=== PATIENT | female | born 1945 | race Caucasian/White ===

== ENCOUNTER → 2017-08-16 | Outpatient (CLI) | payer MEDICARE ==
--- NOTE | 2017-08-16 15:48 | Diagnostic Imaging Report ---
Parathyroid planar scan with SPECT- CT imaging. INDICATION: Hyperparathyroidism. After the intravenous administration of 20 mCi of technetium 99m sestamibi, planar imaging over the neck and the chest were performed at 20 minutes and the [address] imaging over the neck and the chest are performed at 2 hours. FINDINGS: Planar images demonstrate the normal uptake in the thyroid gland without persistent suspicious activity on the delayed phase imaging. Physiologic uptake in the salivary glands seen. SPECT/CT imaging evaluation demonstrates the no suspicious nodule with increased radiotracer uptake in the neck or chest to suggest a parathyroid adenoma. IMPRESSION: No parathyroid adenoma detected. Dictated by: Dictated on workstation # [id number]
== END ==
LOC: CARD 11:58
PROVIDERS: ATTEND Family Medicine
DX: E21.3 Hyperparathyroidism, unspecified (principal)
CPT/HCPCS: 78072

== ENCOUNTER 2019-10-03 12:58 | Outpatient (CLI) | payer MEDICARE | END 2019-10-03 13:56 | disposition home or self-care (01) | LOC: SLEEP 12:58 | PROVIDERS: ATTEND Nurse Practitioner Family | DX: G47.10 Hypersomnia, unspecified (principal) ==

== ENCOUNTER → 2022-07-14 | Outpatient (CLI) | payer MEDICARE ==
[~2022-07-14] VITALS: Ht 167.6 cm; Wt 102.5 kg
[~2022-07-14] MED LIST: ASPI-1238 PO; ATEN25TA PO; CHOL10007 PO; INSU100I29 SQ; LISI20TA26 PO; OMEP40CA6 PO; ONDA4TAB11 PO; PRAV40TA2 PO; RT-ALBUINH IH
== END ==
LOC: PREOP 05:40
PROVIDERS: ATTEND Surgery
DX: Z01.818 Encounter for other preprocedural examination (principal)

== ENCOUNTER 2022-07-20 07:47 | Day surgery (SDC) | payer MEDICARE ==
[~2022-07-20] VITALS: Ht 168 cm; Wt 102.5 kg
[2022-07-20] MEDS ORDERED: LACTATED RINGERS 1,000 ML IV STA (07:49)
[2022-07-20] MEDS ORDERED: HURRICAINE EXT TUBE (BENZOCAINE) XX PRN (08:00)
[2022-07-20 08:05] VITALS: BP 171/72
--- NOTE | 2022-07-20 08:35 | Progress Note-Pre Operative ---
Pre-Operative Progress Note Date of Available H&P: Jun 23, 2022 Date H&P Reviewed: Jul 20, 2022 Time H&P Reviewed: 08:35 History & Physical: H&P Reviewed, Patient Examed, No changes noted Pre-Operative Diagnosis: occult blood in stools, iron def anemia GINA MOTTA DO Jul 20, 2022 08:35
[2022-07-20] MEDS ORDERED: PROPOFOL INJECTION 50 ML IV ONE (09:46)
[2022-07-20 10:25] VITALS: BP 138/72
[2022-07-20 10:30] VITALS: BP 150/83
--- NOTE | 2022-07-20 10:30 | Discharge Inst-Simple/Standard ---
Discharge Inst-Standard Patient Instructions/Follow Up Plan of Care/Instructions/FU: 1 week Priscila Activity as Tolerated: Yes Discharge Diet: Regular Diet GINA MOTTA DO Jul 20, 2022 10:30
[2022-07-20 10:45] VITALS: BP 162/68
--- NOTE | 2022-07-20 11:53 | Anesthesia-General Post-Op ---
MAC Patient Condition Mental Status/LOC: Same as Preop Cardiovascular: Satisfactory Nausea/Vomiting: Absent Respiratory: Satisfactory Pain: Controlled Complications: Absent Post Op Complications Complications None Follow Up Care/Instructions Patient Instructions None needed. Anesthesiology Discharge Order Discharge Order Patient is doing well, no complaints, stable vital signs, no apparent adverse anesthesia problems. No complications reported per nursing. ENRIKE VILLAR CRNA Jul 20, 2022 11:53
--- NOTE | 2022-07-20 14:28 | OPERATIVE REPORT ---
DATE OF SERVICE: 07/20/2022 PREOPERATIVE DIAGNOSES: Occult positive stool, iron deficiency anemia. POSTOPERATIVE DIAGNOSES: Normal EGD, ascending colon mass, sigmoid polyp, diverticulosis. PROCEDURES: EGD with biopsies, colonoscopy with cold biopsy of the ascending colon mass with Justa inking x2 and hot biopsy polypectomy of sigmoid colon polyp x1. SURGEON: Gina rFancois DO ANESTHESIA: Per TELEPHONE INFORMATION CLERK. ESTIMATED BLOOD LOSS: Scant. COMPLICATIONS: None. INDICATIONS: The patient is a 77-year-old female with iron deficiency anemia and occult positive stool. She understands risks and benefits of procedure and wishes to proceed. Consent was signed in the chart. DESCRIPTION OF PROCEDURE: The patient was taken to the endoscopy suite, placed in left lateral recumbent position. Timeout was performed. Scope was inserted in mouth, down the esophagus, stomach and into the duodenum without difficulty. There were no polyps, masses or ulcerations within the duodenum. Scope was slowly retracted back into the stomach where it was further insufflated. No polyps, masses or ulcerations in the stomach. Biopsy of the antrum was obtained. Scope was retroflexed noting no other pathology. Scope was returned to its normal position, slowly withdrawn to distal esophagus. Biopsy of the GE junction was obtained. Scope was slowly retracted back until completely removed noting no other pathology. Digital rectal exam was performed. No palpable polyps, masses or ulcerations. Scope was inserted into the rectum, where it advanced all the way to cecum with minimal difficulty. Prep was adequate. Scope was slowly retracted back. No polyps, masses or ulcerations in the cecum. In the ascending colon, large mass circumferential but nonobstructing was present. Multiple cold biopsies were obtained. Just distal to this area, Justa ink tattoo was performed 1 mL each in two areas for a total of 2 mL of Justa ink was injected. Scope was then slowly continuously retracted back. No polyps, masses or ulcerations within the remainder of the ascending, transverse and descending colon. In the sigmoid colon, moderate amount of diverticulosis present. Also, small polyp was present, which hot biopsy polypectomy was performed. Scope was then continuously retracted back until in the rectum where it was also retroflexed noting no other pathology. Scope was returned to its normal position, slowly withdrawn until completely removed. The patient tolerated the procedure well without any complications, taken to recovery room in stable condition. RECOMMENDATIONS: The patient will need biopsies. Suspect this to be a colon mass. If biopsy does not demonstrate this, we would rebiopsy. Also, we will get lab work and further evaluation for metastasis. Job ID: [id number] DocumentID: [id number] Dictated Date: 07/20/2022 10:33:28 Rn Progressive Care Unit Date: 07/20/2022 14:28:11 Dictated By: GINA FRANCOIS DO
== END 2022-07-20 11:45 ==
LOC: ENDO 07:47
PROVIDERS: ATTEND Surgery
DX: D12.2 Benign neoplasm of ascending colon (principal); D12.5 Benign neoplasm of sigmoid colon; K57.30 Diverticulosis of large intestine without perforation or abscess without bleeding; D50.9 Iron deficiency anemia, unspecified; K92.1 Melena; Z28.311 Partially vaccinated for COVID-19; G47.33 Obstructive sleep apnea (adult) (pediatric); Z79.899 Other long term (current) drug therapy
CPT/HCPCS: 88305; 88341; 88342

== ENCOUNTER → 2022-08-10 | Outpatient (CLI) | payer MEDICARE ==
[~2022-08-10] MED LIST changes: +CATHETER FLUSH 10 ML SYR IV PRN; +HOLD METFORMIN - RECEIVED CONTRAST 20 ML VIAL IV SCH; +IOHEXOL 350 MG/ML 100 ML (OMNIPAQUE 350) VIAL IV ONE; +NS 100 ML (IVPB) BAG IV ONE
[2022-08-10 07:53] LABS: CREATININE SERUM 1.04 MG/DL (0.60-1.30)
--- NOTE | 2022-08-10 12:42 | Diagnostic Imaging Report ---
PROCEDURE: CT chest, abdomen, and pelvis with contrast. TECHNIQUE: Multiple contiguous axial images were obtained through the chest, abdomen, and pelvis after the administration of intravenous contrast. Auto Exposure Controls were utilized during the CT exam to meet ALARA standards for radiation dose reduction. INDICATION: Recent diagnosis of colon carcinoma. No prior studies are available for comparison. CT CHEST: No axillary lymphadenopathy is detected. No mediastinal or hilar lymphadenopathy is detected. No pericardial or pleural fluid is identified. No pulmonary nodules, masses or infiltrates are detected. CT abdomen and pelvis: No focal liver mass is detected. Gallbladder is unremarkable. No biliary ductal dilatation is seen. Pancreas and spleen are unremarkable. No adrenal mass is detected. Right kidney contains a 5.9 cm cyst. Aorta is partially calcified but nonaneurysmal. No central, retroperitoneal or mesenteric lymphadenopathy is seen. No definite iliac or inguinal lymphadenopathy is detected. The uterus and bladder are unremarkable. There is no free fluid or fluid collection. There is extensive diverticulosis of the descending and sigmoid colon but no evidence of acute diverticulitis. There are some benign calcifications in the left adnexa. IMPRESSION: 1. No evidence of thoracic lymphadenopathy or pulmonary metastatic disease. 2. No evidence of abdominal or pelvic lymphadenopathy or metastatic disease. 3. Right renal cyst. 4. Uncomplicated diverticulosis. Dictated by: Dictated on workstation # [id number]
== END ==
LOC: RAD 08:45
PROVIDERS: ATTEND Surgery
DX: N28.1 Cyst of kidney, acquired (principal); K57.30 Diverticulosis of large intestine without perforation or abscess without bleeding; C18.9 Malignant neoplasm of colon, unspecified
CPT/HCPCS: 36415; 71260; 74177; 82565; 84520

== ENCOUNTER → 2022-08-16 | Outpatient (CLI) | payer MEDICARE ==
[~2022-08-16] MED LIST changes: -CATHETER FLUSH 10 ML SYR IV PRN; -HOLD METFORMIN - RECEIVED CONTRAST 20 ML VIAL IV SCH; -IOHEXOL 350 MG/ML 100 ML (OMNIPAQUE 350) VIAL IV ONE; -NS 100 ML (IVPB) BAG IV ONE
--- NOTE | 2022-08-17 13:09 | Diagnostic Imaging Report ---
Indication: Malignant neoplasm of the colon, initial staging. Serum blood glucose level at the time of injection is 134 mg/dL. Patient was administered 13.2 mCi F-18 FDG intravenously and PET imaging was performed from the top of skull to mid thighs. Noncontrast CT was performed for attenuation correction and anatomic correlation. There is symmetric activity throughout the brain. Soft tissues of the neck are unremarkable. No mediastinal or hilar hypermetabolism is identified. No definite pulmonary parenchymal hypermetabolic focus is seen. There is physiologic activity throughout the gastrointestinal and genitourinary tracts of the abdomen and pelvis. There is hypermetabolism noted in the right colon with an SUV max of 17. Uncertain if this represents patient's known colonic malignancy versus gastrointestinal excretion. There are diverticula of the sigmoid colon. No other abnormal areas of uptake are identified. Bilateral lower extremities are unremarkable. IMPRESSION: There is right colonic activity which may represent patient's known malignancy versus gastrointestinal excretion. No hypermetabolic lymphadenopathy in the chest, abdomen or pelvis is identified. Dictated by: Dictated on workstation # [id number]
== END ==
LOC: RAD 08-09 09:45
PROVIDERS: ATTEND Surgery
DX: C18.9 Malignant neoplasm of colon, unspecified (principal)
CPT/HCPCS: 78816; A9552

== ENCOUNTER 2022-08-25 05:52 | Outpatient (CLI) | payer MEDICARE ==
[~2022-08-25] VITALS: Ht 167.6 cm; Wt 96.4 kg
[~2022-08-25 05:52] MED LIST changes: +ALBU8.5H6 IH; -RT-ALBUINH IH
[2022-08-26] MEDS ORDERED: DORZ10DR22 OP (09:54)
[2022-08-26] MEDS ORDERED: LATA5DRO OP (09:54)
== END 2022-08-26 09:59 | disposition home or self-care (01) ==
LOC: PREOP 05:52
PROVIDERS: ATTEND Surgery
DX: Z01.818 Encounter for other preprocedural examination (principal)

== ENCOUNTER 2022-09-01 06:00 | Inpatient (IN) | payer MEDICARE ==
[2022-09-01] VITALS (12 sets, daily range): BP systolic 104–152; BP diastolic 50–88
[~2022-09-01] VITALS: Ht 167.7 cm; Wt 96.4 kg
[~2022-09-01 06:00] MED LIST changes: +DORZ10DR22 OP; +LATA5DRO OU
--- OUTSIDE RECORDS SUMMARY | 2022-09-01 06:03 | XMS REPORT | CCD ---
Author Author Libia Gonzalez Organization Oumou Gonzalez MD, [facility] Address [address] [place] [address] Phone Care Team Providers Care Port Steward Name Role Phone Oumou Gonzalez PP Unavailable CCM Unavailable Summary Purpose Interface Exchange Insurance Providers Payer name Policy type / Coverage type Covered democrat ID Effective Begin Date Effective End Date WPS Medicare Part B Medicare Part B [id number] 2018 Unkno wn AARP Medicare Part B [id number] 2018 Unknown Family history Mother Diagnosis Age At Onset Heart Attack Unknown Hyperlipidemia Unknown Diabetes mellitus Type 2 Unknown Arthritis Unknown Hypertension Unknown Father Diagnosis Age At Onset Skin cancer Unknown Hyperlipidemia Unknown Arthritis Unknown Hypertension Unknown Son Diagnosis Age At Onset Cancer Unknown Hyperlipidemia Unknown Social History Social History Element Codes Description Effective Dates Marital status Unknown Beau Matiaskarishma 08/03/2017 Number of children Unknown 2 08/03/[address]: 211163453 Unknown if ever smoked 07/[address]: 839390824 Never drinks alcohol 2016 Allergies, Adverse Reactions, Alerts Substance Reaction Codes Entered Date Inactivated Date Status * NO KNOWN FOOD ALLERGIES Unknown 08/03/2017 No Inactiv e Date Active * NO KNOWN ENVIRONMENTAL ALLERGIES Unknown 08/03/2017 N o Inactive Date Active PENICILLINS nausea, diarrhea Unknown 08/03/2017 No Inactive Date A ctive Azopt hives RxNorm: 557687 11/30/2021 No Inactive Date Acti ve Problems Condition Codes Effective Dates Condition Status Vitamin B12 deficiency anemia due to intrinsic factor deficiency ICD-10: D51.0 ICD-9: 281.0 06/09/2022 Active Flu vaccine need ICD-10: Z23 ICD-9: V04.81 08/01/2017 Active Anemia ICD-10: D64.9 ICD-9: 285.9 06/03/2022 Active Other vitamin B12 deficiency anemias ICD-10: D51.8 ICD-9: 281.1 06/23/2022 Active Essential (primary) hypertension ICD-10: I10 ICD-9: 401.1 08/03/2017 Active Mixed hyperlipidemia ICD-10: E78.2 ICD-9: 272.2 02/01/2019 Active Type 2 diabetes mellitus without complications ICD-10: E11.9 ICD-9: 250.00 08/03/2017 Active Essential (primary) hypertension ICD-10: I10 ICD-9: 401.9 06/02/2021 Active Generalized anxiety disorder ICD-10: F41.1 ICD-9: 300.02 06/02/2021 Active 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 ICD-9: 388.8 12/01/2021 Active Hypertension Unknown 06/02/2021 Active Primary hyperparathyroidism ICD-10: E21.0 ICD-9: 252.01 08/03/2017 Active Other insomnia ICD-10: G47.09 ICD-9: 327.09 02/01/2019 Active Diabetes Unknown 08/03/2017 Active Encounter for immunization ICD-10: Z23 ICD-9: V03.9 08/03/2017 Active Medications Medication Codes Instructions Start Date Stop Date Status Fill Instructions cyanocobalamin (vit B-12) 1,000 mcg/mL injection solution Rx Norm: 643630 Take Milliliter(s) Injection 08/18/2022 08/18/2022 Inactive atenolol 25 mg tablet RxNorm: 052415 Take 1 Tablet(s) Oral ever y morning 08/10/2022 05/06/2023 Active This prescription wa s filled on 05/19/2022. Any refills authorized will be placed on file. cyanocobalamin (vit B-12) 1,000 mcg/mL injection solution Rx Norm: 006850 Take Milliliter(s) Injection 08/04/2022 08/04/2022 Inactive cyanocobalamin (vit B-12) 1,000 mcg/mL injection solution Rx Norm: 504943 Take Milliliter(s) Injection 07/21/2022 07/21/2022 Inactive cyanocobalamin (vit B-12) 1,000 mcg/mL injection solution Rx Norm: 576336 Take Milliliter(s) Injection 07/07/2022 07/07/2022 Inactive cyanocobalamin (vit B-12) 1,000 mcg/mL injection solution Rx Norm: 515960 Take Milliliter(s) Injection 06/23/2022 06/23/2022 Inactive cyanocobalamin (vit B-12) 1,000 mcg/mL injection solution Rx Norm: 971318 Take Milliliter(s) Injection 06/09/2022 06/09/2022 Inactive lisinopril 20 mg tablet RxNorm: 085693 Take 1 Tablet(s) Oral at bed time 05/18/2022 05/12/2023 Active This prescription wa s filled on 02/24/2022. Any refills authorized will be placed on file. pravastatin 40 mg tablet RxNorm: 237895 Take 1 Tablet(s) Oral a t bed time 04/08/2022 04/02/2023 Active This prescription wa s filled on 01/14/2022. Any refills authorized will be placed on file. omeprazole 40 mg capsule,delayed release RxNorm: 431352 Take 1 Capsule(s) Oral every morning 02/15/2022 08/13/2022 Inactive This prescriptio n was filled on 11/24/2021. Any refills authorized will be placed on file. Levemir FlexTouch U-100 Insulin 100 unit/mL (3 mL) sub cutaneous pen RxNorm: 711059 Unit(s) 15 unit(s) SubQ BID 02/11/2022 02/11/2022 Inactive Levemir FlexTouch U-100 Insulin 100 unit/mL (3 mL) sub cutaneous pen RxNorm: 226682 Unit(s) 14 unit(s) SubQ BID 12/16/2021 12/16/2021 Inactive dicyclomine 10 mg capsule RxNorm: 158152 Take 1 Capsule (s) Oral three times a day as needed 08/24/2021 09/02/2021 Inactive omeprazole 40 mg capsule,delayed release RxNorm: 281307 TAKE 1 CAPSULE IN THE MORNING 07/07/2021 07/07/2021 Inactive This prescriptio n was filled on 02/23/2021. Any refills authorized will be placed on file. Zofran 4 mg tablet RxNorm: 926022 1 Tablet(s) Oral Every 6 hrs as needed 07/07/2021 07/07/2021 Inactive Azopt 1 % eye drops,suspension RxNorm: 954618 1 Drop(s) ophthalmic (eye) two times a day 07/07/2021 11/30/2021 Inactive atenolol 25 mg tablet RxNorm: 152299 1T PO QAM 07/07/2021 07/07/2021 I nactive dicyclomine 10 mg capsule RxNorm: 177477 1 Capsule(s) O ral three times a day as needed 07/07/2021 07/16/2021 Inactive Semglee Pen U-100 Insulin 100 unit/mL (3 mL) subcutaneous Rx Norm: 8134809 25 Unit(s) Subcutaneous every night at bedtime 06/12/2021 07/11/2021 Inac tive 5 prefilled pens. start when levemir used up Semglee Pen U-100 Insulin 100 unit/mL (3 mL) subcutaneous Rx Norm: 8566543 25 Unit(s) Subcutaneous every night at bedtime 06/12/2021 06/12/2021 Inac tive 5 prefilled pens. start when levemir used up dicyclomine 10 mg capsule RxNorm: 627075 1 Capsule(s) O ral three times a day as needed 06/05/2021 06/14/2021 Inactive dicyclomine 10 mg capsule RxNorm: 338644 1 Capsule(s) O ral three times a day as needed 06/05/2021 06/05/2021 Inactive Lexapro 5 mg tablet RxNorm: 510413 Take 1 Tablet(s) Oral every evening 06/02/2021 11/28/2021 Inactive Xanax 0.25 mg tablet RxNorm: 279931 Take 1 Tablet(s) Oral BID PRN 0 06/02/2021 No Stop Date Active Vyzulta 0.024 % eye drops RxNorm: 0456697 1 Drop(s) opht halmic (eye) every night at bedtime 06/02/2021 No Stop Date Active omeprazole 40 mg capsule,delayed release RxNorm: 616594 TAKE 1 CAPSULE IN THE MORNING 05/18/2021 07/06/2021 Inactive This prescriptio n was filled on 02/23/2021. Any refills authorized will be placed on file. lisinopril 20 mg tablet RxNorm: 651897 Take 1 Tablet(s) Oral at bed time 05/06/2021 05/06/2021 Inactive pravastatin 40 mg tablet RxNorm: 180027 Take 1 Tablet(s) Oral a t bed time 04/13/2021 04/13/2021 Inactive This prescription wa s filled on 01/20/2021. Any refills authorized will be placed on file. atenolol 25 mg tablet RxNorm: 264919 1T PO QAM 02/02/2021 07/06/2021 I nactive Levemir FlexTouch U-100 Insulin 100 unit/mL (3 mL) sub cutaneous pen RxNorm: 537275 Unit(s) 14 unit(s) SubQ BID 12/12/2020 06/11/2021 Inactive Levemir FlexTouch U-100 Insulin 100 unit/mL (3 mL) sub cutaneous pen RxNorm: 389368 Unit(s) 14 unit(s) SubQ BID 11/28/2020 11/28/2020 Inactive Zofran 4 mg tablet RxNorm: 378385 1 Tablet(s) Oral Every 6 hrs as needed 11/27/2020 07/06/2021 Inactive omeprazole 40 mg capsule,delayed release RxNorm: 034823 TAKE 1 CAPSULE IN THE MORNING 10/30/2020 10/30/2020 Inactive BD Ultra-Fine Short Pen Needle 31 gauge x 5/16" RxNorm: Miscellaneous USE TWICE DAILY 09/24/2020 07/21/2021 Inactive BD Ultra-Fine Short Pen Needle 31 gauge x 5/16" RxNorm: Miscellaneous USE TWICE DAILY 09/24/2020 09/23/2020 Inactive Levemir FlexTouch U-100 Insulin 100 unit/mL (3 mL) sub cutaneous pen RxNorm: 702295 Unit(s) 12 unit(s) SubQ BID 07/18/2020 07/24/2020 Inactive atenolol 25 mg tablet RxNorm: 948130 1T PO QAM 05/07/2020 01/31/2021 I nactive pravastatin 40 mg tablet RxNorm: 356447 1T PO QHS 04/28/2020 020 Inactive lisinopril 20 mg tablet RxNorm: 378971 1T PO QHS 04/28/2020 04/28/2020 Inactive omeprazole 40 mg capsule,delayed release RxNorm: 693665 TAKE 1 CAPSULE IN THE MORNING 01/23/2020 10/18/2020 Inactive omeprazole 40 mg capsule,delayed release RxNorm: 148660 TAKE 1 CAPSULE IN THE MORNING 1 Tablet(s) Oral every day 08/06/2019 01/22/2020 Inactive Generic For:PRILOSEC 40 MG CAPSULE 12/21/2018 1:47:16 PM pravastatin 40 mg tablet RxNorm: 201343 TAKE 1 TABLET BY MOUTH DAILY AT BEDTIME 07/18/2019 04/12/2020 Inactive Generic For:*PRAVACH OL 40 MG TABLET 07/18/2019 9:41:57 AM Levemir FlexTouch U-100 Insulin 100 unit/mL (3 mL) sub cutaneous pen RxNorm: 465762 Unit(s) 12 unit(s) SubQ BID 07/10/2019 07/17/2020 Inactive lisinopril 20 mg tablet RxNorm: 668679 1 Tablet(s) PO QHS 05/10/2019 04/27/2020 Inactive atenolol 25 mg tablet RxNorm: 255486 TAKE 1 TABLET BY MOUTH YVAN RY MORNING 05/10/2019 02/03/2020 Inactive Generic For:TENORMIN 25 MG TABLET 05/10/2019 9:38:15 AM Pen Needle 31 gauge x 5/16" RxNorm: 1 DAILY 02/16/2019 05/10/2020 Inactive WE NEED NEW RX PLEASE...PT STATES SHE IS USING BID NOW THANK YOU 02/16/2019 2:41:18 PM atenolol 25 mg tablet RxNorm: 233813 1 Tablet(s) PO QAM 01/02/2019 Inactive Pen Needle 31 gauge x 5/16" RxNorm: 1 Miscellaneous daily 10/201802/15/2019 Inactive omeprazole 40 mg capsule,delayed release RxNorm: 518844 TAKE 1 CAPSULE IN THE MORNING 12/22/2018 07/19/2019 Inactive Generic For:PRIL OSEC 40 MG CAPSULE 12/21/2018 1:47:16 PM pravastatin 40 mg tablet RxNorm: 512641 1 Tablet(s) PO QHS 10/30/1907/17/2019 Inactive Levemir FlexTouch U-100 Insulin 100 unit/mL (3 mL) sub cutaneous pen RxNorm: 385226 Unit(s) 12 unit(s) SubQ BID 05/18/2018 07/09/2019 Inactive Levemir FlexTouch U-100 Insulin 100 unit/mL (3 mL) sub cutaneous pen RxNorm: 436874 10 unit(s) SubQ BID 05/17/2018 05/17/2018 Inactive omeprazole 40 mg capsule,delayed release RxNorm: 184216 1 Capsu le(s) PO QAM 04/25/2018 11/20/2018 Inactive lisinopril 20 mg tablet RxNorm: 784284 1 Tablet(s) PO QHS 04/19/2018 04/13/2019 Inactive atenolol 25 mg tablet RxNorm: 549724 1 Tablet(s) PO QAM 12/14/2017 Inactive lisinopril 10 mg tablet RxNorm: 669762 1 Tablet(s) PO QHS 12/14/2017 04/18/2018 Inactive pravastatin 40 mg tablet RxNorm: 196631 1 Tablet(s) PO QHS 12/14/19 18 09/09/2018 Inactive Levemir FlexTouch U-100 Insulin 100 unit/mL (3 mL) sub cutaneous pen RxNorm: 180302 10 Unit(s) SQ QAM & QHS 12/08/2017 05/16/2018 Inactive Pen Needle 31 gauge x 5/16" RxNorm: 1 Miscellaneous daily 10/2512/21/2018 Inactive Pen Needle 31 gauge x 5/16" RxNorm: 1 Miscellaneous daily 10/2502/12/2019 Inactive Phenergan 25 mg rectal suppository RxNorm: 314800 1 Suppository RTL TID 10/20/2017 10/26/2017 Inactive Phenergan 25 mg rectal suppository RxNorm: 341622 1 Suppository RTL TID 10/20/2017 10/19/2017 Inactive omeprazole 40 mg capsule,delayed release RxNorm: 532473 1 Capsu le(s) PO QAM 10/11/2017 04/08/2018 Inactive Vitamin D2 50,000 unit capsule RxNorm: 630611 1 Capsule(s) PO Q W x12 weeks 08/10/2017 08/09/2017 Inactive Take with daily lisha min d Vitamin D2 50,000 unit capsule RxNorm: 072281 1 Capsule(s) PO Q W x12 weeks 08/10/2017 11/07/2017 Inactive Take with daily lisha min d CoQ-10 oral RxNorm: 04484 oral 04/19/2018 Active Vitamin D3 1,000 unit tablet RxNorm: 116022 1 Tablet(s) PO QAM 2016 Active Rhopressa 0.02 % eye drops RxNorm: 2777693 1 Drop(s) eac h eye ophthalmic (eye) QAM 04/19/2018 Active ibuprofen 200 mg tablet RxNorm: 894073 1-2 Tablet(s) PO BID as needed 08/03/2017 Active multivitamin oral RxNorm: 71414 oral 08/03/2017 Active dorzolamide-timolol ophthalmic (eye) RxNorm: 750941 ophthalmic (eye ) 08/06/2019 Active aspirin 81 mg tablet RxNorm: 738942 1 Tablet(s) PO QHS 08/03/2017 Active Century Mature oral RxNorm: oral 06/01/2022 Active lisinopril 10 mg tablet RxNorm: 077540 1 Tablet(s) PO QHS 12/14/2017 12/13/2017 Inactive Levemir FlexTouch 100 unit/mL (3 mL) subcutaneous insulin pe n RxNorm: 007941 8 Unit(s) SQ QAM & QHS 12/08/2017 12/07/2017 Inactive atenolol 25 mg tablet RxNorm: 975188 1 Tablet(s) PO QAM 12/14/2017 Inactive timolol ophthalmic (eye) RxNorm: 44675 ophthalmic (eye) 04/19/2018 Inactive Lumigan 0.01 % eye drops RxNorm: 1012588 1 Drop(s) ophth almic (eye) bilat eyes QHS 06/02/2021 06/01/2021 Inactive pravastatin 40 mg tablet RxNorm: 238765 1 Tablet(s) PO QHS 12/14/19 18 12/13/2017 Inactive Istalol 0.5 % eye drops RxNorm: 446790 1 Drop(s) ophtha lmic (eye) bilat eyes QAM 12/06/2017 12/05/2017 Inactive omeprazole 40 mg capsule,delayed release RxNorm: 584771 1 Capsu le(s) PO QAM 10/11/2017 10/10/2017 Inactive Medication Administered Medication Codes Instructions Start Date Status cyanocobalamin (vit B-12) 1,000 mcg/mL injection solution Rx Norm: 235459 Milliliter 08/18/2022 Active cyanocobalamin (vit B-12) 1,000 mcg/mL injection solution Rx Norm: 795184 Milliliter 08/04/2022 No longer Active cyanocobalamin (vit B-12) 1,000 mcg/mL injection solution Rx Norm: 920305 Milliliter 07/21/2022 No longer Active cyanocobalamin (vit B-12) 1,000 mcg/mL injection solution Rx Norm: 592287 Milliliter 07/07/2022 No longer Active cyanocobalamin (vit B-12) 1,000 mcg/mL injection solution Rx Norm: 557415 Milliliter 06/23/2022 No longer Active cyanocobalamin (vit B-12) 1,000 mcg/mL injection solution Rx Norm: 154472 Milliliter 06/09/2022 No longer Active Immunizations Vaccine Codes Dose Date Status Influenza CVX: 197 0.5 08/04/2022 Complete Influenza CVX: 197 0.5 07/07/2021 Complete Influenza CVX: 197 0.5 07/10/2019 Complete Influenza CVX: 197 0.5 07/03/2018 Complete Pneumococcal (Adult) CVX: 133 0.5 08/03/2017 Complet e Influenza CVX: 197 0.5 08/01/2017 Complete Influenza CVX: 197 07/24/2016 Pneumococcal CVX: 33 07/24/2016 Results Observation Observation Code Item Item Code Result Date S ervice Location Cbc With Differential Ord2 WBC 9.98 K/ul 07/21/20 22 Unknown Cbc With Differential Ord2 RBC 3.81 M/ul 07/21/20 22 Unknown Cbc With Differential Ord2 HGB 9.2 g/dl 07/21/20 22 Unknown Cbc With Differential Ord2 HCT 31.1 % 07/21/20 22 Unknown Cbc With Differential Ord2 Neut% 55.5 % 07/21/20 22 Unknown Cbc With Differential Ord2 Lymph% 34.7 % 07/21/20 22 Unknown Cbc With Differential Ord2 MCV 81.6 fl 07/21/20 22 Unknown Cbc With Differential Ord2 MCH 24.1 pg 07/21/20 22 Unknown Cbc With Differential Ord2 Titus% 7.2 % 07/21/20 22 Unknown Cbc With Differential Ord2 Eos% 2.1 % 07/21/20 22 Unknown Cbc With Differential Ord2 MCHC 29.6 pg 07/21/20 22 Unknown Cbc With Differential Ord2 PLT 452 K/ul 07/21/20 22 Unknown Cbc With Differential Ord2 Baso% 0.5 % 07/21/20 22 Unknown Cbc With Differential Ord2 Neut ABS# 5.54 K/ul 07/21/20 22 Unknown Cbc With Differential Ord2 RDW 14.8 % 07/21/20 22 Unknown Cbc With Differential Ord2 Lymph ABS# 3.46 K/ul 022 Unknown Cbc With Differential Ord2 Titus ABS# 0.7 K/ul 07/21/20 22 Unknown Cbc With Differential Ord2 Eos ABS# 0.2 K/ul 07/21/20 22 Unknown Cbc With Differential Ord2 Baso ABS# 0.1 K/ul 07/21/20 22 Unknown B12 Qgs979 B12 163.00 pg/ml 06/04/2022 Unknow n Tibc Ord40 Iron 37 ug/dl 06/03/2022 Unknown Tibc Ord40 UIBC 420 ug/dL 06/03/2022 Unknown Tibc Ord40 TIBC 457 ug/dL 06/03/2022 Unknown Tibc Ord40 Fe-%Sat 8.1 % 06/03/2022 Unknown Ferritin Ord22 FERRITIN 11.3 ng/mL 06/03/2022 Unknown Cbc With Differential Ord2 WBC 8.69 K/ul 06/01/20 22 Unknown Cbc With Differential Ord2 RBC 3.59 M/ul 06/01/20 22 Unknown Cbc With Differential Ord2 HGB 9.1 g/dl 06/01/20 22 Unknown Cbc With Differential Ord2 Neut% 62.8 % 06/01/20 22 Unknown Cbc With Differential Ord2 HCT 29.9 % 06/01/20 22 Unknown Cbc With Differential Ord2 MCV 83.3 fl 06/01/20 22 Unknown Cbc With Differential Ord2 Lymph% 28.8 % 06/01/20 22 Unknown Cbc With Differential Ord2 Titus% 5.6 % 06/01/20 22 Unknown Cbc With Differential Ord2 MCH 25.3 pg 06/01/20 22 Unknown Cbc With Differential Ord2 Eos% 2.5 % 06/01/20 22 Unknown Cbc With Differential Ord2 MCHC 30.4 pg 06/01/20 22 Unknown Cbc With Differential Ord2 Baso% 0.3 % 06/01/20 22 Unknown Cbc With Differential Ord2 PLT 362 K/ul 06/01/20 22 Unknown Cbc With Differential Ord2 Neut ABS# 5.45 K/ul 06/01/20 22 Unknown Cbc With Differential Ord2 RDW 14.1 % 06/01/20 22 Unknown Cbc With Differential Ord2 Lymph ABS# 2.50 K/ul 022 Unknown Cbc With Differential Ord2 Titus ABS# 0.5 K/ul 06/01/20 22 Unknown Cbc With Differential Ord2 Eos ABS# 0.2 K/ul 06/01/20 22 Unknown Cbc With Differential Ord2 Baso ABS# 0.0 K/ul 06/01/20 22 Unknown %Hba1C Sfd668 % HbA1c 83322-7 7.0 % 06/01/2022 Unknown %Hba1C Qua989 Gluc Ave 154 mg/dL 06/01/2022 Unknown Tsh Ord6 TSH (3rd IS) 1.66 uIU/mL 06/01/2022 Unkn own Lipid Ord30 CHOL 118 mg/dL 06/01/2022 Unknown Lipid Ord30 HDL 40.0 mg/dl 06/01/2022 Unknown Lipid Ord30 TRIG 200 mg/dL 06/01/2022 Unknown Lipid Ord30 LDL 38 mg/dL 06/01/2022 Unknown Lipid Ord30 C/HDL 3.0 Ratio 06/01/2022 Unknown Comp Metabolic Cdi276 NA 133 mEq/L 06/01/2022 Unkn own Comp Metabolic Jdu348 K 4.6 mEq/L 06/01/2022 Unkn own Comp Metabolic Wqx654 CL 102 mEq/L 06/01/2022 Unkn own Comp Metabolic Mmb100 CO2 25.0 mEq/L 06/01/2022 Unk nown Comp Metabolic Eba192 ANION GAP 11 06/01/2022 Unkn own Comp Metabolic Lmb541 GLUCOSE 99 mg/dL 06/01/2022 Unkn own Comp Metabolic Yyj626 Creat 1.0 mg/dL 06/01/2022 Unkn own Comp Metabolic Fgt545 eGFR 60 ml/min/1.73m2 06/01/20 22 Unknown Comp Metabolic Yra546 BUN 15 mg/dL 06/01/2022 Unkn own Comp Metabolic Jxb636 B/C Ratio 15.6 Ratio 06/01/2022 Unk nown Comp Metabolic Hax539 CALCIUM 9.8 mg/dL 06/01/2022 Unkn own Comp Metabolic Cbw559 ALK PHOS 84 U/L 06/01/2022 Unkn own Comp Metabolic Afa810 AST(SGOT) 16 U/L 06/01/2022 Unkn own Comp Metabolic Suv044 ALT(SGPT) 13 U/L 06/01/2022 Unkn own Comp Metabolic Run743 BILI T 0.6 mg/dL 06/01/2022 Unkn own Comp Metabolic Fba536 ALBUMIN 4.1 g/dL 06/01/2022 Unkn own Comp Metabolic Pwo195 TPRO 6.5 g/dL 06/01/2022 Unkn own Comp Metabolic Sih616 GLOB 2.4 g/dL 06/01/2022 Unkn own Comp Metabolic Xqw178 A/G Ratio 1.7 Ratio 06/01/2022 Unkn own Comp Metabolic Uar600 Osmo 267 mOsmo 06/01/2022 Unkn own SARS-CoV-2 IgG TQS7674 SARS-CoV-2 IgG 30.74 S/CO 2 Unknown Comp Metabolic Ssy806 NA 136 mEq/L 12/01/2021 Unkn own Comp Metabolic Rjl661 K 4.8 mEq/L 12/01/2021 Unkn own Comp Metabolic Yfz033 CL 103 mEq/L 12/01/2021 Unkn own Comp Metabolic Kot004 CO2 24.0 mEq/L 12/01/2021 Unk nown Comp Metabolic Wta096 ANION GAP 14 12/01/2021 Unkn own Comp Metabolic Uxm792 GLUCOSE 95 mg/dL 12/01/2021 Unkn own Comp Metabolic Gqi455 Creat 0.9 mg/dL 12/01/2021 Unkn own Comp Metabolic Yrk015 eGFR 62 ml/min/1.73m2 12/01/19 22 Unknown Comp Metabolic Ddo803 BUN 13 mg/dL 12/01/2021 Unkn own Comp Metabolic Ksc679 B/C Ratio 13.8 Ratio 12/01/2021 Unk nown Comp Metabolic Bvn804 CALCIUM 9.7 mg/dL 12/01/2021 Unkn own Comp Metabolic Kvb832 ALK PHOS 89 U/L 12/01/2021 Unkn own Comp Metabolic Wjy653 AST(SGOT) 16 U/L 12/01/2021 Unkn own Comp Metabolic Oxx787 ALT(SGPT) 11 U/L 12/01/2021 Unkn own Comp Metabolic Gxi349 BILI T 0.7 mg/dL 12/01/2021 Unkn own Comp Metabolic Oxz086 ALBUMIN 4.2 g/dL 12/01/2021 Unkn own Comp Metabolic Gsj032 TPRO 6.7 g/dL 12/01/2021 Unkn own Comp Metabolic Fjo492 GLOB 2.5 g/dL 12/01/2021 Unkn own Comp Metabolic Zjm699 A/G Ratio 1.7 Ratio 12/01/2021 Unkn own Comp Metabolic Iyc727 Osmo 272 mOsmo 12/01/2021 Unkn own Cbc With Differential Ord2 WBC 8.38 K/ul 12/01/19 22 Unknown Cbc With Differential Ord2 RBC 4.20 M/ul 12/01/19 22 Unknown Cbc With Differential Ord2 HGB 11.6 g/dl 12/01/19 22 Unknown Cbc With Differential Ord2 Neut% 55.2 % 12/01/19 22 Unknown Cbc With Differential Ord2 HCT 36.6 % 12/01/19 22 Unknown Cbc With Differential Ord2 Lymph% 33.8 % 12/01/19 22 Unknown Cbc With Differential Ord2 MCV 87.1 fl 12/01/19 22 Unknown Cbc With Differential Ord2 Titus% 7.2 % 12/01/19 22 Unknown Cbc With Differential Ord2 MCH 27.6 pg 12/01/19 22 Unknown Cbc With Differential Ord2 MCHC 31.7 pg 12/01/19 22 Unknown Cbc With Differential Ord2 Eos% 3.6 % 12/01/19 22 Unknown Cbc With Differential Ord2 PLT 265 K/ul 12/01/19 22 Unknown Cbc With Differential Ord2 Baso% 0.2 % 12/01/19 22 Unknown Cbc With Differential Ord2 Neut ABS# 4.63 K/ul 12/01/19 22 Unknown Cbc With Differential Ord2 RDW 13.4 % 12/01/19 22 Unknown Cbc With Differential Ord2 Lymph ABS# 2.83 K/ul 022 Unknown Cbc With Differential Ord2 Titus ABS# 0.6 K/ul 12/01/19 22 Unknown Cbc With Differential Ord2 Eos ABS# 0.3 K/ul 12/01/19 22 Unknown Cbc With Differential Ord2 Baso ABS# 0.0 K/ul 12/01/19 22 Unknown %Hba1C Ppf846 % HbA1c 02119-7 6.9 % 12/01/2021 Unknown %Hba1C Kts188 Gluc Ave 151 mg/dL 12/01/2021 Unknown Lipid Ord30 CHOL 139 mg/dL 12/01/2021 Unknown Lipid Ord30 HDL 44.0 mg/dl 12/01/2021 Unknown Lipid Ord30 TRIG 176 mg/dL 12/01/2021 Unknown Lipid Ord30 LDL 60 mg/dL 12/01/2021 Unknown Lipid Ord30 C/HDL 3.2 Ratio 12/01/2021 Unknown Tsh Ord6 TSH (3rd IS) 1.59 uIU/mL 12/01/2021 Unkn own Cbc With Differential Ord2 WBC 7.17 K/ul 04/16/20 21 Unknown Cbc With Differential Ord2 RBC 4.21 M/ul 04/16/20 21 Unknown Cbc With Differential Ord2 HGB 12.3 g/dl 04/16/20 21 Unknown Cbc With Differential Ord2 Neut% 53.8 % 04/16/20 21 Unknown Cbc With Differential Ord2 HCT 37.7 % 04/16/20 21 Unknown Cbc With Differential Ord2 Lymph% 35.7 % 04/16/20 21 Unknown Cbc With Differential Ord2 MCV 89.5 fl 04/16/20 21 Unknown Cbc With Differential Ord2 MCH 29.2 pg 04/16/20 21 Unknown Cbc With Differential Ord2 Titus% 7.0 % 04/16/20 21 Unknown Cbc With Differential Ord2 Eos% 3.1 % 04/16/20 21 Unknown Cbc With Differential Ord2 MCHC 32.6 pg 04/16/20 21 Unknown Cbc With Differential Ord2 PLT 241 K/ul 04/16/20 21 Unknown Cbc With Differential Ord2 Baso% 0.4 % 04/16/20 21 Unknown Cbc With Differential Ord2 RDW 13.2 % 04/16/20 21 Unknown Cbc With Differential Ord2 Neut ABS# 3.86 K/ul 04/16/20 21 Unknown Cbc With Differential Ord2 Lymph ABS# 2.56 K/ul 021 Unknown Cbc With Differential Ord2 Titus ABS# 0.5 K/ul 04/16/20 21 Unknown Cbc With Differential Ord2 Eos ABS# 0.2 K/ul 04/16/20 21 Unknown Cbc With Differential Ord2 Baso ABS# 0.0 K/ul 04/16/20 21 Unknown Comp Metabolic Pmr579 NA 134 mEq/L 04/16/2021 Unkn own Comp Metabolic Eew644 K 4.8 mEq/L 04/16/2021 Unkn own Comp Metabolic Lcb049 CL 100 mEq/L 04/16/2021 Unkn own Comp Metabolic Mea297 CO2 26.0 mEq/L 04/16/2021 Unk nown Comp Metabolic Hvz803 ANION GAP 13 04/16/2021 Unkn own Comp Metabolic Ywo706 GLUCOSE 129 mg/dL 04/16/2021 Unkn own Comp Metabolic Ipv191 Creat 0.9 mg/dL 04/16/2021 Unkn own Comp Metabolic Xfi497 eGFR 62 ml/min/1.73m2 04/16/20 21 Unknown Comp Metabolic Kfm120 BUN 13 mg/dL 04/16/2021 Unkn own Comp Metabolic Yed386 B/C Ratio 13.8 Ratio 04/16/2021 Unk nown Comp Metabolic Vjk000 CALCIUM 10.0 mg/dL 04/16/2021 Unk nown Comp Metabolic Uok327 ALK PHOS 87 U/L 04/16/2021 Unkn own Comp Metabolic Koq031 AST(SGOT) 18 U/L 04/16/2021 Unkn own Comp Metabolic Zxh485 ALT(SGPT) 17 U/L 04/16/2021 Unkn own Comp Metabolic Uca187 BILI T 0.8 mg/dL 04/16/2021 Unkn own Comp Metabolic Gsz814 ALBUMIN 4.2 g/dL 04/16/2021 Unkn own Comp Metabolic Vcm120 TPRO 6.6 g/dL 04/16/2021 Unkn own Comp Metabolic Uyu265 GLOB 2.4 g/dL 04/16/2021 Unkn own Comp Metabolic Ryg161 A/G Ratio 1.7 Ratio 04/16/2021 Unkn own Comp Metabolic Pwk463 Osmo 270 mOsmo 04/16/2021 Unkn own Lipid Ord30 CHOL 153 mg/dL 04/16/2021 Unknown Lipid Ord30 HDL 45.0 mg/dl 04/16/2021 Unknown Lipid Ord30 TRIG 221 mg/dL 04/16/2021 Unknown Lipid Ord30 LDL 64 mg/dL 04/16/2021 Unknown Lipid Ord30 C/HDL 3.4 Ratio 04/16/2021 Unknown %Hba1C Hcp515 % HbA1c 84244-1 7.5 % 04/16/2021 Unknown %Hba1C Bfj305 Gluc Ave 169 mg/dL 04/16/2021 Unknown Comp Metabolic Xkf495 NA 133 mEq/L 11/27/2020 Unkn own Comp Metabolic Qmm318 K 4.4 mEq/L 11/27/2020 Unkn own Comp Metabolic Bzn793 CL 102 mEq/L 11/27/2020 Unkn own Comp Metabolic Zhd284 CO2 23.0 mEq/L 11/27/2020 Unk nown Comp Metabolic Ewu544 ANION GAP 12 11/27/2020 Unkn own Comp Metabolic Jph721 GLUCOSE 138 mg/dL 11/27/2020 Unkn own Comp Metabolic Rqt924 Creat 0.9 mg/dL 11/27/2020 Unkn own Comp Metabolic Ytn945 eGFR 65 ml/min/1.73m2 11/27/19 21 Unknown Comp Metabolic Wlr052 BUN 15 mg/dL 11/27/2020 Unkn own Comp Metabolic Lrd200 B/C Ratio 16.7 Ratio 11/27/2020 Unk nown Comp Metabolic Dah072 CALCIUM 9.8 mg/dL 11/27/2020 Unkn own Comp Metabolic Stn627 ALK PHOS 85 U/L 11/27/2020 Unkn own Comp Metabolic Jxi715 AST(SGOT) 17 U/L 11/27/2020 Unkn own Comp Metabolic Htx315 ALT(SGPT) 17 U/L 11/27/2020 Unkn own Comp Metabolic Pak262 BILI T 0.7 mg/dL 11/27/2020 Unkn own Comp Metabolic Lfc681 ALBUMIN 4.3 g/dL 11/27/2020 Unkn own Comp Metabolic Ero990 TPRO 6.7 g/dL 11/27/2020 Unkn own Comp Metabolic Yyc711 GLOB 2.4 g/dL 11/27/2020 Unkn own Comp Metabolic Kfj404 A/G Ratio 1.8 Ratio 11/27/2020 Unkn own Comp Metabolic Bej983 Osmo 269 mOsmo 11/27/2020 Unkn own %Hba1C Ncl918 % HbA1c 03875-6 7.6 % 11/27/2020 Unknown %Hba1C Swy328 Gluc Ave 171 mg/dL 11/27/2020 Unknown Tsh Ord6 TSH (3rd IS) 1.49 uIU/mL 11/27/2020 Unkn own Cbc With Differential Ord2 WBC 6.94 K/ul 11/27/19 21 Unknown Cbc With Differential Ord2 RBC 4.35 M/ul 11/27/19 21 Unknown Cbc With Differential Ord2 HGB 12.9 g/dl 11/27/19 21 Unknown Cbc With Differential Ord2 HCT 38.5 % 11/27/19 21 Unknown Cbc With Differential Ord2 Neut% 48.1 % 11/27/19 21 Unknown Cbc With Differential Ord2 MCV 88.5 fl 11/27/19 21 Unknown Cbc With Differential Ord2 Lymph% 39.8 % 11/27/19 21 Unknown Cbc With Differential Ord2 MCH 29.7 pg 11/27/19 21 Unknown Cbc With Differential Ord2 Titus% 7.8 % 11/27/19 21 Unknown Cbc With Differential Ord2 Eos% 3.9 % 11/27/19 21 Unknown Cbc With Differential Ord2 MCHC 33.5 pg 11/27/19 21 Unknown Cbc With Differential Ord2 Baso% 0.4 % 11/27/19 21 Unknown Cbc With Differential Ord2 PLT 264 K/ul 11/27/19 21 Unknown Cbc With Differential Ord2 Neut ABS# 3.34 K/ul 11/27/19 21 Unknown Cbc With Differential Ord2 RDW 13.0 % 11/27/19 21 Unknown Cbc With Differential Ord2 Lymph ABS# 2.76 K/ul 021 Unknown Cbc With Differential Ord2 Titus ABS# 0.5 K/ul 11/27/19 21 Unknown Cbc With Differential Ord2 Eos ABS# 0.3 K/ul 11/27/19 21 Unknown Cbc With Differential Ord2 Baso ABS# 0.0 K/ul 11/27/19 21 Unknown Lipid Ord30 CHOL 161 mg/dL 11/27/2020 Unknown Lipid Ord30 HDL 44.0 mg/dl 11/27/2020 Unknown Lipid Ord30 TRIG 225 mg/dL 11/27/2020 Unknown Lipid Ord30 LDL 72 mg/dL 11/27/2020 Unknown Lipid Ord30 C/HDL 3.7 Ratio 11/27/2020 Unknown Lipid Ord30 CHOL 170 mg/dL 05/22/2020 Unknown Lipid Ord30 HDL 47.0 mg/dl 05/22/2020 Unknown Lipid Ord30 TRIG 282 mg/dL 05/22/2020 Unknown Lipid Ord30 LDL 67 mg/dL 05/22/2020 Unknown Lipid Ord30 C/HDL 3.6 Ratio 05/22/2020 Unknown Tsh Ord6 TSH (3rd IS) 2.42 uIU/mL 05/22/2020 Unkn own Cbc With Differential Ord2 WBC 7.18 K/ul 05/22/20 20 Unknown Cbc With Differential Ord2 RBC 4.72 M/ul 05/22/20 20 Unknown Cbc With Differential Ord2 HGB 13.8 g/dl 05/22/20 Unknown Cbc With Differential Ord2 Neut% 51.8 % 05/22/20 Unknown Cbc With Differential Ord2 HCT 41.4 % 05/22/20 Unknown Cbc With Differential Ord2 MCV 87.7 fl 05/22/20 Unknown Cbc With Differential Ord2 Lymph% 37.0 % 05/22/20 Unknown Cbc With Differential Ord2 Titus% 7.1 % 05/22/20 Unknown Cbc With Differential Ord2 MCH 29.2 pg 05/22/20 Unknown Cbc With Differential Ord2 Eos% 3.5 % 05/22/20 Unknown Cbc With Differential Ord2 MCHC 33.3 pg 05/22/20 Unknown Cbc With Differential Ord2 PLT 254 K/ul 05/22/20 20 Unknown Cbc With Differential Ord2 Baso% 0.6 % 05/22/20 Unknown Cbc With Differential Ord2 Neut ABS# 3.72 K/ul 05/22/20 20 Unknown Cbc With Differential Ord2 RDW 13.3 % 05/22/20 Unknown Cbc With Differential Ord2 Lymph ABS# 2.66 K/ul 020 Unknown Cbc With Differential Ord2 Titus ABS# 0.5 K/ul 05/22/20 20 Unknown Cbc With Differential Ord2 Eos ABS# 0.3 K/ul 05/22/20 20 Unknown Cbc With Differential Ord2 Baso ABS# 0.0 K/ul 05/22/20 20 Unknown Comp Metabolic Ieq465 NA 134 mEq/L 05/22/2020 Unkn own Comp Metabolic Jsf602 K 4.6 mEq/L 05/22/2020 Unkn own Comp Metabolic Cjh030 CL 102 mEq/L 05/22/2020 Unkn own Comp Metabolic Vaz312 CO2 23.0 mEq/L 05/22/2020 Unk nown Comp Metabolic Rpc420 ANION GAP 14 05/22/2020 Unkn own Comp Metabolic Dij967 GLUCOSE 146 mg/dL 05/22/2020 Unkn own Comp Metabolic Lcb111 Creat 1.1 mg/dL 05/22/2020 Unkn own Comp Metabolic Uui402 eGFR 53 ml/min/1.73m2 05/22/20 20 Unknown Comp Metabolic Dyz013 BUN 19 mg/dL 05/22/2020 Unkn own Comp Metabolic Ikm991 B/C Ratio 17.8 Ratio 05/22/2020 Unk nown Comp Metabolic Mkt845 CALCIUM 10.1 mg/dL 05/22/2020 Unk nown Comp Metabolic Kbj399 ALK PHOS 92 U/L 05/22/2020 Unkn own Comp Metabolic Snx863 AST(SGOT) 19 U/L 05/22/2020 Unkn own Comp Metabolic Wdg637 ALT(SGPT) 18 U/L 05/22/2020 Unkn own Comp Metabolic Mka455 BILI T 0.9 mg/dL 05/22/2020 Unkn own Comp Metabolic Nyc446 ALBUMIN 4.4 g/dL 05/22/2020 Unkn own Comp Metabolic Qge964 TPRO 6.9 g/dL 05/22/2020 Unkn own Comp Metabolic Zmi970 GLOB 2.5 g/dL 05/22/2020 Unkn own Comp Metabolic Jkb552 A/G Ratio 1.7 Ratio 05/22/2020 Unkn own Comp Metabolic Luu173 Osmo 273 mOsmo 05/22/2020 Unkn own %Hba1C Rlu870 % HbA1c 56797-3 7.2 % 05/22/2020 Unknown %Hba1C Wnl401 Gluc Ave 160 mg/dL 05/22/2020 Unknown Cbc With Differential Ord2 WBC 6.65 K/ul 08/06/20 19 Unknown Cbc With Differential Ord2 RBC 4.46 M/ul 08/06/20 19 Unknown Cbc With Differential Ord2 HGB 13.1 g/dl 08/06/20 19 Unknown Cbc With Differential Ord2 HCT 39.7 % 08/06/20 19 Unknown Cbc With Differential Ord2 Neut% 44.8 % 08/06/20 19 Unknown Cbc With Differential Ord2 Lymph% 42.7 % 08/06/20 19 Unknown Cbc With Differential Ord2 MCV 89.0 fl 08/06/20 19 Unknown Cbc With Differential Ord2 Titus% 7.5 % 08/06/20 19 Unknown Cbc With Differential Ord2 MCH 29.4 pg 08/06/20 19 Unknown Cbc With Differential Ord2 MCHC 33.0 pg 08/06/20 19 Unknown Cbc With Differential Ord2 Eos% 4.4 % 08/06/20 19 Unknown Cbc With Differential Ord2 Baso% 0.6 % 08/06/20 19 Unknown Cbc With Differential Ord2 PLT 231 K/ul 08/06/20 19 Unknown Cbc With Differential Ord2 RDW 13.4 % 08/06/20 19 Unknown Cbc With Differential Ord2 Neut ABS# 2.98 K/ul 08/06/20 19 Unknown Cbc With Differential Ord2 Lymph ABS# 2.84 K/ul 019 Unknown Cbc With Differential Ord2 Titus ABS# 0.5 K/ul 08/06/20 19 Unknown Cbc With Differential Ord2 Eos ABS# 0.3 K/ul 08/06/20 19 Unknown Cbc With Differential Ord2 Baso ABS# 0.0 K/ul 08/06/20 19 Unknown Lipid Ord30 CHOL 164 mg/dL 08/06/2019 Unknown Lipid Ord30 HDL 42.0 mg/dl 08/06/2019 Unknown Lipid Ord30 TRIG 322 mg/dL 08/06/2019 Unknown Lipid Ord30 LDL 58 mg/dL 08/06/2019 Unknown Lipid Ord30 C/HDL 3.9 Ratio 08/06/2019 Unknown Comp Metabolic Ovl515 NA 138 mEq/L 08/06/2019 Unkn own Comp Metabolic Bvl464 K 4.3 mEq/L 08/06/2019 Unkn own Comp Metabolic Mgf578 CL 103 mEq/L 08/06/2019 Unkn own Comp Metabolic Utl228 CO2 25.0 mEq/L 08/06/2019 Unk nown Comp Metabolic Izg606 ANION GAP 14 08/06/2019 Unkn own Comp Metabolic Ypf250 GLUCOSE 131 mg/dL 08/06/2019 Unkn own Comp Metabolic Eeq721 Creat 0.9 mg/dL 08/06/2019 Unkn own Comp Metabolic Xmo452 eGFR 64 ml/min/1.73m2 08/06/20 19 Unknown Comp Metabolic Wvi451 BUN 15 mg/dL 08/06/2019 Unkn own Comp Metabolic Kmb459 B/C Ratio 16.5 Ratio 08/06/2019 Unk nown Comp Metabolic Dxf406 CALCIUM 9.6 mg/dL 08/06/2019 Unkn own Comp Metabolic Aoz617 ALK PHOS 96 U/L 08/06/2019 Unkn own Comp Metabolic Cmw847 AST(SGOT) 15 U/L 08/06/2019 Unkn own Comp Metabolic Oot409 ALT(SGPT) 12 U/L 08/06/2019 Unkn own Comp Metabolic Yqx539 BILI T 0.8 mg/dL 08/06/2019 Unkn own Comp Metabolic Wzq467 ALBUMIN 4.3 g/dL 08/06/2019 Unkn own Comp Metabolic Vkw537 TPRO 6.6 g/dL 08/06/2019 Unkn own Comp Metabolic Ukg530 GLOB 2.3 g/dL 08/06/2019 Unkn own Comp Metabolic Sdl063 A/G Ratio 1.9 Ratio 08/06/2019 Unkn own Comp Metabolic Jwz265 Osmo 278 mOsmo 08/06/2019 Unkn own %Hba1C Wvd595 % HbA1c 78787-2 6.9 % 08/06/2019 Unknown %Hba1C Ukm040 Gluc Ave 151 mg/dL 08/06/2019 Unknown %Hba1C Obq597 % HbA1c 71714-1 6.7 % 02/01/2019 Unknown %Hba1C Ttm178 Gluc Ave 146 mg/dL 02/01/2019 Unknown Tsh Ord6 TSH (3rd IS) 1.78 uIU/mL 02/01/2019 Unkn own Lipid Ord30 CHOL 163 mg/dL 02/01/2019 Unknown Lipid Ord30 HDL 47.0 mg/dl 02/01/2019 Unknown Lipid Ord30 TRIG 280 mg/dL 02/01/2019 Unknown Lipid Ord30 LDL 60 mg/dL 02/01/2019 Unknown Lipid Ord30 C/HDL 3.5 Ratio 02/01/2019 Unknown Microalbumin Ebr415 MicroAlb <0.7 mg/dL 02/01/2019 Unkno wn Cbc With Differential Ord2 WBC 7.48 K/ul 02/02/20 19 Unknown Cbc With Differential Ord2 RBC 4.51 M/ul 02/02/20 19 Unknown Cbc With Differential Ord2 HGB 13.1 g/dl 02/02/20 19 Unknown Cbc With Differential Ord2 Neut% 56.9 % 02/02/20 19 Unknown Cbc With Differential Ord2 HCT 39.7 % 02/02/20 19 Unknown Cbc With Differential Ord2 Lymph% 33.6 % 02/02/20 19 Unknown Cbc With Differential Ord2 MCV 88.0 fl 02/02/20 19 Unknown Cbc With Differential Ord2 MCH 29.0 pg 02/02/20 19 Unknown Cbc With Differential Ord2 Titus% 6.6 % 02/02/20 19 Unknown Cbc With Differential Ord2 MCHC 33.0 pg 02/02/20 19 Unknown Cbc With Differential Ord2 Eos% 2.5 % 02/02/20 19 Unknown Cbc With Differential Ord2 Baso% 0.4 % 02/02/20 19 Unknown Cbc With Differential Ord2 PLT 262 K/ul 02/02/20 19 Unknown Cbc With Differential Ord2 Neut ABS# 4.26 K/ul 02/02/20 19 Unknown Cbc With Differential Ord2 RDW 13.6 % 02/02/20 19 Unknown Cbc With Differential Ord2 Lymph ABS# 2.51 K/ul 019 Unknown Cbc With Differential Ord2 Titus ABS# 0.5 K/ul 02/02/20 19 Unknown Cbc With Differential Ord2 Eos ABS# 0.2 K/ul 02/02/20 19 Unknown Cbc With Differential Ord2 Baso ABS# 0.0 K/ul 02/02/20 19 Unknown Comp Metabolic Tpx197 NA 135 mEq/L 02/01/2019 Unkn own Comp Metabolic Inr551 K 4.5 mEq/L 02/01/2019 Unkn own Comp Metabolic Zvh673 CL 105 mEq/L 02/01/2019 Unkn own Comp Metabolic Zrb762 CO2 23.0 mEq/L 02/01/2019 Unk nown Comp Metabolic Jox923 ANION GAP 12 02/01/2019 Unkn own Comp Metabolic Acr782 GLUCOSE 125 mg/dL 02/01/2019 Unkn own Comp Metabolic Kqs945 Creat 0.9 mg/dL 02/01/2019 Unkn own Comp Metabolic Okf782 eGFR 67 ml/min/1.73m2 02/02/20 19 Unknown Comp Metabolic Wcy550 BUN 17 mg/dL 02/01/2019 Unkn own Comp Metabolic Aid180 B/C Ratio 19.3 Ratio 02/01/2019 Unk nown Comp Metabolic Mnq017 CALCIUM 9.8 mg/dL 02/01/2019 Unkn own Comp Metabolic Cgn942 ALK PHOS 89 U/L 02/01/2019 Unkn own Comp Metabolic Koe829 AST(SGOT) 17 U/L 02/01/2019 Unkn own Comp Metabolic Efb528 ALT(SGPT) 14 U/L 02/01/2019 Unkn own Comp Metabolic Rei446 BILI T 0.7 mg/dL 02/01/2019 Unkn own Comp Metabolic Rqg779 ALBUMIN 4.4 g/dL 02/01/2019 Unkn own Comp Metabolic Siy268 TPRO 6.8 g/dL 02/01/2019 Unkn own Comp Metabolic Pqu898 GLOB 2.4 g/dL 02/01/2019 Unkn own Comp Metabolic Sgd586 A/G Ratio 1.8 Ratio 02/01/2019 Unkn own Comp Metabolic Hxk940 Osmo 273 mOsmo 02/01/2019 Unkn own %Hba1C Ckg714 % HbA1c 84257-0 6.6 % 04/19/2018 Unknown %Hba1C Qwa990 Gluc Ave 143 mg/dL 04/19/2018 Unknown Comp Metabolic Gjc241 NA 137 mEq/L 12/06/2017 Unkn own Comp Metabolic Ych915 K 4.6 mEq/L 12/06/2017 Unkn own Comp Metabolic Zft208 CL 102 mEq/L 12/06/2017 Unkn own Comp Metabolic Xhg178 CO2 27.0 mEq/L 12/06/2017 Unk nown Comp Metabolic Xwi539 ANION GAP 13 12/06/2017 Unkn own Comp Metabolic Hve753 GLUCOSE 120 mg/dL 12/06/2017 Unkn own Comp Metabolic Uhi854 Creat 0.9 mg/dL 12/06/2017 Unkn own Comp Metabolic Xpq952 eGFR 62 ml/min/1.73m2 12/06/19 18 Unknown Comp Metabolic Flc694 BUN 20 mg/dL 12/06/2017 Unkn own Comp Metabolic Ozm211 B/C Ratio 21.3 Ratio 12/06/2017 Unk nown Comp Metabolic Kea414 CALCIUM 10.5 mg/dL 12/06/2017 Unk nown Comp Metabolic Abg981 ALK PHOS 96 U/L 12/06/2017 Unkn own Comp Metabolic Epr484 AST(SGOT) 18 U/L 12/06/2017 Unkn own Comp Metabolic Gge426 ALT(SGPT) 15 U/L 12/06/2017 Unkn own Comp Metabolic Tvo919 BILI T 0.7 mg/dL 12/06/2017 Unkn own Comp Metabolic Arh982 ALBUMIN 4.6 g/dL 12/06/2017 Unkn own Comp Metabolic Sbh935 TPRO 7.1 g/dL 12/06/2017 Unkn own Comp Metabolic Sqs657 GLOB 2.5 g/dL 12/06/2017 Unkn own Comp Metabolic Amc366 A/G Ratio 1.9 Ratio 12/06/2017 Unkn own Comp Metabolic Ate733 Osmo 278 mOsmo 12/06/2017 Unkn own %Hba1C Wtv525 % HbA1c 82843-4 6.4 % 12/06/2017 Unknown %Hba1C Nbr165 Gluc Ave 137 mg/dL 12/06/2017 Unknown Lipid Ord30 CHOL 165 mg/dL 12/06/2017 Unknown Lipid Ord30 HDL 46.0 mg/dl 12/06/2017 Unknown Lipid Ord30 TRIG 251 mg/dL 12/06/2017 Unknown Lipid Ord30 LDL 69 mg/dL 12/06/2017 Unknown Lipid Ord30 C/HDL 3.6 Ratio 12/06/2017 Unknown Vitamin D 25 Oh Dgk2407 VITAMIN D, 25 HYDROXY 36.06 ng/mL 08/04/2017 Unknown Lipid Ord30 CHOL 174 mg/dL 08/04/2017 Unknown Lipid Ord30 HDL 46.0 mg/dl 08/04/2017 Unknown Lipid Ord30 TRIG 262 mg/dL 08/04/2017 Unknown Lipid Ord30 LDL 76 mg/dL 08/04/2017 Unknown Lipid Ord30 C/HDL 3.8 Ratio 08/04/2017 Unknown Parathyroid Hormone Dxj475 PTH 73.50 pg/ml 08/04/20 17 Unknown %Hba1C Xdx662 % HbA1c 60973-8 6.6 % 08/04/2017 Unknown %Hba1C Rbq040 Gluc Ave 143 mg/dL 08/04/2017 Unknown Cbc With Differential Ord2 WBC 7.39 K/ul 08/04/20 17 Unknown Cbc With Differential Ord2 RBC 4.54 M/ul 08/04/20 17 Unknown Cbc With Differential Ord2 HGB 13.6 g/dl 08/04/20 17 Unknown Cbc With Differential Ord2 Neut% 50.6 % 08/04/20 17 Unknown Cbc With Differential Ord2 HCT 40.2 % 08/04/20 17 Unknown Cbc With Differential Ord2 Lymph% 36.7 % 08/04/20 17 Unknown Cbc With Differential Ord2 MCV 88.5 fl 08/04/20 17 Unknown Cbc With Differential Ord2 Titus% 7.8 % 08/04/20 17 Unknown Cbc With Differential Ord2 MCH 30.0 pg 08/04/20 17 Unknown Cbc With Differential Ord2 MCHC 33.8 pg 08/04/20 17 Unknown Cbc With Differential Ord2 Eos% 4.5 % 08/04/20 17 Unknown Cbc With Differential Ord2 Baso% 0.4 % 08/04/20 17 Unknown Cbc With Differential Ord2 PLT 245 K/ul 08/04/20 17 Unknown Cbc With Differential Ord2 RDW 13.2 % 08/04/20 17 Unknown Cbc With Differential Ord2 Neut ABS# 3.74 K/ul 08/04/20 17 Unknown Cbc With Differential Ord2 Lymph ABS# 2.71 K/ul 017 Unknown Cbc With Differential Ord2 Titus ABS# 0.6 K/ul 08/04/20 17 Unknown Cbc With Differential Ord2 Eos ABS# 0.3 K/ul 08/04/20 17 Unknown Cbc With Differential Ord2 Baso ABS# 0.0 K/ul 08/04/20 17 Unknown Free T4 Cvt518 FREE T4 1.00 ng/dL 08/04/2017 Unknown Comp Metabolic Ele398 NA 138 mEq/L 08/04/2017 Unkn own Comp Metabolic Dst002 K 4.5 mEq/L 08/04/2017 Unkn own Comp Metabolic Kou917 CL 102 mEq/L 08/04/2017 Unkn own Comp Metabolic Zcg689 CO2 25.0 mEq/L 08/04/2017 Unk nown Comp Metabolic Oif783 ANION GAP 16 08/04/2017 Unkn own Comp Metabolic Hbb434 GLUCOSE 99 mg/dL 08/04/2017 Unkn own Comp Metabolic Mtd768 Creat 0.9 mg/dL 08/04/2017 Unkn own Comp Metabolic Grx790 eGFR 63 ml/min/1.73m2 08/04/20 17 Unknown Comp Metabolic Kvm411 BUN 18 mg/dL 08/04/2017 Unkn own Comp Metabolic Hfq663 B/C Ratio 19.4 Ratio 08/04/2017 Unk nown Comp Metabolic Opm158 CALCIUM 10.4 mg/dL 08/04/2017 Unk nown Comp Metabolic Dpc711 ALK PHOS 87 U/L 08/04/2017 Unkn own Comp Metabolic Jyz624 AST(SGOT) 20 U/L 08/04/2017 Unkn own Comp Metabolic Bbh489 ALT(SGPT) 16 U/L 08/04/2017 Unkn own Comp Metabolic Ckh311 BILI T 0.8 mg/dL 08/04/2017 Unkn own Comp Metabolic Lqi364 ALBUMIN 4.6 g/dL 08/04/2017 Unkn own Comp Metabolic Bzv496 TPRO 7.0 g/dL 08/04/2017 Unkn own Comp Metabolic Kwg904 GLOB 2.4 g/dL 08/04/2017 Unkn own Comp Metabolic Xrt888 A/G Ratio 1.9 Ratio 08/04/2017 Unkn own Comp Metabolic Bnm054 Osmo 278 mOsmo 08/04/2017 Unkn own Tsh Ord6 hTSH II 1.55 uIU/mL 08/04/2017 Unknown Procedures Procedure Codes Date THER/PROPH/DIAG INJ SC/IM CPT-4: 78888 08/18/2022 VITAMIN B12 INJECTION 1000 mcg CPT-4: J3420 2 ADMIN INFLUENZA VIRUS VAC CPT-4: G0008 08/04/2022 IIV NO PRSV INCREASED AG IM CPT-4: 87367 08/04/2022 THER/PROPH/DIAG INJ SC/IM CPT-4: 78485 08/04/2022 VITAMIN B12 INJECTION 1000 mcg CPT-4: J3420 2 THER/PROPH/DIAG INJ SC/IM CPT-4: 82594 07/21/2022 VITAMIN B12 INJECTION 1000 mcg CPT-4: J3420 2 THER/PROPH/DIAG INJ SC/IM CPT-4: 52886 07/07/2022 VITAMIN B12 INJECTION 1000 mcg CPT-4: J3420 2 THER/PROPH/DIAG INJ SC/IM CPT-4: 33498 06/23/2022 VITAMIN B12 INJECTION 1000 mcg CPT-4: J3420 2 THER/PROPH/DIAG INJ SC/IM CPT-4: 77143 06/09/2022 VITAMIN B12 INJECTION 1000 mcg CPT-4: J3420 2 ADMIN INFLUENZA VIRUS VAC CPT-4: G0008 07/07/2021 IIV NO PRSV INCREASED AG IM CPT-4: 44546 07/07/2021 ADMIN INFLUENZA VIRUS VAC CPT-4: G0008 07/10/2019 IIV NO PRSV INCREASED AG IM CPT-4: 95856 07/10/2019 IIV4 VACC NO PRSV 3 YRS+ IM CPT-4: 96629 07/03/2018 ADMIN INFLUENZA VIRUS VAC CPT-4: G0008 07/03/2018 IIV4 VACC NO PRSV 0.5 ML IM CPT-4: 40373 07/03/2018 GLUC MONITOR CONT PHYS I&R CPT-4: 51854 05/16/2018 GLUCOSE MONITORING CONT CPT-4: 18227 05/01/2018 ADMIN PNEUMOCOCCAL VACCINE SNOMED CT: 75720397 CPT-4: G0009 08/03/2017 PNEUMOCOCCAL VACC [address]: 90880376 CPT-4: 71191 08/03/2017 ADMIN INFLUENZA VIRUS VAC CPT-4: G0008 08/01/2017 IIV NO PRSV INCREASED AG IM CPT-4: 88684 08/01/2017 Vital Signs Date Vital 06/01/2022 Blood Pressure 1: 138/72 Code: 8480-6 BMI: 35.7 Code: 82860-3 Heart Rate 1: 73 bpm Height: 5'6" Code: 8302-2 SpO2: 98% Temperature: 3 6.2 (C) / 97.1 (F) Weight: 221 lbs Code: 43223-6 12/01/2021 Blood Pressure 1: 148/80 Code: 8480-6 BMI: 36.2 Code: 98240-6 Heart Rate 1: 63 bpm Height: 5'6" Code: 8302-2 SpO2: 95% Temperature: 3 5.3 (C) / 95.6 (F) Weight: 224 lbs Code: 54925-0 07/07/2021 Blood Pressure 1: 136/70 Code: 8480-6 BMI: 37.1 Code: 70244-6 Heart Rate 1: 65 bpm Height: 5'6" Code: 8302-2 SpO2: 97% Temperature: 3 6.2 (C) / 97.2 (F) Weight: 230 lbs Code: 10098-4 06/02/2021 Blood Pressure 1: 142/86 Code: 8480-6 BMI: 38.4 Code: 31110-2 Heart Rate 1: 65 bpm Height: 5'6" Code: 8302-2 SpO2: 94% Temperature: 3 6.2 (C) / 97.2 (F) Weight: 238 lbs Code: 62190-1 11/27/2020 Blood Pressure 1: 140/78 Code: 8480-6 BMI: 39.7 Code: 09562-5 Heart Rate 1: 72 bpm Height: 5'6" Code: 8302-2 SpO2: 95% Temperature: 3 6.6 (C) / 97.9 (F) Weight: 246 lbs Code: 93803-8 05/22/2020 Blood Pressure 1: 148/80 Code: 8480-6 BMI: 38.4 Code: 29915-9 Heart Rate 1: 56 bpm Height: 5'6" Code: 8302-2 SpO2: 97% Temperature: 3 6.4 (C) / 97.6 (F) Weight: 238 lbs Code: 71314-1 02/07/2020 Height: Code: 8302-2 Weight: Code: 294 63-7 08/06/2019 Blood Pressure 1: 132/78 Code: 8480-6 BMI: 38.4 Code: 91428-7 Heart Rate 1: 76 bpm Height: 5'6" Code: 8302-2 SpO2: 97% Weight: 238 lb s Code: 84697-5 02/01/2019 Blood Pressure 1: 132/80 Code: 8480-6 BMI: 37.8 Code: 58995-0 Heart Rate 1: 64 bpm Height: 5'6" Code: 8302-2 SpO2: 97% Weight: 234 lb s Code: 58334-4 05/16/2018 Blood Pressure 1: 128/78 Code: 8480-6 BMI: 37.3 Code: 52502-4 Heart Rate 1: 56 bpm Height: 5'6" Code: 8302-2 SpO2: 98% Weight: 231 lb s Code: 23325-4 05/01/2018 Blood Pressure 1: 132/70 Code: 8480-6 BMI: 37.3 Code: 89287-2 Heart Rate 1: 64 bpm Height: 5'6" Code: 8302-2 SpO2: 94% Weight: 231 lb s Code: 45478-0 04/19/2018 Blood Pressure 1: 152/78 Code: 8480-6 BMI: 37.4 Code: 45016-8 Heart Rate 1: 57 bpm Height: 5'6" Code: 8302-2 SpO2: 98% Weight: 232 lb s Code: 41223-7 12/06/2017 Blood Pressure 1: 132/78 Code: 8480-6 BMI: 36.5 Code: 84666-4 Heart Rate 1: 59 bpm Height: 5'6" Code: 8302-2 SpO2: 98% Weight: 226 lb s Code: 07538-1 08/03/2017 Blood Pressure 1: 130/84 Code: 8480-6 BMI: 36.8 Code: 33016-3 Heart Rate 1: 59 bpm Height: 5'6" Code: 8302-2 SpO2: 98% Weight: 228 lb s Code: 24341-0 Functional Status No Functional Status data Reason For Visit Reason For Visit Effective Dates Notes vaccination against influenza 08/04/2022 hypertension 06/01/2022 diabetes mellitus 06/01/2022 hypertension 12/01/2021 diabetes mellitus 12/01/2021 hypertension 07/07/2021 anxiety 07/07/2021 vaccination against influenza 07/07/2021 diabetes mellitus 06/02/2021 hypertension 06/02/2021 anxiety 06/02/2021 diabetes mellitus 11/27/2020 diabetes mellitus 05/22/2020 diabetes mellitus 02/07/2020 diabetes mellitus 08/06/2019 vaccination against influenza 07/10/2019 diabetes mellitus 02/01/2019 vaccination against influenza 07/03/2018 diabetes mellitus 05/16/2018 diabetes mellitus 05/01/2018 diabetes mellitus 04/19/2018 hypertension 04/19/2018 diabetes mellitus 12/06/2017 hypertension 12/06/2017 diabetes mellitus 08/03/2017 hypertension 08/03/2017 vaccination against pneumonia 08/03/2017 vaccination against influenza 08/01/2017 Encounters Encounter Performer Location Location Address Codes Date ([id number]) [id number] EST. PATIENT, LEVEL I Diagnosis: Anemia[ICD10: D64.9] Oumou Gonzalez MD, [facility] [address] [place] [address] CPT-4: 58452 06/15/2022 ([id number]) [id number] EST. PATIENT, LEVEL IV Diagnosis: Essential (primary) hypertension[ICD10: I10] Diagnosis: Mixed hyperlipidemia[ICD10: E78.2] Diagnosis: Type 2 diabetes mellitus without complications[ICD10: E11.9] Sarah Gonzalez MD, [facility] [address] [place] [address] CPT-4: 01949 06/01/2022 ([id number]) 51297 EST. PATIENT, LEVEL IV Diagnosis: Essential (primary) hypertension[ICD10: I10] Diagnosis: Mixed hyperlipidemia[ICD10: E78.2] Diagnosis: Type 2 diabetes mellitus without complications[ICD10: E11.9] Diagnosis: Generalized anxiety disorder[ICD10: F41.1] Diagnosis: Mass of left ear canal[ICD10: H93.8X2] Sarah Aragon MD, [facility] [address] [place] [address] CPT-4: 9921 4 12/01/2021 ([id number]) 45085 EST. PATIENT, LEVEL IV Diagnosis: Generalized anxiety disorder[ICD10: F41.1] Diagnosis: Essential (primary) hypertension[ICD10: I10] Diagnosis: Need for influenza vaccination[ICD10: Z23] Sarah Gonzalez MD, [facility] [address] [place] [address] CPT-4: 9921 4 07/07/2021 ([id number]) 31518 EST. PATIENT, LEVEL IV Diagnosis: Generalized anxiety disorder[ICD10: F41.1] Diagnosis: Essential (primary) hypertension[ICD10: I10] Diagnosis: Type 2 diabetes mellitus without complications[ICD10: E11.9] Sarah Gonzalez MD, [facility] [address] [place] [address] CPT-4: 63547 06/02/2021 ([id number]) 56570 EST. PATIENT, LEVEL IV Diagnosis: Essential (primary) hypertension[ICD10: I10] Diagnosis: Mixed hyperlipidemia[ICD10: E78.2] Diagnosis: Type 2 diabetes mellitus without complications[ICD10: E11.9] Sarah Gonzalez MD, [facility] [address] [place] [address] CPT-4: 71234 11/27/2020 ([id number]) 68410 EST. PATIENT, LEVEL IV Diagnosis: Essential (primary) hypertension[ICD10: I10] Diagnosis: Mixed hyperlipidemia[ICD10: E78.2] Diagnosis: Type 2 diabetes mellitus without complications[ICD10: E11.9] Sarah Gonzalez MD, [facility] [address] [place] [address] CPT-4: 42518 05/22/2020 ([id number]) 56629 EST. PATIENT, LEVEL III Diagnosis: Type 2 diabetes mellitus without complications[ICD10: E11.9] Sarah Christianson [facility] [address], [place] [address] CPT-4: 68004 02/07/2020 ([id number]) 78675 EST. PATIENT, LEVEL IV Diagnosis: Essential (primary) hypertension[ICD10: I10] Diagnosis: Mixed hyperlipidemia[ICD10: E78.2] Diagnosis: Type 2 diabetes mellitus without complications[ICD10: E11.9] Sarah Gonzalez MD, [facility] [address] [place] [address] CPT-4: 56524 08/06/2019 ([id number]) [id number] EST. PATIENT, LEVEL IV Diagnosis: Essential (primary) hypertension[ICD10: I10] Diagnosis: Type 2 diabetes mellitus without complications[ICD10: E11.9] Diagnosis: Mixed hyperlipidemia[ICD10: E78.2] Diagnosis: Other insomnia[ICD10: G47.09] Oumou Gonzalez MD, [facility] [address] [place] [address] CPT-4: 80810 02/01 ([id number]) 47069 EST. PATIENT, LEVEL III Diagnosis: Type 2 diabetes mellitus without complications[ICD10: E11.9] Oumou Gonzalez MD, [facility] [address] [place] [address] CPT-4: 89078 05/16/2018 ([id number]) Miscellaneous no charge Diagnosis: Type 2 diabetes mellitus without complications[ICD10: E11.9] Oumou Gonzalez MD, [facility] [address] [place] [address] CPT-4: 73554 05/05/2018 ([id number]) 95554 EST. PATIENT, LEVEL IV Diagnosis: Essential (primary) hypertension[ICD10: I10] Diagnosis: Type 2 diabetes mellitus without complications[ICD10: E11.9] Oumou Gonzalez MD, [facility] [address] [place] [address] CPT-4: 47533 04/19/2018 ([id number]) 21229 EST. PATIENT, LEVEL IV Diagnosis: Type 2 diabetes mellitus without complications[ICD10: E11.9] Diagnosis: Essential (primary) hypertension[ICD10: I10] Oumou Gonzalez MD, [facility] [address] [place] [address] CPT-4: 9921 4 12/06/2017 ([id number]) OFFICE VISIT, NEW - LEVEL 4 Diagnosis: Essential (primary) hypertension[ICD10: I10] Diagnosis: Type 2 diabetes mellitus without complications[ICD10: E11.9] Diagnosis: Primary hyperparathyroidism[ICD10: E21.0] Diagnosis: Encounter for immunization[ICD10: Z23] Oumou Aragon MD, [facility] [address] [place] [address] CPT-4: 9920 4 08/03/2017 Plan of Care Planned Activity Notes Codes Status Date Patient Education: Patient Medication Summary Completed 08/18/2022 Appointment: Injection 08/04/2022 Patient Education: Patient Medication Summary Completed 08/04/2022 Appointment: Injection 07/21/2022 Patient Education: Patient Medication Summary Completed 07/21/2022 Appointment: Injection 07/07/2022 Patient Education: Patient Medication Summary Completed 07/07/2022 Appointment: Nurse Visit 06/23/2022 Patient Education: Patient Medication Summary Completed 06/23/2022 Appointment: Nurse Visit 06/15/2022 Patient Education: Patient Medication Summary Completed 06/15/2022 Appointment: Injection 06/09/2022 Patient Education: Patient Medication Summary Completed 06/09/2022 Patient Education: Patient Medication Summary Completed 06/03/2022 Visit Plan: Hypertension - well controll ed - continue with current medications, continue with no added salt diet. Pt has been encouraged to exercise daily. The pt has been advised to call the office if there are any acute concerns about change in blood pressure readings at home. Hyperlipidemia - pt has been counseled about appropriate diet, exercise, and need for low fat food choices. I have discussed the need for the patient to take medications as prescribed. If the patient has negative side effects from the medication, they are to CALL the office and not abruptly discontinue the medication without discussion with a practitioner in the office. We will check labs in 3-6 months for follow up on the patient's chronic medical problem and to assure normal liver response to medications. Diabetes Mellitus - did not bring log to the office- I have recommended for the patient to have follow up labs today. The patient has been instructed to continue with current medications as previously directed, continue with regular FSBS monitoring to assure continued control of diabetes. Pt to call for any acute concerns, complaints, or if the blood glucose readings are starting to become less controlled. 06/01/2022 Appointment: [facility]el[facility] [phone] [phone] (30 min) [facility] 06/01/2022 Patient Education: Patient Medication Summary Completed 06/01/2022 Patient Education: Cholesterol Management Completed 06/01/2022 Patient Education: Diabetes Completed 06/01/2022 Visit Plan: Hypertension - well controll ed - continue with current medications, continue with no added salt diet. Pt has been encouraged to exercise daily. The pt has been advised to call the office if there are any acute concerns about change in blood pressure readings at home. DM- check Hgb A1C today Cyst left ear canal -refer to Dr Matamoros for evaluation History of GI illness in Dec - check COVID IGG 12/01/2021 Appointment: Sarah Christianson WPtel: [phone] (30 min) Complex 12/01/2021 Patient Education: Patient Medication Summary Completed 12/01/2021 Patient Education: Hypertension Completed 12/01/2021 Patient Education: Cholesterol Management Completed 12/01/2021 Patient Education: Diabetes Completed 12/01/2021 Appointment: Sarah Christianson WPtel: [facility]5 [phone] (30 min) Complex 11/10/2021 Visit Plan: Chronic Depression and anxie ty - the pt has symptoms of chronic anxiety and depression that have been fairly well controlled since the last office visit. The pt has expected periods of exacerbation with abatement of the symptoms with change in situational exposure. No change in current medications. Hypertension - well controlled - continue with current medications, continue with no added salt diet. Pt has been encouraged to exercise daily. The pt has been advised to call the office if there are any acute concerns about change in blood pressure readings at home. 07/07/2021 Appointment: Sarah Christianson WPtel: [facility]5 [phone] (30 min) Complex 07/07/2021 Patient Education: Patient Medication Summary Completed 07/07/2021 Patient Education: Hypertension Completed 07/07/2021 Visit Plan: Hypertension -slightly eleva kristen today- The patient has been counseled to cut back on salt in diet for a no added salt diet, low fat diet, start an exercise program with low weight bearing exercises and higher aerobic activity for heart health. The patient is to check blood pressure readings as an outpatient and either fax, call, or email the readings to the office next week for practitioner to review. The pt is to call for acute concerns. Anxiety - the patient has uncontrolled anxiety and will benefit from an SSRI on a daily basis to attempt control of the symptoms of anxiety (tachycardia, overwhelming sensations, stress, insomnia, etc). I also believe that the patient will benefit from very low dose of prn benzodiazepine. Pt is aware of the risks and benefits of treatment with the above medications. Diabetes Mellitus - controlled - per recent FSBS reports. I have recommended for the patient to have follow up labs prior to the next office visit. The patient has been instructed to continue with current medications as previously directed, continue with regular FSBS monitoring to assure continued control of diabetes. Pt to call for any acute concerns, complaints, or if the blood glucose readings are starting to become less controlled. 06/02/2021 Patient Education: Patient Medication Summary Completed 06/02/2021 Patient Education: Hypertension Completed 06/02/2021 Patient Education: Diabetes Completed 06/02/2021 Appointment: Sarah Christianson WPtel: [phone] [phone] (15 min) Moderate 05/28/2021 Patient Education: Patient Medication Summary Completed 04/16/2021 Visit Plan: Hypertension - well controll ed - continue with current medications, continue with no added salt diet. Pt has been encouraged to exercise daily. The pt has been advised to call the office if there are any acute concerns about change in blood pressure readings at home. DM- check Hgb A1C today Hyperlipidemia- check labs today -low fat diet Patient due for 2nd COVID vaccine -zofran sent electronically to use if needed. 11/27/2020 Appointment: Sarah Christianson WPtel: [phone] [phone] (15 min) Moderate 11/27/2020 Patient Education: Patient Medication Summary Completed 11/27/2020 Patient Education: Cholesterol Management Completed 11/27/2020 Patient Education: Diabetes Completed 11/27/2020 Appointment: [facility]Ptel: [phone] [phone] (30 min) Complex 11/20/2020 Visit Plan: Hypertension - well controll ed - continue with current medications, continue with no added salt diet. Pt has been encouraged to exercise daily. The pt has been advised to call the office if there are any acute concerns about change in blood pressure readings at home. Hyperlipidemia - pt has been counseled about appropriate diet, exercise, and need for low fat food choices. I have discussed the need for the patient to take medications as prescribed. If the patient has negative side effects from the medication, they are to CALL the office and not abruptly discontinue the medication without discussion with a practitioner in the office. We will check labs in 3-6 months for follow up on the patient's chronic medical problem and to assure normal liver response to medications. Diabetes Mellitus - controlled - per recent FSBS reports. I have recommended for the patient to have follow up labs prior to the next office visit. The patient has been instructed to continue with current medications as previously directed, continue with regular FSBS monitoring to assure continued control of diabetes. Pt to call for any acute concerns, complaints, or if the blood glucose readings are starting to become less controlled. 05/22/2020 Appointment: Sarah Christianson WPtel: [phone] (30 min) [facility] 05/22/2020 Patient Education: Patient Medication Summary Completed 05/22/2020 Patient Education: Cholesterol Management Completed 05/22/2020 Patient Education: Diabetes Completed 05/22/2020 Visit Plan: Diabetes Mellitus - I have r ecommended for the patient to have follow up labs prior to the next office visit. The patient has been instructed to continue with current medications as previously directed, continue with regular FSBS monitoring to assure continued control of diabetes. Pt to call for any acute concerns, complaints, or if the blood glucose readings are starting to become less controlled. I have recommended for the patient to follow more strictly to the diabetic diet as discussed in clinic to allow for greater blood glucose control. 02/07/2020 Appointment: Sarah Christianson WPtel: [phone] [facility] 02/07/2020 Patient Education: Patient Medication Summary Completed 02/07/2020 Patient Education: Diabetes Completed 02/07/2020 Visit Plan: Hypertension - well controll ed - continue with current medications, continue with no added salt diet. Pt has been encouraged to exercise daily. The pt has been advised to call the office if there are any acute concerns about change in blood pressure readings at home. Diabetes Mellitus - controlled - per recent FSBS reports. I have recommended for the patient to have follow up labs prior to the next office visit. The patient has been instructed to continue with current medications as previously directed, continue with regular FSBS monitoring to assure continued control of diabetes. Pt to call for any acute concerns, complaints, or if the blood glucose readings are starting to become less controlled. Hyperlipidemia - pt has been counseled about appropriate diet, exercise, and need for low fat food choices. I have discussed the need for the patient to take medications as prescribed. If the patient has negative side effects from the medication, they are to CALL the office and not abruptly discontinue the medication without discussion with a practitioner in the office. We will check labs in 3-6 months for follow up on the patient's chronic medical problem and to assure normal liver response to medications. 08/06/2019 Appointment: Sarah Christiansontel: [phone] [phone] (30 min) Complex 08/06/2019 Patient Education: Patient Medication Summary Completed 08/06/2019 Patient Education: Cholesterol Management Completed 08/06/2019 Patient Education: Diabetes Completed 08/06/2019 Appointment: Sarah Christianson WPtel: [phone] [phone] [facility] - Annual Wellness Visit 10/2018 Appointment: Leeroy 07/10/2019 Patient Education: Patient Medication Summary Completed 07/10/2019 Visit Plan: Hypertension - well controll ed - continue with current medications, continue with no added salt diet. Pt has been encouraged to exercise daily. The pt has been advised to call the office if there are any acute concerns about change in blood pressure readings at home. Diabetes Mellitus - controlled - per recent FSBS reports. I have recommended for the patient to have follow up labs prior to the next office visit. The patient has been instructed to continue with current medications as previously directed, continue with regular FSBS monitoring to assure continued control of diabetes. Pt to call for any acute concerns, complaints, or if the blood glucose readings are starting to become less controlled. Insomnia - recommended extended release melatonin. Hyperlipidemia - pt has been counseled about appropriate diet, exercise, and need for low fat food choices. I have discussed the need for the patient to take medications as prescribed. If the patient has negative side effects from the medication, they are to CALL the office and not abruptly discontinue the medication without discussion with a practitioner in the office. We will check labs in 3-6 months for follow up on the patient's chronic medical problem and to assure normal liver response to medications. 02/01/2019 Appointment: Oumou Gonzalez WPtel: [facility]8 [phone] (15 min) Moderate 02/01/2019 Patient Education: Patient Medication Summary Completed 02/01/2019 Patient Education: Diabetes Completed 02/01/2019 Patient Education: Cholesterol Management Completed 02/01/2019 Appointment: Oumou Gonzalez WPtel: [phone] (15 min) Moderate 11/13/2018 Appointment: Injection 07/03/2018 Patient Education: Patient Medication Summary Completed 07/03/2018 Visit Plan: Diabetes Mellitus - well con simon per IPRO report - pt only had 4% above 150 the rest of the time she was on the IPRO her FSBS reports were between 80 and 150. She has quite well controlled diabetes per the 5 day IPRO report. I have therefore not recommended any changes to her regimen. I have recommended for the patient to have follow up labs prior to the next office visit. The patient has been instructed to continue with current medications as previously directed, continue with regular FSBS monitoring to assure continued control of diabetes. Pt to call for any acute concerns, complaints, or if the blood glucose readings are starting to become less controlled. 05/16/2018 Appointment: Oumou Gonzalez WPtel: [phone] (15 min) Moderate 05/16/2018 Patient Education: Patient Medication Summary Completed 05/16/2018 Appointment: Nurse Visit 05/05/2018 Patient Education: Patient Medication Summary Completed 05/05/2018 Appointment: Sarah Christianson WPtel: [phone] (30 min) Complex 05/01/2018 Patient Education: Patient Medication Summary Completed 05/01/2018 Visit Plan: Hypertension - uncontrolled - the patient's medications have been modified as documented in the visit note. The patient has been counseled to cut back on salt in diet for a no added salt diet, low fat diet, start an exercise program with low weight bearing exercises and higher aerobic activity for heart health. The patient is to check blood pressure readings as an outpatient and either fax, call, or email the readings to the office next week for practitioner to review. The pt is to call for acute concerns. Increase lisinopril 20mg daily. Diabetes Mellitus - Uncontrolled - per recent FSBS reports. I have recommended for the patient to have follow up labs prior to the next office visit. The patient has been instructed to continue with current medications as previously directed, continue with regular FSBS monitoring to assure continued control of diabetes. Pt to call for any acute concerns, complaints, or if the blood glucose readings are starting to become less controlled. I have recommended for the patient to follow more strictly to the diabetic diet as discussed in clinic to allow for greater blood glucose control. 04/19/2018 Appointment: Oumou Gonzalez WPtel: [phone] [phone] (15 min) Moderate 04/19/2018 Patient Education: Patient Medication Summary Completed 04/19/2018 Appointment: Oumou Gonzalez WPtel: [phone] [phone] (15 min) Moderate 04/06/2018 Visit Plan: Hypertension - well controll ed - continue with current medications, continue with no added salt diet. Pt has been encouraged to exercise daily. The pt has been advised to call the office if there are any acute concerns about change in blood pressure readings at home. Diabetes Mellitus - controlled - per recent FSBS reports. I have recommended for the patient to have follow up labs prior to the next office visit. The patient has been instructed to continue with current medications as previously directed, continue with regular FSBS monitoring to assure continued control of diabetes. Pt to call for any acute concerns, complaints, or if the blood glucose readings are starting to become less controlled. check labs today 12/06/2017 Appointment: Oum[facility] Gonzalez [facility]el[facility] [phone] (15 min) Moderate 12/06/2017 Patient Education: Patient Medication Summary Completed 12/06/2017 Visit Plan: Hypertension - well controll ed - continue with current medications, continue with no added salt diet. Pt has been encouraged to exercise daily. The pt has been advised to call the office if there are any acute concerns about change in blood pressure readings at home. Diabetes Mellitus - controlled - per recent FSBS reports. I have recommended for the patient to have follow up labs prior to the next office visit. The patient has been instructed to continue with current medications as previously directed, continue with regular FSBS monitoring to assure continued control of diabetes. Pt to call for any acute concerns, complaints, or if the blood glucose readings are starting to become less controlled. Hyperlipidemia - pt has been counseled about appropriate diet, exercise, and need for low fat food choices. I have discussed the need for the patient to take medications as prescribed. If the patient has negative side effects from the medication, they are to CALL the office and not abruptly discontinue the medication without discussion with a practitioner in the office. We will check labs in 3-6 months for follow up on the patient's chronic medical problem and to assure normal liver response to medications. Myalgias - suspect due to statin - advised pt in the following manner: hold pravastatin x 2 weeks. start on Co-Enzyme Q10 - (Qunol - or Qnol) - this is over the counter - it helps to decrease the muscle inflammation effect of the statins - So, after taking this for 2 weeks, then restart the pravastatin Hyperparathyroidism - recommended labs to be checked. 08/03/2017 Appointment: Oumou Gonzalez WPtel: [phone] [facility] 08/03/2017 Patient Education: Patient Medication Summary Completed 08/03/2017 Care Plan: Pth Intact Pending 08/03 Appointment: Injection 08/01/2017 Patient Education: Patient Medication Summary Completed 08/01/2017 Instructions Comment Date . Hypertension - well controlled - timbo nue with current medications, continue with no added salt diet. Pt has been encouraged to exercise daily. The pt has been advised to call the office if there are any acute concerns about change in blood pressure readings at home. Hyperlipidemia - pt has been counseled about appropriate diet, exercise, and need for low fat food choices. I have discussed the need for the patient to take medications as prescribed. If the patient has negative side effects from the medication, they are to CALL the office and not abruptly discontinue the medication without discussion with a practitioner in the office. We will check labs in 3-6 months for follow up on the patient's chronic medical problem and to assure normal liver response to medications. Diabetes Mellitus - did not bring log to the office- I have recommended for the patient to have follow up labs today. The patient has been instructed to continue with current medications as previously directed, continue with regular FSBS monitoring to assure continued control of diabetes. Pt to call for any acute concerns, complaints, or if the blood glucose readings are starting to become less controlled. 06/01/2022 . Hypertension - well controlled - timbo nue with current medications, continue with no added salt diet. Pt has been encouraged to exercise daily. The pt has been advised to call the office if there are any acute concerns about change in blood pressure readings at home. DM- check Hgb A1C today Cyst left ear canal -refer to Dr Mtaamoros for evaluation History of GI illness in Dec - check COVID IGG 12/01/2021 . Chronic Depression and anxiety - the p t has symptoms of chronic anxiety and depression that have been fairly well controlled since the last office visit. The pt has expected periods of exacerbation with abatement of the symptoms with change in situational exposure. No change in current medications. Hypertension - well controlled - continue with current medications, continue with no added salt diet. Pt has been encouraged to exercise daily. The pt has been advised to call the office if there are any acute concerns about change in blood pressure readings at home. 07/07/2021 . Hypertension -slightly elevated today- The patient has been counseled to cut back on salt in diet for a no added salt diet, low fat diet, start an exercise program with low weight bearing exercises and higher aerobic activity for heart health. The patient is to check blood pressure readings as an outpatient and either fax, call, or email the readings to the office next week for practitioner to review. The pt is to call for acute concerns. Anxiety - the patient has uncontrolled anxiety and will benefit from an SSRI on a daily basis to attempt control of the symptoms of anxiety (tachycardia, overwhelming sensations, stress, insomnia, etc). I also believe that the patient will benefit from very low dose of prn benzodiazepine. Pt is aware of the risks and benefits of treatment with the above medications. Diabetes Mellitus - controlled - per recent FSBS reports. I have recommended for the patient to have follow up labs prior to the next office visit. The patient has been instructed to continue with current medications as previously directed, continue with regular FSBS monitoring to assure continued control of diabetes. Pt to call for any acute concerns, complaints, or if the blood glucose readings are starting to become less controlled. 06/02/2021 . Hypertension - well controlled - timbo nue with current medications, continue with no added salt diet. Pt has been encouraged to exercise daily. The pt has been advised to call the office if there are any acute concerns about change in blood pressure readings at home. DM- check Hgb A1C today Hyperlipidemia- check labs today -low fat diet Patient due for 2nd COVID vaccine -zofran sent electronically to use if needed. 11/27/2020 . Hypertension - well controlled - timbo nue with current medications, continue with no added salt diet. Pt has been encouraged to exercise daily. The pt has been advised to call the office if there are any acute concerns about change in blood pressure readings at home. Hyperlipidemia - pt has been counseled about appropriate diet, exercise, and need for low fat food choices. I have discussed the need for the patient to take medications as prescribed. If the patient has negative side effects from the medication, they are to CALL the office and not abruptly discontinue the medication without discussion with a practitioner in the office. We will check labs in 3-6 months for follow up on the patient's chronic medical problem and to assure normal liver response to medications. Diabetes Mellitus - controlled - per recent FSBS reports. I have recommended for the patient to have follow up labs prior to the next office visit. The patient has been instructed to continue with current medications as previously directed, continue with regular FSBS monitoring to assure continued control of diabetes. Pt to call for any acute concerns, complaints, or if the blood glucose readings are starting to become less controlled. 05/22/2020 . Diabetes Mellitus - I have recommended for the patient to have follow up labs prior to the next office visit. The patient has been instructed to continue with current medications as previously directed, continue with regular FSBS monitoring to assure continued control of diabetes. Pt to call for any acute concerns, complaints, or if the blood glucose readings are starting to become less controlled. I have recommended for the patient to follow more strictly to the diabetic diet as discussed in clinic to allow for greater blood glucose control. 02/07/2020 . Hypertension - well controlled - timbo nue with current medications, continue with no added salt diet. Pt has been encouraged to exercise daily. The pt has been advised to call the office if there are any acute concerns about change in blood pressure readings at home. Diabetes Mellitus - controlled - per recent FSBS reports. I have recommended for the patient to have follow up labs prior to the next office visit. The patient has been instructed to continue with current medications as previously directed, continue with regular FSBS monitoring to assure continued control of diabetes. Pt to call for any acute concerns, complaints, or if the blood glucose readings are starting to become less controlled. Hyperlipidemia - pt has been counseled about appropriate diet, exercise, and need for low fat food choices. I have discussed the need for the patient to take medications as prescribed. If the patient has negative side effects from the medication, they are to CALL the office and not abruptly discontinue the medication without discussion with a practitioner in the office. We will check labs in 3-6 months for follow up on the patient's chronic medical problem and to assure normal liver response to medications. 08/06/2019 extended release melatonin - 10mg pill - . Hypertension - well controlled - timbo nue with current medications, continue with no added salt diet. Pt has been encouraged to exercise daily. The pt has been advised to call the office if there are any acute concerns about change in blood pressure readings at home. Diabetes Mellitus - controlled - per recent FSBS reports. I have recommended for the patient to have follow up labs prior to the next office visit. The patient has been instructed to continue with current medications as previously directed, continue with regular FSBS monitoring to assure continued control of diabetes. Pt to call for any acute concerns, complaints, or if the blood glucose readings are starting to become less controlled. Insomnia - recommended extended release melatonin. Hyperlipidemia - pt has been counseled about appropriate diet, exercise, and need for low fat food choices. I have discussed the need for the patient to take medications as prescribed. If the patient has negative side effects from the medication, they are to CALL the office and not abruptly discontinue the medication without discussion with a practitioner in the office. We will check labs in 3-6 months for follow up on the patient's chronic medical problem and to assure normal liver response to medications. 02/01/2019 . Diabetes Mellitus - well controlled pe r IPRO report - pt only had 4% above 150 the rest of the time she was on the IPRO her FSBS reports were between 80 and 150. She has quite well controlled diabetes per the 5 day IPRO report. I have therefore not recommended any changes to her regimen. I have recommended for the patient to have follow up labs prior to the next office visit. The patient has been instructed to continue with current medications as previously directed, continue with regular FSBS monitoring to assure continued control of diabetes. Pt to call for any acute concerns, complaints, or if the blood glucose readings are starting to become less controlled. 05/16/2018 increase the lisinopril to 20mg nightly . Hypertension - uncontrolled - the yanira ent's medications have been modified as documented in the visit note. The patient has been counseled to cut back on salt in diet for a no added salt diet, low fat diet, start an exercise program with low weight bearing exercises and higher aerobic activity for heart health. The patient is to check blood pressure readings as an outpatient and either fax, call, or email the readings to the office next week for practitioner to review. The pt is to call for acute concerns. Increase lisinopril 20mg daily. Diabetes Mellitus - Uncontrolled - per recent FSBS reports. I have recommended for the patient to have follow up labs prior to the next office visit. The patient has been instructed to continue with current medications as previously directed, continue with regular FSBS monitoring to assure continued control of diabetes. Pt to call for any acute concerns, complaints, or if the blood glucose readings are starting to become less controlled. I have recommended for the patient to follow more strictly to the diabetic diet as discussed in clinic to allow for greater blood glucose control. 04/19/2018 . Hypertension - well controlled - timbo nue with current medications, continue with no added salt diet. Pt has been encouraged to exercise daily. The pt has been advised to call the office if there are any acute concerns about change in blood pressure readings at home. Diabetes Mellitus - controlled - per recent FSBS reports. I have recommended for the patient to have follow up labs prior to the next office visit. The patient has been instructed to continue with current medications as previously directed, continue with regular FSBS monitoring to assure continued control of diabetes. Pt to call for any acute concerns, complaints, or if the blood glucose readings are starting to become less controlled. check labs today 12/06/2017 hold pravastatin x 2 weeks. start on Co-Enzyme Q10 - (Qunol - or Qnol) - this is over the counter - it helps to decrease the muscle inflammation effect of the statins - So, after taking this for 2 weeks, then restart the pravastatin . Hypertension - well controlled - timbo nue with current medications, continue with no added salt diet. Pt has been encouraged to exercise daily. The pt has been advised to call the office if there are any acute concerns about change in blood pressure readings at home. Diabetes Mellitus - controlled - per recent FSBS reports. I have recommended for the patient to have follow up labs prior to the next office visit. The patient has been instructed to continue with current medications as previously directed, continue with regular FSBS monitoring to assure continued control of diabetes. Pt to call for any acute concerns, complaints, or if the blood glucose readings are starting to become less controlled. Hyperlipidemia - pt has been counseled about appropriate diet, exercise, and need for low fat food choices. I have discussed the need for the patient to take medications as prescribed. If the patient has negative side effects from the medication, they are to CALL the office and not abruptly discontinue the medication without discussion with a practitioner in the office. We will check labs in 3-6 months for follow up on the patient's chronic medical problem and to assure normal liver response to medications. Myalgias - suspect due to statin - advised pt in the following manner: hold pravastatin x 2 weeks. start on Co-Enzyme Q10 - (Qunol - or Qnol) - this is over the counter - it helps to decrease the muscle inflammation effect of the statins - So, after taking this for 2 weeks, then restart the pravastatin Hyperparathyroidism - recommended labs to be checked. 08/03/2017 Medical Equipment No Medical Equipment data Health Concerns Section Health Concerns data not found Goals Section Goals data not found Interventions Section Interventions data not found Health Status Evaluations/Outcomes Section Health Status Evaluations/Outcomes data not found Advance Directives No Advance Directive data
--- OUTSIDE RECORDS SUMMARY | 2022-09-01 06:03 | XMS REPORT | CCD ---
Author Author Libia Gonzalez Organization Oumou Gonzalez MD, [facility] Address [address] [place] [address] Phone Care Team Providers Care Firmware Engineer Name Role Phone Oumou Gonzalez PP Unavailable CCM Unavailable Summary Purpose Interface Exchange Insurance Providers Payer name Policy type / Coverage type Covered republican ID Effective Begin Date Effective End Date WPS Medicare Part B Medicare Part B [id number] 2018 Unkno wn AARP Medicare Part B [id number] 2018 Unknown Family history Mother Diagnosis Age [...] Unknown 2 08/03/[address]: 763901070 Unknown if ever smoked 07/[address]: 174632442 Never drinks alcohol 2016 Allergies, Adverse Reactions, Alerts Substance Reaction Codes Entered Date Inactivated Date Status * NO KNOWN FOOD ALLERGIES Unknown 08/03/2017 No Inactiv e Date Active * NO KNOWN ENVIRONMENTAL ALLERGIES Unknown 08/03/2017 N o Inactive Date Active PENICILLINS nausea, diarrhea Unknown 08/03/2017 No Inactive Date A ctive Azopt hives RxNorm: 599786 11/30/2021 No Inactive Date Acti ve Problems Condition Codes Effective Dates Condition Status Flu vaccine need ICD-10: Z23 ICD-9: V04.81 08/01/2017 Active Vitamin B12 deficiency anemia due to intrinsic factor deficiency ICD-10: D51.0 ICD-9: 281.0 06/09/2022 Active Anemia ICD-10: D64.9 ICD-9: 285.9 06/03/2022 [...] Start Date Stop Date Status Fill Instructions atenolol 25 mg tablet RxNorm: 941028 Take 1 Tablet(s) Oral ever y morning 08/10/2022 05/06/2023 Active This prescription wa s filled on 05/19/2022. Any refills authorized will be placed on file. cyanocobalamin (vit B-12) 1,000 mcg/mL injection solution Rx Norm: 470823 Take Milliliter(s) Injection 08/04/2022 08/04/2022 Inactive cyanocobalamin (vit B-12) 1,000 mcg/mL injection solution Rx Norm: 915517 Take Milliliter(s) Injection 07/21/2022 07/21/2022 Inactive cyanocobalamin (vit B-12) 1,000 mcg/mL injection solution Rx Norm: 392166 Take Milliliter(s) Injection 07/07/2022 07/07/2022 Inactive cyanocobalamin (vit B-12) 1,000 mcg/mL injection solution Rx Norm: 689483 Take Milliliter(s) Injection 06/23/2022 06/23/2022 Inactive cyanocobalamin (vit B-12) 1,000 mcg/mL injection solution Rx Norm: 408271 Take Milliliter(s) Injection 06/09/2022 06/09/2022 Inactive lisinopril 20 mg tablet RxNorm: 075416 Take 1 Tablet(s) Oral at bed time 05/18/2022 05/12/2023 Active This prescription wa s filled on 02/24/2022. Any refills authorized will be placed on file. pravastatin 40 mg tablet RxNorm: 352738 Take 1 Tablet(s) Oral a t bed time 04/08/2022 04/02/2023 Active This prescription wa s filled on 01/14/2022. Any refills authorized will be placed on file. omeprazole 40 mg capsule,delayed release RxNorm: 895500 Take 1 Capsule(s) Oral every morning 02/15/2022 08/13/2022 Active This prescriptio n was filled on 11/24/2021. Any refills authorized will be placed on file. Levemir FlexTouch U-100 Insulin 100 unit/mL (3 mL) sub cutaneous pen RxNorm: 821698 Unit(s) 15 unit(s) SubQ BID 02/11/2022 02/11/2022 Inactive Levemir FlexTouch U-100 Insulin 100 unit/mL (3 mL) sub cutaneous pen RxNorm: 800393 Unit(s) 14 unit(s) SubQ BID 12/16/2021 12/16/2021 Inactive dicyclomine 10 mg capsule RxNorm: 610368 Take 1 Capsule (s) Oral three times a day as needed 08/24/2021 09/02/2021 Inactive omeprazole 40 mg capsule,delayed release RxNorm: 977722 TAKE 1 CAPSULE IN THE MORNING 07/07/2021 07/07/2021 Inactive This prescriptio n was filled on 02/23/2021. Any refills authorized will be placed on file. Zofran 4 mg tablet RxNorm: 693041 1 Tablet(s) Oral Every 6 hrs as needed 07/07/2021 07/07/2021 Inactive Azopt 1 % eye drops,suspension RxNorm: 873897 1 Drop(s) ophthalmic (eye) two times a day 07/07/2021 11/30/2021 Inactive atenolol 25 mg tablet RxNorm: 223111 1T PO QAM 07/07/2021 07/07/2021 I nactive dicyclomine 10 mg capsule RxNorm: 901063 1 Capsule(s) O ral three times a day as needed 07/07/2021 07/16/2021 Inactive Semglee Pen U-100 Insulin 100 unit/mL (3 mL) subcutaneous Rx Norm: 2785530 25 Unit(s) Subcutaneous every night at bedtime 06/12/2021 07/11/2021 Inac tive 5 prefilled pens. start when levemir used up Semglee Pen U-100 Insulin 100 unit/mL (3 mL) subcutaneous Rx Norm: 8443396 25 Unit(s) Subcutaneous every night at bedtime 06/12/2021 06/12/2021 Inac tive 5 prefilled pens. start when levemir used up dicyclomine 10 mg capsule RxNorm: 967410 1 Capsule(s) O ral three times a day as needed 06/05/2021 06/14/2021 Inactive dicyclomine 10 mg capsule RxNorm: 171830 1 Capsule(s) O ral three times a day as needed 06/05/2021 06/05/2021 Inactive Lexapro 5 mg tablet RxNorm: 839049 Take 1 Tablet(s) Oral every evening 06/02/2021 11/28/2021 Inactive Xanax 0.25 mg tablet RxNorm: 465277 Take 1 Tablet(s) Oral BID PRN 0 06/02/2021 No Stop Date Active Vyzulta 0.024 % eye drops RxNorm: 5687895 1 Drop(s) opht halmic (eye) every night at bedtime 06/02/2021 No Stop Date Active omeprazole 40 mg capsule,delayed release RxNorm: 802048 TAKE 1 CAPSULE IN THE MORNING 05/18/2021 07/06/2021 Inactive This prescriptio n was filled on 02/23/2021. Any refills authorized will be placed on file. lisinopril 20 mg tablet RxNorm: 607830 Take 1 Tablet(s) Oral at bed time 05/06/2021 05/06/2021 Inactive pravastatin 40 mg tablet RxNorm: 090974 Take 1 Tablet(s) Oral a t bed time 04/13/2021 04/13/2021 Inactive This prescription wa s filled on 01/20/2021. Any refills authorized will be placed on file. atenolol 25 mg tablet RxNorm: 863770 1T PO QAM 02/02/2021 07/06/2021 I nactive Levemir FlexTouch U-100 Insulin 100 unit/mL (3 mL) sub cutaneous pen RxNorm: 868135 Unit(s) 14 unit(s) SubQ BID 12/12/2020 06/11/2021 Inactive Levemir FlexTouch U-100 Insulin 100 unit/mL (3 mL) sub cutaneous pen RxNorm: 698617 Unit(s) 14 unit(s) SubQ BID 11/28/2020 11/28/2020 Inactive Zofran 4 mg tablet RxNorm: 516812 1 Tablet(s) Oral Every 6 hrs as needed 11/27/2020 07/06/2021 Inactive omeprazole 40 mg capsule,delayed release RxNorm: 664228 TAKE 1 CAPSULE IN THE MORNING 10/30/2020 10/30/2020 Inactive BD Ultra-Fine Short Pen Needle 31 gauge x 5/16" RxNorm: Miscellaneous USE TWICE DAILY 09/24/2020 07/21/2021 Inactive BD Ultra-Fine Short Pen Needle 31 gauge x 5/16" RxNorm: Miscellaneous USE TWICE DAILY 09/24/2020 09/23/2020 Inactive Levemir FlexTouch U-100 Insulin 100 unit/mL (3 mL) sub cutaneous pen RxNorm: 427919 Unit(s) 12 unit(s) SubQ BID 07/18/2020 07/24/2020 Inactive atenolol 25 mg tablet RxNorm: 758009 1T PO QAM 05/07/2020 01/31/2021 I nactive pravastatin 40 mg tablet RxNorm: 786160 1T PO QHS 04/28/2020 020 Inactive lisinopril 20 mg tablet RxNorm: 327518 1T PO QHS 04/28/2020 04/28/2020 Inactive omeprazole 40 mg capsule,delayed release RxNorm: 956505 TAKE 1 CAPSULE IN THE MORNING 01/23/2020 10/18/2020 Inactive omeprazole 40 mg capsule,delayed release RxNorm: 631716 TAKE 1 CAPSULE IN THE MORNING 1 Tablet(s) Oral every day 08/06/2019 01/22/2020 Inactive Generic For:PRILOSEC 40 MG CAPSULE 12/21/2018 1:47:16 PM pravastatin 40 mg tablet RxNorm: 670358 TAKE 1 TABLET BY MOUTH DAILY AT BEDTIME 07/18/2019 04/12/2020 Inactive Generic For:*PRAVACH OL 40 MG TABLET 07/18/2019 9:41:57 AM Levemir FlexTouch U-100 Insulin 100 unit/mL (3 mL) sub cutaneous pen RxNorm: 406119 Unit(s) 12 unit(s) SubQ BID 07/10/2019 07/17/2020 Inactive lisinopril 20 mg tablet RxNorm: 745146 1 Tablet(s) PO QHS 05/10/2019 04/27/2020 Inactive atenolol 25 mg tablet RxNorm: 908617 TAKE 1 TABLET BY MOUTH YVAN RY MORNING 05/10/2019 02/03/2020 Inactive Generic For:TENORMIN 25 MG TABLET 05/10/2019 9:38:15 AM Pen Needle 31 gauge x 5/16" RxNorm: 1 DAILY 02/16/2019 05/10/2020 Inactive WE NEED NEW RX PLEASE...PT STATES SHE IS USING BID NOW THANK YOU 02/16/2019 2:41:18 PM atenolol 25 mg tablet RxNorm: 214198 1 Tablet(s) PO QAM 01/02/2019 Inactive Pen Needle 31 gauge x 5/16" RxNorm: 1 Miscellaneous daily 10/201802/15/2019 Inactive omeprazole 40 mg capsule,delayed release RxNorm: 919329 TAKE 1 CAPSULE IN THE MORNING 12/22/2018 07/19/2019 Inactive Generic For:PRIL OSEC 40 MG CAPSULE 12/21/2018 1:47:16 PM pravastatin 40 mg tablet RxNorm: 225122 1 Tablet(s) PO QHS 10/30/19 19 07/17/2019 Inactive Levemir FlexTouch U-100 Insulin 100 unit/mL (3 mL) sub cutaneous pen RxNorm: 322508 Unit(s) 12 unit(s) SubQ BID 05/18/2018 07/09/2019 Inactive Levemir FlexTouch U-100 Insulin 100 unit/mL (3 mL) sub cutaneous pen RxNorm: 699671 10 unit(s) SubQ BID 05/17/2018 05/17/2018 Inactive omeprazole 40 mg capsule,delayed release RxNorm: 875037 1 Capsu le(s) PO QAM 04/25/2018 11/20/2018 Inactive lisinopril 20 mg tablet RxNorm: 362037 1 Tablet(s) PO QHS 04/19/2018 04/13/2019 Inactive atenolol 25 mg tablet RxNorm: 640284 1 Tablet(s) PO QAM 12/14/2017 Inactive lisinopril 10 mg tablet RxNorm: 651280 1 Tablet(s) PO QHS 12/14/2017 04/18/2018 Inactive pravastatin 40 mg tablet RxNorm: 179643 1 Tablet(s) PO QHS 12/14/19 18 09/09/2018 Inactive Levemir FlexTouch U-100 Insulin 100 unit/mL (3 mL) sub cutaneous pen RxNorm: 828451 10 Unit(s) SQ QAM & QHS 12/08/2017 05/16/2018 Inactive Pen Needle 31 gauge x 5/16" RxNorm: 1 Miscellaneous daily 10/2512/21/2018 Inactive Pen Needle 31 gauge x 5/16" RxNorm: 1 Miscellaneous daily 10/2502/12/2019 Inactive Phenergan 25 mg rectal suppository RxNorm: 072168 1 Suppository RTL TID 10/20/2017 10/26/2017 Inactive Phenergan 25 mg rectal suppository RxNorm: 423859 1 Suppository RTL TID 10/20/2017 10/19/2017 Inactive omeprazole 40 mg capsule,delayed release RxNorm: 495102 1 Capsu le(s) PO QAM 10/11/2017 04/08/2018 Inactive Vitamin D2 50,000 unit capsule RxNorm: 736789 1 Capsule(s) PO Q W x12 weeks 08/10/2017 08/09/2017 Inactive Take with daily lisha min d Vitamin D2 50,000 unit capsule RxNorm: 047448 1 Capsule(s) PO Q W x12 weeks 08/10/2017 11/07/2017 Inactive Take with daily lisha min d CoQ-10 oral RxNorm: 42363 oral 04/19/2018 Active Vitamin D3 1,000 unit tablet RxNorm: 845333 1 Tablet(s) PO QAM 2016 Active Rhopressa 0.02 % eye drops RxNorm: 4057739 1 Drop(s) eac h eye ophthalmic (eye) QAM 04/19/2018 Active ibuprofen 200 mg tablet RxNorm: 403435 1-2 Tablet(s) PO BID as needed 08/03/2017 Active multivitamin oral RxNorm: 56445 oral 08/03/2017 Active dorzolamide-timolol ophthalmic (eye) RxNorm: 865256 ophthalmic (eye ) 08/06/2019 Active aspirin 81 mg tablet RxNorm: 944535 1 Tablet(s) PO QHS 08/03/2017 Active Century Mature oral RxNorm: oral 06/01/2022 Active lisinopril 10 mg tablet RxNorm: 431165 1 Tablet(s) PO QHS 12/14/2017 12/13/2017 Inactive Levemir FlexTouch 100 unit/mL (3 mL) subcutaneous insulin pe n RxNorm: 234346 8 Unit(s) SQ QAM & QHS 12/08/2017 12/07/2017 Inactive atenolol 25 mg tablet RxNorm: 008147 1 Tablet(s) PO QAM 12/14/2017 Inactive timolol ophthalmic (eye) RxNorm: 81691 ophthalmic (eye) 04/19/2018 Inactive Lumigan 0.01 % eye drops RxNorm: 8409422 1 Drop(s) ophth almic (eye) bilat eyes QHS 06/02/2021 06/01/2021 Inactive pravastatin 40 mg tablet RxNorm: 535817 1 Tablet(s) PO QHS 12/14/19 18 12/13/2017 Inactive Istalol 0.5 % eye drops RxNorm: 304596 1 Drop(s) ophtha lmic (eye) bilat eyes QAM 12/06/2017 12/05/2017 Inactive omeprazole 40 mg capsule,delayed release RxNorm: 959001 1 Capsu le(s) PO QAM 10/11/2017 10/10/2017 Inactive Medication Administered Medication Codes Instructions Start Date Status cyanocobalamin (vit B-12) 1,000 mcg/mL injection solution Rx Norm: 224614 Milliliter 08/04/2022 No longer Active cyanocobalamin (vit B-12) 1,000 mcg/mL injection solution Rx Norm: 766934 Milliliter 07/21/2022 No longer Active cyanocobalamin (vit B-12) 1,000 mcg/mL injection solution Rx Norm: 688120 Milliliter 07/07/2022 No longer Active cyanocobalamin (vit B-12) 1,000 mcg/mL injection solution Rx Norm: 318521 Milliliter 06/23/2022 No longer Active cyanocobalamin (vit B-12) 1,000 mcg/mL injection solution Rx Norm: 943474 Milliliter 06/09/2022 No longer Active Immunizations Vaccine [...] 07/21/20 22 Unknown Cbc With Differential Ord2 [place]% 7.2 % 07/21/20 22 Unknown Cbc With [...] K/ul 022 Unknown Cbc With Differential Ord2 [place] ABS# 0.7 K/ul 07/21/20 22 Unknown Cbc With Differential Ord2 Eos ABS# 0.2 K/ul 07/21/20 22 Unknown Cbc With Differential Ord2 Baso ABS# 0.1 K/ul 07/21/20 22 Unknown B12 Qtg160 B12 163.00 pg/ml 06/04/2022 Unknow n Tibc [...] 06/01/20 22 Unknown Cbc With Differential Ord2 [place]% 5.6 % 06/01/20 22 Unknown Cbc With [...] K/ul 022 Unknown Cbc With Differential Ord2 [place] ABS# 0.5 K/ul 06/01/20 22 Unknown Cbc With Differential Ord2 Eos ABS# 0.2 K/ul 06/01/20 22 Unknown Cbc With Differential Ord2 Baso ABS# 0.0 K/ul 06/01/20 22 Unknown %Hba1C Yri088 % HbA1c 22304-6 7.0 % 06/01/2022 Unknown %Hba1C Qzb015 Gluc Ave 154 mg/dL 06/01/2022 Unknown Tsh Ord6 TSH (3rd IS) 1.66 uIU/mL 06/01/2022 Unkn own Lipid Ord30 CHOL 118 mg/dL 06/01/2022 Unknown Lipid Ord30 HDL 40.0 mg/dl 06/01/2022 Unknown Lipid Ord30 TRIG 200 mg/dL 06/01/2022 Unknown Lipid Ord30 LDL 38 mg/dL 06/01/2022 Unknown Lipid Ord30 C/HDL 3.0 Ratio 06/01/2022 Unknown Comp Metabolic Nua075 NA 133 mEq/L 06/01/2022 Unkn own Comp Metabolic Vze319 K 4.6 mEq/L 06/01/2022 Unkn own Comp Metabolic Eyt096 CL 102 mEq/L 06/01/2022 Unkn own Comp Metabolic Ubx156 CO2 25.0 mEq/L 06/01/2022 Unk nown Comp Metabolic Egk129 ANION GAP 11 06/01/2022 Unkn own Comp Metabolic Ayo172 GLUCOSE 99 mg/dL 06/01/2022 Unkn own Comp Metabolic Bbw297 Creat 1.0 mg/dL 06/01/2022 Unkn own Comp Metabolic Jko039 eGFR 60 ml/min/1.73m2 06/01/20 22 Unknown Comp Metabolic Wil070 BUN 15 mg/dL 06/01/2022 Unkn own Comp Metabolic Egi889 B/C Ratio 15.6 Ratio 06/01/2022 Unk nown Comp Metabolic Yri655 CALCIUM 9.8 mg/dL 06/01/2022 Unkn own Comp Metabolic Ijv612 ALK PHOS 84 U/L 06/01/2022 Unkn own Comp Metabolic Lfk997 AST(SGOT) 16 U/L 06/01/2022 Unkn own Comp Metabolic Duz282 ALT(SGPT) 13 U/L 06/01/2022 Unkn own Comp Metabolic Bdz706 BILI T 0.6 mg/dL 06/01/2022 Unkn own Comp Metabolic Xoz153 ALBUMIN 4.1 g/dL 06/01/2022 Unkn own Comp Metabolic Won017 TPRO 6.5 g/dL 06/01/2022 Unkn own Comp Metabolic Bad351 GLOB 2.4 g/dL 06/01/2022 Unkn own Comp Metabolic Ifp707 A/G Ratio 1.7 Ratio 06/01/2022 Unkn own Comp Metabolic Bon711 Osmo 267 mOsmo 06/01/2022 Unkn own SARS-CoV-2 IgG PSE3231 SARS-CoV-2 IgG 30.74 S/CO 2 Unknown Comp Metabolic Vlj172 NA 136 mEq/L 12/01/2021 Unkn own Comp Metabolic Dch405 K 4.8 mEq/L 12/01/2021 Unkn own Comp Metabolic Cov137 CL 103 mEq/L 12/01/2021 Unkn own Comp Metabolic Naz747 CO2 24.0 mEq/L 12/01/2021 Unk nown Comp Metabolic Xen824 ANION GAP 14 12/01/2021 Unkn own Comp Metabolic Yvk567 GLUCOSE 95 mg/dL 12/01/2021 Unkn own Comp Metabolic Qtl556 Creat 0.9 mg/dL 12/01/2021 Unkn own Comp Metabolic Xqs753 eGFR 62 ml/min/1.73m2 12/01/19 22 Unknown Comp Metabolic Bvw111 BUN 13 mg/dL 12/01/2021 Unkn own Comp Metabolic Ygk332 B/C Ratio 13.8 Ratio 12/01/2021 Unk nown Comp Metabolic Piq602 CALCIUM 9.7 mg/dL 12/01/2021 Unkn own Comp Metabolic Eds041 ALK PHOS 89 U/L 12/01/2021 Unkn own Comp Metabolic Gir112 AST(SGOT) 16 U/L 12/01/2021 Unkn own Comp Metabolic Ltp188 ALT(SGPT) 11 U/L 12/01/2021 Unkn own Comp Metabolic Xdd110 BILI T 0.7 mg/dL 12/01/2021 Unkn own Comp Metabolic Ruf269 ALBUMIN 4.2 g/dL 12/01/2021 Unkn own Comp Metabolic Dfu783 TPRO 6.7 g/dL 12/01/2021 Unkn own Comp Metabolic Zec074 GLOB 2.5 g/dL 12/01/2021 Unkn own Comp Metabolic Ynv023 A/G Ratio 1.7 Ratio 12/01/2021 Unkn own Comp Metabolic Hzb825 Osmo 272 mOsmo 12/01/2021 Unkn own Cbc [...] 12/01/19 22 Unknown Cbc With Differential Ord2 [place]% 7.2 % 12/01/19 22 Unknown Cbc With [...] K/ul 022 Unknown Cbc With Differential Ord2 [place] ABS# 0.6 K/ul 12/01/19 22 Unknown Cbc With Differential Ord2 Eos ABS# 0.3 K/ul 12/01/19 22 Unknown Cbc With Differential Ord2 Baso ABS# 0.0 K/ul 12/01/19 22 Unknown %Hba1C Oep793 % HbA1c 35719-4 6.9 % 12/01/2021 Unknown %Hba1C Wzt942 Gluc Ave 151 mg/dL 12/01/2021 Unknown Lipid [...] 04/16/20 21 Unknown Cbc With Differential Ord2 [place]% 7.0 % 04/16/20 21 Unknown Cbc With [...] K/ul 021 Unknown Cbc With Differential Ord2 [place] ABS# 0.5 K/ul 04/16/20 21 Unknown Cbc With Differential Ord2 Eos ABS# 0.2 K/ul 04/16/20 21 Unknown Cbc With Differential Ord2 Baso ABS# 0.0 K/ul 04/16/20 21 Unknown Comp Metabolic Mzg072 NA 134 mEq/L 04/16/2021 Unkn own Comp Metabolic Hrb203 K 4.8 mEq/L 04/16/2021 Unkn own Comp Metabolic Shm479 CL 100 mEq/L 04/16/2021 Unkn own Comp Metabolic Wxr632 CO2 26.0 mEq/L 04/16/2021 Unk nown Comp Metabolic Ybr312 ANION GAP 13 04/16/2021 Unkn own Comp Metabolic Aqc358 GLUCOSE 129 mg/dL 04/16/2021 Unkn own Comp Metabolic Wqu018 Creat 0.9 mg/dL 04/16/2021 Unkn own Comp Metabolic Bem613 eGFR 62 ml/min/1.73m2 04/16/20 21 Unknown Comp Metabolic Zhb973 BUN 13 mg/dL 04/16/2021 Unkn own Comp Metabolic Kmb671 B/C Ratio 13.8 Ratio 04/16/2021 Unk nown Comp Metabolic Fit552 CALCIUM 10.0 mg/dL 04/16/2021 Unk nown Comp Metabolic Umi389 ALK PHOS 87 U/L 04/16/2021 Unkn own Comp Metabolic Wlb073 AST(SGOT) 18 U/L 04/16/2021 Unkn own Comp Metabolic Mbg922 ALT(SGPT) 17 U/L 04/16/2021 Unkn own Comp Metabolic Wii863 BILI T 0.8 mg/dL 04/16/2021 Unkn own Comp Metabolic Xfq098 ALBUMIN 4.2 g/dL 04/16/2021 Unkn own Comp Metabolic Kky436 TPRO 6.6 g/dL 04/16/2021 Unkn own Comp Metabolic Skm784 GLOB 2.4 g/dL 04/16/2021 Unkn own Comp Metabolic Tox295 A/G Ratio 1.7 Ratio 04/16/2021 Unkn own Comp Metabolic Ldr196 Osmo 270 mOsmo 04/16/2021 Unkn own Lipid Ord30 CHOL 153 mg/dL 04/16/2021 Unknown Lipid Ord30 HDL 45.0 mg/dl 04/16/2021 Unknown Lipid Ord30 TRIG 221 mg/dL 04/16/2021 Unknown Lipid Ord30 LDL 64 mg/dL 04/16/2021 Unknown Lipid Ord30 C/HDL 3.4 Ratio 04/16/2021 Unknown %Hba1C Hgu701 % HbA1c 45728-2 7.5 % 04/16/2021 Unknown %Hba1C Ald270 Gluc Ave 169 mg/dL 04/16/2021 Unknown Comp Metabolic Njw121 NA 133 mEq/L 11/27/2020 Unkn own Comp Metabolic Enf509 K 4.4 mEq/L 11/27/2020 Unkn own Comp Metabolic Ojw476 CL 102 mEq/L 11/27/2020 Unkn own Comp Metabolic Qhj704 CO2 23.0 mEq/L 11/27/2020 Unk nown Comp Metabolic Dzp143 ANION GAP 12 11/27/2020 Unkn own Comp Metabolic Qbb586 GLUCOSE 138 mg/dL 11/27/2020 Unkn own Comp Metabolic Iir429 Creat 0.9 mg/dL 11/27/2020 Unkn own Comp Metabolic Hee876 eGFR 65 ml/min/1.73m2 11/27/19 21 Unknown Comp Metabolic Dgs832 BUN 15 mg/dL 11/27/2020 Unkn own Comp Metabolic Ixj417 B/C Ratio 16.7 Ratio 11/27/2020 Unk nown Comp Metabolic Vyg097 CALCIUM 9.8 mg/dL 11/27/2020 Unkn own Comp Metabolic Gkx854 ALK PHOS 85 U/L 11/27/2020 Unkn own Comp Metabolic Ler624 AST(SGOT) 17 U/L 11/27/2020 Unkn own Comp Metabolic Pzj186 ALT(SGPT) 17 U/L 11/27/2020 Unkn own Comp Metabolic Xjp872 BILI T 0.7 mg/dL 11/27/2020 Unkn own Comp Metabolic Dcc208 ALBUMIN 4.3 g/dL 11/27/2020 Unkn own Comp Metabolic Ums405 TPRO 6.7 g/dL 11/27/2020 Unkn own Comp Metabolic Hrj705 GLOB 2.4 g/dL 11/27/2020 Unkn own Comp Metabolic Mrs510 A/G Ratio 1.8 Ratio 11/27/2020 Unkn own Comp Metabolic Onm807 Osmo 269 mOsmo 11/27/2020 Unkn own %Hba1C Fav023 % HbA1c 62586-4 7.6 % 11/27/2020 Unknown %Hba1C Yoy469 Gluc Ave 171 mg/dL 11/27/2020 Unknown Tsh [...] 11/27/19 21 Unknown Cbc With Differential Ord2 [place]% 7.8 % 11/27/19 21 Unknown Cbc With [...] K/ul 021 Unknown Cbc With Differential Ord2 [place] ABS# 0.5 K/ul 11/27/19 21 Unknown Cbc [...] With Differential Ord2 HGB 13.8 g/dl 05/22/20 20 Unknown Cbc With Differential Ord2 Neut% 51.8 % 05/22/20 20 Unknown Cbc With Differential Ord2 HCT 41.4 % 05/22/20 Unknown Cbc With Differential Ord2 MCV 87.7 fl 05/22/20 Unknown Cbc With Differential Ord2 Lymph% 37.0 % 05/22/20 Unknown Cbc With Differential Ord2 [place]% 7.1 % 05/22/20 Unknown Cbc With Differential [...] K/ul 020 Unknown Cbc With Differential Ord2 [place] ABS# 0.5 K/ul 05/22/20 20 Unknown Cbc With Differential Ord2 Eos ABS# 0.3 K/ul 05/22/20 20 Unknown Cbc With Differential Ord2 Baso ABS# 0.0 K/ul 05/22/20 20 Unknown Comp Metabolic Aps378 NA 134 mEq/L 05/22/2020 Unkn own Comp Metabolic Bgv898 K 4.6 mEq/L 05/22/2020 Unkn own Comp Metabolic Ofw763 CL 102 mEq/L 05/22/2020 Unkn own Comp Metabolic Tzf620 CO2 23.0 mEq/L 05/22/2020 Unk nown Comp Metabolic Mrb219 ANION GAP 14 05/22/2020 Unkn own Comp Metabolic Feo365 GLUCOSE 146 mg/dL 05/22/2020 Unkn own Comp Metabolic Ysy697 Creat 1.1 mg/dL 05/22/2020 Unkn own Comp Metabolic Mqs548 eGFR 53 ml/min/1.73m2 05/22/20 20 Unknown Comp Metabolic Itv680 BUN 19 mg/dL 05/22/2020 Unkn own Comp Metabolic Kwr726 B/C Ratio 17.8 Ratio 05/22/2020 Unk nown Comp Metabolic Qwj036 CALCIUM 10.1 mg/dL 05/22/2020 Unk nown Comp Metabolic Wnp322 ALK PHOS 92 U/L 05/22/2020 Unkn own Comp Metabolic Bbz108 AST(SGOT) 19 U/L 05/22/2020 Unkn own Comp Metabolic Bal973 ALT(SGPT) 18 U/L 05/22/2020 Unkn own Comp Metabolic Mdr614 BILI T 0.9 mg/dL 05/22/2020 Unkn own Comp Metabolic Fgy546 ALBUMIN 4.4 g/dL 05/22/2020 Unkn own Comp Metabolic Lrg281 TPRO 6.9 g/dL 05/22/2020 Unkn own Comp Metabolic Dvi319 GLOB 2.5 g/dL 05/22/2020 Unkn own Comp Metabolic Ddn168 A/G Ratio 1.7 Ratio 05/22/2020 Unkn own Comp Metabolic Dnk881 Osmo 273 mOsmo 05/22/2020 Unkn own %Hba1C Sfw755 % HbA1c 31341-9 7.2 % 05/22/2020 Unknown %Hba1C Cpl354 Gluc Ave 160 mg/dL 05/22/2020 Unknown Cbc [...] 08/06/20 19 Unknown Cbc With Differential Ord2 [place]% 7.5 % 08/06/20 19 Unknown Cbc With [...] K/ul 019 Unknown Cbc With Differential Ord2 [place] ABS# 0.5 K/ul 08/06/20 19 Unknown Cbc [...] C/HDL 3.9 Ratio 08/06/2019 Unknown Comp Metabolic Mfc073 NA 138 mEq/L 08/06/2019 Unkn own Comp Metabolic Afw717 K 4.3 mEq/L 08/06/2019 Unkn own Comp Metabolic Wdz004 CL 103 mEq/L 08/06/2019 Unkn own Comp Metabolic Pyv546 CO2 25.0 mEq/L 08/06/2019 Unk nown Comp Metabolic Zmp106 ANION GAP 14 08/06/2019 Unkn own Comp Metabolic Jcu926 GLUCOSE 131 mg/dL 08/06/2019 Unkn own Comp Metabolic Wwu292 Creat 0.9 mg/dL 08/06/2019 Unkn own Comp Metabolic Ucu022 eGFR 64 ml/min/1.73m2 08/06/20 19 Unknown Comp Metabolic Sxm697 BUN 15 mg/dL 08/06/2019 Unkn own Comp Metabolic Qmc938 B/C Ratio 16.5 Ratio 08/06/2019 Unk nown Comp Metabolic Hiz313 CALCIUM 9.6 mg/dL 08/06/2019 Unkn own Comp Metabolic Jvq771 ALK PHOS 96 U/L 08/06/2019 Unkn own Comp Metabolic Xdk037 AST(SGOT) 15 U/L 08/06/2019 Unkn own Comp Metabolic Buk751 ALT(SGPT) 12 U/L 08/06/2019 Unkn own Comp Metabolic Qib270 BILI T 0.8 mg/dL 08/06/2019 Unkn own Comp Metabolic Fgz961 ALBUMIN 4.3 g/dL 08/06/2019 Unkn own Comp Metabolic Cpg523 TPRO 6.6 g/dL 08/06/2019 Unkn own Comp Metabolic Twp385 GLOB 2.3 g/dL 08/06/2019 Unkn own Comp Metabolic Oph187 A/G Ratio 1.9 Ratio 08/06/2019 Unkn own Comp Metabolic Whj364 Osmo 278 mOsmo 08/06/2019 Unkn own %Hba1C Bhj147 % HbA1c 30636-7 6.9 % 08/06/2019 Unknown %Hba1C Pqt388 Gluc Ave 151 mg/dL 08/06/2019 Unknown %Hba1C Ldh387 % HbA1c 06740-5 6.7 % 02/01/2019 Unknown %Hba1C Bye557 Gluc Ave 146 mg/dL 02/01/2019 Unknown Tsh Ord6 TSH (3rd IS) 1.78 uIU/mL 02/01/2019 Unkn own Lipid Ord30 CHOL 163 mg/dL 02/01/2019 Unknown Lipid Ord30 HDL 47.0 mg/dl 02/01/2019 Unknown Lipid Ord30 TRIG 280 mg/dL 02/01/2019 Unknown Lipid Ord30 LDL 60 mg/dL 02/01/2019 Unknown Lipid Ord30 C/HDL 3.5 Ratio 02/01/2019 Unknown Microalbumin Upu964 MicroAlb <0.7 mg/dL 02/01/2019 Unkno wn Cbc [...] 02/02/20 19 Unknown Cbc With Differential Ord2 [place]% 6.6 % 02/02/20 19 Unknown Cbc With [...] K/ul 019 Unknown Cbc With Differential Ord2 [place] ABS# 0.5 K/ul 02/02/20 19 Unknown Cbc With Differential Ord2 Eos ABS# 0.2 K/ul 02/02/20 19 Unknown Cbc With Differential Ord2 Baso ABS# 0.0 K/ul 02/02/20 19 Unknown Comp Metabolic Ixd329 NA 135 mEq/L 02/01/2019 Unkn own Comp Metabolic Zdy941 K 4.5 mEq/L 02/01/2019 Unkn own Comp Metabolic Xht040 CL 105 mEq/L 02/01/2019 Unkn own Comp Metabolic Hsk607 CO2 23.0 mEq/L 02/01/2019 Unk nown Comp Metabolic Scb547 ANION GAP 12 02/01/2019 Unkn own Comp Metabolic Vxj598 GLUCOSE 125 mg/dL 02/01/2019 Unkn own Comp Metabolic Vpd343 Creat 0.9 mg/dL 02/01/2019 Unkn own Comp Metabolic Cev239 eGFR 67 ml/min/1.73m2 02/02/20 19 Unknown Comp Metabolic Iqo466 BUN 17 mg/dL 02/01/2019 Unkn own Comp Metabolic Auv951 B/C Ratio 19.3 Ratio 02/01/2019 Unk nown Comp Metabolic Gof110 CALCIUM 9.8 mg/dL 02/01/2019 Unkn own Comp Metabolic Lye348 ALK PHOS 89 U/L 02/01/2019 Unkn own Comp Metabolic Wdv907 AST(SGOT) 17 U/L 02/01/2019 Unkn own Comp Metabolic Wrw570 ALT(SGPT) 14 U/L 02/01/2019 Unkn own Comp Metabolic Stf748 BILI T 0.7 mg/dL 02/01/2019 Unkn own Comp Metabolic Feu360 ALBUMIN 4.4 g/dL 02/01/2019 Unkn own Comp Metabolic Lzx844 TPRO 6.8 g/dL 02/01/2019 Unkn own Comp Metabolic Oub595 GLOB 2.4 g/dL 02/01/2019 Unkn own Comp Metabolic Bdc631 A/G Ratio 1.8 Ratio 02/01/2019 Unkn own Comp Metabolic Sar391 Osmo 273 mOsmo 02/01/2019 Unkn own %Hba1C Qyj385 % HbA1c 98970-4 6.6 % 04/19/2018 Unknown %Hba1C Dft322 Gluc Ave 143 mg/dL 04/19/2018 Unknown Comp Metabolic Apz506 NA 137 mEq/L 12/06/2017 Unkn own Comp Metabolic Upt240 K 4.6 mEq/L 12/06/2017 Unkn own Comp Metabolic Qpb543 CL 102 mEq/L 12/06/2017 Unkn own Comp Metabolic Emj487 CO2 27.0 mEq/L 12/06/2017 Unk nown Comp Metabolic Tas450 ANION GAP 13 12/06/2017 Unkn own Comp Metabolic Qkq763 GLUCOSE 120 mg/dL 12/06/2017 Unkn own Comp Metabolic Day831 Creat 0.9 mg/dL 12/06/2017 Unkn own Comp Metabolic Hmz841 eGFR 62 ml/min/1.73m2 12/06/19 18 Unknown Comp Metabolic Nkv747 BUN 20 mg/dL 12/06/2017 Unkn own Comp Metabolic Zht319 B/C Ratio 21.3 Ratio 12/06/2017 Unk nown Comp Metabolic Ghw328 CALCIUM 10.5 mg/dL 12/06/2017 Unk nown Comp Metabolic Fmj997 ALK PHOS 96 U/L 12/06/2017 Unkn own Comp Metabolic Hfm760 AST(SGOT) 18 U/L 12/06/2017 Unkn own Comp Metabolic Nte807 ALT(SGPT) 15 U/L 12/06/2017 Unkn own Comp Metabolic Hji019 BILI T 0.7 mg/dL 12/06/2017 Unkn own Comp Metabolic Rdi313 ALBUMIN 4.6 g/dL 12/06/2017 Unkn own Comp Metabolic Vyy661 TPRO 7.1 g/dL 12/06/2017 Unkn own Comp Metabolic Wci268 GLOB 2.5 g/dL 12/06/2017 Unkn own Comp Metabolic Mwb598 A/G Ratio 1.9 Ratio 12/06/2017 Unkn own Comp Metabolic Fkn407 Osmo 278 mOsmo 12/06/2017 Unkn own %Hba1C Gek139 % HbA1c 40066-8 6.4 % 12/06/2017 Unknown %Hba1C Ouq472 Gluc Ave 137 mg/dL 12/06/2017 Unknown Lipid Ord30 CHOL 165 mg/dL 12/06/2017 Unknown Lipid Ord30 HDL 46.0 mg/dl 12/06/2017 Unknown Lipid Ord30 TRIG 251 mg/dL 12/06/2017 Unknown Lipid Ord30 LDL 69 mg/dL 12/06/2017 Unknown Lipid Ord30 C/HDL 3.6 Ratio 12/06/2017 Unknown Vitamin D 25 Oh Rdb0037 VITAMIN D, 25 HYDROXY 36.06 ng/mL 08/04/2017 Unknown Lipid Ord30 CHOL 174 mg/dL 08/04/2017 Unknown Lipid Ord30 HDL 46.0 mg/dl 08/04/2017 Unknown Lipid Ord30 TRIG 262 mg/dL 08/04/2017 Unknown Lipid Ord30 LDL 76 mg/dL 08/04/2017 Unknown Lipid Ord30 C/HDL 3.8 Ratio 08/04/2017 Unknown Parathyroid Hormone Ygm147 PTH 73.50 pg/ml 08/04/20 17 Unknown %Hba1C Woo904 % HbA1c 19025-6 6.6 % 08/04/2017 Unknown %Hba1C Obc799 Gluc Ave 143 mg/dL 08/04/2017 Unknown Cbc [...] 08/04/20 17 Unknown Cbc With Differential Ord2 [place]% 7.8 % 08/04/20 17 Unknown Cbc With [...] K/ul 017 Unknown Cbc With Differential Ord2 [place] ABS# 0.6 K/ul 08/04/20 17 Unknown Cbc With Differential Ord2 Eos ABS# 0.3 K/ul 08/04/20 17 Unknown Cbc With Differential Ord2 Baso ABS# 0.0 K/ul 08/04/20 17 Unknown Free T4 Mds956 FREE T4 1.00 ng/dL 08/04/2017 Unknown Comp Metabolic Prz693 NA 138 mEq/L 08/04/2017 Unkn own Comp Metabolic Dhd282 K 4.5 mEq/L 08/04/2017 Unkn own Comp Metabolic Iyx038 CL 102 mEq/L 08/04/2017 Unkn own Comp Metabolic Skf909 CO2 25.0 mEq/L 08/04/2017 Unk nown Comp Metabolic Gvk842 ANION GAP 16 08/04/2017 Unkn own Comp Metabolic Ngh171 GLUCOSE 99 mg/dL 08/04/2017 Unkn own Comp Metabolic Kql773 Creat 0.9 mg/dL 08/04/2017 Unkn own Comp Metabolic Zye750 eGFR 63 ml/min/1.73m2 08/04/20 17 Unknown Comp Metabolic Uzh840 BUN 18 mg/dL 08/04/2017 Unkn own Comp Metabolic Nin833 B/C Ratio 19.4 Ratio 08/04/2017 Unk nown Comp Metabolic Nrh378 CALCIUM 10.4 mg/dL 08/04/2017 Unk nown Comp Metabolic Jke026 ALK PHOS 87 U/L 08/04/2017 Unkn own Comp Metabolic Yfm349 AST(SGOT) 20 U/L 08/04/2017 Unkn own Comp Metabolic Vvu840 ALT(SGPT) 16 U/L 08/04/2017 Unkn own Comp Metabolic Sot368 BILI T 0.8 mg/dL 08/04/2017 Unkn own Comp Metabolic Tzy710 ALBUMIN 4.6 g/dL 08/04/2017 Unkn own Comp Metabolic Jum771 TPRO 7.0 g/dL 08/04/2017 Unkn own Comp Metabolic Eze661 GLOB 2.4 g/dL 08/04/2017 Unkn own Comp Metabolic Ypr296 A/G Ratio 1.9 Ratio 08/04/2017 Unkn own Comp Metabolic Hbi323 Osmo 278 mOsmo 08/04/2017 Unkn own Tsh Ord6 hTSH II 1.55 uIU/mL 08/04/2017 Unknown Procedures Procedure Codes Date ADMIN INFLUENZA VIRUS VAC CPT-4: G0008 08/04/2022 IIV NO PRSV INCREASED AG IM CPT-4: 62703 08/04/2022 THER/PROPH/DIAG INJ SC/IM CPT-4: 03864 08/04/2022 VITAMIN B12 INJECTION 1000 mcg CPT-4: J3420 2 THER/PROPH/DIAG INJ SC/IM CPT-4: 87776 07/21/2022 VITAMIN B12 INJECTION 1000 mcg CPT-4: J3420 2 THER/PROPH/DIAG INJ SC/IM CPT-4: 39726 07/07/2022 VITAMIN B12 INJECTION 1000 mcg CPT-4: J3420 2 THER/PROPH/DIAG INJ SC/IM CPT-4: 06523 06/23/2022 VITAMIN B12 INJECTION 1000 mcg CPT-4: J3420 2 THER/PROPH/DIAG INJ SC/IM CPT-4: 93802 06/09/2022 VITAMIN B12 INJECTION 1000 mcg CPT-4: J3420 2 ADMIN INFLUENZA VIRUS VAC CPT-4: G0008 07/07/2021 IIV NO PRSV INCREASED AG IM CPT-4: 72104 07/07/2021 ADMIN INFLUENZA VIRUS VAC CPT-4: G0008 07/10/2019 IIV NO PRSV INCREASED AG IM CPT-4: 82183 07/10/2019 IIV4 VACC NO PRSV 3 YRS+ IM CPT-4: 84091 07/03/2018 ADMIN INFLUENZA VIRUS VAC CPT-4: G0008 07/03/2018 IIV4 VACC NO PRSV 0.5 ML IM CPT-4: 58716 07/03/2018 GLUC MONITOR CONT PHYS I&R CPT-4: 67365 05/16/2018 GLUCOSE MONITORING CONT CPT-4: 18332 05/01/2018 ADMIN PNEUMOCOCCAL VACCINE SNOMED CT: 70306240 CPT-4: G0009 08/03/2017 PNEUMOCOCCAL VACC [address]: 23319088 CPT-4: 30430 08/03/2017 ADMIN INFLUENZA VIRUS VAC CPT-4: G0008 08/01/2017 IIV NO PRSV INCREASED AG IM CPT-4: 95852 08/01/2017 Vital Signs Date Vital 06/01/2022 Blood Pressure 1: 138/72 Code: 8480-6 BMI: 35.7 Code: 38143-6 Heart Rate 1: 73 bpm Height: 5'6" Code: 8302-2 SpO2: 98% Temperature: 3 6.2 (C) / 97.1 (F) Weight: 221 lbs Code: 91377-7 12/01/2021 Blood Pressure 1: 148/80 Code: 8480-6 BMI: 36.2 Code: 81132-1 Heart Rate 1: 63 bpm Height: 5'6" Code: 8302-2 SpO2: 95% Temperature: 3 5.3 (C) / 95.6 (F) Weight: 224 lbs Code: 43608-7 07/07/2021 Blood Pressure 1: 136/70 Code: 8480-6 BMI: 37.1 Code: 78539-5 Heart Rate 1: 65 bpm Height: 5'6" Code: 8302-2 SpO2: 97% Temperature: 3 6.2 (C) / 97.2 (F) Weight: 230 lbs Code: 82676-4 06/02/2021 Blood Pressure 1: 142/86 Code: 8480-6 BMI: 38.4 Code: 46049-0 Heart Rate 1: 65 bpm Height: 5'6" Code: 8302-2 SpO2: 94% Temperature: 3 6.2 (C) / 97.2 (F) Weight: 238 lbs Code: 00240-5 11/27/2020 Blood Pressure 1: 140/78 Code: 8480-6 BMI: 39.7 Code: 55040-6 Heart Rate 1: 72 bpm Height: 5'6" Code: 8302-2 SpO2: 95% Temperature: 3 6.6 (C) / 97.9 (F) Weight: 246 lbs Code: 83851-1 05/22/2020 Blood Pressure 1: 148/80 Code: 8480-6 BMI: 38.4 Code: 76982-4 Heart Rate 1: 56 bpm Height: 5'6" Code: 8302-2 SpO2: 97% Temperature: 3 6.4 (C) / 97.6 (F) Weight: 238 lbs Code: 03274-0 02/07/2020 Height: Code: 8302-2 Weight: Code: 294 63-7 08/06/2019 Blood Pressure 1: 132/78 Code: 8480-6 BMI: 38.4 Code: 05719-9 Heart Rate 1: 76 bpm Height: 5'6" Code: 8302-2 SpO2: 97% Weight: 238 lb s Code: 32124-8 02/01/2019 Blood Pressure 1: 132/80 Code: 8480-6 BMI: 37.8 Code: 03724-1 Heart Rate 1: 64 bpm Height: 5'6" Code: 8302-2 SpO2: 97% Weight: 234 lb s Code: 66580-2 05/16/2018 Blood Pressure 1: 128/78 Code: 8480-6 BMI: 37.3 Code: 65002-6 Heart Rate 1: 56 bpm Height: 5'6" Code: 8302-2 SpO2: 98% Weight: 231 lb s Code: 21951-8 05/01/2018 Blood Pressure 1: 132/70 Code: 8480-6 BMI: 37.3 Code: 25464-8 Heart Rate 1: 64 bpm Height: 5'6" Code: 8302-2 SpO2: 94% Weight: 231 lb s Code: 00971-4 04/19/2018 Blood Pressure 1: 152/78 Code: 8480-6 BMI: 37.4 Code: 26301-2 Heart Rate 1: 57 bpm Height: 5'6" Code: 8302-2 SpO2: 98% Weight: 232 lb s Code: 51744-8 12/06/2017 Blood Pressure 1: 132/78 Code: 8480-6 BMI: 36.5 Code: 91825-7 Heart Rate 1: 59 bpm Height: 5'6" Code: 8302-2 SpO2: 98% Weight: 226 lb s Code: 03720-6 08/03/2017 Blood Pressure 1: 130/84 Code: 8480-6 BMI: 36.8 Code: 27218-0 Heart Rate 1: 59 bpm Height: 5'6" Code: 8302-2 SpO2: 98% Weight: 228 lb s Code: 50874-7 Functional Status No Functional Status data Reason [...] Encounter Performer Location Location Address Codes Date ([id number]) [id number] EST. PATIENT, LEVEL I Diagnosis: Anemia[ICD10: D64.9] [facility] [address] [place] [address] CPT-4: 79253 06/15/2022 ([id number]) 53676 EST. PATIENT, LEVEL IV Diagnosis: Essential (primary) hypertension[ICD10: I10] Diagnosis: Mixed hyperlipidemia[ICD10: E78.2] Diagnosis: Type 2 diabetes mellitus without complications[ICD10: E11.9] Sarah Gonzalez MD, [facility] [address] [place] [address] CPT-4: 42886 06/01/2022 ([id number]) 98865 EST. PATIENT, LEVEL IV Diagnosis: Essential (primary) hypertension[ICD10: I10] Diagnosis: Mixed hyperlipidemia[ICD10: E78.2] Diagnosis: Type 2 diabetes mellitus without complications[ICD10: E11.9] Diagnosis: Generalized anxiety disorder[ICD10: F41.1] Diagnosis: Mass of left ear canal[ICD10: H93.8X2] Sarah Aragon MD, [facility] [address] [place] [address] CPT-4: 9921 4 12/01/2021 ([id number]) 93729 EST. PATIENT, LEVEL IV Diagnosis: Generalized anxiety disorder[ICD10: F41.1] Diagnosis: Essential (primary) hypertension[ICD10: I10] Diagnosis: Need for influenza vaccination[ICD10: Z23] Sarah Gonzalez MD, [facility] [address] [place] [address] CPT-4: 9921 4 07/07/2021 ([id number]) 23182 EST. PATIENT, LEVEL IV Diagnosis: Generalized anxiety disorder[ICD10: F41.1] Diagnosis: Essential (primary) hypertension[ICD10: I10] Diagnosis: Type 2 diabetes mellitus without complications[ICD10: E11.9] Sarah Gonzalez MD, [facility] [address] [place] [address] CPT-4: 49899 06/02/2021 ([id number]) 93281 EST. PATIENT, LEVEL IV Diagnosis: Essential (primary) hypertension[ICD10: I10] Diagnosis: Mixed hyperlipidemia[ICD10: E78.2] Diagnosis: Type 2 diabetes mellitus without complications[ICD10: E11.9] Sarah Gonzalez MD, [facility] [address] [place] [address] CPT-4: 90634 11/27/2020 ([id number]) 09516 EST. PATIENT, LEVEL IV Diagnosis: Essential (primary) hypertension[ICD10: I10] Diagnosis: Mixed hyperlipidemia[ICD10: E78.2] Diagnosis: Type 2 diabetes mellitus without complications[ICD10: E11.9] Sarah Gonzalez MD, [facility] [address] [place] [address] CPT-4: 95349 05/22/2020 ([id number]) 63124 EST. PATIENT, LEVEL III Diagnosis: Type 2 diabetes mellitus without complications[ICD10: E11.9] Sarah Christianson [facility] [address], [place] [address] CPT-4: 45711 02/07/2020 ([id number]) 96753 EST. PATIENT, LEVEL IV Diagnosis: Essential (primary) hypertension[ICD10: I10] Diagnosis: Mixed hyperlipidemia[ICD10: E78.2] Diagnosis: Type 2 diabetes mellitus without complications[ICD10: E11.9] Sarah Gonzalez MD, [facility] [address] [place] [address] CPT-4: 34325 08/06/2019 ([id number]) 47461 EST. PATIENT, LEVEL IV Diagnosis: Essential (primary) hypertension[ICD10: I10] Diagnosis: Type 2 diabetes mellitus without complications[ICD10: E11.9] Diagnosis: Mixed hyperlipidemia[ICD10: E78.2] Diagnosis: Other insomnia[ICD10: G47.09] Oumou Gonzalez MD, [facility] [address] [place] [address] CPT-4: 11400 02/01 ([id number]) 16281 EST. PATIENT, LEVEL III Diagnosis: Type 2 diabetes mellitus without complications[ICD10: E11.9] Oumou Gonzalez MD, [facility] [address] [place] [address] CPT-4: 27358 05/16/2018 ([id number]) Miscellaneous no charge Diagnosis: Type 2 diabetes mellitus without complications[ICD10: E11.9] Oumou Gonzalez MD, [facility] [address] [place] [address] CPT-4: 66368 05/05/2018 ([id number]) 57104 EST. PATIENT, LEVEL IV Diagnosis: Essential (primary) hypertension[ICD10: I10] Diagnosis: Type 2 diabetes mellitus without complications[ICD10: E11.9] Oumou Gonzalez MD, [facility] [address] [place] [address] CPT-4: 61573 04/19/2018 ([id number]) 16155 EST. PATIENT, LEVEL IV Diagnosis: Type 2 diabetes mellitus without complications[ICD10: E11.9] Diagnosis: Essential (primary) hypertension[ICD10: I10] Oumou Gonzalez MD, [facility] [address] [place] [address] CPT-4: 9921 4 12/06/2017 ([id number]) OFFICE VISIT, NEW - LEVEL 4 Diagnosis: Essential (primary) hypertension[ICD10: I10] Diagnosis: Type 2 diabetes mellitus without complications[ICD10: E11.9] Diagnosis: Primary hyperparathyroidism[ICD10: E21.0] Diagnosis: Encounter for immunization[ICD10: Z23] Oumou Aragon MD, [facility] [address] [place] [address] CPT-4: 9920 4 08/03/2017 Plan of Care Planned Activity Notes Codes Status Date Appointment: Injection 08/04/2022 Patient Education: Patient Medication [...] controlled. 06/01/2022 [facility]ment[facility] [phone] [phone] (30 min) Complex 06/01/2022 Patient Education: Patient Medication Summary Completed [...] COVID IGG 12/01/2021 App[facility]ment: [facility] [phone] [phone] (30 min) Complex 12/01/2021 Patient Education: Patient Medication Summary Completed 12/01/2021 Patient Education: Hypertension Completed 12/01/2021 Patient Education: Cholesterol Management Completed 12/01/2021 Patient Education: Diabetes Completed 12/01/2021 Appointment: Sarah Christianson WPtel: [phone] [phone] (30 min) Complex 11/10/2021 Visit Plan: Chronic [...] at home. 07/07/2021 Appointment: Sarah Christianson WPtel: [phone] [phone] (30 min) Complex 07/07/2021 Patient Education: Patient [...] Completed 06/02/2021 Appointment: Sarah Christianson WPtel: [phone] [phone] (15 min) Moderate 05/28/2021 Patient Education: Patient [...] if needed. 11/27/2020 Appointment: Sarah Christianson WPtel: [phone] [phone] (15 min) Moderate 11/27/2020 Patient Education: Patient Medication Summary Completed 11/27/2020 Patient Education: Cholesterol Management Completed 11/27/2020 Patient Education: Diabetes Completed 11/27/2020 Appointment: Sarah Christianson WPtel: [phone] [phone] (30 min) Complex 11/20/2020 Visit Plan: Hypertension [...] less controlled. 05/22/2020 App[facility]ment: [facility] [phone] [phone] (30 min) Complex 05/22/2020 Patient Education: Patient Medication Summary Completed [...] glucose control. 02/07/2020 [facility]ment: [facility] [phone] [phone] [facility] 02/07/2020 Patient Education: Patient Medication Summary Completed [...] liver response to medications. 08/06/2019 Appointment: Sarah Christianson WPtel: [phone] [phone] (30 min) Complex 08/06/2019 Patient Education: Patient Medication Summary Completed 08/06/2019 Patient Education: Cholesterol Management Completed 08/06/2019 Patient Education: Diabetes Completed 08/06/2019 Appointment: Sarah Christianson WPtel: [phone] [phone] [facility] - Annual Wellness Visit 10/2018 Appointment: Injection 07/10/2019 Patient Education: Patient Medication Summary Completed [...] to medications. 02/01/2019 Appointment: Oumou Gonzalez WPtel: [phone] [phone] (15 min) Moderate 02/01/2019 Patient Education: Patient Medication Summary Completed 02/01/2019 Patient Education: Diabetes Completed 02/01/2019 Patient Education: Cholesterol Management Completed 02/01/2019 Appointment: Oumou Gonzalez WPtel: [phone] [phone] (15 min) Moderate 11/13/2018 Appointment: Injection 07/03/2018 Patient Education: Patient Medication Summary Completed 07/03/2018 Visit Plan: Diabetes Mellitus - well erica montes per IPRO report - pt only had [...] less controlled. 05/16/2018 Appointment: Oumou Gonzalez WPtel: [phone] [phone] (15 min) Moderate 05/16/2018 Patient Education: Patient Medication Summary Completed 05/16/2018 Appointment: Nurse Visit 05/05/2018 Patient Education: Patient Medication Summary Completed 05/05/2018 Appointment: Sarah Christianson WPtel: [phone] [phone] (30 min) Complex 05/01/2018 Patient Education: Patient [...] for greater blood glucose control. 04/19/2018 Appointment: Lisa Oumou WPtel: [phone] [phone] [place] (15 min) Moderate 04/19/2018 Patient Education: Patient Medication Summary Completed 04/19/2018 Appointment: Lisa Oumou WPtel: [phone] [phone] [place] (15 min) Moderate 04/06/2018 Visit Plan: Hypertension [...] less controlled. check labs today 12/06/2017 Appointment: [phone] [place] (15 min) Moderate 12/06/2017 Patient Education: Patient [...] be checked. 08/03/2017 Appointment: [phone] [phone] New Patient 08/03/2017 Patient Education: Patient Medication [...]
--- OUTSIDE RECORDS SUMMARY | 2022-09-01 06:04 | XMS REPORT | CCD ---
Author Author Libia Gonzalez Organization Oumou Gonzalez MD, [facility] Address [address] [place] [address] Phone Care Team Providers Care Liberal Arts Teacher Name Role Phone Oumou Gonzalez PP Unavailable CCM Unavailable Summary Purpose Interface Exchange Insurance Providers Payer name Policy type / Coverage type Covered republican ID Effective Begin Date Effective End Date WPS Medicare Part B Medicare Part B [id number] 2018 Unkno wn AARP Medicare Part B [id number] 2018 Unknown Family history Mother Diagnosis Age At Onset Heart Attack Unknown Hyperlipidemia Unknown Diabetes mellitus Type 2 Unknown Arthritis Unknown Hypertension Unknown Father Diagnosis Age At Onset Skin cancer Unknown Hyperlipidemia Unknown Arthritis Unknown Hypertension Unknown Son Diagnosis Age At Onset Cancer Unknown Hyperlipidemia Unknown Social History Social History Element Codes Description Effective Dates Marital status Unknown Beau Berman 08/03/2017 Number of children Unknown 2 08/03/[address]: 225880267 Unknown if ever smoked 07/[address]: 288152928 Never drinks alcohol 2016 Allergies, Adverse Reactions, Alerts Substance Reaction Codes Entered Date Inactivated Date Status * NO KNOWN FOOD ALLERGIES Unknown 08/03/2017 No Inactiv e Date Active * NO KNOWN ENVIRONMENTAL ALLERGIES Unknown 08/03/2017 N o Inactive Date Active PENICILLINS nausea, diarrhea Unknown 08/03/2017 No Inactive Date A ctive Azopt hives RxNorm: 652832 11/30/2021 No Inactive Date Acti ve Problems Condition Codes Effective Dates Condition Status Vitamin B12 deficiency anemia due to intrinsic factor deficiency ICD-10: D51.0 ICD-9: 281.0 06/09/2022 Active Other vitamin B12 deficiency anemias ICD-10: D51.8 ICD-9: 281.1 06/23/2022 Active Anemia ICD-10: D64.9 ICD-9: 285.9 06/03/2022 Active Essential (primary) hypertension ICD-10: I10 ICD-9: 401.1 08/03/2017 Active Mixed hyperlipidemia ICD-10: E78.2 ICD-9: 272.2 02/01/2019 Active Type 2 diabetes mellitus without complications ICD-10: E11.9 ICD-9: 250.00 08/03/2017 Active Essential (primary) hypertension ICD-10: I10 ICD-9: 401.9 06/02/2021 Active Generalized anxiety disorder ICD-10: F41.1 ICD-9: 300.02 06/02/2021 Active 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 ICD-9: 388.8 12/01/2021 Active Need for influenza vaccination ICD-10: Z23 ICD-9: V04.81 08/01/2017 Active Hypertension Unknown 06/02/2021 Active Primary hyperparathyroidism ICD-10: E21.0 ICD-9: 252.01 08/03/2017 Active Other insomnia ICD-10: G47.09 ICD-9: 327.09 02/01/2019 Active Diabetes Unknown 08/03/2017 Active Encounter for immunization ICD-10: Z23 ICD-9: V03.9 08/03/2017 Active Medications Medication Codes Instructions Start Date Stop Date Status Fill Instructions cyanocobalamin (vit B-12) 1,000 mcg/mL injection solution Rx Norm: 118724 Take Milliliter(s) Injection 07/07/2022 07/07/2022 Inactive cyanocobalamin (vit B-12) 1,000 mcg/mL injection solution Rx Norm: 680293 Take Milliliter(s) Injection 06/23/2022 06/23/2022 Inactive cyanocobalamin (vit B-12) 1,000 mcg/mL injection solution Rx Norm: 407118 Take Milliliter(s) Injection 06/09/2022 06/09/2022 Inactive lisinopril 20 mg tablet RxNorm: 134160 Take 1 Tablet(s) Oral at bed time 05/18/2022 05/12/2023 Active This prescription wa s filled on 02/24/2022. Any refills authorized will be placed on file. pravastatin 40 mg tablet RxNorm: 478659 Take 1 Tablet(s) Oral a t bed time 04/08/2022 04/02/2023 Active This prescription wa s filled on 01/14/2022. Any refills authorized will be placed on file. omeprazole 40 mg capsule,delayed release RxNorm: 231165 Take 1 Capsule(s) Oral every morning 02/15/2022 08/13/2022 Active This prescriptio n was filled on 11/24/2021. Any refills authorized will be placed on file. Levemir FlexTouch U-100 Insulin 100 unit/mL (3 mL) sub cutaneous pen RxNorm: 544505 Unit(s) 15 unit(s) SubQ BID 02/11/2022 02/11/2022 Inactive Levemir FlexTouch U-100 Insulin 100 unit/mL (3 mL) sub cutaneous pen RxNorm: 363147 Unit(s) 14 unit(s) SubQ BID 12/16/2021 12/16/2021 Inactive dicyclomine 10 mg capsule RxNorm: 572887 Take 1 Capsule (s) Oral three times a day as needed 08/24/2021 09/02/2021 Inactive atenolol 25 mg tablet RxNorm: 015614 1T PO QAM 07/07/2021 04/02/2022 I nactive omeprazole 40 mg capsule,delayed release RxNorm: 090810 TAKE 1 CAPSULE IN THE MORNING 07/07/2021 07/07/2021 Inactive This prescriptio n was filled on 02/23/2021. Any refills authorized will be placed on file. Zofran 4 mg tablet RxNorm: 149409 1 Tablet(s) Oral Every 6 hrs as needed 07/07/2021 07/07/2021 Inactive Azopt 1 % eye drops,suspension RxNorm: 298033 1 Drop(s) ophthalmic (eye) two times a day 07/07/2021 11/30/2021 Inactive dicyclomine 10 mg capsule RxNorm: 043098 1 Capsule(s) O ral three times a day as needed 07/07/2021 07/16/2021 Inactive Semglee Pen U-100 Insulin 100 unit/mL (3 mL) subcutaneous Rx Norm: 3742478 25 Unit(s) Subcutaneous every night at bedtime 06/12/2021 07/11/2021 Inac tive 5 prefilled pens. start when levemir used up Semglee Pen U-100 Insulin 100 unit/mL (3 mL) subcutaneous Rx Norm: 0615372 25 Unit(s) Subcutaneous every night at bedtime 06/12/2021 06/12/2021 Inac tive 5 prefilled pens. start when levemir used up dicyclomine 10 mg capsule RxNorm: 622697 1 Capsule(s) O ral three times a day as needed 06/05/2021 06/14/2021 Inactive dicyclomine 10 mg capsule RxNorm: 126424 1 Capsule(s) O ral three times a day as needed 06/05/2021 06/05/2021 Inactive Lexapro 5 mg tablet RxNorm: 499120 Take 1 Tablet(s) Oral every evening 06/02/2021 11/28/2021 Inactive Xanax 0.25 mg tablet RxNorm: 138934 Take 1 Tablet(s) Oral BID PRN 0 06/02/2021 No Stop Date Active Vyzulta 0.024 % eye drops RxNorm: 1077044 1 Drop(s) opht halmic (eye) every night at bedtime 06/02/2021 No Stop Date Active omeprazole 40 mg capsule,delayed release RxNorm: 249133 TAKE 1 CAPSULE IN THE MORNING 05/18/2021 07/06/2021 Inactive This prescriptio n was filled on 02/23/2021. Any refills authorized will be placed on file. lisinopril 20 mg tablet RxNorm: 138331 Take 1 Tablet(s) Oral at bed time 05/06/2021 05/06/2021 Inactive pravastatin 40 mg tablet RxNorm: 012610 Take 1 Tablet(s) Oral a t bed time 04/13/2021 04/13/2021 Inactive This prescription wa s filled on 01/20/2021. Any refills authorized will be placed on file. atenolol 25 mg tablet RxNorm: 085885 1T PO QAM 02/02/2021 07/06/2021 I nactive Levemir FlexTouch U-100 Insulin 100 unit/mL (3 mL) sub cutaneous pen RxNorm: 467957 Unit(s) 14 unit(s) SubQ BID 12/12/2020 06/11/2021 Inactive Levemir FlexTouch U-100 Insulin 100 unit/mL (3 mL) sub cutaneous pen RxNorm: 479299 Unit(s) 14 unit(s) SubQ BID 11/28/2020 11/28/2020 Inactive Zofran 4 mg tablet RxNorm: 506412 1 Tablet(s) Oral Every 6 hrs as needed 11/27/2020 07/06/2021 Inactive omeprazole 40 mg capsule,delayed release RxNorm: 20021202 TAKE 1 CAPSULE IN THE MORNING 10/30/2020 10/30/2020 Inactive BD Ultra-Fine Short Pen Needle 31 gauge x 5/16" RxNorm: Miscellaneous USE TWICE DAILY 09/24/2020 07/21/2021 Inactive BD Ultra-Fine Short Pen Needle 31 gauge x 5/16" RxNorm: Miscellaneous USE TWICE DAILY 09/24/2020 09/23/2020 Inactive Levemir FlexTouch U-100 Insulin 100 unit/mL (3 mL) sub cutaneous pen RxNorm: 685657 Unit(s) 12 unit(s) SubQ BID 07/18/2020 07/24/2020 Inactive atenolol 25 mg tablet RxNorm: 285669 1T PO QAM 05/07/2020 01/31/2021 I nactive pravastatin 40 mg tablet RxNorm: 592979 1T PO QHS 04/28/2020 020 Inactive lisinopril 20 mg tablet RxNorm: 489997 1T PO QHS 04/28/2020 04/28/2020 Inactive omeprazole 40 mg capsule,delayed release RxNorm: 20021202 TAKE 1 CAPSULE IN THE MORNING 01/23/2020 10/18/2020 Inactive omeprazole 40 mg capsule,delayed release RxNorm: 20021202 TAKE 1 CAPSULE IN THE MORNING 1 Tablet(s) Oral every day 08/06/2019 01/22/2020 Inactive Generic For:PRILOSEC [address] 12/21/2018 1:47:16 PM pravastatin 40 mg tablet RxNorm: 759343 TAKE 1 TABLET BY MOUTH DAILY AT BEDTIME 07/18/2019 04/12/2020 Inactive Generic For:*PRAVACH OL 40 MG TABLET 07/18/2019 9:41:57 AM Levemir FlexTouch U-100 Insulin 100 unit/mL (3 mL) sub cutaneous pen RxNorm: 628944 Unit(s) 12 unit(s) SubQ BID 07/10/2019 07/17/2020 Inactive lisinopril 20 mg tablet RxNorm: 794986 1 Tablet(s) PO QHS 05/10/2019 04/27/2020 Inactive atenolol 25 mg tablet RxNorm: 964950 TAKE 1 TABLET BY MOUTH YVAN RY MORNING 05/10/2019 02/03/2020 Inactive Generic For:TENORMIN 25 MG TABLET 05/10/2019 9:38:15 AM Pen Needle 31 gauge x 5/16" RxNorm: 1 DAILY 02/16/2019 05/10/2020 Inactive WE NEED NEW RX PLEASE...PT STATES SHE IS USING BID NOW THANK YOU 02/16/2019 2:41:18 PM atenolol 25 mg tablet RxNorm: 273311 1 Tablet(s) PO QAM 01/02/2019 Inactive Pen Needle 31 gauge x 5/16" RxNorm: 1 Miscellaneous daily 10/201802/15/2019 Inactive omeprazole 40 mg capsule,delayed release RxNorm: 502410 TAKE 1 CAPSULE IN THE MORNING 12/22/2018 07/19/2019 Inactive Generic For:PRIL OSEC [address] 12/21/2018 1:47:16 PM pravastatin 40 mg tablet RxNorm: 218534 1 Tablet(s) PO QHS 10/30/1907/17/2019 Inactive Levemir FlexTouch U-100 Insulin 100 unit/mL (3 mL) sub cutaneous pen RxNorm: 572769 Unit(s) 12 unit(s) SubQ BID 05/18/2018 07/09/2019 Inactive Levemir FlexTouch U-100 Insulin 100 unit/mL (3 mL) sub cutaneous pen RxNorm: 008131 10 unit(s) SubQ BID 05/17/2018 05/17/2018 Inactive omeprazole 40 mg capsule,delayed release RxNorm: 824592 1 Capsu le(s) PO QAM 04/25/2018 11/20/2018 Inactive lisinopril 20 mg tablet RxNorm: 936313 1 Tablet(s) PO QHS 04/19/2018 04/13/2019 Inactive atenolol 25 mg tablet RxNorm: 947372 1 Tablet(s) PO QAM 12/14/2017 Inactive lisinopril 10 mg tablet RxNorm: 916359 1 Tablet(s) PO QHS 12/14/2017 04/18/2018 Inactive pravastatin 40 mg tablet RxNorm: 709229 1 Tablet(s) PO QHS 12/14/19 18 09/09/2018 Inactive Levemir FlexTouch U-100 Insulin 100 unit/mL (3 mL) sub cutaneous pen RxNorm: 308020 10 Unit(s) SQ QAM & QHS 12/08/2017 05/16/2018 Inactive Pen Needle 31 gauge x 5/16" RxNorm: 1 Miscellaneous daily 10/2512/21/2018 Inactive Pen Needle 31 gauge x 5/16" RxNorm: 1 Miscellaneous daily 10/2502/12/2019 Inactive Phenergan 25 mg rectal suppository RxNorm: 820258 1 Suppository RTL TID 10/20/2017 10/26/2017 Inactive Phenergan 25 mg rectal suppository RxNorm: 077550 1 Suppository RTL TID 10/20/2017 10/19/2017 Inactive omeprazole 40 mg capsule,delayed release RxNorm: 216247 1 Capsu le(s) PO QAM 10/11/2017 04/08/2018 Inactive Vitamin D2 50,000 unit capsule RxNorm: 287953 1 Capsule(s) PO Q W x12 weeks 08/10/2017 08/09/2017 Inactive Take with daily lisha min d Vitamin D2 50,000 unit capsule RxNorm: 311724 1 Capsule(s) PO Q W x12 weeks 08/10/2017 11/07/2017 Inactive Take with daily lisha min d CoQ-10 oral RxNorm: 13238 oral 04/19/2018 Active Vitamin D3 1,000 unit tablet RxNorm: 168654 1 Tablet(s) PO QAM 2016 Active Rhopressa 0.02 % eye drops RxNorm: 9305638 1 Drop(s) eac h eye ophthalmic (eye) QA 04/19/2018 Active ibuprofen 200 mg tablet RxNorm: 545163 1-2 Tablet(s) PO BID as needed 08/03/2017 Active multivitamin oral RxNorm: 76569 oral 08/03/2017 Active dorzolamide-timolol ophthalmic (eye) RxNorm: 964407 ophthalmic (eye ) 08/06/2019 Active aspirin 81 mg tablet RxNorm: 302270 1 Tablet(s) PO QHS 08/03/2017 Active Century Mature oral RxNorm: oral 06/01/2022 Active lisinopril 10 mg tablet RxNorm: 275804 1 Tablet(s) PO QHS 12/14/2017 12/13/2017 Inactive Levemir FlexTouch 100 unit/mL (3 mL) subcutaneous insulin pe n RxNorm: 373335 8 Unit(s) SQ QAM & QHS 12/08/2017 12/07/2017 Inactive atenolol 25 mg tablet RxNorm: 089240 1 Tablet(s) PO QAM 12/14/2017 Inactive timolol ophthalmic (eye) RxNorm: 78144 ophthalmic (eye) 04/19/2018 Inactive Lumigan 0.01 % eye drops RxNorm: 2165246 1 Drop(s) ophth almic (eye) bilat eyes QHS 06/02/2021 06/01/2021 Inactive pravastatin 40 mg tablet RxNorm: 619475 1 Tablet(s) PO QHS 12/14/19 18 12/13/2017 Inactive Istalol 0.5 % eye drops RxNorm: 974246 1 Drop(s) ophtha lmic (eye) bilat eyes QAM 12/06/2017 12/05/2017 Inactive omeprazole 40 mg capsule,delayed release RxNorm: 773610 1 Capsu le(s) PO QAM 10/11/2017 10/10/2017 Inactive Medication Administered Medication Codes Instructions Start Date Status cyanocobalamin (vit B-12) 1,000 mcg/mL injection solution Rx Norm: 657838 Milliliter 07/07/2022 Active cyanocobalamin (vit B-12) 1,000 mcg/mL injection solution Rx Norm: 210116 Milliliter 06/23/2022 No longer Active cyanocobalamin (vit B-12) 1,000 mcg/mL injection solution Rx Norm: 042687 Milliliter 06/09/2022 No longer Active Immunizations Vaccine Codes Dose Date Status Influenza CVX: 197 0.5 07/07/2021 Complete Influenza CVX: 197 0.5 07/10/2019 Complete Influenza CVX: 197 0.5 07/03/2018 Complete Pneumococcal (Adult) CVX: 133 0.5 08/03/2017 Complet e Influenza CVX: 197 0.5 08/01/2017 Complete Influenza CVX: 197 07/24/2016 Pneumococcal CVX: 33 07/24/2016 Results Observation Observation Code Item Item Code Result Date S ervice Location B12 Vxp957 B12 163.00 pg/ml 06/04/2022 Unknow n [facility] [...] 06/01/20 22 Unknown Cbc With Differential Ord2 Thomas% 5.6 % 06/01/20 22 Unknown Cbc With [...] K/ul 022 Unknown Cbc With Differential Ord2 Thomas ABS# 0.5 K/ul 06/01/20 22 Unknown Cbc With Differential Ord2 Eos ABS# 0.2 K/ul 06/01/20 22 Unknown Cbc With Differential Ord2 Baso ABS# 0.0 K/ul 06/01/20 22 Unknown %Hba1C Kqa468 % HbA1c 37584-4 7.0 % 06/01/2022 Unknown %Hba1C Ygn609 Gluc Ave 154 mg/dL 06/01/2022 Unknown Tsh Ord6 TSH (3rd IS) 1.66 uIU/mL 06/01/2022 Unkn own Lipid Ord30 CHOL 118 mg/dL 06/01/2022 Unknown Lipid Ord30 HDL 40.0 mg/dl 06/01/2022 Unknown Lipid Ord30 TRIG 200 mg/dL 06/01/2022 Unknown Lipid Ord30 LDL 38 mg/dL 06/01/2022 Unknown Lipid Ord30 C/HDL 3.0 Ratio 06/01/2022 Unknown Comp Metabolic Cnq674 NA 133 mEq/L 06/01/2022 Unkn own Comp Metabolic Dsm735 K 4.6 mEq/L 06/01/2022 Unkn own Comp Metabolic Jgj239 CL 102 mEq/L 06/01/2022 Unkn own Comp Metabolic Syf348 CO2 25.0 mEq/L 06/01/2022 Unk nown Comp Metabolic Xqh635 ANION GAP 11 06/01/2022 Unkn own Comp Metabolic Jmn401 GLUCOSE 99 mg/dL 06/01/2022 Unkn own Comp Metabolic Zlf087 Creat 1.0 mg/dL 06/01/2022 Unkn own Comp Metabolic Cqg165 eGFR 60 ml/min/1.73m2 06/01/20 22 Unknown Comp Metabolic Cow418 BUN 15 mg/dL 06/01/2022 Unkn own Comp Metabolic Vtw350 B/C Ratio 15.6 Ratio 06/01/2022 Unk nown Comp Metabolic Hxh678 CALCIUM 9.8 mg/dL 06/01/2022 Unkn own Comp Metabolic Aoh370 ALK PHOS 84 U/L 06/01/2022 Unkn own Comp Metabolic Icf938 AST(SGOT) 16 U/L 06/01/2022 Unkn own Comp Metabolic Nip399 ALT(SGPT) 13 U/L 06/01/2022 Unkn own Comp Metabolic Xyv844 BILI T 0.6 mg/dL 06/01/2022 Unkn own Comp Metabolic Djr255 ALBUMIN 4.1 g/dL 06/01/2022 Unkn own Comp Metabolic Eez894 TPRO 6.5 g/dL 06/01/2022 Unkn own Comp Metabolic Hma605 GLOB 2.4 g/dL 06/01/2022 Unkn own Comp Metabolic Gin496 A/G Ratio 1.7 Ratio 06/01/2022 Unkn own Comp Metabolic Okf953 Osmo 267 mOsmo 06/01/2022 Unkn own SARS-CoV-2 IgG AXT0991 SARS-CoV-2 IgG 30.74 S/CO 2 Unknown Comp Metabolic Jxi948 NA 136 mEq/L 12/01/2021 Unkn own Comp Metabolic Ohh522 K 4.8 mEq/L 12/01/2021 Unkn own Comp Metabolic Zbb559 CL 103 mEq/L 12/01/2021 Unkn own Comp Metabolic Gaj919 CO2 24.0 mEq/L 12/01/2021 Unk nown Comp Metabolic Kqn076 ANION GAP 14 12/01/2021 Unkn own Comp Metabolic Haz532 GLUCOSE 95 mg/dL 12/01/2021 Unkn own Comp Metabolic Cvn369 Creat 0.9 mg/dL 12/01/2021 Unkn own Comp Metabolic Zvo345 eGFR 62 ml/min/1.73m2 12/01/19 22 Unknown Comp Metabolic Xwc553 BUN 13 mg/dL 12/01/2021 Unkn own Comp Metabolic Hgx365 B/C Ratio 13.8 Ratio 12/01/2021 Unk nown Comp Metabolic Aca881 CALCIUM 9.7 mg/dL 12/01/2021 Unkn own Comp Metabolic Pvx110 ALK PHOS 89 U/L 12/01/2021 Unkn own Comp Metabolic Bct215 AST(SGOT) 16 U/L 12/01/2021 Unkn own Comp Metabolic Cxq377 ALT(SGPT) 11 U/L 12/01/2021 Unkn own Comp Metabolic Bct891 BILI T 0.7 mg/dL 12/01/2021 Unkn own Comp Metabolic Uup261 ALBUMIN 4.2 g/dL 12/01/2021 Unkn own Comp Metabolic Zod221 TPRO 6.7 g/dL 12/01/2021 Unkn own Comp Metabolic Iaq358 GLOB 2.5 g/dL 12/01/2021 Unkn own Comp Metabolic Smq846 A/G Ratio 1.7 Ratio 12/01/2021 Unkn own Comp Metabolic Htd794 Osmo 272 mOsmo 12/01/2021 Unkn own Cbc [...] 12/01/19 22 Unknown Cbc With Differential Ord2 Thomas% 7.2 % 12/01/19 22 Unknown Cbc With [...] K/ul 022 Unknown Cbc With Differential Ord2 Thomas ABS# 0.6 K/ul 12/01/19 22 Unknown Cbc With Differential Ord2 Eos ABS# 0.3 K/ul 12/01/19 22 Unknown Cbc With Differential Ord2 Baso ABS# 0.0 K/ul 12/01/19 22 Unknown %Hba1C Mqt923 % HbA1c 60458-2 6.9 % 12/01/2021 Unknown %Hba1C Jkc509 Gluc Ave 151 mg/dL 12/01/2021 Unknown Lipid [...] 04/16/20 21 Unknown Cbc With Differential Ord2 Thomas% 7.0 % 04/16/20 21 Unknown Cbc With [...] K/ul 021 Unknown Cbc With Differential Ord2 Thomas ABS# 0.5 K/ul 04/16/20 21 Unknown Cbc With Differential Ord2 Eos ABS# 0.2 K/ul 04/16/20 21 Unknown Cbc With Differential Ord2 Baso ABS# 0.0 K/ul 04/16/20 21 Unknown Comp Metabolic Utm418 NA 134 mEq/L 04/16/2021 Unkn own Comp Metabolic Odu293 K 4.8 mEq/L 04/16/2021 Unkn own Comp Metabolic Hqn596 CL 100 mEq/L 04/16/2021 Unkn own Comp Metabolic Pws911 CO2 26.0 mEq/L 04/16/2021 Unk nown Comp Metabolic Pgq715 ANION GAP 13 04/16/2021 Unkn own Comp Metabolic Rgn735 GLUCOSE 129 mg/dL 04/16/2021 Unkn own Comp Metabolic Usl506 Creat 0.9 mg/dL 04/16/2021 Unkn own Comp Metabolic Hsz503 eGFR 62 ml/min/1.73m2 04/16/20 21 Unknown Comp Metabolic Kns403 BUN 13 mg/dL 04/16/2021 Unkn own Comp Metabolic Fzi672 B/C Ratio 13.8 Ratio 04/16/2021 Unk nown Comp Metabolic Liu397 CALCIUM 10.0 mg/dL 04/16/2021 Unk nown Comp Metabolic Gye801 ALK PHOS 87 U/L 04/16/2021 Unkn own Comp Metabolic Gyo349 AST(SGOT) 18 U/L 04/16/2021 Unkn own Comp Metabolic Zll913 ALT(SGPT) 17 U/L 04/16/2021 Unkn own Comp Metabolic Pon910 BILI T 0.8 mg/dL 04/16/2021 Unkn own Comp Metabolic Wcv882 ALBUMIN 4.2 g/dL 04/16/2021 Unkn own Comp Metabolic Ggg456 TPRO 6.6 g/dL 04/16/2021 Unkn own Comp Metabolic Ggf172 GLOB 2.4 g/dL 04/16/2021 Unkn own Comp Metabolic Rza082 A/G Ratio 1.7 Ratio 04/16/2021 Unkn own Comp Metabolic Mxi769 Osmo 270 mOsmo 04/16/2021 Unkn own Lipid Ord30 CHOL 153 mg/dL 04/16/2021 Unknown Lipid Ord30 HDL 45.0 mg/dl 04/16/2021 Unknown Lipid Ord30 TRIG 221 mg/dL 04/16/2021 Unknown Lipid Ord30 LDL 64 mg/dL 04/16/2021 Unknown Lipid Ord30 C/HDL 3.4 Ratio 04/16/2021 Unknown %Hba1C Krz824 % HbA1c 43575-0 7.5 % 04/16/2021 Unknown %Hba1C Reg638 Gluc Ave 169 mg/dL 04/16/2021 Unknown Comp Metabolic Kut115 NA 133 mEq/L 11/27/2020 Unkn own Comp Metabolic Dtp320 K 4.4 mEq/L 11/27/2020 Unkn own Comp Metabolic Exi652 CL 102 mEq/L 11/27/2020 Unkn own Comp Metabolic Gvp476 CO2 23.0 mEq/L 11/27/2020 Unk nown Comp Metabolic Guh401 ANION GAP 12 11/27/2020 Unkn own Comp Metabolic Ses130 GLUCOSE 138 mg/dL 11/27/2020 Unkn own Comp Metabolic Rmh315 Creat 0.9 mg/dL 11/27/2020 Unkn own Comp Metabolic Klm752 eGFR 65 ml/min/1.73m2 11/27/19 21 Unknown Comp Metabolic Dhi613 BUN 15 mg/dL 11/27/2020 Unkn own Comp Metabolic Zti035 B/C Ratio 16.7 Ratio 11/27/2020 Unk nown Comp Metabolic Fch878 CALCIUM 9.8 mg/dL 11/27/2020 Unkn own Comp Metabolic Akc360 ALK PHOS 85 U/L 11/27/2020 Unkn own Comp Metabolic Mwe313 AST(SGOT) 17 U/L 11/27/2020 Unkn own Comp Metabolic Lde693 ALT(SGPT) 17 U/L 11/27/2020 Unkn own Comp Metabolic Udp298 BILI T 0.7 mg/dL 11/27/2020 Unkn own Comp Metabolic Ahg069 ALBUMIN 4.3 g/dL 11/27/2020 Unkn own Comp Metabolic Gks277 TPRO 6.7 g/dL 11/27/2020 Unkn own Comp Metabolic Cya622 GLOB 2.4 g/dL 11/27/2020 Unkn own Comp Metabolic Nou751 A/G Ratio 1.8 Ratio 11/27/2020 Unkn own Comp Metabolic Zfu502 Osmo 269 mOsmo 11/27/2020 Unkn own %Hba1C Alk258 % HbA1c 63993-3 7.6 % 11/27/2020 Unknown %Hba1C Grw199 Gluc Ave 171 mg/dL 11/27/2020 Unknown Tsh [...] 11/27/19 21 Unknown Cbc With Differential Ord2 Thomas% 7.8 % 11/27/19 21 Unknown Cbc With [...] K/ul 021 Unknown Cbc With Differential Ord2 Thomas ABS# 0.5 K/ul 11/27/19 21 Unknown Cbc [...] With Differential Ord2 Lymph% 37.0 % 05/22/20 20 Unknown Cbc With Differential Ord2 Thomas% 7.1 % 05/22/20 20 Unknown Cbc With Differential Ord2 MCH 29.2 pg 05/22/20 20 Unknown Cbc With Differential Ord2 MCHC 33.3 pg 05/22/20 20 Unknown Cbc With Differential Ord2 Eos% 3.5 % 05/22/20 20 Unknown Cbc With Differential Ord2 PLT 254 K/ul 05/22/20 20 Unknown Cbc With Differential Ord2 Baso% 0.6 % 05/22/20 20 Unknown Cbc With Differential Ord2 Neut ABS# 3.72 K/ul 05/22/20 20 Unknown Cbc With Differential Ord2 RDW 13.3 % 05/22/20 20 Unknown Cbc With Differential Ord2 Lymph ABS# 2.66 K/ul 020 Unknown Cbc With Differential Ord2 Thomas ABS# 0.5 K/ul 05/22/20 20 Unknown Cbc With Differential Ord2 Eos ABS# 0.3 K/ul 05/22/20 20 Unknown Cbc With Differential Ord2 Baso ABS# 0.0 K/ul 05/22/20 20 Unknown Comp Metabolic Fxj789 NA 134 mEq/L 05/22/2020 Unkn own Comp Metabolic Gei345 K 4.6 mEq/L 05/22/2020 Unkn own Comp Metabolic Cnn383 CL 102 mEq/L 05/22/2020 Unkn own Comp Metabolic Ava081 CO2 23.0 mEq/L 05/22/2020 Unk nown Comp Metabolic Vgj504 ANION GAP 14 05/22/2020 Unkn own Comp Metabolic Bnk321 GLUCOSE 146 mg/dL 05/22/2020 Unkn own Comp Metabolic Vue345 Creat 1.1 mg/dL 05/22/2020 Unkn own Comp Metabolic Mcp208 eGFR 53 ml/min/1.73m2 05/22/20 20 Unknown Comp Metabolic Sbs615 BUN 19 mg/dL 05/22/2020 Unkn own Comp Metabolic Qgl303 B/C Ratio 17.8 Ratio 05/22/2020 Unk nown Comp Metabolic Fhy600 CALCIUM 10.1 mg/dL 05/22/2020 Unk nown Comp Metabolic Udl347 ALK PHOS 92 U/L 05/22/2020 Unkn own Comp Metabolic Pjl064 AST(SGOT) 19 U/L 05/22/2020 Unkn own Comp Metabolic Tma599 ALT(SGPT) 18 U/L 05/22/2020 Unkn own Comp Metabolic Irx610 BILI T 0.9 mg/dL 05/22/2020 Unkn own Comp Metabolic Hij542 ALBUMIN 4.4 g/dL 05/22/2020 Unkn own Comp Metabolic Fgk076 TPRO 6.9 g/dL 05/22/2020 Unkn own Comp Metabolic Xps650 GLOB 2.5 g/dL 05/22/2020 Unkn own Comp Metabolic Sbl942 A/G Ratio 1.7 Ratio 05/22/2020 Unkn own Comp Metabolic Bmx727 Osmo 273 mOsmo 05/22/2020 Unkn own %Hba1C Snx183 % HbA1c 93197-5 7.2 % 05/22/2020 Unknown %Hba1C Qar942 Gluc Ave 160 mg/dL 05/22/2020 Unknown Cbc With Differential Ord2 WBC 6.65 K/ul 08/06/20 19 Unknown Cbc With Differential Ord2 RBC 4.46 M/ul 08/06/20 19 Unknown Cbc With Differential Ord2 HGB 13.1 g/dl 08/06/20 19 Unknown Cbc With Differential Ord2 Neut% 44.8 % 08/06/20 19 Unknown Cbc With Differential Ord2 HCT 39.7 % 08/06/20 Unknown Cbc With Differential Ord2 MCV 89.0 fl 08/06/20 Unknown Cbc With Differential Ord2 Lymph% 42.7 % 08/06/20 19 Unknown Cbc With Differential Ord2 MCH 29.4 pg 08/06/20 19 Unknown Cbc With Differential Ord2 Thomas% 7.5 % 08/06/20 19 Unknown Cbc With [...] K/ul 019 Unknown Cbc With Differential Ord2 Thomas ABS# 0.5 K/ul 08/06/20 19 Unknown Cbc [...] C/HDL 3.9 Ratio 08/06/2019 Unknown Comp Metabolic Gay063 NA 138 mEq/L 08/06/2019 Unkn own Comp Metabolic Pxk327 K 4.3 mEq/L 08/06/2019 Unkn own Comp Metabolic Npp672 CL 103 mEq/L 08/06/2019 Unkn own Comp Metabolic Cjl487 CO2 25.0 mEq/L 08/06/2019 Unk nown Comp Metabolic Omq770 ANION GAP 14 08/06/2019 Unkn own Comp Metabolic Rfy440 GLUCOSE 131 mg/dL 08/06/2019 Unkn own Comp Metabolic Xdy426 Creat 0.9 mg/dL 08/06/2019 Unkn own Comp Metabolic Upy328 eGFR 64 ml/min/1.73m2 08/06/20 19 Unknown Comp Metabolic Imk780 BUN 15 mg/dL 08/06/2019 Unkn own Comp Metabolic Nbn434 B/C Ratio 16.5 Ratio 08/06/2019 Unk nown Comp Metabolic Zeo622 CALCIUM 9.6 mg/dL 08/06/2019 Unkn own Comp Metabolic Jbv582 ALK PHOS 96 U/L 08/06/2019 Unkn own Comp Metabolic Ihu124 AST(SGOT) 15 U/L 08/06/2019 Unkn own Comp Metabolic Kbj947 ALT(SGPT) 12 U/L 08/06/2019 Unkn own Comp Metabolic Vjd004 BILI T 0.8 mg/dL 08/06/2019 Unkn own Comp Metabolic Bct947 ALBUMIN 4.3 g/dL 08/06/2019 Unkn own Comp Metabolic Ibg229 TPRO 6.6 g/dL 08/06/2019 Unkn own Comp Metabolic Hnl930 GLOB 2.3 g/dL 08/06/2019 Unkn own Comp Metabolic Vhr095 A/G Ratio 1.9 Ratio 08/06/2019 Unkn own Comp Metabolic Xiu496 Osmo 278 mOsmo 08/06/2019 Unkn own %Hba1C Jwm998 % HbA1c 85235-9 6.9 % 08/06/2019 Unknown %Hba1C Eni501 Gluc Ave 151 mg/dL 08/06/2019 Unknown %Hba1C Era720 % HbA1c 72115-5 6.7 % 02/01/2019 Unknown %Hba1C Dhp949 Gluc Ave 146 mg/dL 02/01/2019 Unknown Tsh Ord6 TSH (3rd IS) 1.78 uIU/mL 02/01/2019 Unkn own Lipid Ord30 CHOL 163 mg/dL 02/01/2019 Unknown Lipid Ord30 HDL 47.0 mg/dl 02/01/2019 Unknown Lipid Ord30 TRIG 280 mg/dL 02/01/2019 Unknown Lipid Ord30 LDL 60 mg/dL 02/01/2019 Unknown Lipid Ord30 C/HDL 3.5 Ratio 02/01/2019 Unknown Microalbumin Gfm546 MicroAlb <0.7 mg/dL 02/01/2019 Unkno wn Cbc [...] 02/02/20 19 Unknown Cbc With Differential Ord2 Thomas% 6.6 % 02/02/20 19 Unknown Cbc With [...] K/ul 019 Unknown Cbc With Differential Ord2 Thomas ABS# 0.5 K/ul 02/02/20 19 Unknown Cbc With Differential Ord2 Eos ABS# 0.2 K/ul 02/02/20 19 Unknown Cbc With Differential Ord2 Baso ABS# 0.0 K/ul 02/02/20 19 Unknown Comp Metabolic Ymo592 NA 135 mEq/L 02/01/2019 Unkn own Comp Metabolic Usv461 K 4.5 mEq/L 02/01/2019 Unkn own Comp Metabolic Zvj507 CL 105 mEq/L 02/01/2019 Unkn own Comp Metabolic Iqm649 CO2 23.0 mEq/L 02/01/2019 Unk nown Comp Metabolic Wbd388 ANION GAP 12 02/01/2019 Unkn own Comp Metabolic Cca781 GLUCOSE 125 mg/dL 02/01/2019 Unkn own Comp Metabolic Ixy424 Creat 0.9 mg/dL 02/01/2019 Unkn own Comp Metabolic Bkm293 eGFR 67 ml/min/1.73m2 02/02/20 19 Unknown Comp Metabolic Mmg580 BUN 17 mg/dL 02/01/2019 Unkn own Comp Metabolic Uln608 B/C Ratio 19.3 Ratio 02/01/2019 Unk nown Comp Metabolic Hop707 CALCIUM 9.8 mg/dL 02/01/2019 Unkn own Comp Metabolic Xrn184 ALK PHOS 89 U/L 02/01/2019 Unkn own Comp Metabolic Ran696 AST(SGOT) 17 U/L 02/01/2019 Unkn own Comp Metabolic Gpd383 ALT(SGPT) 14 U/L 02/01/2019 Unkn own Comp Metabolic Lpv542 BILI T 0.7 mg/dL 02/01/2019 Unkn own Comp Metabolic Dwy657 ALBUMIN 4.4 g/dL 02/01/2019 Unkn own Comp Metabolic Wkg089 TPRO 6.8 g/dL 02/01/2019 Unkn own Comp Metabolic Tsj373 GLOB 2.4 g/dL 02/01/2019 Unkn own Comp Metabolic Fle476 A/G Ratio 1.8 Ratio 02/01/2019 Unkn own Comp Metabolic Rwr767 Osmo 273 mOsmo 02/01/2019 Unkn own %Hba1C Kyi047 % HbA1c 24528-6 6.6 % 04/19/2018 Unknown %Hba1C Xal461 Gluc Ave 143 mg/dL 04/19/2018 Unknown Comp Metabolic Agn268 NA 137 mEq/L 12/06/2017 Unkn own Comp Metabolic Chh144 K 4.6 mEq/L 12/06/2017 Unkn own Comp Metabolic Xao644 CL 102 mEq/L 12/06/2017 Unkn own Comp Metabolic Ruh355 CO2 27.0 mEq/L 12/06/2017 Unk nown Comp Metabolic Gfr977 ANION GAP 13 12/06/2017 Unkn own Comp Metabolic Dig574 GLUCOSE 120 mg/dL 12/06/2017 Unkn own Comp Metabolic Syf170 Creat 0.9 mg/dL 12/06/2017 Unkn own Comp Metabolic Rkz189 eGFR 62 ml/min/1.73m2 12/06/19 18 Unknown Comp Metabolic Zvh664 BUN 20 mg/dL 12/06/2017 Unkn own Comp Metabolic Isx207 B/C Ratio 21.3 Ratio 12/06/2017 Unk nown Comp Metabolic Ouk304 CALCIUM 10.5 mg/dL 12/06/2017 Unk nown Comp Metabolic Bwc786 ALK PHOS 96 U/L 12/06/2017 Unkn own Comp Metabolic Xnu099 AST(SGOT) 18 U/L 12/06/2017 Unkn own Comp Metabolic Tvt655 ALT(SGPT) 15 U/L 12/06/2017 Unkn own Comp Metabolic Xya482 BILI T 0.7 mg/dL 12/06/2017 Unkn own Comp Metabolic Gjr385 ALBUMIN 4.6 g/dL 12/06/2017 Unkn own Comp Metabolic Fil884 TPRO 7.1 g/dL 12/06/2017 Unkn own Comp Metabolic Vmy912 GLOB 2.5 g/dL 12/06/2017 Unkn own Comp Metabolic Vkx404 A/G Ratio 1.9 Ratio 12/06/2017 Unkn own Comp Metabolic Tly366 Osmo 278 mOsmo 12/06/2017 Unkn own %Hba1C Qsk857 % HbA1c 36908-7 6.4 % 12/06/2017 Unknown %Hba1C Emz860 Gluc Ave 137 mg/dL 12/06/2017 Unknown Lipid Ord30 CHOL 165 mg/dL 12/06/2017 Unknown Lipid Ord30 HDL 46.0 mg/dl 12/06/2017 Unknown Lipid Ord30 TRIG 251 mg/dL 12/06/2017 Unknown Lipid Ord30 LDL 69 mg/dL 12/06/2017 Unknown Lipid Ord30 C/HDL 3.6 Ratio 12/06/2017 Unknown Vitamin D 25 Oh Kim8380 VITAMIN D, 25 HYDROXY 36.06 ng/mL 08/04/2017 Unknown Lipid Ord30 CHOL 174 mg/dL 08/04/2017 Unknown Lipid Ord30 HDL 46.0 mg/dl 08/04/2017 Unknown Lipid Ord30 TRIG 262 mg/dL 08/04/2017 Unknown Lipid Ord30 LDL 76 mg/dL 08/04/2017 Unknown Lipid Ord30 C/HDL 3.8 Ratio 08/04/2017 Unknown Parathyroid Hormone Gaa515 PTH 73.50 pg/ml 08/04/20 17 Unknown %Hba1C Hir034 % HbA1c 28893-0 6.6 % 08/04/2017 Unknown %Hba1C Ufo269 Gluc Ave 143 mg/dL 08/04/2017 Unknown Cbc [...] 08/04/20 17 Unknown Cbc With Differential Ord2 Thomas% 7.8 % 08/04/20 17 Unknown Cbc With [...] K/ul 017 Unknown Cbc With Differential Ord2 Thomas ABS# 0.6 K/ul 08/04/20 17 Unknown Cbc With Differential Ord2 Eos ABS# 0.3 K/ul 08/04/20 17 Unknown Cbc With Differential Ord2 Baso ABS# 0.0 K/ul 08/04/20 17 Unknown Free T4 Wcj939 FREE T4 1.00 ng/dL 08/04/2017 Unknown Comp Metabolic Ubb981 NA 138 mEq/L 08/04/2017 Unkn own Comp Metabolic Xty659 K 4.5 mEq/L 08/04/2017 Unkn own Comp Metabolic Ckz091 CL 102 mEq/L 08/04/2017 Unkn own Comp Metabolic Yur364 CO2 25.0 mEq/L 08/04/2017 Unk nown Comp Metabolic Mmz215 ANION GAP 16 08/04/2017 Unkn own Comp Metabolic Hfw383 GLUCOSE 99 mg/dL 08/04/2017 Unkn own Comp Metabolic Htb724 Creat 0.9 mg/dL 08/04/2017 Unkn own Comp Metabolic Scs990 eGFR 63 ml/min/1.73m2 08/04/20 17 Unknown Comp Metabolic Xhp105 BUN 18 mg/dL 08/04/2017 Unkn own Comp Metabolic Mlk778 B/C Ratio 19.4 Ratio 08/04/2017 Unk nown Comp Metabolic Fdq459 CALCIUM 10.4 mg/dL 08/04/2017 Unk nown Comp Metabolic Ket706 ALK PHOS 87 U/L 08/04/2017 Unkn own Comp Metabolic Tsq355 AST(SGOT) 20 U/L 08/04/2017 Unkn own Comp Metabolic Yhv085 ALT(SGPT) 16 U/L 08/04/2017 Unkn own Comp Metabolic Zgz679 BILI T 0.8 mg/dL 08/04/2017 Unkn own Comp Metabolic Ebe945 ALBUMIN 4.6 g/dL 08/04/2017 Unkn own Comp Metabolic Oer762 TPRO 7.0 g/dL 08/04/2017 Unkn own Comp Metabolic Exv090 GLOB 2.4 g/dL 08/04/2017 Unkn own Comp Metabolic Pja615 A/G Ratio 1.9 Ratio 08/04/2017 Unkn own Comp Metabolic Pbo635 Osmo 278 mOsmo 08/04/2017 Unkn own Tsh Ord6 hTSH II 1.55 uIU/mL 08/04/2017 Unknown Procedures Procedure Codes Date THER/PROPH/DIAG INJ SC/IM CPT-4: 43503 07/07/2022 VITAMIN B12 INJECTION 1000 mcg CPT-4: J3420 2 THER/PROPH/DIAG INJ SC/IM CPT-4: 86281 06/23/2022 VITAMIN B12 INJECTION 1000 mcg CPT-4: J3420 2 THER/PROPH/DIAG INJ SC/IM CPT-4: 33478 06/09/2022 VITAMIN B12 INJECTION 1000 mcg CPT-4: J3420 2 ADMIN INFLUENZA VIRUS VAC CPT-4: G0008 07/07/2021 IIV NO PRSV INCREASED AG IM CPT-4: 52399 07/07/2021 ADMIN INFLUENZA VIRUS VAC CPT-4: G0008 07/10/2019 IIV NO PRSV INCREASED AG IM CPT-4: 01858 07/10/2019 IIV4 VACC NO PRSV 3 YRS+ IM CPT-4: 89120 07/03/2018 ADMIN INFLUENZA VIRUS VAC CPT-4: G0008 07/03/2018 IIV4 VACC NO PRSV 0.5 ML IM CPT-4: 31128 07/03/2018 GLUC MONITOR CONT PHYS I&R CPT-4: 61211 05/16/2018 GLUCOSE MONITORING CONT CPT-4: 92371 05/01/2018 ADMIN PNEUMOCOCCAL VACCINE SNOMED CT: 63912846 CPT-4: G0009 08/03/2017 PNEUMOCOCCAL VACC [address]: 98016524 CPT-4: 48363 08/03/2017 ADMIN INFLUENZA VIRUS VAC CPT-4: G0008 08/01/2017 IIV NO PRSV INCREASED AG IM CPT-4: 80569 08/01/2017 Vital Signs Date Vital 06/01/2022 Blood Pressure 1: 138/72 Code: 8480-6 BMI: 35.7 Code: 85508-5 Heart Rate 1: 73 bpm Height: 5'6" Code: 8302-2 SpO2: 98% Temperature: 3 6.2 (C) / 97.1 (F) Weight: 221 lbs Code: 51448-9 12/01/2021 Blood Pressure 1: 148/80 Code: 8480-6 BMI: 36.2 Code: 87125-9 Heart Rate 1: 63 bpm Height: 5'6" Code: 8302-2 SpO2: 95% Temperature: 3 5.3 (C) / 95.6 (F) Weight: 224 lbs Code: 63725-4 07/07/2021 Blood Pressure 1: 136/70 Code: 8480-6 BMI: 37.1 Code: 59569-8 Heart Rate 1: 65 bpm Height: 5'6" Code: 8302-2 SpO2: 97% Temperature: 3 6.2 (C) / 97.2 (F) Weight: 230 lbs Code: 72538-7 06/02/2021 Blood Pressure 1: 142/86 Code: 8480-6 BMI: 38.4 Code: 43905-9 Heart Rate 1: 65 bpm Height: 5'6" Code: 8302-2 SpO2: 94% Temperature: 3 6.2 (C) / 97.2 (F) Weight: 238 lbs Code: 45594-3 11/27/2020 Blood Pressure 1: 140/78 Code: 8480-6 BMI: 39.7 Code: 99088-4 Heart Rate 1: 72 bpm Height: 5'6" Code: 8302-2 SpO2: 95% Temperature: 3 6.6 (C) / 97.9 (F) Weight: 246 lbs Code: 06703-0 05/22/2020 Blood Pressure 1: 148/80 Code: 8480-6 BMI: 38.4 Code: 57174-2 Heart Rate 1: 56 bpm Height: 5'6" Code: 8302-2 SpO2: 97% Temperature: 3 6.4 (C) / 97.6 (F) Weight: 238 lbs Code: 00389-7 02/07/2020 Height: Code: 8302-2 Weight: Code: 294 63-7 08/06/2019 Blood Pressure 1: 132/78 Code: 8480-6 BMI: 38.4 Code: 33656-8 Heart Rate 1: 76 bpm Height: 5'6" Code: 8302-2 SpO2: 97% Weight: 238 lb s Code: 46174-5 02/01/2019 Blood Pressure 1: 132/80 Code: 8480-6 BMI: 37.8 Code: 53410-0 Heart Rate 1: 64 bpm Height: 5'6" Code: 8302-2 SpO2: 97% Weight: 234 lb s Code: 06076-9 05/16/2018 Blood Pressure 1: 128/78 Code: 8480-6 BMI: 37.3 Code: 80294-6 Heart Rate 1: 56 bpm Height: 5'6" Code: 8302-2 SpO2: 98% Weight: 231 lb s Code: 86691-7 05/01/2018 Blood Pressure 1: 132/70 Code: 8480-6 BMI: 37.3 Code: 78726-5 Heart Rate 1: 64 bpm Height: 5'6" Code: 8302-2 SpO2: 94% Weight: 231 lb s Code: 05668-3 04/19/2018 Blood Pressure 1: 152/78 Code: 8480-6 BMI: 37.4 Code: 37070-7 Heart Rate 1: 57 bpm Height: 5'6" Code: 8302-2 SpO2: 98% Weight: 232 lb s Code: 59092-3 12/06/2017 Blood Pressure 1: 132/78 Code: 8480-6 BMI: 36.5 Code: 89444-0 Heart Rate 1: 59 bpm Height: 5'6" Code: 8302-2 SpO2: 98% Weight: 226 lb s Code: 83654-1 08/03/2017 Blood Pressure 1: 130/84 Code: 8480-6 BMI: 36.8 Code: 58699-8 Heart Rate 1: 59 bpm Height: 5'6" Code: 8302-2 SpO2: 98% Weight: 228 lb s Code: 09103-9 Functional Status No Functional Status data Reason For Visit Reason For Visit Effective Dates Notes hypertension 06/01/2022 diabetes mellitus 06/01/2022 hypertension 12/01/2021 [...] Encounter Performer Location Location Address Codes Date ([id number]) [id number] EST. PATIENT, LEVEL I Diagnosis: Anemia[ICD10: D64.9] Oumou Gonzalez MD, [facility] [address] [place] [address] CPT-4: 00264 06/15/2022 ([id number]) 88454 EST. PATIENT, LEVEL IV Diagnosis: Essential (primary) hypertension[ICD10: I10] Diagnosis: Mixed hyperlipidemia[ICD10: E78.2] Diagnosis: Type 2 diabetes mellitus without complications[ICD10: E11.9] Sarah Gonzalez MD, [facility] [address] [place] [address] CPT-4: 28624 06/01/2022 [id number]) 05848 EST. PATIENT, LEVEL IV Diagnosis: Essential (primary) hypertension[ICD10: I10] Diagnosis: Mixed hyperlipidemia[ICD10: E78.2] Diagnosis: Type 2 diabetes mellitus without complications[ICD10: E11.9] Diagnosis: Generalized anxiety disorder[ICD10: F41.1] Diagnosis: Mass of left ear canal[ICD10: H93.8X2] Sarah Aragon MD, [facility] [address] [place] [address] CPT-4: 9921 4 12/01/2021 ([id number]) 78583 EST. PATIENT, LEVEL IV Diagnosis: Generalized anxiety disorder[ICD10: F41.1] Diagnosis: Essential (primary) hypertension[ICD10: I10] Diagnosis: Need for influenza vaccination[ICD10: Z23] Sarah Gonzalez MD, [facility] [address] [place] [address] CPT-4: 9921 4 07/07/2021 ([id number]) 28599 EST. PATIENT, LEVEL IV Diagnosis: Generalized anxiety disorder[ICD10: F41.1] Diagnosis: Essential (primary) hypertension[ICD10: I10] Diagnosis: Type 2 diabetes mellitus without complications[ICD10: E11.9] Sarah Gonzalez MD, [facility] [address] [place] [address] CPT-4: 34727 06/02/2021 ([id number]) 15111 EST. PATIENT, LEVEL IV Diagnosis: Essential (primary) hypertension[ICD10: I10] Diagnosis: Mixed hyperlipidemia[ICD10: E78.2] Diagnosis: Type 2 diabetes mellitus without complications[ICD10: E11.9] Sarah Gonzalez MD, [facility] [address] [place] [address] CPT-4: 70571 11/27/2020 ([id number]) 46442 EST. PATIENT, LEVEL IV Diagnosis: Essential (primary) hypertension[ICD10: I10] Diagnosis: Mixed hyperlipidemia[ICD10: E78.2] Diagnosis: Type 2 diabetes mellitus without complications[ICD10: E11.9] Sarah Gonzalez MD, [facility] [address] [place] [address] CPT-4: 28776 05/22/2020 ([id number]) 76322 EST. PATIENT, LEVEL III Diagnosis: Type 2 diabetes mellitus without complications[ICD10: E11.9] Sarah Christianson [facility] [address], [place] [address] CPT-4: 63564 02/07/2020 ([id number]) 07830 EST. PATIENT, LEVEL IV Diagnosis: Essential (primary) hypertension[ICD10: I10] Diagnosis: Mixed hyperlipidemia[ICD10: E78.2] Diagnosis: Type 2 diabetes mellitus without complications[ICD10: E11.9] Sarah Gonzalez MD, [facility] [address] [place] [address] CPT-4: 49377 08/06/2019 ([id number]) 88576 EST. PATIENT, LEVEL IV Diagnosis: Essential (primary) hypertension[ICD10: I10] Diagnosis: Type 2 diabetes mellitus without complications[ICD10: E11.9] Diagnosis: Mixed hyperlipidemia[ICD10: E78.2] Diagnosis: Other insomnia[ICD10: G47.09] Oumou Gonzalez MD, [facility] [address] [place] [address] CPT-4: 49146 02/01 ([id number]) 97572 EST. PATIENT, LEVEL III Diagnosis: Type 2 diabetes mellitus without complications[ICD10: E11.9] Oumou Gonzalez MD, [facility] [address] [place] [address] CPT-4: 37901 05/16/2018 ([id number]) Miscellaneous no charge Diagnosis: Type 2 diabetes mellitus without complications[ICD10: E11.9] Oumou Gonzalez MD, [facility] [address] [place] [address] CPT-4: 15818 05/05/2018 ([id number]) 49008 EST. PATIENT, LEVEL IV Diagnosis: Essential (primary) hypertension[ICD10: I10] Diagnosis: Type 2 diabetes mellitus without complications[ICD10: E11.9] Oumou Gonzalez MD, [facility] [address] [place] [address] CPT-4: 43443 04/19/2018 ([id number]) 66499 EST. PATIENT, LEVEL IV Diagnosis: Type 2 diabetes mellitus without complications[ICD10: E11.9] Diagnosis: Essential (primary) hypertension[ICD10: I10] Oumou Gonzalez MD, [facility] [address] [place] [address] CPT-4: 9921 4 12/06/2017 ([id number]) OFFICE VISIT, NEW - LEVEL 4 Diagnosis: Essential (primary) hypertension[ICD10: I10] Diagnosis: Type 2 diabetes mellitus without complications[ICD10: E11.9] Diagnosis: Primary hyperparathyroidism[ICD10: E21.0] Diagnosis: Encounter for immunization[ICD10: Z23] Oumou Aragon MD, [facility] [address] [place] [address] CPT-4: 9920 4 08/03/2017 Plan of Care Planned Activity Notes Codes Status Date Patient Education: Patient Medication Summary Completed 07/07/2022 [...] less controlled. 06/01/2022 Appointment: Sarah Christianson WPtel: [phone] [phone] [place] (30 min) Complex 06/01/2022 Patient Education: Patient [...] COVID IGG 12/01/2021 Appointment: Sarah Christianson WPtel: [address] [place], [place] [phone] (30 min) Complex 12/01/2021 Patient Education: Patient Medication Summary Completed 12/01/2021 Patient Education: Hypertension Completed 12/01/2021 Patient Education: Cholesterol Management Completed 12/01/2021 Patient Education: Diabetes Completed 12/01/2021 Appointment: Sarah Christianson WPtel: [phone] (30 min) Complex 11/10/2021 Visit Plan: [...] at home. 07/07/2021 Appointment: Sarah Christianson WPtel: [phone] (30 min) Complex 07/07/2021 Patient Education: [...] Diabetes Completed 06/02/2021 Appointment: Sarah Christianson WPtel: [address] [place], [place] [phone] (15 min) Moderate 05/28/2021 Patient Education: Patient [...] if needed. 11/27/2020 Appointment: Sarah Christianson WPtel: [phone] (15 min) Moderate 11/27/2020 Patient Education: Patient Medication Summary Completed 11/27/2020 Patient Education: Cholesterol Management Completed 11/27/2020 Patient Education: Diabetes Completed 11/27/2020 [phone] (30 min) Complex 11/20/2020 Visit Plan: [...] controlled. 05/22/2020 Appointment: Sarah Christianson WPtel: [phone] [phone] (30 min) Complex 05/22/2020 Patient Education: Patient [...] control. 02/07/2020 [facility]ment: [facility] [phone] [phone] [facility] 02/07/2020 Patient Education: Patient Medication Summary [...] medications. 08/06/2019 App[facility]ment: [facility] [phone] [phone] (30 min) [facility] 08/06/2019 Patient Education: Patient Medication Summary Completed 08/06/2019 Patient Education: Cholesterol Management Completed 08/06/2019 Patient Education: Diabetes Completed 08/06/2019 App[facility]ment: [facility] [phone] [phone] [facility] - Annual Wellness Visit 10/2018 Appointment: Leeroy [...] medications. 02/01/2019 Appointment: Oumou Gonzalez WPtel: [phone] [phone] (15 min) Moderate 02/01/2019 Patient Education: Patient Medication Summary Completed 02/01/2019 Patient Education: Diabetes Completed 02/01/2019 Patient Education: Cholesterol Management Completed 02/01/2019 Appointment: Oumou Gonzalez WPtel: [phone] [phone] (15 min) Moderate 11/13/2018 Appointment: Injection 07/03/2018 Patient Education: Patient Medication Summary Completed 07/03/2018 Visit Plan: Diabetes Mellitus - patric montes per IPRO report - pt only [...] controlled. 05/16/2018 Appointment: Oumou Gonzalez WPtel: [phone] [phone] (15 min) Moderate 05/16/2018 Patient Education: Patient Medication Summary Completed 05/16/2018 Appointment: Nurse Visit 05/05/2018 Patient Education: Patient Medication Summary Completed 05/05/2018 Appointment: Sarah Christianson WPtel: [facility] [place] [address] (30 min) Complex 05/01/2018 Patient Education: Patient [...] glucose control. 04/19/2018 Appointment: Oumou Gonzalez WPtel: [facility] [place] [address] (15 min) Moderate 04/19/2018 Patient Education: Patient Medication Summary Completed 04/19/2018 Appointment: Oumou Gonzalez WPtel: [phone] (15 min) Moderate 04/06/2018 Visit Plan: Hypertension [...] today 12/06/2017 Appointment: [facility] [phone] [phone] (15 min) Moderate 12/06/2017 Patient Education: Patient [...] be checked. 08/03/2017 Appointment: [facility] [phone] [phone] New Patient 08/03/2017 Patient Education: Patient Medication [...]
--- OUTSIDE RECORDS SUMMARY | 2022-09-01 06:04 | XMS REPORT | CCD ---
Author Author Libia Gonzalez Organization Oumou Gonzalez MD, [facility] Address [address] [place] [address] Phone Care Team Providers Care Top Edge Beveler Name Role Phone Oumou Gonzalez PP Unavailable CCM Unavailable Summary Purpose Interface Exchange Insurance Providers Payer name Policy type / Coverage type Covered alliance party ID Effective Begin Date Effective End Date WPS Medicare Part B Medicare Part B [id number] 2018 Unkno wn AARP Medicare Part B [id number] 2018 Unknown Family history Mother Diagnosis Age [...] Unknown 2 08/03/[address]: 641168810 Unknown if ever smoked 07/[address]: 279272022 Never drinks alcohol 2016 Allergies, Adverse Reactions, Alerts Substance Reaction Codes Entered Date Inactivated Date Status * NO KNOWN FOOD ALLERGIES Unknown 08/03/2017 No Inactiv e Date Active * NO KNOWN ENVIRONMENTAL ALLERGIES Unknown 08/03/2017 N o Inactive Date Active PENICILLINS nausea, diarrhea Unknown 08/03/2017 No Inactive Date A ctive Azopt hives RxNorm: 694762 11/30/2021 No Inactive Date Acti ve Problems [...] B-12) 1,000 mcg/mL injection solution Rx Norm: 351418 Take Milliliter(s) Injection 08/04/2022 08/04/2022 Inactive cyanocobalamin (vit B-12) 1,000 mcg/mL injection solution Rx Norm: 220224 Take Milliliter(s) Injection 07/21/2022 07/21/2022 Inactive cyanocobalamin (vit B-12) 1,000 mcg/mL injection solution Rx Norm: 737751 Take Milliliter(s) Injection 07/07/2022 07/07/2022 Inactive cyanocobalamin (vit B-12) 1,000 mcg/mL injection solution Rx Norm: 761941 Take Milliliter(s) Injection 06/23/2022 06/23/2022 Inactive cyanocobalamin (vit B-12) 1,000 mcg/mL injection solution Rx Norm: 823392 Take Milliliter(s) Injection 06/09/2022 06/09/2022 Inactive lisinopril 20 mg tablet RxNorm: 302568 Take 1 Tablet(s) Oral at bed time 05/18/2022 05/12/2023 Active This prescription wa s filled on 02/24/2022. Any refills authorized will be placed on file. pravastatin 40 mg tablet RxNorm: 506816 Take 1 Tablet(s) Oral a t bed time 04/08/2022 04/02/2023 Active This prescription wa s filled on 01/14/2022. Any refills authorized will be placed on file. omeprazole 40 mg capsule,delayed release RxNorm: 379518 Take 1 Capsule(s) Oral every morning 02/15/2022 08/13/2022 Active This prescriptio n was filled on 11/24/2021. Any refills authorized will be placed on file. Levemir FlexTouch U-100 Insulin 100 unit/mL (3 mL) sub cutaneous pen RxNorm: 052633 Unit(s) 15 unit(s) SubQ BID 02/11/2022 02/11/2022 Inactive Levemir FlexTouch U-100 Insulin 100 unit/mL (3 mL) sub cutaneous pen RxNorm: 017768 Unit(s) 14 unit(s) SubQ BID 12/16/2021 12/16/2021 Inactive dicyclomine 10 mg capsule RxNorm: 078806 Take 1 Capsule (s) Oral three times a day as needed 08/24/2021 09/02/2021 Inactive atenolol 25 mg tablet RxNorm: 892090 1T PO QAM 07/07/2021 04/02/2022 I nactive omeprazole 40 mg capsule,delayed release RxNorm: 193251 TAKE 1 CAPSULE IN THE MORNING 07/07/2021 07/07/2021 Inactive This prescriptio n was filled on 02/23/2021. Any refills authorized will be placed on file. Zofran 4 mg tablet RxNorm: 007562 1 Tablet(s) Oral Every 6 hrs as needed 07/07/2021 07/07/2021 Inactive Azopt 1 % eye drops,suspension RxNorm: 176871 1 Drop(s) ophthalmic (eye) two times a day 07/07/2021 11/30/2021 Inactive dicyclomine 10 mg capsule RxNorm: 782414 1 Capsule(s) O ral three times a day as needed 07/07/2021 07/16/2021 Inactive Semglee Pen U-100 Insulin 100 unit/mL (3 mL) subcutaneous Rx Norm: 5152257 25 Unit(s) Subcutaneous every night at bedtime 06/12/2021 07/11/2021 Inac tive 5 prefilled pens. start when levemir used up Semglee Pen U-100 Insulin 100 unit/mL (3 mL) subcutaneous Rx Norm: 5371147 25 Unit(s) Subcutaneous every night at bedtime 06/12/2021 06/12/2021 Inac tive 5 prefilled pens. start when levemir used up dicyclomine 10 mg capsule RxNorm: 495326 1 Capsule(s) O ral three times a day as needed 06/05/2021 06/14/2021 Inactive dicyclomine 10 mg capsule RxNorm: 212931 1 Capsule(s) O ral three times a day as needed 06/05/2021 06/05/2021 Inactive Lexapro 5 mg tablet RxNorm: 943951 Take 1 Tablet(s) Oral every evening 06/02/2021 11/28/2021 Inactive Xanax 0.25 mg tablet RxNorm: 948717 Take 1 Tablet(s) Oral BID PRN 0 06/02/2021 No Stop Date Active Vyzulta 0.024 % eye drops RxNorm: 0755083 1 Drop(s) opht halmic (eye) every night at bedtime 06/02/2021 No Stop Date Active omeprazole 40 mg capsule,delayed release RxNorm: 831026 TAKE 1 CAPSULE IN THE MORNING 05/18/2021 07/06/2021 Inactive This prescriptio n was filled on 02/23/2021. Any refills authorized will be placed on file. lisinopril 20 mg tablet RxNorm: 451785 Take 1 Tablet(s) Oral at bed time 05/06/2021 05/06/2021 Inactive pravastatin 40 mg tablet RxNorm: 948333 Take 1 Tablet(s) Oral a t bed time 04/13/2021 04/13/2021 Inactive This prescription wa s filled on 01/20/2021. Any refills authorized will be placed on file. atenolol 25 mg tablet RxNorm: 091105 1T PO QAM 02/02/2021 07/06/2021 I nactive Levemir FlexTouch U-100 Insulin 100 unit/mL (3 mL) sub cutaneous pen RxNorm: 276468 Unit(s) 14 unit(s) SubQ BID 12/12/2020 06/11/2021 Inactive Levemir FlexTouch U-100 Insulin 100 unit/mL (3 mL) sub cutaneous pen RxNorm: 850988 Unit(s) 14 unit(s) SubQ BID 11/28/2020 11/28/2020 Inactive Zofran 4 mg tablet RxNorm: 587948 1 Tablet(s) Oral Every 6 hrs as needed 11/27/2020 07/06/2021 Inactive omeprazole 40 mg capsule,delayed release RxNorm: 356006 TAKE 1 CAPSULE IN THE MORNING 10/30/2020 10/30/2020 Inactive BD Ultra-Fine Short Pen Needle 31 gauge x 5/16" RxNorm: Miscellaneous USE TWICE DAILY 09/24/2020 07/21/2021 Inactive BD Ultra-Fine Short Pen Needle 31 gauge x 5/16" RxNorm: Miscellaneous USE TWICE DAILY 09/24/2020 09/23/2020 Inactive Levemir FlexTouch U-100 Insulin 100 unit/mL (3 mL) sub cutaneous pen RxNorm: 969952 Unit(s) 12 unit(s) SubQ BID 07/18/2020 07/24/2020 Inactive atenolol 25 mg tablet RxNorm: 276524 1T PO QAM 05/07/2020 01/31/2021 I nactive pravastatin 40 mg tablet RxNorm: 423833 1T PO QHS 04/28/2020 020 Inactive lisinopril 20 mg tablet RxNorm: 734627 1T PO QHS 04/28/2020 04/28/2020 Inactive omeprazole 40 mg capsule,delayed release RxNorm: 095192 TAKE 1 CAPSULE IN THE MORNING 01/23/2020 10/18/2020 Inactive omeprazole 40 mg capsule,delayed release RxNorm: 20021202 TAKE 1 CAPSULE IN THE MORNING 1 Tablet(s) Oral every day 08/06/2019 01/22/2020 Inactive Generic For:PRILOSEC [address] 12/21/2018 1:47:16 PM pravastatin 40 mg tablet RxNorm: 979852 TAKE 1 TABLET BY MOUTH DAILY AT BEDTIME 07/18/2019 04/12/2020 Inactive Generic For:*PRAVACH OL 40 MG TABLET 07/18/2019 9:41:57 AM Levemir FlexTouch U-100 Insulin 100 unit/mL (3 mL) sub cutaneous pen RxNorm: 516758 Unit(s) 12 unit(s) SubQ BID 07/10/2019 07/17/2020 Inactive lisinopril 20 mg tablet RxNorm: 313112 1 Tablet(s) PO QHS 05/10/2019 04/27/2020 Inactive atenolol 25 mg tablet RxNorm: 632383 TAKE 1 TABLET BY MOUTH YVAN RY MORNING 05/10/2019 02/03/2020 Inactive Generic For:TENORMIN 25 MG TABLET 05/10/2019 9:38:15 AM Pen Needle 31 gauge x 5/16" RxNorm: 1 DAILY 02/16/2019 05/10/2020 Inactive WE NEED NEW RX PLEASE...PT STATES SHE IS USING BID NOW THANK YOU 02/16/2019 2:41:18 PM atenolol 25 mg tablet RxNorm: 185077 1 Tablet(s) PO QAM 01/02/2019 Inactive Pen Needle 31 gauge x 5/16" RxNorm: 1 Miscellaneous daily 10/201802/15/2019 Inactive omeprazole 40 mg capsule,delayed release RxNorm: 358064 TAKE 1 CAPSULE IN THE MORNING 12/22/2018 07/19/2019 Inactive Generic For:PRIL OSEC 40 MG CAPSULE 12/21/2018 1:47:16 PM pravastatin 40 mg tablet RxNorm: 217367 1 Tablet(s) PO QHS 10/30/1907/17/2019 Inactive Levemir FlexTouch U-100 Insulin 100 unit/mL (3 mL) sub cutaneous pen RxNorm: 188455 Unit(s) 12 unit(s) SubQ BID 05/18/2018 07/09/2019 Inactive Levemir FlexTouch U-100 Insulin 100 unit/mL (3 mL) sub cutaneous pen RxNorm: 901183 10 unit(s) SubQ BID 05/17/2018 05/17/2018 Inactive omeprazole 40 mg capsule,delayed release RxNorm: 892931 1 Capsu le(s) PO QAM 04/25/2018 11/20/2018 Inactive lisinopril 20 mg tablet RxNorm: 972148 1 Tablet(s) PO QHS 04/19/2018 04/13/2019 Inactive atenolol 25 mg tablet RxNorm: 676916 1 Tablet(s) PO QAM 12/14/2017 Inactive lisinopril 10 mg tablet RxNorm: 102004 1 Tablet(s) PO QHS 12/14/2017 04/18/2018 Inactive pravastatin 40 mg tablet RxNorm: 340489 1 Tablet(s) PO QHS 12/14/19 18 09/09/2018 Inactive Levemir FlexTouch U-100 Insulin 100 unit/mL (3 mL) sub cutaneous pen RxNorm: 064541 10 Unit(s) SQ QAM & QHS 12/08/2017 05/16/2018 Inactive Pen Needle 31 gauge x 5/16" RxNorm: 1 Miscellaneous daily 10/2512/21/2018 Inactive Pen Needle 31 gauge x 5/16" RxNorm: 1 Miscellaneous daily 10/2502/12/2019 Inactive Phenergan 25 mg rectal suppository RxNorm: 742992 1 Suppository RTL TID 10/20/2017 10/26/2017 Inactive Phenergan 25 mg rectal suppository RxNorm: 759724 1 Suppository RTL TID 10/20/2017 10/19/2017 Inactive omeprazole 40 mg capsule,delayed release RxNorm: 089996 1 Capsu le(s) PO QAM 10/11/2017 04/08/2018 Inactive Vitamin D2 50,000 unit capsule RxNorm: 929348 1 Capsule(s) PO Q W x12 weeks 08/10/2017 08/09/2017 Inactive Take with daily lisha min d Vitamin D2 50,000 unit capsule RxNorm: 795381 1 Capsule(s) PO Q W x12 weeks 08/10/2017 11/07/2017 Inactive Take with daily lisha min d CoQ-10 oral RxNorm: 19183 oral 04/19/2018 Active Vitamin D3 1,000 unit tablet RxNorm: 377278 1 Tablet(s) PO QAM 2016 Active Rhopressa 0.02 % eye drops RxNorm: 5372411 1 Drop(s) eac h eye ophthalmic (eye) QAM 04/19/2018 Active ibuprofen 200 mg tablet RxNorm: 507076 1-2 Tablet(s) PO BID as needed 08/03/2017 Active multivitamin oral RxNorm: 40639 oral 08/03/2017 Active dorzolamide-timolol ophthalmic (eye) RxNorm: 840445 ophthalmic (eye ) 08/06/2019 Active aspirin 81 mg tablet RxNorm: 391992 1 Tablet(s) PO QHS 08/03/2017 Active Century Mature oral RxNorm: oral 06/01/2022 Active lisinopril 10 mg tablet RxNorm: 400426 1 Tablet(s) PO QHS 12/14/2017 12/13/2017 Inactive Levemir FlexTouch 100 unit/mL (3 mL) subcutaneous insulin pe n RxNorm: 006067 8 Unit(s) SQ QAM & QHS 12/08/2017 12/07/2017 Inactive atenolol 25 mg tablet RxNorm: 502271 1 Tablet(s) PO QAM 12/14/2017 Inactive timolol ophthalmic (eye) RxNorm: 21867 ophthalmic (eye) 04/19/2018 Inactive Lumigan 0.01 % eye drops RxNorm: 7981421 1 Drop(s) ophth almic (eye) bilat eyes QHS 06/02/2021 06/01/2021 Inactive pravastatin 40 mg tablet RxNorm: 711265 1 Tablet(s) PO QHS 12/14/19 18 12/13/2017 Inactive Istalol 0.5 % eye drops RxNorm: 069646 1 Drop(s) ophtha lmic (eye) bilat eyes QAM 12/06/2017 12/05/2017 Inactive omeprazole 40 mg capsule,delayed release RxNorm: 216771 1 Capsu le(s) PO QAM 10/11/2017 10/10/2017 Inactive Medication Administered Medication Codes Instructions Start Date Status cyanocobalamin (vit B-12) 1,000 mcg/mL injection solution Rx Norm: 139546 Milliliter 08/04/2022 Active cyanocobalamin (vit B-12) 1,000 mcg/mL injection solution Rx Norm: 859922 Milliliter 07/21/2022 No longer Active cyanocobalamin (vit B-12) 1,000 mcg/mL injection solution Rx Norm: 146098 Milliliter 07/07/2022 No longer Active cyanocobalamin (vit B-12) 1,000 mcg/mL injection solution Rx Norm: 508283 Milliliter 06/23/2022 No longer Active cyanocobalamin (vit B-12) 1,000 mcg/mL injection solution Rx Norm: 847709 Milliliter 06/09/2022 No longer Active Immunizations Vaccine [...] 07/21/20 22 Unknown Cbc With Differential Ord2 Irwin% 7.2 % 07/21/20 22 Unknown Cbc With [...] K/ul 022 Unknown Cbc With Differential Ord2 Irwin ABS# 0.7 K/ul 07/21/20 22 Unknown Cbc With Differential Ord2 Eos ABS# 0.2 K/ul 07/21/20 22 Unknown Cbc With Differential Ord2 Baso ABS# 0.1 K/ul 07/21/20 22 Unknown B12 Dqw493 B12 163.00 pg/ml 06/04/2022 Unknow n Tibc [...] 06/01/20 22 Unknown Cbc With Differential Ord2 Irwin% 5.6 % 06/01/20 22 Unknown Cbc With [...] K/ul 022 Unknown Cbc With Differential Ord2 Irwin ABS# 0.5 K/ul 06/01/20 22 Unknown Cbc With Differential Ord2 Eos ABS# 0.2 K/ul 06/01/20 22 Unknown Cbc With Differential Ord2 Baso ABS# 0.0 K/ul 06/01/20 22 Unknown %Hba1C Hac366 % HbA1c 00515-6 7.0 % 06/01/2022 Unknown %Hba1C Jkh450 Gluc Ave 154 mg/dL 06/01/2022 Unknown Tsh Ord6 TSH (3rd IS) 1.66 uIU/mL 06/01/2022 Unkn own Lipid Ord30 CHOL 118 mg/dL 06/01/2022 Unknown Lipid Ord30 HDL 40.0 mg/dl 06/01/2022 Unknown Lipid Ord30 TRIG 200 mg/dL 06/01/2022 Unknown Lipid Ord30 LDL 38 mg/dL 06/01/2022 Unknown Lipid Ord30 C/HDL 3.0 Ratio 06/01/2022 Unknown Comp Metabolic Txp194 NA 133 mEq/L 06/01/2022 Unkn own Comp Metabolic Mhz426 K 4.6 mEq/L 06/01/2022 Unkn own Comp Metabolic Sdw549 CL 102 mEq/L 06/01/2022 Unkn own Comp Metabolic Vmo367 CO2 25.0 mEq/L 06/01/2022 Unk nown Comp Metabolic Vju982 ANION GAP 11 06/01/2022 Unkn own Comp Metabolic Wlj564 GLUCOSE 99 mg/dL 06/01/2022 Unkn own Comp Metabolic Pkd462 Creat 1.0 mg/dL 06/01/2022 Unkn own Comp Metabolic Tgp107 eGFR 60 ml/min/1.73m2 06/01/20 22 Unknown Comp Metabolic Nve634 BUN 15 mg/dL 06/01/2022 Unkn own Comp Metabolic Top621 B/C Ratio 15.6 Ratio 06/01/2022 Unk nown Comp Metabolic Xaw672 CALCIUM 9.8 mg/dL 06/01/2022 Unkn own Comp Metabolic Awx637 ALK PHOS 84 U/L 06/01/2022 Unkn own Comp Metabolic Uvm704 AST(SGOT) 16 U/L 06/01/2022 Unkn own Comp Metabolic Ics150 ALT(SGPT) 13 U/L 06/01/2022 Unkn own Comp Metabolic Ota958 BILI T 0.6 mg/dL 06/01/2022 Unkn own Comp Metabolic Gmd180 ALBUMIN 4.1 g/dL 06/01/2022 Unkn own Comp Metabolic Riz941 TPRO 6.5 g/dL 06/01/2022 Unkn own Comp Metabolic Yzg180 GLOB 2.4 g/dL 06/01/2022 Unkn own Comp Metabolic Bba890 A/G Ratio 1.7 Ratio 06/01/2022 Unkn own Comp Metabolic Pgt696 Osmo 267 mOsmo 06/01/2022 Unkn own SARS-CoV-2 IgG FZT9643 SARS-CoV-2 IgG 30.74 S/CO 2 Unknown Comp Metabolic Evw803 NA 136 mEq/L 12/01/2021 Unkn own Comp Metabolic Cqk506 K 4.8 mEq/L 12/01/2021 Unkn own Comp Metabolic Spi607 CL 103 mEq/L 12/01/2021 Unkn own Comp Metabolic Vcw760 CO2 24.0 mEq/L 12/01/2021 Unk nown Comp Metabolic Ihh171 ANION GAP 14 12/01/2021 Unkn own Comp Metabolic Hop005 GLUCOSE 95 mg/dL 12/01/2021 Unkn own Comp Metabolic Yyu030 Creat 0.9 mg/dL 12/01/2021 Unkn own Comp Metabolic Pio051 eGFR 62 ml/min/1.73m2 12/01/19 22 Unknown Comp Metabolic Zhg190 BUN 13 mg/dL 12/01/2021 Unkn own Comp Metabolic Mgc700 B/C Ratio 13.8 Ratio 12/01/2021 Unk nown Comp Metabolic Eia099 CALCIUM 9.7 mg/dL 12/01/2021 Unkn own Comp Metabolic Otw401 ALK PHOS 89 U/L 12/01/2021 Unkn own Comp Metabolic Kym465 AST(SGOT) 16 U/L 12/01/2021 Unkn own Comp Metabolic Mfl139 ALT(SGPT) 11 U/L 12/01/2021 Unkn own Comp Metabolic Zta153 BILI T 0.7 mg/dL 12/01/2021 Unkn own Comp Metabolic Set877 ALBUMIN 4.2 g/dL 12/01/2021 Unkn own Comp Metabolic Fuh820 TPRO 6.7 g/dL 12/01/2021 Unkn own Comp Metabolic Uzy971 GLOB 2.5 g/dL 12/01/2021 Unkn own Comp Metabolic Znv848 A/G Ratio 1.7 Ratio 12/01/2021 Unkn own Comp Metabolic Rvq941 Osmo 272 mOsmo 12/01/2021 Unkn own Cbc [...] 12/01/19 22 Unknown Cbc With Differential Ord2 Irwin% 7.2 % 12/01/19 22 Unknown Cbc With [...] K/ul 022 Unknown Cbc With Differential Ord2 [place]win ABS# 0.6 K/ul 12/01/19 22 Unknown Cbc With Differential Ord2 Eos ABS# 0.3 K/ul 12/01/19 22 Unknown Cbc With Differential Ord2 Baso ABS# 0.0 K/ul 12/01/19 22 Unknown %Hba1C Yrn392 % HbA1c 54035-1 6.9 % 12/01/2021 Unknown %Hba1C Dol813 Gluc Ave 151 mg/dL 12/01/2021 Unknown Lipid [...] 04/16/20 21 Unknown Cbc With Differential Ord2 Irwin% 7.0 % 04/16/20 21 Unknown Cbc With [...] K/ul 021 Unknown Cbc With Differential Ord2 [place]win ABS# 0.5 K/ul 04/16/20 21 Unknown Cbc With Differential Ord2 Eos ABS# 0.2 K/ul 04/16/20 21 Unknown Cbc With Differential Ord2 Baso ABS# 0.0 K/ul 04/16/20 21 Unknown Comp Metabolic Jge291 NA 134 mEq/L 04/16/2021 Unkn own Comp Metabolic Udt849 K 4.8 mEq/L 04/16/2021 Unkn own Comp Metabolic Uec011 CL 100 mEq/L 04/16/2021 Unkn own Comp Metabolic Vhf135 CO2 26.0 mEq/L 04/16/2021 Unk nown Comp Metabolic Fpi288 ANION GAP 13 04/16/2021 Unkn own Comp Metabolic Pix018 GLUCOSE 129 mg/dL 04/16/2021 Unkn own Comp Metabolic Oyf315 Creat 0.9 mg/dL 04/16/2021 Unkn own Comp Metabolic Blk448 eGFR 62 ml/min/1.73m2 04/16/20 21 Unknown Comp Metabolic Kht930 BUN 13 mg/dL 04/16/2021 Unkn own Comp Metabolic Sdh831 B/C Ratio 13.8 Ratio 04/16/2021 Unk nown Comp Metabolic Nmg358 CALCIUM 10.0 mg/dL 04/16/2021 Unk nown Comp Metabolic Zht269 ALK PHOS 87 U/L 04/16/2021 Unkn own Comp Metabolic Lqt691 AST(SGOT) 18 U/L 04/16/2021 Unkn own Comp Metabolic Hgv646 ALT(SGPT) 17 U/L 04/16/2021 Unkn own Comp Metabolic Twm227 BILI T 0.8 mg/dL 04/16/2021 Unkn own Comp Metabolic Abx404 ALBUMIN 4.2 g/dL 04/16/2021 Unkn own Comp Metabolic Dvj162 TPRO 6.6 g/dL 04/16/2021 Unkn own Comp Metabolic Maj453 GLOB 2.4 g/dL 04/16/2021 Unkn own Comp Metabolic Hjg830 A/G Ratio 1.7 Ratio 04/16/2021 Unkn own Comp Metabolic Xhh805 Osmo 270 mOsmo 04/16/2021 Unkn own Lipid Ord30 CHOL 153 mg/dL 04/16/2021 Unknown Lipid Ord30 HDL 45.0 mg/dl 04/16/2021 Unknown Lipid Ord30 TRIG 221 mg/dL 04/16/2021 Unknown Lipid Ord30 LDL 64 mg/dL 04/16/2021 Unknown Lipid Ord30 C/HDL 3.4 Ratio 04/16/2021 Unknown %Hba1C Rwa716 % HbA1c 38818-5 7.5 % 04/16/2021 Unknown %Hba1C Lmq530 Gluc Ave 169 mg/dL 04/16/2021 Unknown Comp Metabolic Msq944 NA 133 mEq/L 11/27/2020 Unkn own Comp Metabolic Moe793 K 4.4 mEq/L 11/27/2020 Unkn own Comp Metabolic Pbj475 CL 102 mEq/L 11/27/2020 Unkn own Comp Metabolic Pyt532 CO2 23.0 mEq/L 11/27/2020 Unk nown Comp Metabolic Lmt588 ANION GAP 12 11/27/2020 Unkn own Comp Metabolic Zdm336 GLUCOSE 138 mg/dL 11/27/2020 Unkn own Comp Metabolic Hlt428 Creat 0.9 mg/dL 11/27/2020 Unkn own Comp Metabolic Fgc469 eGFR 65 ml/min/1.73m2 02/04/20 21 Unknown Comp Metabolic Fhm506 BUN 15 mg/dL 11/27/2020 Unkn own Comp Metabolic Qpc858 B/C Ratio 16.7 Ratio 11/27/2020 Unk nown Comp Metabolic Uqe864 CALCIUM 9.8 mg/dL 11/27/2020 Unkn own Comp Metabolic Ewz192 ALK PHOS 85 U/L 11/27/2020 Unkn own Comp Metabolic Qun946 AST(SGOT) 17 U/L 11/27/2020 Unkn own Comp Metabolic Czz018 ALT(SGPT) 17 U/L 11/27/2020 Unkn own Comp Metabolic Rpu697 BILI T 0.7 mg/dL 11/27/2020 Unkn own Comp Metabolic Uhn973 ALBUMIN 4.3 g/dL 11/27/2020 Unkn own Comp Metabolic Vja334 TPRO 6.7 g/dL 11/27/2020 Unkn own Comp Metabolic Rnr414 GLOB 2.4 g/dL 11/27/2020 Unkn own Comp Metabolic Rpu279 A/G Ratio 1.8 Ratio 11/27/2020 Unkn own Comp Metabolic Hov050 Osmo 269 mOsmo 11/27/2020 Unkn own %Hba1C Uqf447 % HbA1c 03036-0 7.6 % 11/27/2020 Unknown %Hba1C Kbe016 Gluc Ave 171 mg/dL 11/27/2020 Unknown Tsh [...] 11/27/19 21 Unknown Cbc With Differential Ord2 Irwin% 7.8 % 11/27/19 21 Unknown Cbc With [...] K/ul 021 Unknown Cbc With Differential Ord2 [place]win ABS# 0.5 K/ul 11/27/19 21 Unknown Cbc [...] With Differential Ord2 MCV 87.7 fl 05/22/20 20 Unknown Cbc With Differential Ord2 Lymph% 37.0 % 05/22/20 20 Unknown Cbc With Differential Ord2 Irwin% 7.1 % 05/22/20 Unknown Cbc With Differential Ord2 MCH 29.2 pg 07/30/20 20 Unknown Cbc With Differential Ord2 Eos% [...] K/ul 020 Unknown Cbc With Differential Ord2 [place]win ABS# 0.5 K/ul 05/22/20 20 Unknown Cbc With Differential Ord2 Eos ABS# 0.3 K/ul 05/22/20 20 Unknown Cbc With Differential Ord2 Baso ABS# 0.0 K/ul 05/22/20 20 Unknown Comp Metabolic Hoa220 NA 134 mEq/L 05/22/2020 Unkn own Comp Metabolic Ope644 K 4.6 mEq/L 05/22/2020 Unkn own Comp Metabolic Eof831 CL 102 mEq/L 05/22/2020 Unkn own Comp Metabolic Mur797 CO2 23.0 mEq/L 05/22/2020 Unk nown Comp Metabolic Bzx834 ANION GAP 14 05/22/2020 Unkn own Comp Metabolic Pov178 GLUCOSE 146 mg/dL 05/22/2020 Unkn own Comp Metabolic Ayw564 Creat 1.1 mg/dL 05/22/2020 Unkn own Comp Metabolic Kjb194 eGFR 53 ml/min/1.73m2 05/22/20 20 Unknown Comp Metabolic Wvv400 BUN 19 mg/dL 05/22/2020 Unkn own Comp Metabolic Bjg000 B/C Ratio 17.8 Ratio 05/22/2020 Unk nown Comp Metabolic Sap946 CALCIUM 10.1 mg/dL 05/22/2020 Unk nown Comp Metabolic Tpw821 ALK PHOS 92 U/L 05/22/2020 Unkn own Comp Metabolic Bzl405 AST(SGOT) 19 U/L 05/22/2020 Unkn own Comp Metabolic Dmc411 ALT(SGPT) 18 U/L 05/22/2020 Unkn own Comp Metabolic Why361 BILI T 0.9 mg/dL 05/22/2020 Unkn own Comp Metabolic Pkd396 ALBUMIN 4.4 g/dL 05/22/2020 Unkn own Comp Metabolic Kks360 TPRO 6.9 g/dL 05/22/2020 Unkn own Comp Metabolic Hji912 GLOB 2.5 g/dL 05/22/2020 Unkn own Comp Metabolic Nco082 A/G Ratio 1.7 Ratio 05/22/2020 Unkn own Comp Metabolic Ihz101 Osmo 273 mOsmo 05/22/2020 Unkn own %Hba1C Ayb840 % HbA1c 14027-6 7.2 % 05/22/2020 Unknown %Hba1C Yqp389 Gluc Ave 160 mg/dL 05/22/2020 Unknown Cbc [...] 08/06/20 19 Unknown Cbc With Differential Ord2 Irwin% 7.5 % 08/06/20 19 Unknown Cbc With [...] K/ul 019 Unknown Cbc With Differential Ord2 [place]win ABS# 0.5 K/ul 08/06/20 19 Unknown Cbc [...] C/HDL 3.9 Ratio 08/06/2019 Unknown Comp Metabolic Stz357 NA 138 mEq/L 08/06/2019 Unkn own Comp Metabolic Cgn839 K 4.3 mEq/L 08/06/2019 Unkn own Comp Metabolic Tlz714 CL 103 mEq/L 08/06/2019 Unkn own Comp Metabolic Ssd846 CO2 25.0 mEq/L 08/06/2019 Unk nown Comp Metabolic Xas711 ANION GAP 14 08/06/2019 Unkn own Comp Metabolic Zdm988 GLUCOSE 131 mg/dL 08/06/2019 Unkn own Comp Metabolic Jjr996 Creat 0.9 mg/dL 08/06/2019 Unkn own Comp Metabolic Uhq235 eGFR 64 ml/min/1.73m2 08/06/20 19 Unknown Comp Metabolic Sxc700 BUN 15 mg/dL 08/06/2019 Unkn own Comp Metabolic Cqx869 B/C Ratio 16.5 Ratio 08/06/2019 Unk nown Comp Metabolic Jgk763 CALCIUM 9.6 mg/dL 08/06/2019 Unkn own Comp Metabolic Zyl127 ALK PHOS 96 U/L 08/06/2019 Unkn own Comp Metabolic Tip848 AST(SGOT) 15 U/L 08/06/2019 Unkn own Comp Metabolic Ool903 ALT(SGPT) 12 U/L 08/06/2019 Unkn own Comp Metabolic Kwb373 BILI T 0.8 mg/dL 08/06/2019 Unkn own Comp Metabolic Nhc740 ALBUMIN 4.3 g/dL 08/06/2019 Unkn own Comp Metabolic Yxm624 TPRO 6.6 g/dL 08/06/2019 Unkn own Comp Metabolic Whd635 GLOB 2.3 g/dL 08/06/2019 Unkn own Comp Metabolic Idz025 A/G Ratio 1.9 Ratio 08/06/2019 Unkn own Comp Metabolic Lmd253 Osmo 278 mOsmo 08/06/2019 Unkn own %Hba1C Hln874 % HbA1c 20605-1 6.9 % 08/06/2019 Unknown %Hba1C Gts728 Gluc Ave 151 mg/dL 08/06/2019 Unknown %Hba1C Dlq735 % HbA1c 60723-2 6.7 % 02/01/2019 Unknown %Hba1C Ego235 Gluc Ave 146 mg/dL 02/01/2019 Unknown Tsh Ord6 TSH (3rd IS) 1.78 uIU/mL 02/01/2019 Unkn own Lipid Ord30 CHOL 163 mg/dL 02/01/2019 Unknown Lipid Ord30 HDL 47.0 mg/dl 02/01/2019 Unknown Lipid Ord30 TRIG 280 mg/dL 02/01/2019 Unknown Lipid Ord30 LDL 60 mg/dL 02/01/2019 Unknown Lipid Ord30 C/HDL 3.5 Ratio 02/01/2019 Unknown Microalbumin Bsr069 MicroAlb <0.7 mg/dL 02/01/2019 Unkno wn Cbc [...] 02/02/20 19 Unknown Cbc With Differential Ord2 [place]win% 6.6 % 02/02/20 19 Unknown Cbc With [...] K/ul 019 Unknown Cbc With Differential Ord2 [place] ABS# 0.5 K/ul 02/02/20 19 Unknown Cbc With Differential Ord2 Eos ABS# 0.2 K/ul 02/02/20 19 Unknown Cbc With Differential Ord2 Baso ABS# 0.0 K/ul 02/02/20 19 Unknown Comp Metabolic Trn991 NA 135 mEq/L 02/01/2019 Unkn own Comp Metabolic Kri841 K 4.5 mEq/L 02/01/2019 Unkn own Comp Metabolic Zwk344 CL 105 mEq/L 02/01/2019 Unkn own Comp Metabolic Eht403 CO2 23.0 mEq/L 02/01/2019 Unk nown Comp Metabolic Wuj669 ANION GAP 12 02/01/2019 Unkn own Comp Metabolic Rfn277 GLUCOSE 125 mg/dL 02/01/2019 Unkn own Comp Metabolic Qbw499 Creat 0.9 mg/dL 02/01/2019 Unkn own Comp Metabolic Dkk197 eGFR 67 ml/min/1.73m2 02/02/20 19 Unknown Comp Metabolic Hnh545 BUN 17 mg/dL 02/01/2019 Unkn own Comp Metabolic Tlf267 B/C Ratio 19.3 Ratio 02/01/2019 Unk nown Comp Metabolic Ycf410 CALCIUM 9.8 mg/dL 02/01/2019 Unkn own Comp Metabolic Cut459 ALK PHOS 89 U/L 02/01/2019 Unkn own Comp Metabolic Kii022 AST(SGOT) 17 U/L 02/01/2019 Unkn own Comp Metabolic Mqv179 ALT(SGPT) 14 U/L 02/01/2019 Unkn own Comp Metabolic Wdr611 BILI T 0.7 mg/dL 02/01/2019 Unkn own Comp Metabolic Mim651 ALBUMIN 4.4 g/dL 02/01/2019 Unkn own Comp Metabolic Lpk481 TPRO 6.8 g/dL 02/01/2019 Unkn own Comp Metabolic Wjh293 GLOB 2.4 g/dL 02/01/2019 Unkn own Comp Metabolic Pnm068 A/G Ratio 1.8 Ratio 02/01/2019 Unkn own Comp Metabolic Cml608 Osmo 273 mOsmo 02/01/2019 Unkn own %Hba1C Lsi748 % HbA1c 32577-8 6.6 % 04/19/2018 Unknown %Hba1C Hdl502 Gluc Ave 143 mg/dL 04/19/2018 Unknown Comp Metabolic Rbj435 NA 137 mEq/L 12/06/2017 Unkn own Comp Metabolic Vme786 K 4.6 mEq/L 12/06/2017 Unkn own Comp Metabolic Klm273 CL 102 mEq/L 12/06/2017 Unkn own Comp Metabolic Mtf762 CO2 27.0 mEq/L 12/06/2017 Unk nown Comp Metabolic Hlb523 ANION GAP 13 12/06/2017 Unkn own Comp Metabolic Exq538 GLUCOSE 120 mg/dL 12/06/2017 Unkn own Comp Metabolic Qsf175 Creat 0.9 mg/dL 12/06/2017 Unkn own Comp Metabolic Zqh751 eGFR 62 ml/min/1.73m2 12/06/19 18 Unknown Comp Metabolic Mca494 BUN 20 mg/dL 12/06/2017 Unkn own Comp Metabolic Wui709 B/C Ratio 21.3 Ratio 12/06/2017 Unk nown Comp Metabolic Kvn437 CALCIUM 10.5 mg/dL 12/06/2017 Unk nown Comp Metabolic Wdo552 ALK PHOS 96 U/L 12/06/2017 Unkn own Comp Metabolic Zub083 AST(SGOT) 18 U/L 12/06/2017 Unkn own Comp Metabolic Sye990 ALT(SGPT) 15 U/L 12/06/2017 Unkn own Comp Metabolic Wdo267 BILI T 0.7 mg/dL 12/06/2017 Unkn own Comp Metabolic Tpw877 ALBUMIN 4.6 g/dL 12/06/2017 Unkn own Comp Metabolic Ikx162 TPRO 7.1 g/dL 12/06/2017 Unkn own Comp Metabolic Zkw755 GLOB 2.5 g/dL 12/06/2017 Unkn own Comp Metabolic Tjk658 A/G Ratio 1.9 Ratio 12/06/2017 Unkn own Comp Metabolic Lru740 Osmo 278 mOsmo 12/06/2017 Unkn own %Hba1C Mgr085 % HbA1c 17318-5 6.4 % 12/06/2017 Unknown %Hba1C Wep854 Gluc Ave 137 mg/dL 12/06/2017 Unknown Lipid Ord30 CHOL 165 mg/dL 12/06/2017 Unknown Lipid Ord30 HDL 46.0 mg/dl 12/06/2017 Unknown Lipid Ord30 TRIG 251 mg/dL 12/06/2017 Unknown Lipid Ord30 LDL 69 mg/dL 12/06/2017 Unknown Lipid Ord30 C/HDL 3.6 Ratio 12/06/2017 Unknown Vitamin D 25 Oh Itw7015 VITAMIN D, 25 HYDROXY 36.06 ng/mL 08/04/2017 Unknown Lipid Ord30 CHOL 174 mg/dL 08/04/2017 Unknown Lipid Ord30 HDL 46.0 mg/dl 08/04/2017 Unknown Lipid Ord30 TRIG 262 mg/dL 08/04/2017 Unknown Lipid Ord30 LDL 76 mg/dL 08/04/2017 Unknown Lipid Ord30 C/HDL 3.8 Ratio 08/04/2017 Unknown Parathyroid Hormone Bdb560 PTH 73.50 pg/ml 08/04/20 17 Unknown %Hba1C Tfh230 % HbA1c 83631-9 6.6 % 08/04/2017 Unknown %Hba1C Rhm296 Gluc Ave 143 mg/dL 08/04/2017 Unknown Cbc [...] 08/04/20 17 Unknown Cbc With Differential Ord2 Irwin% 7.8 % 08/04/20 17 Unknown Cbc With [...] K/ul 017 Unknown Cbc With Differential Ord2 Irwin ABS# 0.6 K/ul 08/04/20 17 Unknown Cbc With Differential Ord2 Eos ABS# 0.3 K/ul 08/04/20 17 Unknown Cbc With Differential Ord2 Baso ABS# 0.0 K/ul 08/04/20 17 Unknown Free T4 Fmg040 FREE T4 1.00 ng/dL 08/04/2017 Unknown Comp Metabolic Miu232 NA 138 mEq/L 08/04/2017 Unkn own Comp Metabolic Xdt012 K 4.5 mEq/L 08/04/2017 Unkn own Comp Metabolic Feu957 CL 102 mEq/L 08/04/2017 Unkn own Comp Metabolic Bmx940 CO2 25.0 mEq/L 08/04/2017 Unk nown Comp Metabolic Czy582 ANION GAP 16 08/04/2017 Unkn own Comp Metabolic Hgp579 GLUCOSE 99 mg/dL 08/04/2017 Unkn own Comp Metabolic Jry014 Creat 0.9 mg/dL 08/04/2017 Unkn own Comp Metabolic Aqo316 eGFR 63 ml/min/1.73m2 08/04/20 17 Unknown Comp Metabolic Wjc690 BUN 18 mg/dL 08/04/2017 Unkn own Comp Metabolic Mfp411 B/C Ratio 19.4 Ratio 08/04/2017 Unk nown Comp Metabolic Nrx822 CALCIUM 10.4 mg/dL 08/04/2017 Unk nown Comp Metabolic Ovm712 ALK PHOS 87 U/L 08/04/2017 Unkn own Comp Metabolic Mwr839 AST(SGOT) 20 U/L 08/04/2017 Unkn own Comp Metabolic Gkd341 ALT(SGPT) 16 U/L 08/04/2017 Unkn own Comp Metabolic Avb201 BILI T 0.8 mg/dL 08/04/2017 Unkn own Comp Metabolic Cjt914 ALBUMIN 4.6 g/dL 08/04/2017 Unkn own Comp Metabolic Ikn143 TPRO 7.0 g/dL 08/04/2017 Unkn own Comp Metabolic Bzz204 GLOB 2.4 g/dL 08/04/2017 Unkn own Comp Metabolic Wbm262 A/G Ratio 1.9 Ratio 08/04/2017 Unkn own Comp Metabolic Oat547 Osmo 278 mOsmo 08/04/2017 Unkn own Tsh Ord6 hTSH II 1.55 uIU/mL 08/04/2017 Unknown Procedures Procedure Codes Date ADMIN INFLUENZA VIRUS VAC CPT-4: G0008 08/04/2022 IIV NO PRSV INCREASED AG IM CPT-4: 32594 08/04/2022 THER/PROPH/DIAG INJ SC/IM CPT-4: 58052 08/04/2022 VITAMIN B12 INJECTION 1000 mcg CPT-4: J3420 2 THER/PROPH/DIAG INJ SC/IM CPT-4: 35132 07/21/2022 VITAMIN B12 INJECTION 1000 mcg CPT-4: J3420 2 THER/PROPH/DIAG INJ SC/IM CPT-4: 30852 07/07/2022 VITAMIN B12 INJECTION 1000 mcg CPT-4: J3420 2 THER/PROPH/DIAG INJ SC/IM CPT-4: 89775 06/23/2022 VITAMIN B12 INJECTION 1000 mcg CPT-4: J3420 2 THER/PROPH/DIAG INJ SC/IM CPT-4: 97045 06/09/2022 VITAMIN B12 INJECTION 1000 mcg CPT-4: J3420 2 ADMIN INFLUENZA VIRUS VAC CPT-4: G0008 07/07/2021 IIV NO PRSV INCREASED AG IM CPT-4: 97839 07/07/2021 ADMIN INFLUENZA VIRUS VAC CPT-4: G0008 07/10/2019 IIV NO PRSV INCREASED AG IM CPT-4: 76903 07/10/2019 IIV4 VACC NO PRSV 3 YRS+ IM CPT-4: 76806 07/03/2018 ADMIN INFLUENZA VIRUS VAC CPT-4: G0008 07/03/2018 IIV4 VACC NO PRSV 0.5 ML IM CPT-4: 20554 07/03/2018 GLUC MONITOR CONT PHYS I&R CPT-4: 27357 05/16/2018 GLUCOSE MONITORING CONT CPT-4: 17547 05/01/2018 ADMIN PNEUMOCOCCAL VACCINE SNOMED CT: 93534598 CPT-4: G0009 08/03/2017 PNEUMOCOCCAL VACC [address]: 68257149 CPT-4: 60355 08/03/2017 ADMIN INFLUENZA VIRUS VAC CPT-4: G0008 08/01/2017 IIV NO PRSV INCREASED AG IM CPT-4: 35301 08/01/2017 Vital Signs Date Vital 06/01/2022 Blood Pressure 1: 138/72 Code: 8480-6 BMI: 35.7 Code: 36024-1 Heart Rate 1: 73 bpm Height: 5'6" Code: 8302-2 SpO2: 98% Temperature: 3 6.2 (C) / 97.1 (F) Weight: 221 lbs Code: 21789-4 12/01/2021 Blood Pressure 1: 148/80 Code: 8480-6 BMI: 36.2 Code: 90434-3 Heart Rate 1: 63 bpm Height: 5'6" Code: 8302-2 SpO2: 95% Temperature: 3 5.3 (C) / 95.6 (F) Weight: 224 lbs Code: 24959-6 07/07/2021 Blood Pressure 1: 136/70 Code: 8480-6 BMI: 37.1 Code: 45657-6 Heart Rate 1: 65 bpm Height: 5'6" Code: 8302-2 SpO2: 97% Temperature: 3 6.2 (C) / 97.2 (F) Weight: 230 lbs Code: 82967-4 06/02/2021 Blood Pressure 1: 142/86 Code: 8480-6 BMI: 38.4 Code: 10966-4 Heart Rate 1: 65 bpm Height: 5'6" Code: 8302-2 SpO2: 94% Temperature: 3 6.2 (C) / 97.2 (F) Weight: 238 lbs Code: 18540-3 11/27/2020 Blood Pressure 1: 140/78 Code: 8480-6 BMI: 39.7 Code: 32573-8 Heart Rate 1: 72 bpm Height: 5'6" Code: 8302-2 SpO2: 95% Temperature: 3 6.6 (C) / 97.9 (F) Weight: 246 lbs Code: 97453-5 05/22/2020 Blood Pressure 1: 148/80 Code: 8480-6 BMI: 38.4 Code: 76839-9 Heart Rate 1: 56 bpm Height: 5'6" Code: 8302-2 SpO2: 97% Temperature: 3 6.4 (C) / 97.6 (F) Weight: 238 lbs Code: 33117-3 02/07/2020 Height: Code: 8302-2 Weight: Code: 294 63-7 08/06/2019 Blood Pressure 1: 132/78 Code: 8480-6 BMI: 38.4 Code: 00056-4 Heart Rate 1: 76 bpm Height: 5'6" Code: 8302-2 SpO2: 97% Weight: 238 lb s Code: 06935-9 02/01/2019 Blood Pressure 1: 132/80 Code: 8480-6 BMI: 37.8 Code: 26534-0 Heart Rate 1: 64 bpm Height: 5'6" Code: 8302-2 SpO2: 97% Weight: 234 lb s Code: 04632-6 05/16/2018 Blood Pressure 1: 128/78 Code: 8480-6 BMI: 37.3 Code: 10171-8 Heart Rate 1: 56 bpm Height: 5'6" Code: 8302-2 SpO2: 98% Weight: 231 lb s Code: 99397-1 05/01/2018 Blood Pressure 1: 132/70 Code: 8480-6 BMI: 37.3 Code: 44657-1 Heart Rate 1: 64 bpm Height: 5'6" Code: 8302-2 SpO2: 94% Weight: 231 lb s Code: 67470-2 04/19/2018 Blood Pressure 1: 152/78 Code: 8480-6 BMI: 37.4 Code: 42064-0 Heart Rate 1: 57 bpm Height: 5'6" Code: 8302-2 SpO2: 98% Weight: 232 lb s Code: 68169-7 12/06/2017 Blood Pressure 1: 132/78 Code: 8480-6 BMI: 36.5 Code: 83477-5 Heart Rate 1: 59 bpm Height: 5'6" Code: 8302-2 SpO2: 98% Weight: 226 lb s Code: 97041-7 08/03/2017 Blood Pressure 1: 130/84 Code: 8480-6 BMI: 36.8 Code: 61204-2 Heart Rate 1: 59 bpm Height: 5'6" Code: 8302-2 SpO2: 98% Weight: 228 lb s Code: 13376-2 Functional Status No Functional Status data Reason [...] Encounter Performer Location Location Address Codes Date (211 EST. PATIENT, LEVEL I Diagnosis: Anemia[ICD10: D64.9] Oumou Gonzalez MD, [facility] [address] [place] [address] CPT-4: 39847 06/15/2022 ([id number]) 04565 EST. PATIENT, LEVEL IV Diagnosis: Essential (primary) hypertension[ICD10: I10] Diagnosis: Mixed hyperlipidemia[ICD10: E78.2] Diagnosis: Type 2 diabetes mellitus without complications[ICD10: E11.9] Sarah Gonzalez MD, [facility] [address] [place] [address] CPT-4: 56494 06/01/2022 ([id number]) 61938 EST. PATIENT, LEVEL IV Diagnosis: Essential (primary) hypertension[ICD10: I10] Diagnosis: Mixed hyperlipidemia[ICD10: E78.2] Diagnosis: Type 2 diabetes mellitus without complications[ICD10: E11.9] Diagnosis: Generalized anxiety disorder[ICD10: F41.1] Diagnosis: Mass of left ear canal[ICD10: H93.8X2] Sarah Aragon MD, [facility] [address] [place] [address] CPT-4: 9921 4 12/01/2021 ([id number]) 36810 EST. PATIENT, LEVEL IV Diagnosis: Generalized anxiety disorder[ICD10: F41.1] Diagnosis: Essential (primary) hypertension[ICD10: I10] Diagnosis: Need for influenza vaccination[ICD10: Z23] Sarah Gonzalez MD, [facility] [address] [place] [address] CPT-4: 9921 4 07/07/2021 ([id number]) 36674 EST. PATIENT, LEVEL IV Diagnosis: Generalized anxiety disorder[ICD10: F41.1] Diagnosis: Essential (primary) hypertension[ICD10: I10] Diagnosis: Type 2 diabetes mellitus without complications[ICD10: E11.9] Sarah Gonzalez MD, [facility] [address] [place] [address] CPT-4: 67887 06/02/2021 ([id number]) 78597 EST. PATIENT, LEVEL IV Diagnosis: Essential (primary) hypertension[ICD10: I10] Diagnosis: Mixed hyperlipidemia[ICD10: E78.2] Diagnosis: Type 2 diabetes mellitus without complications[ICD10: E11.9] Sarah Gonzalez MD, [facility] [address] [place] [address] CPT-4: 06682 11/27/2020 ([id number]) 64497 EST. PATIENT, LEVEL IV Diagnosis: Essential (primary) hypertension[ICD10: I10] Diagnosis: Mixed hyperlipidemia[ICD10: E78.2] Diagnosis: Type 2 diabetes mellitus without complications[ICD10: E11.9] Sarah Gonzalez MD, [facility] [address] [place] [address] CPT-4: 62918 05/22/2020 ([id number]) 19343 EST. PATIENT, LEVEL III Diagnosis: Type 2 diabetes mellitus without complications[ICD10: E11.9] Sarah Christianson [facility] [address], [place] [address] CPT-4: 99026 02/07/2020 ([id number]) 58153 EST. PATIENT, LEVEL IV Diagnosis: Essential (primary) hypertension[ICD10: I10] Diagnosis: Mixed hyperlipidemia[ICD10: E78.2] Diagnosis: Type 2 diabetes mellitus without complications[ICD10: E11.9] Sarah Gonzalez MD, [facility] [address] [place] [address] CPT-4: 39075 08/06/2019 ([id number]) 14425 EST. PATIENT, LEVEL IV Diagnosis: Essential (primary) hypertension[ICD10: I10] Diagnosis: Type 2 diabetes mellitus without complications[ICD10: E11.9] Diagnosis: Mixed hyperlipidemia[ICD10: E78.2] Diagnosis: Other insomnia[ICD10: G47.09] Oumou Gonzalez MD, [facility] [address] [place] [address] CPT-4: 04499 02/01 ([id number]) 34686 EST. PATIENT, LEVEL III Diagnosis: Type 2 diabetes mellitus without complications[ICD10: E11.9] Oumou Gonzalez MD, [facility] [address] [place] [address] CPT-4: 60242 05/16/2018 ([id number]) Miscellaneous no charge Diagnosis: Type 2 diabetes mellitus without complications[ICD10: E11.9] Oumou Gonzalez MD, [facility] [address] [place] [address] CPT-4: 30625 05/05/2018 ([id number]) 83158 EST. PATIENT, LEVEL IV Diagnosis: Essential (primary) hypertension[ICD10: I10] Diagnosis: Type 2 diabetes mellitus without complications[ICD10: E11.9] Oumou Gonzalez MD, [facility] [address] [place] [address] CPT-4: 66159 04/19/2018 ([id number]) 58223 EST. PATIENT, LEVEL IV Diagnosis: Type 2 diabetes mellitus without complications[ICD10: E11.9] Diagnosis: Essential (primary) hypertension[ICD10: I10] Oumou Gonzalez MD, [facility] [address] [place] [address] CPT-4: 9921 4 12/06/2017 ([id number]) OFFICE VISIT, NEW - LEVEL 4 Diagnosis: Essential (primary) hypertension[ICD10: I10] Diagnosis: Type 2 diabetes mellitus without complications[ICD10: E11.9] Diagnosis: Primary hyperparathyroidism[ICD10: E21.0] Diagnosis: Encounter for immunization[ICD10: Z23] Oumou Aragon MD, [facility] [address] [place] [address] CPT-4: 9920 4 08/03/2017 Plan of Care Planned Activity Notes Codes Status Date Patient Education: Patient Medication Summary Completed 08/04/2022 [...] controlled. 06/01/2022 Appointment: Sarah Christianson WPtel: [phone] [phone] (30 min) Complex 06/01/2022 Patient Education: Patient [...] COVID IGG 12/01/2021 Appointment: Sarah Christianson WPtel: [phone] (30 min) Complex 12/01/2021 Patient Education: Patient Medication Summary Completed 12/01/2021 Patient Education: Hypertension Completed 12/01/2021 Patient Education: Cholesterol Management Completed 12/01/2021 Patient Education: Diabetes Completed 12/01/2021 Appointment: Sarah Christianson WPtel: [phone] (30 min) Complex 11/10/2021 Visit Plan: Chronic [...] at home. 07/07/2021 Appointment: Sarah Christianson WPtel: [phone] [phone] (30 min) Complex 07/07/2021 Patient Education: Patient Medication Summary Completed 07/07/2021 Patient Education: Hypertension Completed 07/07/2021 Visit Plan: Hypertension -slightly eleva kritsen today- The patient has been counseled to [...] Diabetes Completed 06/02/2021 [facility]ment[phone] (15 min) Moderate 05/28/2021 Patient Education: Patient [...] needed. 11/27/2020 Appointment: Sarah Christianson WPtel: [phone] [phone] (15 min) Moderate 11/27/2020 Patient Education: Patient Medication Summary Completed 11/27/2020 Patient Education: Cholesterol Management Completed 11/27/2020 Patient Education: Diabetes Completed 11/27/2020 Appointment: Sarah Christianson WPtel: [phone] [phone] (30 min) Complex 11/20/2020 Visit Plan: Hypertension [...] controlled. 05/22/2020 Appointment: Sarah Christianson WPtel: [phone] [phone] (30 min) Complex 05/22/2020 Patient Education: Patient [...] control. 02/07/2020 Appointment: Sarah Christianson WPtel: [phone] [phone] [facility] 02/07/2020 Patient Education: Patient Medication Summary Completed [...] medications. 08/06/2019 App[facility]ment: [phone] ([facility] min) [facility] 08/06/2019 Patient Education: Patient Medication Summary Completed 08/06/2019 Patient Education: Cholesterol Management Completed 08/06/2019 Patient Education: Diabetes Completed 08/06/2019 Appointment: Sarah Christianson WPtel: [phone] [facility] - Annual Wellness Visit 10/2018 Appointment: Injection [...] to medications. 02/01/2019 Appointment: Oumou Gonzalez WPtel: [phone] (15 min) Moderate 02/01/2019 Patient Education: Patient Medication Summary Completed 02/01/2019 Patient Education: Diabetes Completed 02/01/2019 Patient Education: Cholesterol Management Completed 02/01/2019 Appointment: Oumou Gonzalez WPtel: [phone] (15 min) Moderate 11/13/2018 Appointment: Injection [...] controlled. 05/16/2018 Appointment: Oumou Gonzalez WPtel: [phone] [place] [phone] (15 min) Moderate 05/16/2018 Patient Education: Patient Medication Summary Completed 05/16/2018 Appointment: Nurse Visit 05/05/2018 Patient Education: Patient Medication Summary Completed 05/05/2018 Appointment: Sarah Christianson WPtel: [phone] (30 min) Complex 05/01/2018 Patient Education: Patient [...] control. 04/19/2018 Appointment: Oumou Gonzalez WPtel: [phone] [phone] (15 min) Moderate 04/19/2018 Patient Education: Patient Medication Summary Completed 04/19/2018 [phone] (15 min) Moderate 04/06/2018 Visit Plan: Hypertension [...] today 12/06/2017 Appointment: Oumou Gonzalez WPtel: [phone] [phone] (15 min) Moderate 12/06/2017 Patient Education: Patient [...] be checked. 08/03/2017 Appointment: [phone] [phone] New Patient 08/03/2017 Patient Education: Patient [...]
--- OUTSIDE RECORDS SUMMARY | 2022-09-01 06:04 | XMS REPORT | CCD ---
Author Author Libia Gonzalez Organization Oumou Gonzalez MD, [facility] Address [address] [place] [address] Phone Care Team Providers Care Cabinet Professional Name Role Phone Oumou Gonzalez PP Unavailable CCM Unavailable Summary Purpose Interface Exchange Insurance Providers Payer name Policy type / Coverage type Covered green party ID Effective Begin Date Effective End Date WPS Medicare Part B Medicare Part B [id number] 2018 Unkno wn AARP Medicare Part B [id number] 2018 Unknown Family history Mother Diagnosis Age [...] Unknown 2 08/03/[address]: 470308105 Unknown if ever smoked 07/[address]: 675148844 Never drinks alcohol 2016 Allergies, Adverse Reactions, Alerts Substance Reaction Codes Entered Date Inactivated Date Status * NO KNOWN FOOD ALLERGIES Unknown 08/03/2017 No Inactiv e Date Active * NO KNOWN ENVIRONMENTAL ALLERGIES Unknown 08/03/2017 N o Inactive Date Active PENICILLINS nausea, diarrhea Unknown 08/03/2017 No Inactive Date A ctive Azopt hives RxNorm: 005975 11/30/2021 No Inactive Date Acti ve Problems Condition Codes Effective Dates Condition Status Anemia ICD-10: D64.9 ICD-9: 285.9 06/03/2022 Active Vitamin B12 deficiency anemia due to [...] B-12) 1,000 mcg/mL injection solution Rx Norm: 731084 Take Milliliter(s) Injection 07/21/2022 07/21/2022 Inactive cyanocobalamin (vit B-12) 1,000 mcg/mL injection solution Rx Norm: 720427 Take Milliliter(s) Injection 07/07/2022 07/07/2022 Inactive cyanocobalamin (vit B-12) 1,000 mcg/mL injection solution Rx Norm: 306623 Take Milliliter(s) Injection 06/23/2022 06/23/2022 Inactive cyanocobalamin (vit B-12) 1,000 mcg/mL injection solution Rx Norm: 422607 Take Milliliter(s) Injection 06/09/2022 06/09/2022 Inactive lisinopril 20 mg tablet RxNorm: 576634 Take 1 Tablet(s) Oral at bed time 05/18/2022 05/12/2023 Active This prescription wa s filled on 02/24/2022. Any refills authorized will be placed on file. pravastatin 40 mg tablet RxNorm: 140362 Take 1 Tablet(s) Oral a t bed time 04/08/2022 04/02/2023 Active This prescription wa s filled on 01/14/2022. Any refills authorized will be placed on file. omeprazole 40 mg capsule,delayed release RxNorm: 688069 Take 1 Capsule(s) Oral every morning 02/15/2022 08/13/2022 Active This prescriptio n was filled on 11/24/2021. Any refills authorized will be placed on file. Levemir FlexTouch U-100 Insulin 100 unit/mL (3 mL) sub cutaneous pen RxNorm: 237938 Unit(s) 15 unit(s) SubQ BID 02/11/2022 02/11/2022 Inactive Levemir FlexTouch U-100 Insulin 100 unit/mL (3 mL) sub cutaneous pen RxNorm: 532226 Unit(s) 14 unit(s) SubQ BID 12/16/2021 12/16/2021 Inactive dicyclomine 10 mg capsule RxNorm: 616138 Take 1 Capsule (s) Oral three times a day as needed 08/24/2021 09/02/2021 Inactive atenolol 25 mg tablet RxNorm: 609712 1T PO QAM 07/07/2021 04/02/2022 I nactive omeprazole 40 mg capsule,delayed release RxNorm: 312501 TAKE 1 CAPSULE IN THE MORNING 07/07/2021 07/07/2021 Inactive This prescriptio n was filled on 02/23/2021. Any refills authorized will be placed on file. Zofran 4 mg tablet RxNorm: 237853 1 Tablet(s) Oral Every 6 hrs as needed 07/07/2021 07/07/2021 Inactive Azopt 1 % eye drops,suspension RxNorm: 346032 1 Drop(s) ophthalmic (eye) two times a day 07/07/2021 11/30/2021 Inactive dicyclomine 10 mg capsule RxNorm: 684074 1 Capsule(s) O ral three times a day as needed 07/07/2021 07/16/2021 Inactive Semglee Pen U-100 Insulin 100 unit/mL (3 mL) subcutaneous Rx Norm: 6247900 25 Unit(s) Subcutaneous every night at bedtime 06/12/2021 07/11/2021 Inac tive 5 prefilled pens. start when levemir used up Semglee Pen U-100 Insulin 100 unit/mL (3 mL) subcutaneous Rx Norm: 0406002 25 Unit(s) Subcutaneous every night at bedtime 06/12/2021 06/12/2021 Inac tive 5 prefilled pens. start when levemir used up dicyclomine 10 mg capsule RxNorm: 023431 1 Capsule(s) O ral three times a day as needed 06/05/2021 06/14/2021 Inactive dicyclomine 10 mg capsule RxNorm: 393224 1 Capsule(s) O ral three times a day as needed 06/05/2021 06/05/2021 Inactive Lexapro 5 mg tablet RxNorm: 190209 Take 1 Tablet(s) Oral every evening 06/02/2021 11/28/2021 Inactive Xanax 0.25 mg tablet RxNorm: 116837 Take 1 Tablet(s) Oral BID PRN 0 06/02/2021 No Stop Date Active Vyzulta 0.024 % eye drops RxNorm: 9906492 1 Drop(s) opht halmic (eye) every night at bedtime 06/02/2021 No Stop Date Active omeprazole 40 mg capsule,delayed release RxNorm: 031876 TAKE 1 CAPSULE IN THE MORNING 05/18/2021 07/06/2021 Inactive This prescriptio n was filled on 02/23/2021. Any refills authorized will be placed on file. lisinopril 20 mg tablet RxNorm: 643956 Take 1 Tablet(s) Oral at bed time 05/06/2021 05/06/2021 Inactive pravastatin 40 mg tablet RxNorm: 224304 Take 1 Tablet(s) Oral a t bed time 04/13/2021 04/13/2021 Inactive This prescription wa s filled on 01/20/2021. Any refills authorized will be placed on file. atenolol 25 mg tablet RxNorm: 994552 1T PO QAM 02/02/2021 07/06/2021 I nactive Levemir FlexTouch U-100 Insulin 100 unit/mL (3 mL) sub cutaneous pen RxNorm: 865642 Unit(s) 14 unit(s) SubQ BID 12/12/2020 06/11/2021 Inactive Levemir FlexTouch U-100 Insulin 100 unit/mL (3 mL) sub cutaneous pen RxNorm: 891022 Unit(s) 14 unit(s) SubQ BID 11/28/2020 11/28/2020 Inactive Zofran 4 mg tablet RxNorm: 305426 1 Tablet(s) Oral Every 6 hrs as needed 11/27/2020 07/06/2021 Inactive omeprazole 40 mg capsule,delayed release RxNorm: 055863 TAKE 1 CAPSULE IN THE MORNING 10/30/2020 10/30/2020 Inactive BD Ultra-Fine Short Pen Needle 31 gauge x 5/16" RxNorm: Miscellaneous USE TWICE DAILY 09/24/2020 07/21/2021 Inactive BD Ultra-Fine Short Pen Needle 31 gauge x 5/16" RxNorm: Miscellaneous USE TWICE DAILY 09/24/2020 09/23/2020 Inactive Levemir FlexTouch U-100 Insulin 100 unit/mL (3 mL) sub cutaneous pen RxNorm: 515609 Unit(s) 12 unit(s) SubQ BID 07/18/2020 07/24/2020 Inactive atenolol 25 mg tablet RxNorm: 697497 1T PO QAM 05/07/2020 01/31/2021 I nactive pravastatin 40 mg tablet RxNorm: 789537 1T PO QHS 04/28/2020 020 Inactive lisinopril 20 mg tablet RxNorm: 919924 1T PO QHS 04/28/2020 04/28/2020 Inactive omeprazole 40 mg capsule,delayed release RxNorm: 547691 TAKE 1 CAPSULE IN THE MORNING 01/23/2020 10/18/2020 Inactive omeprazole 40 mg capsule,delayed release RxNorm: 20021202 TAKE 1 CAPSULE IN THE MORNING 1 Tablet(s) Oral every day 08/06/2019 01/22/2020 Inactive Generic For:PRILOSEC [address] 12/21/2018 1:47:16 PM pravastatin 40 mg tablet RxNorm: 800498 TAKE 1 TABLET BY MOUTH DAILY AT BEDTIME 07/18/2019 04/12/2020 Inactive Generic For:*PRAVACH OL 40 MG TABLET 07/18/2019 9:41:57 AM Levemir FlexTouch U-100 Insulin 100 unit/mL (3 mL) sub cutaneous pen RxNorm: 168552 Unit(s) 12 unit(s) SubQ BID 07/10/2019 07/17/2020 Inactive lisinopril 20 mg tablet RxNorm: 450252 1 Tablet(s) PO QHS 05/10/2019 04/27/2020 Inactive atenolol 25 mg tablet RxNorm: 704944 TAKE 1 TABLET BY MOUTH YVAN RY MORNING 05/10/2019 02/03/2020 Inactive Generic For:TENORMIN 25 MG TABLET 05/10/2019 9:38:15 AM Pen Needle 31 gauge x 5/16" RxNorm: 1 DAILY 02/16/2019 05/10/2020 Inactive WE NEED NEW RX PLEASE...PT STATES SHE IS USING BID NOW THANK YOU 02/16/2019 2:41:18 PM atenolol 25 mg tablet RxNorm: 503413 1 Tablet(s) PO QAM 01/02/2019 Inactive Pen Needle 31 gauge x 5/16" RxNorm: 1 Miscellaneous daily 10/201802/15/2019 Inactive omeprazole 40 mg capsule,delayed release RxNorm: 742115 TAKE 1 CAPSULE IN THE MORNING 12/22/2018 07/19/2019 Inactive Generic For:PRIL OSEC 40 MG CAPSULE 12/21/2018 1:47:16 PM pravastatin 40 mg tablet RxNorm: 742574 1 Tablet(s) PO QHS 10/30/1907/17/2019 Inactive Levemir FlexTouch U-100 Insulin 100 unit/mL (3 mL) sub cutaneous pen RxNorm: 421022 Unit(s) 12 unit(s) SubQ BID 05/18/2018 07/09/2019 Inactive Levemir FlexTouch U-100 Insulin 100 unit/mL (3 mL) sub cutaneous pen RxNorm: 949001 10 unit(s) SubQ BID 05/17/2018 05/17/2018 Inactive omeprazole 40 mg capsule,delayed release RxNorm: 094147 1 Capsu le(s) PO QAM 04/25/2018 11/20/2018 Inactive lisinopril 20 mg tablet RxNorm: 211744 1 Tablet(s) PO QHS 04/19/2018 04/13/2019 Inactive atenolol 25 mg tablet RxNorm: 483094 1 Tablet(s) PO QAM 12/14/2017 Inactive lisinopril 10 mg tablet RxNorm: 752475 1 Tablet(s) PO QHS 12/14/2017 04/18/2018 Inactive pravastatin 40 mg tablet RxNorm: 623847 1 Tablet(s) PO QHS 12/14/19 18 09/09/2018 Inactive Levemir FlexTouch U-100 Insulin 100 unit/mL (3 mL) sub cutaneous pen RxNorm: 150478 10 Unit(s) SQ QAM & QHS 12/08/2017 05/16/2018 Inactive Pen Needle 31 gauge x 5/16" RxNorm: 1 Miscellaneous daily 10/2512/21/2018 Inactive Pen Needle 31 gauge x 5/16" RxNorm: 1 Miscellaneous daily 10/2502/12/2019 Inactive Phenergan 25 mg rectal suppository RxNorm: 059021 1 Suppository RTL TID 10/20/2017 10/26/2017 Inactive Phenergan 25 mg rectal suppository RxNorm: 733615 1 Suppository RTL TID 10/20/2017 10/19/2017 Inactive omeprazole 40 mg capsule,delayed release RxNorm: 860327 1 Capsu le(s) PO QAM 10/11/2017 04/08/2018 Inactive Vitamin D2 50,000 unit capsule RxNorm: 712198 1 Capsule(s) PO Q W x12 weeks 08/10/2017 08/09/2017 Inactive Take with daily lisha min d Vitamin D2 50,000 unit capsule RxNorm: 821460 1 Capsule(s) PO Q W x12 weeks 08/10/2017 11/07/2017 Inactive Take with daily lisha min d CoQ-10 oral RxNorm: 61711 oral 04/19/2018 Active Vitamin D3 1,000 unit tablet RxNorm: 632283 1 Tablet(s) PO QAM 2016 Active Rhopressa 0.02 % eye drops RxNorm: 4291685 1 Drop(s) eac h eye ophthalmic (eye) QA 04/19/2018 Active ibuprofen 200 mg tablet RxNorm: 686101 1-2 Tablet(s) PO BID as needed 08/03/2017 Active multivitamin oral RxNorm: 08307 oral 08/03/2017 Active dorzolamide-timolol ophthalmic (eye) RxNorm: 581830 ophthalmic (eye ) 08/06/2019 Active aspirin 81 mg tablet RxNorm: 600488 1 Tablet(s) PO QHS 08/03/2017 Active Century Mature oral RxNorm: oral 06/01/2022 Active lisinopril 10 mg tablet RxNorm: 758908 1 Tablet(s) PO QHS 12/14/2017 12/13/2017 Inactive Levemir FlexTouch 100 unit/mL (3 mL) subcutaneous insulin pe n RxNorm: 993835 8 Unit(s) SQ QAM & QHS 12/08/2017 12/07/2017 Inactive atenolol 25 mg tablet RxNorm: 401085 1 Tablet(s) PO QAM 12/14/2017 Inactive timolol ophthalmic (eye) RxNorm: 02102 ophthalmic (eye) 04/19/2018 Inactive Lumigan 0.01 % eye drops RxNorm: 1492388 1 Drop(s) ophth almic (eye) bilat eyes QHS 06/02/2021 06/01/2021 Inactive pravastatin 40 mg tablet RxNorm: 739774 1 Tablet(s) PO QHS 12/14/19 18 12/13/2017 Inactive Istalol 0.5 % eye drops RxNorm: 798209 1 Drop(s) ophtha lmic (eye) bilat eyes QAM 12/06/2017 12/05/2017 Inactive omeprazole 40 mg capsule,delayed release RxNorm: 287300 1 Capsu le(s) PO QAM 10/11/2017 10/10/2017 Inactive Medication Administered Medication Codes Instructions Start Date Status cyanocobalamin (vit B-12) 1,000 mcg/mL injection solution Rx Norm: 965710 Milliliter 07/21/2022 Active cyanocobalamin (vit B-12) 1,000 mcg/mL injection solution Rx Norm: 037249 Milliliter 07/07/2022 No longer Active cyanocobalamin (vit B-12) 1,000 mcg/mL injection solution Rx Norm: 937892 Milliliter 06/23/2022 No longer Active cyanocobalamin (vit B-12) 1,000 mcg/mL injection solution Rx Norm: 275092 Milliliter 06/09/2022 No longer Active Immunizations Vaccine [...] Code Result Date S ervice Location B12 Qcs272 B12 163.00 pg/ml 06/04/2022 Unknow n [facility] [...] 06/01/20 22 Unknown Cbc With Differential Ord2 [place]% 5.6 % 06/01/20 22 Unknown Cbc With [...] K/ul 022 Unknown Cbc With Differential Ord2 [place] ABS# 0.5 K/ul 06/01/20 22 Unknown Cbc With Differential Ord2 Eos ABS# 0.2 K/ul 06/01/20 22 Unknown Cbc With Differential Ord2 Baso ABS# 0.0 K/ul 06/01/20 22 Unknown %Hba1C Vtr917 % HbA1c 97061-5 7.0 % 06/01/2022 Unknown %Hba1C Fmc688 Gluc Ave 154 mg/dL 06/01/2022 Unknown Tsh Ord6 TSH (3rd IS) 1.66 uIU/mL 06/01/2022 Unkn own Lipid Ord30 CHOL 118 mg/dL 06/01/2022 Unknown Lipid Ord30 HDL 40.0 mg/dl 06/01/2022 Unknown Lipid Ord30 TRIG 200 mg/dL 06/01/2022 Unknown Lipid Ord30 LDL 38 mg/dL 06/01/2022 Unknown Lipid Ord30 C/HDL 3.0 Ratio 06/01/2022 Unknown Comp Metabolic Oct410 NA 133 mEq/L 06/01/2022 Unkn own Comp Metabolic Qky196 K 4.6 mEq/L 06/01/2022 Unkn own Comp Metabolic Uec177 CL 102 mEq/L 06/01/2022 Unkn own Comp Metabolic Msu224 CO2 25.0 mEq/L 06/01/2022 Unk nown Comp Metabolic Qfw207 ANION GAP 11 06/01/2022 Unkn own Comp Metabolic Owv248 GLUCOSE 99 mg/dL 06/01/2022 Unkn own Comp Metabolic Tsf650 Creat 1.0 mg/dL 06/01/2022 Unkn own Comp Metabolic Hnc994 eGFR 60 ml/min/1.73m2 06/01/20 22 Unknown Comp Metabolic Tvu722 BUN 15 mg/dL 06/01/2022 Unkn own Comp Metabolic Vtd062 B/C Ratio 15.6 Ratio 06/01/2022 Unk nown Comp Metabolic Gyv882 CALCIUM 9.8 mg/dL 06/01/2022 Unkn own Comp Metabolic Nzz832 ALK PHOS 84 U/L 06/01/2022 Unkn own Comp Metabolic Vgx911 AST(SGOT) 16 U/L 06/01/2022 Unkn own Comp Metabolic Fcw286 ALT(SGPT) 13 U/L 06/01/2022 Unkn own Comp Metabolic Zac412 BILI T 0.6 mg/dL 06/01/2022 Unkn own Comp Metabolic Rla256 ALBUMIN 4.1 g/dL 06/01/2022 Unkn own Comp Metabolic Fuu357 TPRO 6.5 g/dL 06/01/2022 Unkn own Comp Metabolic Eyh547 GLOB 2.4 g/dL 06/01/2022 Unkn own Comp Metabolic Hfw719 A/G Ratio 1.7 Ratio 06/01/2022 Unkn own Comp Metabolic Lmq206 Osmo 267 mOsmo 06/01/2022 Unkn own SARS-CoV-2 IgG KGD8191 SARS-CoV-2 IgG 30.74 S/CO 2 Unknown Comp Metabolic Rmm287 NA 136 mEq/L 12/01/2021 Unkn own Comp Metabolic Vdq855 K 4.8 mEq/L 12/01/2021 Unkn own Comp Metabolic Tvr414 CL 103 mEq/L 12/01/2021 Unkn own Comp Metabolic Frv722 CO2 24.0 mEq/L 12/01/2021 Unk nown Comp Metabolic Epa544 ANION GAP 14 12/01/2021 Unkn own Comp Metabolic Oio973 GLUCOSE 95 mg/dL 12/01/2021 Unkn own Comp Metabolic Vis361 Creat 0.9 mg/dL 12/01/2021 Unkn own Comp Metabolic Bag698 eGFR 62 ml/min/1.73m2 12/01/19 22 Unknown Comp Metabolic Gam285 BUN 13 mg/dL 12/01/2021 Unkn own Comp Metabolic Iwr887 B/C Ratio 13.8 Ratio 12/01/2021 Unk nown Comp Metabolic Psc507 CALCIUM 9.7 mg/dL 12/01/2021 Unkn own Comp Metabolic Ytk409 ALK PHOS 89 U/L 12/01/2021 Unkn own Comp Metabolic Gyw336 AST(SGOT) 16 U/L 12/01/2021 Unkn own Comp Metabolic Dxd242 ALT(SGPT) 11 U/L 12/01/2021 Unkn own Comp Metabolic Ikd678 BILI T 0.7 mg/dL 12/01/2021 Unkn own Comp Metabolic Imk070 ALBUMIN 4.2 g/dL 12/01/2021 Unkn own Comp Metabolic Kin514 TPRO 6.7 g/dL 12/01/2021 Unkn own Comp Metabolic Hlg513 GLOB 2.5 g/dL 12/01/2021 Unkn own Comp Metabolic Wqn178 A/G Ratio 1.7 Ratio 12/01/2021 Unkn own Comp Metabolic Iza518 Osmo 272 mOsmo 12/01/2021 Unkn own Cbc [...] 12/01/19 22 Unknown Cbc With Differential Ord2 [place]% 7.2 % 12/01/19 22 Unknown Cbc With [...] K/ul 022 Unknown Cbc With Differential Ord2 [place] ABS# 0.6 K/ul 12/01/19 22 Unknown Cbc With Differential Ord2 Eos ABS# 0.3 K/ul 12/01/19 22 Unknown Cbc With Differential Ord2 Baso ABS# 0.0 K/ul 12/01/19 22 Unknown %Hba1C Xuj207 % HbA1c 68195-6 6.9 % 12/01/2021 Unknown %Hba1C Dkl509 Gluc Ave 151 mg/dL 12/01/2021 Unknown Lipid [...] 04/16/20 21 Unknown Cbc With Differential Ord2 [place]% 7.0 % 04/16/20 21 Unknown Cbc With [...] K/ul 021 Unknown Cbc With Differential Ord2 [place] ABS# 0.5 K/ul 04/16/20 21 Unknown Cbc With Differential Ord2 Eos ABS# 0.2 K/ul 04/16/20 21 Unknown Cbc With Differential Ord2 Baso ABS# 0.0 K/ul 04/16/20 21 Unknown Comp Metabolic Bkd072 NA 134 mEq/L 04/16/2021 Unkn own Comp Metabolic Jss393 K 4.8 mEq/L 04/16/2021 Unkn own Comp Metabolic Lni788 CL 100 mEq/L 04/16/2021 Unkn own Comp Metabolic Qoa015 CO2 26.0 mEq/L 04/16/2021 Unk nown Comp Metabolic Rim755 ANION GAP 13 04/16/2021 Unkn own Comp Metabolic Ybw459 GLUCOSE 129 mg/dL 04/16/2021 Unkn own Comp Metabolic Jar461 Creat 0.9 mg/dL 04/16/2021 Unkn own Comp Metabolic Nsc713 eGFR 62 ml/min/1.73m2 04/16/20 21 Unknown Comp Metabolic Slq932 BUN 13 mg/dL 04/16/2021 Unkn own Comp Metabolic Azh730 B/C Ratio 13.8 Ratio 04/16/2021 Unk nown Comp Metabolic Vxf790 CALCIUM 10.0 mg/dL 04/16/2021 Unk nown Comp Metabolic Gvz264 ALK PHOS 87 U/L 04/16/2021 Unkn own Comp Metabolic Jeh863 AST(SGOT) 18 U/L 04/16/2021 Unkn own Comp Metabolic Ltt896 ALT(SGPT) 17 U/L 04/16/2021 Unkn own Comp Metabolic Hei800 BILI T 0.8 mg/dL 04/16/2021 Unkn own Comp Metabolic Rff625 ALBUMIN 4.2 g/dL 04/16/2021 Unkn own Comp Metabolic Rac347 TPRO 6.6 g/dL 04/16/2021 Unkn own Comp Metabolic Xui685 GLOB 2.4 g/dL 04/16/2021 Unkn own Comp Metabolic Tyy183 A/G Ratio 1.7 Ratio 04/16/2021 Unkn own Comp Metabolic Egz857 Osmo 270 mOsmo 04/16/2021 Unkn own Lipid Ord30 CHOL 153 mg/dL 04/16/2021 Unknown Lipid Ord30 HDL 45.0 mg/dl 04/16/2021 Unknown Lipid Ord30 TRIG 221 mg/dL 04/16/2021 Unknown Lipid Ord30 LDL 64 mg/dL 04/16/2021 Unknown Lipid Ord30 C/HDL 3.4 Ratio 04/16/2021 Unknown %Hba1C Sqa296 % HbA1c 89947-1 7.5 % 04/16/2021 Unknown %Hba1C Bjz483 Gluc Ave 169 mg/dL 04/16/2021 Unknown Comp Metabolic Vlh263 NA 133 mEq/L 11/27/2020 Unkn own Comp Metabolic Xgm265 K 4.4 mEq/L 11/27/2020 Unkn own Comp Metabolic Zzn598 CL 102 mEq/L 11/27/2020 Unkn own Comp Metabolic Amz727 CO2 23.0 mEq/L 11/27/2020 Unk nown Comp Metabolic Nvo154 ANION GAP 12 11/27/2020 Unkn own Comp Metabolic Lil699 GLUCOSE 138 mg/dL 11/27/2020 Unkn own Comp Metabolic Bvd653 Creat 0.9 mg/dL 11/27/2020 Unkn own Comp Metabolic Czn252 eGFR 65 ml/min/1.73m2 11/27/19 21 Unknown Comp Metabolic Rpe856 BUN 15 mg/dL 11/27/2020 Unkn own Comp Metabolic Dto202 B/C Ratio 16.7 Ratio 11/27/2020 Unk nown Comp Metabolic Ych369 CALCIUM 9.8 mg/dL 11/27/2020 Unkn own Comp Metabolic Egs178 ALK PHOS 85 U/L 11/27/2020 Unkn own Comp Metabolic Xfa672 AST(SGOT) 17 U/L 11/27/2020 Unkn own Comp Metabolic Vqy339 ALT(SGPT) 17 U/L 11/27/2020 Unkn own Comp Metabolic Vfv523 BILI T 0.7 mg/dL 11/27/2020 Unkn own Comp Metabolic Utj710 ALBUMIN 4.3 g/dL 11/27/2020 Unkn own Comp Metabolic Gua202 TPRO 6.7 g/dL 11/27/2020 Unkn own Comp Metabolic Cka691 GLOB 2.4 g/dL 11/27/2020 Unkn own Comp Metabolic Bag691 A/G Ratio 1.8 Ratio 11/27/2020 Unkn own Comp Metabolic Uyl079 Osmo 269 mOsmo 11/27/2020 Unkn own %Hba1C Hss405 % HbA1c 52712-0 7.6 % 11/27/2020 Unknown %Hba1C Xbr418 Gluc Ave 171 mg/dL 11/27/2020 Unknown Tsh [...] 11/27/19 21 Unknown Cbc With Differential Ord2 [place]% 7.8 % 11/27/19 21 Unknown Cbc With [...] K/ul 021 Unknown Cbc With Differential Ord2 [place] ABS# 0.5 K/ul 11/27/19 21 Unknown Cbc [...] With Differential Ord2 HCT 41.4 % 05/22/20 20 Unknown Cbc With Differential Ord2 Neut% 51.8 % 05/22/20 20 Unknown Cbc With Differential Ord2 MCV 87.7 fl 05/22/20 20 Unknown Cbc With Differential Ord2 Lymph% 37.0 % 05/22/20 20 Unknown Cbc With Differential Ord2 MCH 29.2 pg 05/22/20 20 Unknown Cbc With Differential Ord2 [place]% 7.1 % 05/22/20 Unknown Cbc With Differential Ord2 MCHC 33.3 pg 05/22/20 20 Unknown Cbc With Differential Ord2 Eos% 3.5 % 05/22/20 Unknown Cbc With Differential Ord2 Baso% 0.6 % 05/22/20 20 Unknown Cbc With Differential Ord2 PLT 254 K/ul 05/22/20 20 Unknown Cbc With Differential Ord2 Neut ABS# 3.72 K/ul 05/22/20 20 Unknown Cbc With Differential Ord2 RDW 13.3 % 05/22/20 Unknown Cbc With Differential Ord2 Lymph ABS# 2.66 K/ul 020 Unknown Cbc With Differential Ord2 [place] ABS# 0.5 K/ul 05/22/20 20 Unknown Cbc With Differential Ord2 Eos ABS# 0.3 K/ul 05/22/20 20 Unknown Cbc With Differential Ord2 Baso ABS# 0.0 K/ul 05/22/20 20 Unknown Comp Metabolic Exe260 NA 134 mEq/L 05/22/2020 Unkn own Comp Metabolic Hhs860 K 4.6 mEq/L 05/22/2020 Unkn own Comp Metabolic Dbr482 CL 102 mEq/L 05/22/2020 Unkn own Comp Metabolic Bul647 CO2 23.0 mEq/L 05/22/2020 Unk nown Comp Metabolic Yzy302 ANION GAP 14 05/22/2020 Unkn own Comp Metabolic Ltz721 GLUCOSE 146 mg/dL 05/22/2020 Unkn own Comp Metabolic Epv097 Creat 1.1 mg/dL 05/22/2020 Unkn own Comp Metabolic Hdx549 eGFR 53 ml/min/1.73m2 05/22/20 20 Unknown Comp Metabolic Pze368 BUN 19 mg/dL 05/22/2020 Unkn own Comp Metabolic Snm735 B/C Ratio 17.8 Ratio 05/22/2020 Unk nown Comp Metabolic Tpp714 CALCIUM 10.1 mg/dL 05/22/2020 Unk nown Comp Metabolic Avz015 ALK PHOS 92 U/L 05/22/2020 Unkn own Comp Metabolic Eip403 AST(SGOT) 19 U/L 05/22/2020 Unkn own Comp Metabolic Nfk573 ALT(SGPT) 18 U/L 05/22/2020 Unkn own Comp Metabolic Zcz395 BILI T 0.9 mg/dL 05/22/2020 Unkn own Comp Metabolic Fpm183 ALBUMIN 4.4 g/dL 05/22/2020 Unkn own Comp Metabolic Cdp770 TPRO 6.9 g/dL 05/22/2020 Unkn own Comp Metabolic Cno380 GLOB 2.5 g/dL 05/22/2020 Unkn own Comp Metabolic Meg251 A/G Ratio 1.7 Ratio 05/22/2020 Unkn own Comp Metabolic Baz566 Osmo 273 mOsmo 05/22/2020 Unkn own %Hba1C Hob573 % HbA1c 85126-7 7.2 % 05/22/2020 Unknown %Hba1C Hwk331 Gluc Ave 160 mg/dL 05/22/2020 Unknown Cbc [...] 08/06/20 19 Unknown Cbc With Differential Ord2 [place]% 7.5 % 08/06/20 19 Unknown Cbc With [...] K/ul 019 Unknown Cbc With Differential Ord2 [place] ABS# 0.5 K/ul 08/06/20 19 Unknown Cbc [...] C/HDL 3.9 Ratio 08/06/2019 Unknown Comp Metabolic Lty207 NA 138 mEq/L 08/06/2019 Unkn own Comp Metabolic Kti460 K 4.3 mEq/L 08/06/2019 Unkn own Comp Metabolic Jue341 CL 103 mEq/L 08/06/2019 Unkn own Comp Metabolic Gjo325 CO2 25.0 mEq/L 08/06/2019 Unk nown Comp Metabolic Vrl827 ANION GAP 14 08/06/2019 Unkn own Comp Metabolic Qcr221 GLUCOSE 131 mg/dL 08/06/2019 Unkn own Comp Metabolic Vju755 Creat 0.9 mg/dL 08/06/2019 Unkn own Comp Metabolic Kof539 eGFR 64 ml/min/1.73m2 08/06/20 19 Unknown Comp Metabolic Dwa257 BUN 15 mg/dL 08/06/2019 Unkn own Comp Metabolic Ubo537 B/C Ratio 16.5 Ratio 08/06/2019 Unk nown Comp Metabolic Zlu051 CALCIUM 9.6 mg/dL 08/06/2019 Unkn own Comp Metabolic Kyb983 ALK PHOS 96 U/L 08/06/2019 Unkn own Comp Metabolic Mdo379 AST(SGOT) 15 U/L 08/06/2019 Unkn own Comp Metabolic Vdd121 ALT(SGPT) 12 U/L 08/06/2019 Unkn own Comp Metabolic Orh202 BILI T 0.8 mg/dL 08/06/2019 Unkn own Comp Metabolic Gut477 ALBUMIN 4.3 g/dL 08/06/2019 Unkn own Comp Metabolic Jvm143 TPRO 6.6 g/dL 08/06/2019 Unkn own Comp Metabolic Wmh269 GLOB 2.3 g/dL 08/06/2019 Unkn own Comp Metabolic Rli933 A/G Ratio 1.9 Ratio 08/06/2019 Unkn own Comp Metabolic Tdt028 Osmo 278 mOsmo 08/06/2019 Unkn own %Hba1C Nbr422 % HbA1c 71387-3 6.9 % 08/06/2019 Unknown %Hba1C Mft647 Gluc Ave 151 mg/dL 08/06/2019 Unknown %Hba1C Wav435 % HbA1c 86802-9 6.7 % 02/01/2019 Unknown %Hba1C Qrb068 Gluc Ave 146 mg/dL 02/01/2019 Unknown Tsh Ord6 TSH (3rd IS) 1.78 uIU/mL 02/01/2019 Unkn own Lipid Ord30 CHOL 163 mg/dL 02/01/2019 Unknown Lipid Ord30 HDL 47.0 mg/dl 02/01/2019 Unknown Lipid Ord30 TRIG 280 mg/dL 02/01/2019 Unknown Lipid Ord30 LDL 60 mg/dL 02/01/2019 Unknown Lipid Ord30 C/HDL 3.5 Ratio 02/01/2019 Unknown Microalbumin Kor600 MicroAlb <0.7 mg/dL 02/01/2019 Unkno wn Cbc [...] 02/02/20 19 Unknown Cbc With Differential Ord2 [place]% 6.6 % 02/02/20 19 Unknown Cbc With [...] K/ul 019 Unknown Cbc With Differential Ord2 [place] ABS# 0.5 K/ul 02/02/20 19 Unknown Cbc With Differential Ord2 Eos ABS# 0.2 K/ul 02/02/20 19 Unknown Cbc With Differential Ord2 Baso ABS# 0.0 K/ul 02/02/20 19 Unknown Comp Metabolic Tlc226 NA 135 mEq/L 02/01/2019 Unkn own Comp Metabolic Tds598 K 4.5 mEq/L 02/01/2019 Unkn own Comp Metabolic Bjd633 CL 105 mEq/L 02/01/2019 Unkn own Comp Metabolic Cru469 CO2 23.0 mEq/L 02/01/2019 Unk nown Comp Metabolic Fab651 ANION GAP 12 02/01/2019 Unkn own Comp Metabolic Hps259 GLUCOSE 125 mg/dL 02/01/2019 Unkn own Comp Metabolic Gwc366 Creat 0.9 mg/dL 02/01/2019 Unkn own Comp Metabolic Rqg383 eGFR 67 ml/min/1.73m2 02/02/20 19 Unknown Comp Metabolic Yuu743 BUN 17 mg/dL 02/01/2019 Unkn own Comp Metabolic Lca021 B/C Ratio 19.3 Ratio 02/01/2019 Unk nown Comp Metabolic Uka830 CALCIUM 9.8 mg/dL 02/01/2019 Unkn own Comp Metabolic Pmq501 ALK PHOS 89 U/L 02/01/2019 Unkn own Comp Metabolic Rol551 AST(SGOT) 17 U/L 02/01/2019 Unkn own Comp Metabolic Mbk569 ALT(SGPT) 14 U/L 02/01/2019 Unkn own Comp Metabolic Ksb288 BILI T 0.7 mg/dL 02/01/2019 Unkn own Comp Metabolic Roy170 ALBUMIN 4.4 g/dL 02/01/2019 Unkn own Comp Metabolic Dpx444 TPRO 6.8 g/dL 02/01/2019 Unkn own Comp Metabolic Wvg222 GLOB 2.4 g/dL 02/01/2019 Unkn own Comp Metabolic Ham156 A/G Ratio 1.8 Ratio 02/01/2019 Unkn own Comp Metabolic Hqc449 Osmo 273 mOsmo 02/01/2019 Unkn own %Hba1C Myc443 % HbA1c 21425-1 6.6 % 04/19/2018 Unknown %Hba1C Mpy390 Gluc Ave 143 mg/dL 04/19/2018 Unknown Comp Metabolic Txp198 NA 137 mEq/L 12/06/2017 Unkn own Comp Metabolic Ftm671 K 4.6 mEq/L 12/06/2017 Unkn own Comp Metabolic Rlk886 CL 102 mEq/L 12/06/2017 Unkn own Comp Metabolic Mlp655 CO2 27.0 mEq/L 12/06/2017 Unk nown Comp Metabolic Rkn711 ANION GAP 13 12/06/2017 Unkn own Comp Metabolic Vrl860 GLUCOSE 120 mg/dL 12/06/2017 Unkn own Comp Metabolic Umj797 Creat 0.9 mg/dL 12/06/2017 Unkn own Comp Metabolic Ivn681 eGFR 62 ml/min/1.73m2 12/06/19 18 Unknown Comp Metabolic Qmj278 BUN 20 mg/dL 12/06/2017 Unkn own Comp Metabolic Opy891 B/C Ratio 21.3 Ratio 12/06/2017 Unk nown Comp Metabolic Kxo353 CALCIUM 10.5 mg/dL 12/06/2017 Unk nown Comp Metabolic Rso840 ALK PHOS 96 U/L 12/06/2017 Unkn own Comp Metabolic Rol833 AST(SGOT) 18 U/L 12/06/2017 Unkn own Comp Metabolic Fdu964 ALT(SGPT) 15 U/L 12/06/2017 Unkn own Comp Metabolic Kju845 BILI T 0.7 mg/dL 12/06/2017 Unkn own Comp Metabolic Osa972 ALBUMIN 4.6 g/dL 12/06/2017 Unkn own Comp Metabolic Qma836 TPRO 7.1 g/dL 12/06/2017 Unkn own Comp Metabolic Lir651 GLOB 2.5 g/dL 12/06/2017 Unkn own Comp Metabolic Zau273 A/G Ratio 1.9 Ratio 12/06/2017 Unkn own Comp Metabolic Hih907 Osmo 278 mOsmo 12/06/2017 Unkn own %Hba1C Ucv581 % HbA1c 72474-1 6.4 % 12/06/2017 Unknown %Hba1C Eyq475 Gluc Ave 137 mg/dL 12/06/2017 Unknown Lipid Ord30 CHOL 165 mg/dL 12/06/2017 Unknown Lipid Ord30 HDL 46.0 mg/dl 12/06/2017 Unknown Lipid Ord30 TRIG 251 mg/dL 12/06/2017 Unknown Lipid Ord30 LDL 69 mg/dL 12/06/2017 Unknown Lipid Ord30 C/HDL 3.6 Ratio 12/06/2017 Unknown Vitamin D 25 Oh Mmv6130 VITAMIN D, 25 HYDROXY 36.06 ng/mL 08/04/2017 Unknown Lipid Ord30 CHOL 174 mg/dL 08/04/2017 Unknown Lipid Ord30 HDL 46.0 mg/dl 08/04/2017 Unknown Lipid Ord30 TRIG 262 mg/dL 08/04/2017 Unknown Lipid Ord30 LDL 76 mg/dL 08/04/2017 Unknown Lipid Ord30 C/HDL 3.8 Ratio 08/04/2017 Unknown Parathyroid Hormone Xia552 PTH 73.50 pg/ml 08/04/20 17 Unknown %Hba1C Wjs540 % HbA1c 72545-2 6.6 % 08/04/2017 Unknown %Hba1C Qqt346 Gluc Ave 143 mg/dL 08/04/2017 Unknown Cbc [...] 08/04/20 17 Unknown Cbc With Differential Ord2 [place]% 7.8 % 08/04/20 17 Unknown Cbc With [...] K/ul 017 Unknown Cbc With Differential Ord2 [place] ABS# 0.6 K/ul 08/04/20 17 Unknown Cbc With Differential Ord2 Eos ABS# 0.3 K/ul 08/04/20 17 Unknown Cbc With Differential Ord2 Baso ABS# 0.0 K/ul 08/04/20 17 Unknown Free T4 Vkf875 FREE T4 1.00 ng/dL 08/04/2017 Unknown Comp Metabolic Ctz993 NA 138 mEq/L 08/04/2017 Unkn own Comp Metabolic Unq771 K 4.5 mEq/L 08/04/2017 Unkn own Comp Metabolic Vpt331 CL 102 mEq/L 08/04/2017 Unkn own Comp Metabolic Voe564 CO2 25.0 mEq/L 08/04/2017 Unk nown Comp Metabolic Rwx591 ANION GAP 16 08/04/2017 Unkn own Comp Metabolic Azs591 GLUCOSE 99 mg/dL 08/04/2017 Unkn own Comp Metabolic Cso977 Creat 0.9 mg/dL 08/04/2017 Unkn own Comp Metabolic Ugj092 eGFR 63 ml/min/1.73m2 08/04/20 17 Unknown Comp Metabolic Oha853 BUN 18 mg/dL 08/04/2017 Unkn own Comp Metabolic Xfa264 B/C Ratio 19.4 Ratio 08/04/2017 Unk nown Comp Metabolic Fwd232 CALCIUM 10.4 mg/dL 08/04/2017 Unk nown Comp Metabolic Oxg996 ALK PHOS 87 U/L 08/04/2017 Unkn own Comp Metabolic Arq263 AST(SGOT) 20 U/L 08/04/2017 Unkn own Comp Metabolic Whm190 ALT(SGPT) 16 U/L 08/04/2017 Unkn own Comp Metabolic Lxx197 BILI T 0.8 mg/dL 08/04/2017 Unkn own Comp Metabolic Zlr682 ALBUMIN 4.6 g/dL 08/04/2017 Unkn own Comp Metabolic Ahz684 TPRO 7.0 g/dL 08/04/2017 Unkn own Comp Metabolic Kbi222 GLOB 2.4 g/dL 08/04/2017 Unkn own Comp Metabolic Ipx803 A/G Ratio 1.9 Ratio 08/04/2017 Unkn own Comp Metabolic Vmo225 Osmo 278 mOsmo 08/04/2017 Unkn own Tsh Ord6 hTSH II 1.55 uIU/mL 08/04/2017 Unknown Procedures Procedure Codes Date THER/PROPH/DIAG INJ SC/IM CPT-4: 98061 07/21/2022 VITAMIN B12 INJECTION 1000 mcg CPT-4: J3420 2 THER/PROPH/DIAG INJ SC/IM CPT-4: 09131 07/07/2022 VITAMIN B12 INJECTION 1000 mcg CPT-4: J3420 2 THER/PROPH/DIAG INJ SC/IM CPT-4: 36468 06/23/2022 VITAMIN B12 INJECTION 1000 mcg CPT-4: J3420 2 THER/PROPH/DIAG INJ SC/IM CPT-4: 19763 06/09/2022 VITAMIN B12 INJECTION 1000 mcg CPT-4: J3420 2 ADMIN INFLUENZA VIRUS VAC CPT-4: G0008 07/07/2021 IIV NO PRSV INCREASED AG IM CPT-4: 71635 07/07/2021 ADMIN INFLUENZA VIRUS VAC CPT-4: G0008 07/10/2019 IIV NO PRSV INCREASED AG IM CPT-4: 30405 07/10/2019 IIV4 VACC NO PRSV 3 YRS+ IM CPT-4: 12539 07/03/2018 ADMIN INFLUENZA VIRUS VAC CPT-4: G0008 07/03/2018 IIV4 VACC NO PRSV 0.5 ML IM CPT-4: 59206 07/03/2018 GLUC MONITOR CONT PHYS I&R CPT-4: 48785 05/16/2018 GLUCOSE MONITORING CONT CPT-4: 64682 05/01/2018 ADMIN PNEUMOCOCCAL VACCINE SNOMED CT: 23993748 CPT-4: G0009 08/03/2017 PNEUMOCOCCAL VACC [address]: 46024811 CPT-4: 62971 08/03/2017 ADMIN INFLUENZA VIRUS VAC CPT-4: G0008 08/01/2017 IIV NO PRSV INCREASED AG IM CPT-4: 86416 08/01/2017 Vital Signs Date Vital 06/01/2022 Blood Pressure 1: 138/72 Code: 8480-6 BMI: 35.7 Code: 37249-7 Heart Rate 1: 73 bpm Height: 5'6" Code: 8302-2 SpO2: 98% Temperature: 3 6.2 (C) / 97.1 (F) Weight: 221 lbs Code: 39375-2 12/01/2021 Blood Pressure 1: 148/80 Code: 8480-6 BMI: 36.2 Code: 92209-3 Heart Rate 1: 63 bpm Height: 5'6" Code: 8302-2 SpO2: 95% Temperature: 3 5.3 (C) / 95.6 (F) Weight: 224 lbs Code: 21716-0 07/07/2021 Blood Pressure 1: 136/70 Code: 8480-6 BMI: 37.1 Code: 95382-0 Heart Rate 1: 65 bpm Height: 5'6" Code: 8302-2 SpO2: 97% Temperature: 3 6.2 (C) / 97.2 (F) Weight: 230 lbs Code: 66571-3 06/02/2021 Blood Pressure 1: 142/86 Code: 8480-6 BMI: 38.4 Code: 15596-4 Heart Rate 1: 65 bpm Height: 5'6" Code: 8302-2 SpO2: 94% Temperature: 3 6.2 (C) / 97.2 (F) Weight: 238 lbs Code: 59247-8 11/27/2020 Blood Pressure 1: 140/78 Code: 8480-6 BMI: 39.7 Code: 80380-6 Heart Rate 1: 72 bpm Height: 5'6" Code: 8302-2 SpO2: 95% Temperature: 3 6.6 (C) / 97.9 (F) Weight: 246 lbs Code: 47888-8 05/22/2020 Blood Pressure 1: 148/80 Code: 8480-6 BMI: 38.4 Code: 68695-1 Heart Rate 1: 56 bpm Height: 5'6" Code: 8302-2 SpO2: 97% Temperature: 3 6.4 (C) / 97.6 (F) Weight: 238 lbs Code: 54191-8 02/07/2020 Height: Code: 8302-2 Weight: Code: 294 63-7 08/06/2019 Blood Pressure 1: 132/78 Code: 8480-6 BMI: 38.4 Code: 64608-7 Heart Rate 1: 76 bpm Height: 5'6" Code: 8302-2 SpO2: 97% Weight: 238 lb s Code: 31143-9 02/01/2019 Blood Pressure 1: 132/80 Code: 8480-6 BMI: 37.8 Code: 57921-1 Heart Rate 1: 64 bpm Height: 5'6" Code: 8302-2 SpO2: 97% Weight: 234 lb s Code: 44151-5 05/16/2018 Blood Pressure 1: 128/78 Code: 8480-6 BMI: 37.3 Code: 92613-6 Heart Rate 1: 56 bpm Height: 5'6" Code: 8302-2 SpO2: 98% Weight: 231 lb s Code: 16116-9 05/01/2018 Blood Pressure 1: 132/70 Code: 8480-6 BMI: 37.3 Code: 85977-2 Heart Rate 1: 64 bpm Height: 5'6" Code: 8302-2 SpO2: 94% Weight: 231 lb s Code: 72858-5 04/19/2018 Blood Pressure 1: 152/78 Code: 8480-6 BMI: 37.4 Code: 26523-7 Heart Rate 1: 57 bpm Height: 5'6" Code: 8302-2 SpO2: 98% Weight: 232 lb s Code: 80571-7 12/06/2017 Blood Pressure 1: 132/78 Code: 8480-6 BMI: 36.5 Code: 31709-1 Heart Rate 1: 59 bpm Height: 5'6" Code: 8302-2 SpO2: 98% Weight: 226 lb s Code: 30322-3 08/03/2017 Blood Pressure 1: 130/84 Code: 8480-6 BMI: 36.8 Code: 92611-7 Heart Rate 1: 59 bpm Height: 5'6" Code: 8302-2 SpO2: 98% Weight: 228 lb s Code: 16153-1 Functional Status No Functional Status data Reason [...] Encounter Performer Location Location Address Codes Date ) 67316 EST. PATIENT, LEVEL I Diagnosis: Anemia[ICD10: D64.9] [facility] [address] [place] [address] CPT-4: 69669 06/15/2022 ([id number]) 47494 EST. PATIENT, LEVEL IV Diagnosis: Essential (primary) hypertension[ICD10: I10] Diagnosis: Mixed hyperlipidemia[ICD10: E78.2] Diagnosis: Type 2 diabetes mellitus without complications[ICD10: E11.9] [facility] [address] [place] [address] CPT-4: 86855 06/01/2022 ([id number]) 20808 EST. PATIENT, LEVEL IV Diagnosis: Essential (primary) hypertension[ICD10: I10] Diagnosis: Mixed hyperlipidemia[ICD10: E78.2] Diagnosis: Type 2 diabetes mellitus without complications[ICD10: E11.9] Diagnosis: Generalized anxiety disorder[ICD10: F41.1] Diagnosis: Mass of left ear canal[ICD10: H93.8X2] Sarah Aragon MD, [facility] [address] [place] [address] CPT-4: 9921 4 12/01/2021 ([id number]) 11910 EST. PATIENT, LEVEL IV Diagnosis: Generalized anxiety disorder[ICD10: F41.1] Diagnosis: Essential (primary) hypertension[ICD10: I10] Diagnosis: Need for influenza vaccination[ICD10: Z23] Sarah Gonzalez MD, [facility] [address] [place] [address] CPT-4: 9921 4 07/07/2021 ([id number]) 45850 EST. PATIENT, LEVEL IV Diagnosis: Generalized anxiety disorder[ICD10: F41.1] Diagnosis: Essential (primary) hypertension[ICD10: I10] Diagnosis: Type 2 diabetes mellitus without complications[ICD10: E11.9] Sarah Gonzalez MD, [facility] [address] [place] [address] CPT-4: 80527 06/02/2021 ([id number]) 74685 EST. PATIENT, LEVEL IV Diagnosis: Essential (primary) hypertension[ICD10: I10] Diagnosis: Mixed hyperlipidemia[ICD10: E78.2] Diagnosis: Type 2 diabetes mellitus without complications[ICD10: E11.9] Sarah Gonzalez MD, [facility] [address] [place] [address] CPT-4: 75249 11/27/2020 ([id number]) 79264 EST. PATIENT, LEVEL IV Diagnosis: Essential (primary) hypertension[ICD10: I10] Diagnosis: Mixed hyperlipidemia[ICD10: E78.2] Diagnosis: Type 2 diabetes mellitus without complications[ICD10: E11.9] Sarah Gonzalez MD, [facility] [address] [place] [address] CPT-4: 73913 05/22/2020 ([id number]) 31037 EST. PATIENT, LEVEL III Diagnosis: Type 2 diabetes mellitus without complications[ICD10: E11.9] [facility] [address] [place], [place] [address] CPT-4: 25153 02/07/2020 ([id number]) 17685 EST. PATIENT, LEVEL IV Diagnosis: Essential (primary) hypertension[ICD10: I10] Diagnosis: Mixed hyperlipidemia[ICD10: E78.2] Diagnosis: Type 2 diabetes mellitus without complications[ICD10: E11.9] Sarah Gonzalez MD, [facility] [address] [place] [address] CPT-4: 03832 08/06/2019 ([id number]) 74764 EST. PATIENT, LEVEL IV Diagnosis: Essential (primary) hypertension[ICD10: I10] Diagnosis: Type 2 diabetes mellitus without complications[ICD10: E11.9] Diagnosis: Mixed hyperlipidemia[ICD10: E78.2] Diagnosis: Other insomnia[ICD10: G47.09] Oumou Gonzalez MD, [facility] [address] [place] [address] CPT-4: 44127 02/01 ([id number]) 07039 EST. PATIENT, LEVEL III Diagnosis: Type 2 diabetes mellitus without complications[ICD10: E11.9] Oumou Gonzalez MD, [facility] [address] [place] [address] CPT-4: 85584 05/16/2018 ([id number]) Miscellaneous no charge Diagnosis: Type 2 diabetes mellitus without complications[ICD10: E11.9] Oumou Gonzalez MD, [facility] [address] [place] [address] CPT-4: 32325 05/05/2018 ([id number]) 69585 EST. PATIENT, LEVEL IV Diagnosis: Essential (primary) hypertension[ICD10: I10] Diagnosis: Type 2 diabetes mellitus without complications[ICD10: E11.9] [facility] [address] [place] [address] CPT-4: 00840 04/19/2018 ([id number]) 88571 EST. PATIENT, LEVEL IV Diagnosis: Type 2 diabetes mellitus without complications[ICD10: E11.9] Diagnosis: Essential (primary) hypertension[ICD10: I10] [facility] [address] [place] [address] CPT-4: 9921 4 12/06/2017 ([id number]) OFFICE VISIT, NEW - LEVEL 4 Diagnosis: Essential (primary) hypertension[ICD10: I10] Diagnosis: Type 2 diabetes mellitus without complications[ICD10: E11.9] Diagnosis: Primary hyperparathyroidism[ICD10: E21.0] Diagnosis: Encounter for immunization[ICD10: Z23] [facility] [address] [place] [address] CPT-4: 9920 4 08/03/2017 Plan of Care Planned Activity Notes Codes Status Date Patient Education: Patient Medication Summary Completed 07/21/2022 Care Plan: Cbc With Differential Pending 07/21/2022 Appointment: Injection 07/07/2022 Patient Education: Patient [...] less controlled. 06/01/2022 Appointment: Sarah Christianson WPtel: [facility][note 3]8 [phone] (30 min) Complex 06/01/2022 Patient Education: Patient [...] COVID IGG 12/01/2021 Appointment: Sarah Christianson WPtel: [facility][note 3]4 [phone] (30 min) Complex 12/01/2021 Patient Education: Patient Medication Summary Completed 12/01/2021 Patient Education: Hypertension Completed 12/01/2021 Patient Education: Cholesterol Management Completed 12/01/2021 Patient Education: Diabetes Completed 12/01/2021 Appointment: Sarah Christianson WPtel: [facility][note 3]9 [phone] (30 min) Complex 11/10/2021 Visit Plan: Chronic [...] at home. 07/07/2021 Appointment: Sarah Christianson WPtel: [address] [phone] (30 min) Complex 07/07/2021 Patient Education: Patient [...] Completed 06/02/2021 Appointment: Sarah Christianson WPtel: [address] [phone] (15 min) Moderate 05/28/2021 Patient Education: Patient [...] needed. 11/27/2020 Appointment: Sarah Christianson WPtel: [address] [phone] (15 min) Moderate 11/27/2020 Patient Education: Patient Medication Summary Completed 11/27/2020 Patient Education: Cholesterol Management Completed 11/27/2020 Patient Education: Diabetes Completed 11/27/2020 Appointment: Sarah Christianson WPtel: [address] [phone] (30 min) Complex 11/20/2020 Visit Plan: Hypertension [...] less controlled. 05/22/2020 Appointment: Sarah Christianson WPtel: [phone] [phone] (30 min) Complex 05/22/2020 Patient Education: Patient [...] control. 02/07/2020 Appointment: Sarah Christianson WPtel: [address] [phone] [facility] 02/07/2020 Patient Education: Patient Medication Summary [...] to medications. 08/06/2019 Appointment: Sarah Christianson WPtel: [facility][note 3]8 [phone] (30 min) [facility] 08/06/2019 Patient Education: Patient Medication Summary Completed 08/06/2019 Patient Education: Cholesterol Management Completed 08/06/2019 Patient Education: Diabetes Completed 08/06/2019 [facility]ointment: [phone] [facility] - Annual Wellness Visit 10/2018 Appointment: [...] to medications. 02/01/2019 Appointment: Oumou Gonzalez WPtel: [facility]note 3[phone] (15 min) Moderate 02/01/2019 Patient Education: Patient Medication Summary Completed 02/01/2019 Patient Education: Diabetes Completed 02/01/2019 Patient Education: Cholesterol Management Completed 02/01/2019 [facility]ment: [phone] (15 min) Moderate 11/13/2018 Appointment: Injection 07/03/2018 Patient Education: Patient Medication Summary Completed 07/03/2018 Visit Plan: Diabetes Mellitus - well con trolled per IPRO report - pt only had [...] controlled. 05/16/2018 Appointment: Oumou Gonzalez WPtel: [address] [phone] (15 min) Moderate 05/16/2018 Patient Education: Patient Medication Summary Completed 05/16/2018 Appointment: Nurse Visit 05/05/2018 Patient Education: Patient Medication Summary Completed 05/05/2018 Appointment: Sarah Christianson WPtel: [phone] [phone] (30 min) Complex 05/01/2018 Patient Education: Patient [...] control. 04/19/2018 Appointment: Oumou Gonzalez WPtel: [address] [phone] (15 min) Moderate 04/19/2018 Patient Education: Patient Medication Summary Completed 04/19/2018 Appointment: [facility] [phone] (15 min) Moderate 04/06/2018 Visit Plan: [...] labs today 12/06/2017 Appointment: [facility] [phone] (15 min) Moderate 12/06/2017 Patient Education: [...] be checked. 08/03/2017 Appointment: Oumou Gonzalez WPtel: [facility]note 3]9 [phone] New Patient 08/03/2017 Patient Education: Patient [...]
[2022-09-01] MEDS ORDERED: CLINDAMYCIN 600 MG/50 ML IVPB 50 ML IV ONE (06:15)
[2022-09-01] MEDS ORDERED: metroNIDAZOLE 500MG/100ML IVPB 100 ML IV ONE (06:15)
[2022-09-01] MEDS: LACTATED RINGERS 1,000 ML IV PRN ×2 (06:31→09:16)
[2022-09-01] MEDS ORDERED: ROCURONIUM 10 MG/ML 5 ML SYRINGE IV ONE (07:20)
[2022-09-01] MEDS ORDERED: fentaNYL INJ 100 MCG/2 ML AMP ONE ×2 (07:20→10:19)
[2022-09-01] MEDS ORDERED: MIDAZOLAM 2 MG/2 ML (VERSED) VIAL ONE (07:20)
[2022-09-01] MEDS ORDERED: ONDANSETRON 4 MG/2 ML (SDV) Z0FRAN ONE (07:20)
[2022-09-01] MEDS ORDERED: SEVOFLURANE (ULTANE) 15 ML INHAL SOLN ONE (07:20)
[2022-09-01] MEDS ORDERED: proPOfol 200 MG/20 ML (DIPRIVAN) VIAL IV ONE (07:20)
[2022-09-01] MEDS ORDERED: LIDOCAINE PF 2% 5 ML (XYLOCAINE) VIAL ONE (07:20)
[2022-09-01] MEDS ORDERED: BUP/EPI 0.5% 1:200,000 (MARCAINE) 10ML VIAL IJ ONE (07:24)
[2022-09-01] MEDS ORDERED: BUP/EPI 0.5% 1:200,000 (SENSORCAINE) 30 ML VIAL IJ ONE (07:44)
--- NOTE | 2022-09-01 08:01 | Progress Note-Pre Operative ---
Pre-Operative Progress Note Date of Available H&P: Aug 18, 2022 Date H&P Reviewed: Sep 01, 2022 Time H&P Reviewed: 07:48 History & Physical: H&P Reviewed, Patient Examed, No changes noted Pre-Operative Diagnosis: right colon adenocarcinoma GINA MOTTA DO Sep 01, 2022 08:01
[2022-09-01] MEDS ORDERED: ISOFLURANE (FORANE) 15 ML/15 MIN INHALATION ONE (09:16)
[2022-09-01] MEDS ORDERED: GLYCOPYRROLATE 0.2 MG/ML (ROBINUL) 2 ML VIAL ONE (09:32)
[2022-09-01] MEDS ORDERED: NEOSTIGMINE (BLOXIVERZ ) 1 MG/1ML 10 ML VIAL ONE (09:32)
[2022-09-01] MEDS ORDERED: ROPIVACAINE 5MG/ML 30ML VIAL ONE (09:33)
[2022-09-01] MEDS ORDERED: ONDANSETRON 4 MG/2 ML (SDV) Z0FRAN IVP PRN (10:00)
[2022-09-01] MEDS ORDERED: fentaNYL INJ 100 MCG/2 ML AMP IVP ONE (10:00)
[2022-09-01] MEDS ORDERED: MEPERIDINE (DEMEROL) INJ 50 MG/ML IVP ONE (10:00)
[2022-09-01] MEDS ORDERED: morphine INJ 10 MG/ML 1ML (SYR OR VIAL) IVP ONE (10:00)
[2022-09-01] MEDS ORDERED: morphine INJ 10 MG/ML 1ML (SYR OR VIAL) ONE (10:07)
[2022-09-01] MEDS: LACTATED RINGERS 1,000 ML IV SCH (12:01)
[2022-09-01] MEDS ORDERED: RT-ALBUTEROL SULF 2.5 MG/3 ML PRE-MIX VIAL INH PRN (12:15)
[2022-09-01] MEDS: HYDROcodone/APAP 5 MG/325 MG (LORTAB) TAB PO PRN ×2 (12:25→21:38)
[2022-09-01] MEDS: morphine INJ 4 MG/ML 1 ML (VIAL/SYRINGE) IVP PRN ×2 (12:25→15:55)
[2022-09-01] MEDS ORDERED: CARB15DR OP (15:18)
[2022-09-01] MEDS ORDERED: UBID100C17 PO (15:18)
[2022-09-01] MEDS ORDERED: MV-M1TAB57 PO (15:18)
[2022-09-01] MEDS ORDERED: ASPI-1238 PO (15:18)
[2022-09-01] MEDS ORDERED: DICY10CA12 PO (15:18)
[2022-09-01] MEDS ORDERED: ACET-2267 PO (15:18)
[2022-09-01] MEDS ORDERED: DORZ10DR8 OU (15:18)
--- NOTE | 2022-09-01 15:23 | Physical Therapy Evaluation ---
PT Evaluation-General Medical Diagnosis Admission Date Sep 01, 2022 at 06:00 Medical Diagnosis: colon resection Onset Date: Sep 01, 2022 Therapy Diagnosis Therapy Diagnosis: impaired mobility Precautions Precautions/Isolations: Fall Prevention, Standard Precautions Weight Bear Status Right Lower Extremity: Right Weight Bearing/Tolerated Left Lower Extremity: Left Weight Bearing/Tolerated Referral Physician: Priscila Reason for Referral: Evaluation/Treatment Social History Home: Single Level Current Living Status: Alone Entry Into Home: Stairs Without Railing PT Steps Into Home: 1 Prior Prior Level of Function SCALE: Activities may be completed with or without assistive devices. 0-Aiysjpsmek-gmehoaf completes the activity by him/herself with no assistance from a helper. 5-Set-up or Clean-up Assistance-helper sets up or cleans up; patient completes activity. Garrett assists only prior to or following the activity. 4-Supervision or Touching Assistance-helper provides verbal cues and/or touching/steadying and/or contact guard assistance as patient completes activity. Assistance may be provided throughout the activity or intermittently. 3-Partial/Moderate Assistance-helper does LESS THAN HALF the effort. Garrett lifts, holds or supports trunk or limbs, but provides less than half the effort. 2-Substantial/Maximal Assistance-helper does MORE THAN HALF the effort. Garrett lifts or holds trunk or limbs and provides more than half the effort. 1-Peydfjbcw-rjqwht does ALL the effort. Patient does none of the effort to complete the activity. Or, the assistance of 2 or more helpers is required for the patient to complete the activity. If activity was not attempted, code reason: 7-Patient Refused. 9-Not Applicable-not attempted and the patient did not perform the activity before the current illness, exacerbation or injury. 10-Not Attempted due to Environmental Limitations-(lack of equipment, weather restraints, etc.). 88-Not Attempted due to Medical Conditions or Safety Concerns. Bed Mobility: 6 Transfers (B,C,W/C): 6 Gait: 6 Stairs: 6 Indoor Mobility (Ambulation): Independent Stairs: Independent PT Evaluation-Current Subjective Patient in bed pre tx, agrees to PT, has 3/10 abdominal pain. Pt/Family Goals to be independent at home Objective Patient Orientation: Person, Place, Situation Attachments: Baum Catheter, IV ROM/Strength ROM Lower Extremities WNL Sensory Vision: Functional Hearing: Functional Transfers Roll Left to Right (QC): 4 Lying to Sitting/Side of Bed(Q: 4 Sit to Stand (QC): 4 Chair/Yna-fe-Vgmgz Xfer(QC): 4 SBA, cues for positioning and safety Gait Does the Patient Walk?: Yes Mode of Locomotion: Walk Anticipated Mode of Locomotion: Walk Walk 10 feet (QC): 4 Distance: 10' Gait Assistive Device: FWW Comments/Gait Description SBA, slow but steady ambulation Balance Sitting Static: Normal Sitting Dynamic: Normal Standing Static: Good Standing Dynamic: Good Treatment BLE seated exercises x20 (AP, LAQ) Assessment/Needs Patient in recliner post tx with nurse call, phone, tray, all needs met. Patient just needs SBA for transfers and ambulation Rehab Potential: Fair PT Innovation Manager Goals Innovation Manager Goals PT Shelter Goals Time Frame: Sep 08, 2022 Roll Left & Right (QC): 6 Sit to Lying (QC): 6 Lying-Sitting on Side/Bed(QC): 6 Sit to Stand (QC): 6 Chair/Ieq-mi-Domkd Xfer(QC): 6 Walk 10 feet (QC): 6 Walk 50ft with 2 Turns (QC): 6 Walk 150 ft (QC): 6 PT Plan Problem List Problem List: Activity Tolerance, Functional Strength, Safety, Balance, Gait, Transfer, Bed Mobility, ROM Treatment/Plan Treatment Plan: Continue Plan of Care Treatment Plan: Bed Mobility, Education, Functional Activity Ya, Functional Strength, Gait, Safety, Therapeutic Exercise, Transfers Treatment Duration: Sep 08, 2022 Frequency: 6 times per week Estimated Hrs Per Day: .25 hour per day Patient and/or Family Agrees t: Yes Safety Risks/Education Patient Education: Gait Training, Transfer Techniques, Correct Positioning, Safety Issues Teaching Recipient: Patient Teaching Methods: Demonstration, Discussion Response to Teaching: Reinforcement Needed Discharge Recommendations Plan Patient will perform bed mobility and transfer training, balance and endurance training, functional strengthening, stair training, gait training, and education, to improve functional mobility and independence at home. Therapy Discharge Recommendati: Home & Family, Post Acute PT Time Time In: 1505 Time Out: 1514 DATE: Sep 01, 2022 Total Billed Treatment Time: 9 Total Billed Treatment 1 visit CARRILLO LANCE PT Sep 01, 2022 15:23
[2022-09-01] MEDS: metroNIDAZOLE 500MG/100ML IVPB 100 ML IV SCH (15:45)
[2022-09-01] MEDS: CLINDAMYCIN 600 MG/50 ML IVPB 50 ML IV SCH (15:45)
[2022-09-02] VITALS: BP 162/72
[2022-09-02] MEDS: CLINDAMYCIN 600 MG/50 ML IVPB 50 ML IV SCH (00:29)
[2022-09-02] MEDS: LACTATED RINGERS 1,000 ML IV SCH ×2 (00:30→08:56)
[2022-09-02] MEDS: metroNIDAZOLE 500MG/100ML IVPB 100 ML IV SCH (00:30)
[2022-09-02] MEDS: morphine INJ 4 MG/ML 1 ML (VIAL/SYRINGE) IVP PRN (01:28)
[2022-09-02] MEDS: HYDROcodone/APAP 5 MG/325 MG (LORTAB) TAB PO PRN ×3 (01:29→13:11)
[2022-09-02 04:00] VITALS: BP 138/80
--- NOTE | 2022-09-02 05:11 | OPERATIVE REPORT ---
DATE OF SERVICE: 09/01/2022 PREOPERATIVE DIAGNOSIS: Right colon cancer. POSTOPERATIVE DIAGNOSIS: Right colon cancer. PROCEDURE: Laparoscopic hand-assisted right colon resection. SURGEON: Gina Francois DO HEAD CONCIERGE: Memo Wheat DO, assisted in retraction, dissection, and closure. ANESTHESIA: General. ESTIMATED BLOOD LOSS: Minimal. SPECIMENS: None. INDICATIONS: The patient is a 77-year-old female found to have a right colon cancer. She understands the risks and benefits of procedure and wishes to proceed. Consent was signed in the chart. DESCRIPTION OF PROCEDURE: The patient was taken to the operating suite. She was prepped and draped in sterile fashion. Timeout was performed. A 15 blade scalpel was used to make an incision around the umbilicus for a hand port. Cautery was used to dissect down through the subcutaneous tissues, where the fascia was then opened. Under direct visualization, a 12 mm trocar was placed in the subxiphoid region. A gel hand port was inserted and pneumoperitoneum was achieved. Under direct visualization, a laparoscope 5 mm trocar was placed in the right lower quadrant. There were adhesions of the right colon up to the abdominal wall using spatula cautery. These were then taken down. The colon was then grasped and retracted medially and dissecting along the white line of Toldt, mobilizing the colon also up around the hepatic flexure as well until this became a midline structure, I was able to be being brought out through the midline incision. A linear DAYA stapler was then placed around the distal ileum after it had been dissected around and fired. I also went distally and dissected around the colon with cautery, another GI reload was then fired across it and a LigaSure was then used to divide the mesentery removing the right colon. The ileum and the colon was then brought together in a gfus-wo-lifw fashion and a linear stapler was used to create a yuuk-yh-icii anastomosis. The 3-0 Vicryl was used to put a crotch stitch as well. The abdomen was then irrigated and suctioned. Hemostasis was achieved. The fascia of the midline was then closed using 1 looped PDS. The abdomen was then reinsufflated and inspected, no other pathology noted. The abdomen was then desufflated. The trocars were removed. The skin was then closed with doyle after it was irrigated and washed. The patient tolerated the procedure well without complications. She was taken to recovery room in stable condition. Job ID: [id number] DocumentID: [id number] Dictated Date: 09/01/2022 17:45:27 Disaster Recovery Consultant Date: 09/02/2022 05:09:00 Dictated By: GINA FRANCOIS DO
[2022-09-02] MEDS ORDERED: NON-FORMULARY MEDICATION 1 EA EA PO SCH (06:00)
[2022-09-02 06:27] LABS: BASOPHILS % (AUTO) 1 % (0-10); EOSINOPHILS # (AUTO) 0.1 10^3/uL (0.0-0.3); EOSINOPHILS % (AUTO) 2 % (0-10); HEMATOCRIT 24 % (35-52); HEMOGLOBIN 7.1 g/dL (11.5-16.0); LYMPHOCYTES # (AUTO) 2.4 10^3/uL (1.0-4.0); LYMPHOCYTES % (AUTO) 30 % (12-44); MEAN CORPUSCULAR HEMOGLOBIN 23 pg (25-34); MEAN CORPUSCULAR HGB CONC 30 g/dL (32-36); MEAN CORPUSCULAR VOLUME 78 fL (80-99); MEAN PLATELET VOLUME 8.5 fL (9.0-12.2); MONOCYTES # (AUTO) 0.6 10^3/uL (0.0-1.0); MONOCYTES % (AUTO) 8 % (0-12); NEUTROPHILS # (AUTO) 4.7 10^3/uL (1.8-7.8); NEUTROPHILS % (AUTO) 59 % (42-75); PLATELET COUNT 287 10^3/uL (130-400); WHITE BLOOD COUNT 7.9 10^3/uL (4.3-11.0)
--- NOTE | 2022-09-02 06:28 | Progress Note - Surgery ---
[facility] 09/02/22 0628: Subjective Date Seen by a Provider: Sep 02, 2022 Time Seen by a Provider: 06:24 Subjective/Events-last exam Pt is s/p laparoscopic hand-assisted right colon resection d/t adenocarcinoma performed yesterday by Dr. Francois. Today she reports she is doing well with soreness but no pain in the abdomen. The soreness is improved with ice packs, made worse by palpation of the abdomen. Reports minimal nausea that may be associated with taking pain meds but is manageable without anti-nausea meds. She is having a lot of belching but no flatus or BM. Nurse reports they will be getting her out of bed to walk today. Pt is using her incentive spirometer appropriately and frequently. Review of Systems General: No Chills, No Night Sweats HEENT: No Head Aches, No Visual Changes Pulmonary: No Dyspnea, No Cough Cardiovascular: No: Chest Pain, Palpitations Gastrointestinal: Nausea; No: Vomiting Genitourinary: No Dysuria, No Frequency Musculoskeletal: No: neck pain, shoulder pain Neurological: No: Weakness, Numbness Objective Exam Vital Signs Date Time Temp Pulse Resp B/P (MAP) Pulse Ox O2 Delivery O2 Flow Rate FiO2 09/02/22 04:00 37.0 65 18 138/80 (99) 100 Room Air 09/02/22 00:00 36.1 63 20 162/72 (102) 100 Room Air 09/01/22 19:30 97 Room Air 09/01/22 19:26 36.0 58 18 114/56 (75) 100 Room Air 09/01/22 19:19 Room Air 09/01/22 15:33 36.0 58 20 127/56 (79) 100 Room Air 09/01/22 12:09 36.0 57 96 21 09/01/22 11:38 36.0 57 16 152/72 (98) 96 Room Air 09/01/22 10:55 Room Air 09/01/22 10:50 36.3 20 124/50 (74) 98 Room Air 09/01/22 10:45 Room Air 09/01/22 10:40 20 129/66 (87) 98 OxyMask 2.00 09/01/22 10:30 OxyMask 2.00 09/01/22 10:30 20 129/66 (87) 100 OxyMask 2.00 09/01/22 10:20 20 127/54 (78) 99 OxyMask 2.00 09/01/22 10:15 OxyMask 3.00 09/01/22 10:10 20 122/62 (82) 99 OxyMask 3.00 09/01/22 10:00 OxyMask 5.00 09/01/22 10:00 20 104/67 (79) 100 OxyMask 5.00 09/01/22 09:54 OxyMask 5.00 09/01/22 09:54 36.3 20 106/50 (68) 100 OxyMask 5.00 09/01/22 07:25 36.2 61 20 145/88 (107) 99 I & O 09/02/22 06:59 Intake Total 3640 ml Output Total 330 ml Balance 3310 ml Capillary Refill : Less Than 3 Seconds General Appearance: No Apparent Distress, WD/WN HEENT: PERRL/EOMI, Pharynx Normal Neck: Full Range of Motion, Non Tender Respiratory: Chest Non Tender, Lungs Clear, No Accessory Muscle Use, No Respiratory Distress Cardiovascular: Regular Rate, Rhythm, No JVD Peripheral Pulses: 2+ Radial Pulses (R), 2+ Radial Pulses (L) Gastrointestinal: soft, abnormal bowel sounds (decreased BS), tenderness (epigastric TTP), other (epigastric swelling) Extremity: Normal Capillary Refill, Non Tender Neurologic/Psychiatric: Alert, Oriented x3 Skin: Normal Color, Warm/Dry, Other (midline incision on abdomen covered with dressing, did not visualize) Lymphatic: No Adenopathy Results Lab Laboratory Tests 09/01/22 06:40: Glucometer 164H 09/01/22 09:56: Glucometer 160H 09/02/22 06:05: Assessment/Plan Assessment/Plan Assessment/Plan s/p lap hand-assisted right colon resection d/t adenocarcinoma POD #1: pain well controlled nausea low hgb- 7.1 continue pain meds and abx consider adding prn zofran if nausea worsens or there is vomiting CLD monitor for wbc and fever track and trend hgb, hct transfuse as needed continue regular dressing changes and supportive care GINA FRANCOIS DO 09/02/22 0827: Subjective Subjective/Events-last exam Patient doing well. She is using incentive spirometer. She is tolerating liquids. No flatus or bowel movement. Patient is ambulating. Minimal nausea. No complaints at this time. Denies any fever sweats chills shortness of breath or chest pain. Objective Exam General Appearance: No Apparent Distress, WD/WN HEENT: PERRL/EOMI, Normal ENT Inspection Neck: Normal Inspection, Non Tender Respiratory: Chest Non Tender, No Accessory Muscle Use, No Respiratory Distress Cardiovascular: Regular Rate, Rhythm, No JVD Gastrointestinal: soft, abnormal bowel sounds (decreased BS), tenderness (Incisional tenderness incisions clean dry intact) Extremity: Normal Capillary Refill, Non Tender Neurologic/Psychiatric: Alert, Oriented x3 Skin: Normal Color, Warm/Dry, Other Lymphatic: No Adenopathy Assessment/Plan Assessment/Plan Assessment/Plan s/p lap hand-assisted right colon resection d/t adenocarcinoma POD #1: pain well controlled nausea low hgb- 7.1 continue pain meds and abx zofran for nausea CLD follow labs track and trend hgb, hct transfuse as needed continue regular dressing changes and supportive care ambulate tid darling removed this am dvt prophylaxis scd's , started lovenox Supervisory-Addendum Brief Verification & Attestation Participated in pt care: history, MDM, physical Personally performed: exam, history, MDM, supervision of care Care discussed with: Medical Student Procedures: n/a Results interpretation: Verified all documentation Verification and Attestation of Medical Student E/M Service A medical student performed and documented this service in my presence. I revie wed and verified all information documented by the medical student and made modifications to such information, when appropriate. I personally performed the physical exam and medical decision making. Gina Francois, Sep 02, 2022,17:43 DEBI WATSON Sep 02, 2022 06:28 GINA FRANCOIS DO Sep 02, 2022 17:43
[2022-09-02 06:38] LABS: ALBUMIN 3.1 GM/DL (3.2-4.5)
[2022-09-02 06:39] LABS: CALCIUM 8.9 MG/DL (8.5-10.1)
[2022-09-02 06:41] LABS: TOTAL PROTEIN 5.3 GM/DL (6.4-8.2)
[2022-09-02 06:42] LABS: BILIRUBIN,TOTAL 0.7 MG/DL (0.1-1.0)
[2022-09-02 06:44] LABS: CREATININE SERUM 0.84 MG/DL (0.60-1.30)
[2022-09-02] MEDS: ONDANSETRON 4 MG/2 ML (SDV) Z0FRAN IVP PRN ×3 (07:34→18:49)
[2022-09-02 07:40] VITALS: BP 162/67
[2022-09-02] MEDS ORDERED: PATIENT MAY USE OWN MEDS, ALL MC SCH (07:45)
--- NOTE | 2022-09-02 08:42 | History & Physical ---
History of Present Illness History of Present Illness Reason for visit/HPI Pt is a 77 y/o female who is known to me from clinic. She had persistent anemia, weakness, evaluation/work-up revealed colon cancer - pt presented to the hospital for right sided colon resection. Pt is post-op day #1 from colon resection with Dr. Francois. Date of Admission Sep 01, 2022 at 06:00 Date Seen by a Provider: Sep 02, 2022 Time Seen by a Provider: 08:30 Attending Physician Rebecca Gonzalez MD Admitting Physician Admitting Physician: Soren Francois DO Attending Physician: Soren Francois DO Consult Allergies and Home Medications Allergies Coded Allergies: Iodinated Contrast Media (Unverified Allergy, Unknown, SEE CRAB ALLERGY, 08/26/22) Penicillins (Unverified Allergy, Unknown, GI UPSET, 08/26/22) shellfish derived (Unverified Allergy, Unknown, CRAB ONLY, 08/26/22) Patient Home Medication List Home Medication List Reviewed: Yes Acetaminophen (Tylenol Extra Strength) 500 Mg Tablet, 500-1,000 MG PO Q8H PRN for PAIN-MILD (1-4), (Reported) Entered as Reported by: JENI JANG on 09/01/221517 Last Action: Reviewed Aspirin (Aspirin EC) 81 Mg Tablet., 81 MG PO HS, (Reported) Entered as Reported by: JENI JANG on 09/01/221517 Last Action: Reviewed Atenolol (Atenolol) 25 Mg Tablet, 25 MG PO DAILY, (Reported) Entered as Reported by: YAZAN KELLY on 07/14/22 1024 Last Action: Reviewed Carboxymethylcellulose Sodium (Refresh Tears) 0.5 % Drops, 1-2 DROP OP UD PRN for DRY EYES, (Reported) Entered as Reported by: JENI JANG on 09/01/221517 Last Action: Reviewed Cholecalciferol (Vitamin D3) (Vitamin D3) 25 Mcg (1000 Unit) Capsule, 25 MCG PO DAILY, (Reported) Entered as Reported by: YAZAN KELLY on 07/14/22 1024 Last Action: Reviewed Dicyclomine HCl (Dicyclomine HCl) 10 Mg Capsule, 10 MG PO TID PRN for GI SPASMS, (Reported) Entered as Reported by: JENI JANG on 09/01/221517 Last Action: Reviewed Dorzolamide HCl/Timolol Maleat (Dorzolamide-Timolol Eye Drops) 22.3 Mg-6.8 Mg/Ml Drops, 1 DROP OU BID, (Reported) Entered as Reported by: JENI JANG on 09/01/221517 Last Action: Reviewed Insulin Detemir (Levemir Flextouch) 100 Unit/Ml (3 Ml) Insuln.pen, 15 UNIT SQ BID, (Reported) Entered as Reported by: YAZAN KELLY on 07/14/221023 Last Action: Reviewed Latanoprostene Bunod (Vyzulta) 0.024 % Drops, 1 DROP OU HS, (Reported) Entered as Reported by: ROSALIA BATES on 08/26/22953 Last Action: Reviewed Lisinopril (Lisinopril) 20 Mg Tablet, 20 MG PO HS, (Reported) Entered as Reported by: YAZAN KELLY on 07/14/221023 Last Action: Reviewed Mv-Mn/Folic Acid/Calcium/Vit K (Women's 50 Plus Multivit Tab) 400 Mcg-500 Mg Calcium-20 Mcg Tablet, 1 EACH PO DAILY, (Reported) Entered as Reported by: JENI JANG on 09/01/221517 Last Action: Reviewed Omeprazole (Omeprazole) 40 Mg Capsule.dr, 40 MG PO DAILY, (Reported) Entered as Reported by: YAZAN KELLY on 07/14/221023 Last Action: Reviewed Pravastatin Sodium (Pravastatin Sodium) 40 Mg Tablet, 40 MG PO HS, (Reported) Entered as Reported by: YAZAN KELLY on 07/14/221023 Last Action: Reviewed Ubidecarenone (Coq-10) 100 Mg Capsule, 100 MG PO DAILY, (Reported) Entered as Reported by: JENI JANG on 09/01/221517 Last Action: Reviewed Discontinued Medications Dorzolamide HCl/Timolol Maleat (Cosopt Eye Drops) 22.3 Mg-6.8 Mg/Ml Drops, 10 ML OP UD, (Reported) Discontinued Reason: No Longer Taking Entered as Reported by: ROSALIA BATES on 08/26/22953 Last Action: Discontinued Ondansetron (Ondansetron Odt) 4 Mg Tab.rapdis, 4 MG PO DAILY, (Reported) Discontinued Reason: No Longer Taking Entered as Reported by: YAZAN KELLY on 07/14/22 1024 Last Action: Discontinued Past Hwdfxpk-Xzdhrb-Zhcbfn Hx Patient Social History Marrital Status: Living Status: lives in house in [place] Employed/Student: retired Tobacco Use?: No Smoking Status: Never a Smoker Use of E-Cig and/or Vaping dev: No Substance use?: No Alcohol Use?: No Pt feels they are or have been: No Immunizations Up To Date Date of Influenza Vaccine: Aug 10, 2022 First/Initial COVID19 Vaccinat: 2020 Second COVID19 Vaccination Marquis: 2020 Seasonal Allergies Seasonal Allergies: No Current Status status: No status: No Advance Directives: No Advance Directive Location: Home Communicates: Verbally Primary Language: German Sensory deficits: Vision impairment Implanted or Applied Medical D: None Past Medical History Surgeries: Adenoidectomy, Tonsillectomy Sleep Apnea Currently Using CPAP: No Currently Using BIPAP: No High Cholesterol, Hypertension Sexually Transmitted Disease: No HIV/AIDS: No UTI-Chronic Gastroesophageal Reflux Arthritis Parathyroid Disease, Diabetes, Insulin dep Cataract, Glaucoma Skin Anxiety Blood Disorders: No Family Medical History Reviewed and Corrections made Cancer (leukemia) Review of Systems Constitutional: No chills, No diaphoresis, No fever; malaise EENTM: No hoarseness, No throat pain Respiratory: No cough, No dyspnea on exertion, No short of breath Cardiovascular: No chest pain, No edema, No palpitations Gastrointestinal: abdominal pain, constipation; No diarrhea, No nausea, No vomiting Genitourinary: no symptoms reported Musculoskeletal: No back pain, No muscle weakness Skin: no symptoms reported Psychiatric/Neurological: Denies Anxiety, Denies Depressed All Other Systems Reviewed Negative Unless Noted: Yes Physical Exam Vital Signs Vital Signs - First Documented 09/01/22 09/01/22 07:25 12:09 Temp 36.2 Pulse 61 Resp 20 B/P (MAP) 145/88 (107) Pulse Ox 99 FiO2 21 Capillary Refill : Less Than 3 Seconds Height, Weight, BMI Height: '" Weight: lbs. oz. kg; 106.14 BMI Method: General Appearance: No Apparent Distress, WD/WN, Other (pale) HEENT: PERRL/EOMI, Pharynx Normal Neck: Full Range of Motion, Non Tender, Supple Respiratory: Chest Non Tender, Lungs Clear, Normal Breath Sounds, No Accessory Muscle Use, No Respiratory Distress Cardiovascular: Regular Rate, Rhythm, No Edema Gastrointestinal: Soft, Other (decreased bowel sounds throughout with surgical site C/D/I - no erythema) Rectal: Deferred Back: Normal Inspection, No Vertebral Tenderness Extremity: Normal Capillary Refill, Non Tender, No Calf Tenderness, No Pedal Edema Neurologic/Psychiatric: Alert, Oriented x3, No Motor/Sensory Deficits, Normal Mood/Affect Skin: Normal Color, Warm/Dry Lymphatic: No Adenopathy Assessment/Plan Assessment and Plan Right sided Colon Cancer post op - Laparoscopic hand-assisted right colon resection Hypertension Diabetes Mellitus Post-op Anemia Hyperlipidemia Right sided Colon Cancer post op - Laparoscopic hand-assisted right colon resection - pt doing well post op day #1 - anemia secondary to blood loss prior to and during surgery - check labs- if needed will give a unit of blood today - Hgb 7.1 this morning - advance diet as per surgeon - ambulate in halls Hypertension - monitor pressures, restart medications post-op as she has increase in blood pressure Diabetes Mellitus - monitor fsbs, restart insulin as diet increases Post-op Anemia - as above Hyperlipidemia - monitor labs - restart statin when taking good po. dvt prophylaxis with scd's and lovenox gi prophylaxis with ppi therapy Admission Diagnosis Right sided Colon Cancer post op - Laparoscopic hand-assisted right colon resection Hypertension Diabetes Mellitus Post-op Anemia Hyperlipidemia Admission Status: Inpatient Order (span 2 midnights) Reason for Inpatient Admission: pt was admitted inpatient for colon resection - will require at lest 72 hours or more depending on her surgical and post-surgical progress REBECCA GONZALEZ MD Sep 02, 2022 08:42
[2022-09-02] MEDS: DORZOLAMIDE/TIMOLOL (COSOPT) 2-0.68% 10 ML BTL OU SCH ×2 (09:15→20:55)
[2022-09-02 11:13] LABS: HEMOGLOBIN 7.4 g/dL (11.5-16.0)
[2022-09-02 11:14] VITALS: BP 137/59
--- NOTE | 2022-09-02 11:33 | Physical Therapy Daily Note ---
PT Daily Note-Current Subjective Patient in bed pre-tx, reports no pain, agrees to PT. Pain Section J - Health Conditions 1. Rarely or not at all 2. Occasionally 3. Frequently 4. Almost constantly 8. Unable to answer Pain Effect on Sleep: 1 Pain Interference with Therapy: 1 Pain Interference w/Day-to-Day: 1 Appearance Patient in recliner post-tx with nurse call, phone, tray, all needs met. Mental Status Patient Orientation: Person, Place, Situation Transfers SCALE: Activities may be completed with or without assistive devices. 1-Nnmiknfuiu-tgwlayu completes the activity by him/herself with no assistance from a helper. 5-Set-up or Clean-up Assistance-helper sets up or cleans up; patient completes activity. Harrington assists only prior to or following the activity. 4-Supervision or Touching Assistance-helper provides verbal cues and/or touching/steadying and/or contact guard assistance as patient completes activity. Assistance may be provided throughout the activity or intermittently. 3-Partial/Moderate Assistance-helper does LESS THAN HALF the effort. Harrington lifts, holds or supports trunk or limbs, but provides less than half the effort. 2-Substantial/Maximal Assistance-helper does MORE THAN HALF the effort. Harrington lifts or holds trunk or limbs and provides more than half the effort. 1-Wrlaftaoe-fiwprs does ALL the effort. Patient does none of the effort to complete the activity. Or, the assistance of 2 or more helpers is required for the patient to complete the activity. If activity was not attempted, code reason: 7-Patient Refused. 9-Not Applicable-not attempted and the patient did not perform the activity before the current illness, exacerbation or injury. 10-Not Attempted due to Environmental Limitations-(lack of equipment, weather restraints, etc.). 88-Not Attempted due to Medical Conditions or Safety Concerns. Roll Left & Right (QC): 4 Sit to Lying (QC): 4 Lying to Sitting/Side of Bed(Q: 4 Sit to Stand (QC): 4 SBA for all Weight Bearing Right Lower Extremity: Right Weight Bearing/Tolerated Left Lower Extremity: Left Weight Bearing/Tolerated Gait Training Distance: 200' Walk 10 feet (QC): 4 Walk 50 ft with 2 Turns(QC): 4 Walk 150 ft (QC): 4 Gait Persons Needed: 1 Gait Assistive Device: FWW SBA with all ambulation, patient walks with good gait speed, foot clearance, and step length. Exercises Seated Therapy Exercises: Ankle pumps, Long arc quads, Hip flexion Seated Reps: 20 Treatments LE Strengthening, FA Assessment Current Status: Fair Progress Patient walking better than yesterday,PT to dismiss services at this time and nu rses able to walk patient through hallway due to patient's current function of SBA to independent with all gross motor skills. PT Long-Term Goals Long-Term Goals PT Long-Term Goals Time Frame: Sep 08, 2022 Roll Left & Right (QC): 6 Sit to Lying (QC): 6 Lying-Sitting on Side/Bed(QC): 6 Sit to Stand (QC): 6 Chair/Drr-ld-Ipzgs Xfer(QC): 6 Walk 10 feet (QC): 6 Walk 50ft with 2 Turns (QC): 6 Walk 150 ft (QC): 6 PT Plan Treatment/Plan Treatment Plan: Discontinue PT Treatment Plan: Bed Mobility, Education, Functional Activity Ya, Functional Strength, Gait, Safety, Therapeutic Exercise, Transfers Treatment Duration: Sep 08, 2022 Frequency: 6 times per week Estimated Hrs Per Day: .25 hour per day Patient and/or Family Agrees t: Yes Safety Risks/Education Patient Education: Correct Positioning, Safety Issues Teaching Recipient: Patient Teaching Methods: Demonstration, Discussion Response to Teaching: Verbalize Understanding Time Time In: 1053 Time Out: 1103 DATE: Sep 02, 2022 Total Billed Treatment Time: 10 Total Billed Treatment 1 visit FA DAVID NUNEZ PT Sep 02, 2022 11:33
--- NOTE | 2022-09-02 12:30 | Anesthesia-General Post-Op ---
General Patient Condition Mental Status/LOC: Same as Preop Cardiovascular: Satisfactory Nausea/Vomiting: Absent Respiratory: Satisfactory Pain: Controlled Complications: Absent Post Op Complications Complications None Follow Up Care/Instructions Patient Instructions None needed. Anesthesia/Patient Condition Patient Condition Patient is doing well, no complaints, stable vital signs, no apparent adverse anesthesia problems. No complications reported per nursing. ENRIKE VILLAR CRNA Sep 02, 2022 12:30
[2022-09-02 15:15] VITALS: BP 152/68
[2022-09-02 19:01] VITALS: BP 140/63
[2022-09-02] MEDS: DOCUSATE SODIUM 100 MG (COLACE) CAP PO SCH (20:48)
[2022-09-02] MEDS: VYZULTA 0.024% OU SCH (20:49)
[2022-09-02] MEDS: OPTHALMIC OU SCH (20:49)
[2022-09-03] VITALS (7 sets, daily range): BP systolic 138–165; BP diastolic 62–80
[2022-09-03 05:20] LABS: BASOPHILS % (AUTO) 1 % (0-10); EOSINOPHILS # (AUTO) 0.3 10^3/uL (0.0-0.3); EOSINOPHILS % (AUTO) 4 % (0-10); HEMATOCRIT 26 % (35-52); HEMOGLOBIN 7.7 g/dL (11.5-16.0); LYMPHOCYTES # (AUTO) 2.3 10^3/uL (1.0-4.0); LYMPHOCYTES % (AUTO) 31 % (12-44); MEAN CORPUSCULAR HEMOGLOBIN 23 pg (25-34); MEAN CORPUSCULAR HGB CONC 30 g/dL (32-36); MEAN CORPUSCULAR VOLUME 77 fL (80-99); MEAN PLATELET VOLUME 8.2 fL (9.0-12.2); MONOCYTES # (AUTO) 0.7 10^3/uL (0.0-1.0); MONOCYTES % (AUTO) 9 % (0-12); NEUTROPHILS # (AUTO) 4.1 10^3/uL (1.8-7.8); NEUTROPHILS % (AUTO) 54 % (42-75); PLATELET COUNT 292 10^3/uL (130-400); WHITE BLOOD COUNT 7.6 10^3/uL (4.3-11.0)
[2022-09-03 05:48] LABS: ALBUMIN 3.4 GM/DL (3.2-4.5); BILIRUBIN,TOTAL 0.5 MG/DL (0.1-1.0); CALCIUM 9.4 MG/DL (8.5-10.1); CREATININE SERUM 0.85 MG/DL (0.60-1.30); MAGNESIUM 1.5 MG/DL (1.6-2.4); POTASSIUM 3.9 MMOL/L (3.6-5.0); TOTAL PROTEIN 5.9 GM/DL (6.4-8.2)
[2022-09-03] MEDS: ONDANSETRON 4 MG/2 ML (SDV) Z0FRAN IVP PRN (06:01)
[2022-09-03] MEDS: HYDROcodone/APAP 5 MG/325 MG (LORTAB) TAB PO PRN (06:02)
[2022-09-03 06:13] LABS: EOSINOPHILS % (MANUAL) 6 %; HYPOCHROMASIA SLIGHT; LYMPHOCYTES % (MANUAL) 30 %; MICROCYTOSIS SLIGHT; MONOCYTES % (MANUAL) 4 %; NEUTROPHILS % (MANUAL) 60 %
[2022-09-03 06:14] LABS: BURR CELLS SLIGHT; ELLIPT/OVALOCYTES SLIGHT
--- NOTE | 2022-09-03 08:09 | Progress Note ---
Subjective Subjective Date Seen by Provider: Sep 03, 2022 Time Seen by Provider: 08:00 Pt reports that she is feeling better today. Her son - Johnny - is in the room, reports that he thinks she is better. She reports that her bowels are rumbling a little, but she has yet to have a bowel movement or pass gas. She reports some nausea with broth, not as bad with lalollo Review of Systems General: No Chills, No Night Sweats HEENT: No Head Aches, No Visual Changes Pulmonary: No Dyspnea, No Cough Cardiovascular: No: Chest Pain, Palpitations Gastrointestinal: Nausea, Constipation (no bowel movement in the past 48 hours); No: Vomiting, Diarrhea Genitourinary: No Dysuria, No Frequency Musculoskeletal: No: neck pain, shoulder pain Neurological: No: Weakness, Numbness Objective Exam Vital Signs Vital Signs Date Time Temp Pulse Resp B/P (MAP) Pulse Ox O2 Delivery O2 Flow Rate FiO2 09/03/22 08:00 36.1 71 15 151/78 (102) 98 Room Air 09/03/22 04:00 37.6 87 16 141/62 (88) 97 Room Air 09/03/22 00:01 36.4 76 18 138/70 (92) 96 Room Air 09/02/22 20:00 Room Air 09/02/22 19:24 Room Air 09/02/22 19:01 36.6 72 20 140/63 (88) 98 Room Air 09/02/22 15:15 36.2 63 18 152/68 (96) 99 Room Air 09/02/22 11:14 36.2 60 18 137/59 (85) 98 Room Air I & O 09/03/22 07:00 Intake Total 1850 ml Output Total 2950 ml Balance -1100 ml General Appearance: No Apparent Distress, WD/WN HEENT: PERRL/EOMI, Normal ENT Inspection Neck: Normal Inspection, Non Tender Respiratory: Chest Non Tender, No Accessory Muscle Use, No Respiratory Distress Cardiovascular: Regular Rate, Rhythm, No JVD Gastrointestinal: Soft, Other (decreased bowel sounds, but improved) Extremity: Normal Capillary Refill, Non Tender Neurologic/Psychiatric: Alert, Oriented x3, Normal Mood/Affect Skin: Normal Color, Warm/Dry, Other Lymphatic: No Adenopathy Results Lab Laboratory Tests 09/02/22 11:00: Hemoglobin 7.4L, Hematocrit 25L 11/10/22 11:11: Glucometer 119H 09/02/22 15:18: Glucometer 119H 09/02/22 20:13: Glucometer 87 09/03/22 04:55: Sodium Level 135, Potassium Level 3.9, Chloride Level 103, Carbon Dioxide Level 23, Anion Gap 9, Blood Urea Nitrogen 5L, Creatinine 0.85, Estimat Glomerular Filtration Rate 71, BUN/Creatinine Ratio 6, Glucose Level 96, Calcium Level 9.4, Corrected Calcium 9.9, Magnesium Level 1.5L, Total Bilirubin 0.5, Aspartate Amino Transf (AST/SGOT) 15, Alanine Aminotransferase (ALT/SGPT) 11, Alkaline Phosphatase 78, Total Protein 5.9L, Albumin 3.4 09/03/22 05:00: White Blood Count 7.6, Red Blood Count 3.31L, Hemoglobin 7.7L, Hematocrit 26L, Mean Corpuscular Volume 77L, Mean Corpuscular Hemoglobin 23L, Mean Corpuscular Hemoglobin Concent 30L, Red Cell Distribution Width 14.0, Platelet Count 292, Mean Platelet Volume 8.2L, Immature Granulocyte % (Auto) 0, Neutrophils (%) (Auto) 54, Lymphocytes (%) (Auto) 31, Monocytes (%) (Auto) 9, Eosinophils (%) (Auto) 4, Basophils (%) (Auto) 1, Neutrophils # (Auto) 4.1, Lymphocytes # (Auto) 2.3, Monocytes # (Auto) 0.7, Eosinophils # (Auto) 0.3, Basophils # (Auto) 0.0, Immature Granulocyte # (Auto) 0.0, Neutrophils % (Manual) 60, Lymphocytes % (Manual) 30, Monocytes % (Manual) 4, Eosinophils % (Manual) 6, Hypochromasia SLIGHT, Microcytosis SLIGHT, Elías Cells SLIGHT, Elliptocytes SLIGHT Microbiology 09/01/22 MRSA Screen - Final, Complete MRSA not isolated Assessment/Plan Assessment/Plan Assessment and Plan Right sided Colon Cancer post op - Laparoscopic hand-assisted right colon resection Hypertension Diabetes Mellitus Post-op Anemia Hyperlipidemia Right sided Colon Cancer post op - Laparoscopic hand-assisted right colon resection - pt doing well post op day #1 - anemia secondary to blood loss prior to and during surgery - Hgb 7.1 morning - improving and pt does not require blood at this time. - advance diet as per surgeon - ambulate in halls, if she has passage of gas or bowel, may be able to discharge to home today or Tuesday - wait on addition of suppository until this afternoon if no gas or bm Hypertension - monitor pressures, restarted home medications atenolol and lisinopril Diabetes Mellitus - monitor fsbs, restart insulin as diet increases Post-op Anemia - as above Hyperlipidemia - monitor labs - restart statin dvt prophylaxis with scd's and lovenox gi prophylaxis with ppi therapy REBECCA PROCTOR MD Sep 03, 2022 08:09
--- NOTE | 2022-09-03 08:23 | Progress Note - Surgery ---
[facility] 0823: Subjective Date Seen by a Provider: Sep 03, 2022 Time Seen by a Provider: 08:18 Subjective/Events-last exam Libia is doing well this morning with minimal pain in the epigastric region 3- 4/10 at worst that improves with pain meds. Nausea improved with zofran. She is ambulating with a walker and using her incentive spirometer. No BM or flatus but she is urinating without issue and belching. Denies vomiting, SOB, CP. Review of Systems General: No Chills, No Night Sweats HEENT: No Head Aches, No Visual Changes Pulmonary: No Dyspnea, No Cough Cardiovascular: No: Chest Pain, Palpitations Gastrointestinal: Nausea, Abdominal Pain (epigastric); No: Vomiting Genitourinary: No Dysuria, No Frequency Musculoskeletal: No: neck pain, shoulder pain Neurological: No: Weakness, Numbness Objective Exam Vital Signs Date Time Temp Pulse Resp B/P (MAP) Pulse Ox O2 Delivery O2 Flow Rate FiO2 09/03/22 08:00 36.1 71 15 151/78 (102) 98 Room Air 09/03/22 04:00 37.6 87 16 141/62 (88) 97 Room Air 09/03/22 00:01 36.4 76 18 138/70 (92) 96 Room Air 09/02/22 20:00 Room Air 09/02/22 19:24 Room Air 09/02/22 19:01 36.6 72 20 140/63 (88) 98 Room Air 09/02/22 15:15 36.2 63 18 152/68 (96) 99 Room Air 09/02/22 11:14 36.2 60 18 137/59 (85) 98 Room Air I & O 09/03/22 07:00 Intake Total 1850 ml Output Total 2950 ml Balance -1100 ml Capillary Refill : Less Than 3 Seconds General Appearance: No Apparent Distress, WD/WN HEENT: PERRL/EOMI, Normal ENT Inspection Neck: Normal Inspection, Non Tender Respiratory: Chest Non Tender, No Accessory Muscle Use, No Respiratory Distress Cardiovascular: Regular Rate, Rhythm, No JVD Peripheral Pulses: 2+ Radial Pulses (R), 2+ Radial Pulses (L) Gastrointestinal: normal bowel sounds, soft, tenderness (minimal incisional tenderness, incisions clean dry intact) Extremity: Normal Capillary Refill, Non Tender Neurologic/Psychiatric: Alert, Oriented x3 Skin: Normal Color, Warm/Dry, Other Lymphatic: No Adenopathy Results Lab Laboratory Tests 09/02/22 11:00: Hemoglobin 7.4L, Hematocrit 25L 09/02/22 11:11: Glucometer 119H 09/02/22 15:18: Glucometer 119H 09/02/22 20:13: Glucometer 87 09/03/22 04:55: Sodium Level 135, Potassium Level 3.9, Chloride Level 103, Carbon Dioxide Level 23, Anion Gap 9, Blood Urea Nitrogen 5L, Creatinine 0.85, Estimat Glomerular Filtration Rate 71, BUN/Creatinine Ratio 6, Glucose Level 96, Calcium Level 9.4, Corrected Calcium 9.9, Magnesium Level 1.5L, Total Bilirubin 0.5, Aspartate Amino Transf (AST/SGOT) 15, Alanine Aminotransferase (ALT/SGPT) 11, Alkaline Phosphatase 78, Total Protein 5.9L, Albumin 3.4 09/03/22 05:00: White Blood Count 7.6, Red Blood Count 3.31L, Hemoglobin 7.7L, Hematocrit 26L, Mean Corpuscular Volume 77L, Mean Corpuscular Hemoglobin 23L, Mean Corpuscular Hemoglobin Concent 30L, Red Cell Distribution Width 14.0, Platelet Count 292, Mean Platelet Volume 8.2L, Immature Granulocyte % (Auto) 0, Neutrophils (%) (Auto) 54, Lymphocytes (%) (Auto) 31, Monocytes (%) (Auto) 9, Eosinophils (%) (Auto) 4, Basophils (%) (Auto) 1, Neutrophils # (Auto) 4.1, Lymphocytes # (Auto) 2.3, Monocytes # (Auto) 0.7, Eosinophils # (Auto) 0.3, Basophils # (Auto) 0.0, Immature Granulocyte # (Auto) 0.0, Neutrophils % (Manual) 60, Lymphocytes % (Manual) 30, Monocytes % (Manual) 4, Eosinophils % (Manual) 6, Hypochromasia SLIGHT, Microcytosis SLIGHT, Butternut Cells SLIGHT, Elliptocytes SLIGHT Microbiology 09/01/22 MRSA Screen - Final, Complete MRSA not isolated Assessment/Plan Assessment/Plan Assessment/Plan s/p lap hand-assisted right colon resection d/t adenocarcinoma POD #1: pain well controlled nausea- controlled low hgb- improved to 7.7 continue pain meds and abx zofran for nausea CLD follow labs track and trend hgb, hct transfuse as needed continue regular dressing changes and supportive care ambulate tid dvt prophylaxis- lovenox SOREN FRANCOIS DO 09/03/22 1638: Subjective Subjective/Events-last exam Ambulating. Using incentive spirometer. Pain controlled. Nausea slight last night improved now. Tolerating clears. No flauts or bm. No issues with urination. Denies n/v fever sweats chills shortness of breath or chest pain at this time. Objective Exam General Appearance: No Apparent Distress, WD/WN HEENT: PERRL/EOMI, Normal ENT Inspection Neck: Normal Inspection, Non Tender Respiratory: Chest Non Tender, No Accessory Muscle Use, No Respiratory Distress Cardiovascular: Regular Rate, Rhythm, No JVD Gastrointestinal: soft, tenderness (minimal incisional tenderness, incisions clean dry intact) Extremity: Normal Capillary Refill, Non Tender Neurologic/Psychiatric: Alert, Oriented x3 Skin: Normal Color, Warm/Dry Lymphatic: No Adenopathy Assessment/Plan Assessment/Plan Assessment/Plan s/p lap hand-assisted right colon resection d/t adenocarcinoma POD #1: pain well controlled nausea- controlled low hgb- improved to 7.7 secondary to previous bleeding from cancer continue pain meds zofran for nausea CLD will start minimal soft diet follow labs track and trend hgb, hct transfuse as needed ambulate tid dvt prophylaxis- lovenox Supervisory-Addendum Brief Verification & Attestation Participated in pt care: history, MDM, physical Personally performed: exam, history, MDM, supervision of care Care discussed with: Medical Student Procedures: n/a Results interpretation: Verified all documentation Verification and Attestation of Medical Student E/M Service A medical student performed and documented this service in my presence. I reviewed and verified all information documented by the medical student and made modifications to such information, when appropriate. I personally performed the physical exam and medical decision making. Soren Francois, Sep 03, 2022,16:37 DEBI WATSON Sep 03, 2022 08:23 SOREN FRANCOIS DO Sep 03, 2022 16:38
[2022-09-03] MEDS: DOCUSATE SODIUM 100 MG (COLACE) CAP PO SCH ×2 (08:29→20:48)
[2022-09-03] MEDS: DORZOLAMIDE/TIMOLOL (COSOPT) 2-0.68% 10 ML BTL OU SCH ×2 (08:29→20:48)
[2022-09-03] MEDS: MAGNESIUM 1 GM/100 ML IVPB 100 ML IV SCH (08:32)
[2022-09-03] MEDS: ENOXAPARIN 40 MG/0.4 ML (LOVENOX) SYR SC SCH (10:21)
[2022-09-03] MEDS ORDERED: BISACODYL 10 MG SUPP (DULCOLAX) PR NR (17:00)
[2022-09-03] MEDS ORDERED: polyethylene glycoL POWDER 17 GM (MIRALAX) PACK PO NR (17:00)
[2022-09-03] MEDS ORDERED: PANTOPRAZOLE 40 MG (PROTONIX) TAB PO NR (17:00)
[2022-09-03] MEDS: ATENOLOL 25 MG (TENORMIN) TAB PO SCH (17:22)
--- NOTE | 2022-09-03 19:08 | Physician Query Clarification ---
Physician Query-General Query to Physician: The medical record reflects the following clinical scenario: The patient, in the setting of History/Risk factors, adenocarcinoma of the right colon status post right colon resection Clinical Findings H/H after surgery 7.11/16 remained 7.05/18 Treatment H and H monitoring, Blood products if needed, LR 2L, Question: Can you further specify "post op anemia" per the clinical indicators above? Please document your response in the Progress Notes or Discharge Summary. 1. Acute Blood loss anemia in the post operative period 2. Other, with explanation of clinical findings 3. Clinically undetermined, no explanation for clinical findings Please clarify and document your clinical opinion in the Progress Notes and Discharge Summary including the definitive and/or presumptive diagnosis, (suspected or probable), related to the above clinical findings. Please include clinical findings supporting your diagnosis. In responding to this query, please exercise your independent professional judgment. The purpose of this communication is to more accurately reflect the complexity of your patients condition. The fact that a question is asked does not imply that any particular answer is desired or expected. Thank you for timely response to this clarification. Ericka Villar RN, MSN Clinical Special Population Paraprofessional [phone] [email or web address] This is a duplicate clarification and I apologize I do not know how to delete it. PHYSICIAN RESPONSE: Based on the clinical findings in the record, please respond to the query above on this document as an addendum. Physician Response: If you have questions please contact: Bulb Sorter: Ext: Thank you for your time and cooperation. Clinical Special Population Paraprofessional/Bulb Sorter This is a permanent part of the medical record ERICKA VILLAR Sep 03, 2022 19:08
--- NOTE | 2022-09-03 19:16 | Physician Query Clarification ---
Physician Query-General Query to Physician: The medical record reflects the following clinical evidence: Clinical Indicators: Na 129 on 09/02/2022, Glucose, Na improved to 135 after IV fluids Risk Factor(s): Recent Surgery, DM, Treatment: 2L Lactated Ringers, Lab monitoring, 1. Hypo-osmolality and hyponatremia, 2. Other explanation of clinical findings 3. Unable to determine (no explanation for clinical findings) Please clarify and document your clinical opinion in the progress notes and discharge summary including the definitive and/or presumptive diagnosis, (suspected or probable), related to the above clinical findings. Please include clinical findings supporting your diagnosis. Ericka Villar RN, MSN Clinical Certified Residential Medication Aide [phone] [email or web address] PHYSICIAN RESPONSE: Based on the clinical findings in the record, please respond to the query above on this document as an addendum. Physician Response: If you have questions please contact: Smoke Eater: Ext: Thank you for your time and cooperation. Clinical Certified Residential Medication Aide/Smoke Eater This is a permanent part of the medical record ERICKA VILLAR Sep 03, 2022 19:16
--- NOTE | 2022-09-03 19:16 | Physician Query Clarification ---
Physician Query-General Query to Physician: The medical record reflects the following clinical scenario: The patient, in the setting of History/Risk factors, adenocarcinoma of the right colon status post right colon resection Clinical Findings H/H after surgery 7.11/16 remained .05/18 Treatment H and H monitoring, Blood products if needed, LR 2L, Question: Can you further specify "post op anemia" per the clinical indicators above? Please document your response in the Progress Notes or Discharge Summary. 1. Acute Blood loss anemia in the post operative period 2. Other, with explanation of clinical findings 3. Clinically undetermined, no explanation for clinical findings Please clarify and document your clinical opinion in the Progress Notes and Discharge Summary including the definitive and/or presumptive diagnosis, (suspected or probable), related to the above clinical findings. Please include clinical findings supporting your diagnosis. In responding to this query, please exercise your independent professional judgment. The purpose of this communication is to more accurately reflect the complexity of your patients condition. The fact that a question is asked does not imply that any particular answer is desired or expected. Thank you for timely response to this clarification. Ericka Villar RN, MSN Clinical Shared Services And Outsourcing Manager [phone] [email or web address] PHYSICIAN RESPONSE: Based on the clinical findings in the record, please respond to the query above on this document as an addendum. Physician Response: If you have questions please contact: Pharmacy Sales Representative: Ext: Thank you for your time and cooperation. Clinical Shared Services And Outsourcing Manager/Pharmacy Sales Representative This is a permanent part of the medical record ERICKA VILLAR Sep 03, 2022 19:16
[2022-09-03] MEDS: OPTHALMIC OU SCH (20:48)
[2022-09-03] MEDS: VYZULTA 0.024% OU SCH (20:48)
[2022-09-03] MEDS ORDERED: lisINopril 20 MG (PRINIVIL) TABLET PO SCH (21:00)
[2022-09-03] MEDS ORDERED: NON-FORMULARY MEDICATION 1 EA EA (Pravastatin Sodium 40 MG) PO SCH (21:00)
[2022-09-03] MEDS ORDERED: AtorvaSTATin TABLET 10 MG TABLET PO SCH (21:00)
[2022-09-04 03:28] VITALS: BP 146/73
[2022-09-04 05:09] LABS: BASOPHILS # (AUTO) 0.1 10^3/uL (0.0-0.1); BASOPHILS % (AUTO) 1 % (0-10); EOSINOPHILS # (AUTO) 0.7 10^3/uL (0.0-0.3); EOSINOPHILS % (AUTO) 7 % (0-10); HEMATOCRIT 29 % (35-52); HEMOGLOBIN 8.9 g/dL (11.5-16.0); LYMPHOCYTES # (AUTO) 2.8 10^3/uL (1.0-4.0); LYMPHOCYTES % (AUTO) 30 % (12-44); MEAN CORPUSCULAR HEMOGLOBIN 24 pg (25-34); MEAN CORPUSCULAR HGB CONC 31 g/dL (32-36); MEAN CORPUSCULAR VOLUME 77 fL (80-99); MEAN PLATELET VOLUME 8.1 fL (9.0-12.2); MONOCYTES # (AUTO) 0.9 10^3/uL (0.0-1.0); MONOCYTES % (AUTO) 10 % (0-12); NEUTROPHILS # (AUTO) 4.7 10^3/uL (1.8-7.8); NEUTROPHILS % (AUTO) 52 % (42-75); PLATELET COUNT 338 10^3/uL (130-400); WHITE BLOOD COUNT 9.2 10^3/uL (4.3-11.0)
[2022-09-04 05:29] LABS: ALBUMIN 3.9 GM/DL (3.2-4.5); BILIRUBIN,TOTAL 0.6 MG/DL (0.1-1.0); CREATININE SERUM 0.93 MG/DL (0.60-1.30); POTASSIUM 3.6 MMOL/L (3.6-5.0); TOTAL PROTEIN 7.1 GM/DL (6.4-8.2)
[2022-09-04 05:52] LABS: ELLIPT/OVALOCYTES SLIGHT; EOSINOPHILS % (MANUAL) 9 %; LYMPHOCYTES % (MANUAL) 31 %; MICROCYTOSIS SLIGHT; MONOCYTES % (MANUAL) 4 %; NEUTROPHILS % (MANUAL) 56 %
[2022-09-04 07:17] VITALS: BP 147/74
[2022-09-04] MEDS: DOCUSATE SODIUM 100 MG (COLACE) CAP PO SCH (07:44)
[2022-09-04] MEDS: DORZOLAMIDE/TIMOLOL (COSOPT) 2-0.68% 10 ML BTL OU SCH (08:52)
[2022-09-04] MEDS: ATENOLOL 25 MG (TENORMIN) TAB PO SCH (08:52)
[2022-09-04] MEDS ORDERED: PANTOPRAZOLE 40 MG (PROTONIX) TAB PO SCH (09:00)
[2022-09-04] MEDS ORDERED: NON-FORMULARY MEDICATION 1 EA EA (Ubidecarenone (Coq-10) 100 MG) PO SCH (09:00)
[2022-09-04] MEDS: ENOXAPARIN 40 MG/0.4 ML (LOVENOX) SYR SC SCH (10:37)
--- NOTE | 2022-09-04 10:54 | Progress Note - Surgery ---
KATIE WALTER 09/04/22 1054: Subjective Date Seen by a Provider: Sep 04, 2022 Time Seen by a Provider: 08:15 Subjective/Events-last exam Patient resting comfortably in chair when I came to see her. States she had multiple bowel movements last night and into this morning. Patient states she has been able to tolerate mushed foods w/o issue so far. Patient states that her pain is currently under control. Patient is not on IV fluids or medications. Patient would like to go home today if possible. Review of Systems General: No Chills, No Night Sweats Pulmonary: No Dyspnea, No Cough Cardiovascular: No: Chest Pain, Palpitations Gastrointestinal: No: Nausea, Vomiting, Abdominal Pain Genitourinary: No Dysuria, No Frequency Neurological: No: Weakness, Numbness Objective Exam Vital Signs Date Time Temp Pulse Resp B/P (MAP) Pulse Ox O2 Delivery O2 Flow Rate FiO2 09/04/22 07:53 Room Air 09/04/22 07:17 35.9 79 19 147/74 (98) 97 Room Air 09/04/22 03:28 36.1 64 18 146/73 (97) 99 Room Air 09/03/22 23:13 35.9 63 18 141/70 (93) 98 Room Air 09/03/22 20:00 Room Air 09/03/22 19:07 36.9 69 18 151/70 (97) 96 Room Air 09/03/22 15:51 36.3 67 18 160/65 (96) 99 Room Air 09/03/22 12:00 36.3 65 16 165/80 (108) 97 Room Air I & O 09/04/22 07:00 Intake Total 2810 ml Output Total 1900 ml Balance 910 ml Capillary Refill : Less Than 3 Seconds General Appearance: No Apparent Distress, WD/WN HEENT: PERRL/EOMI Neck: Normal Inspection, Non Tender Respiratory: Chest Non Tender, No Accessory Muscle Use, No Respiratory Distress Cardiovascular: Regular Rate, Rhythm, No JVD, Systolic Murmur (does not radiate to carotids. Carson at all four listening posts ) Peripheral Pulses: 2+ Radial Pulses (R), 2+ Radial Pulses (L) Gastrointestinal: soft, tenderness (minimal incisional tenderness, incisions clean dry intact, minimal skin irritation around incision, patient states it is improving) Extremity: Normal Capillary Refill, Non Tender, No Calf Tenderness Neurologic/Psychiatric: Alert, Oriented x3, Normal Mood/Affect Skin: Normal Color, Warm/Dry Results Lab Laboratory Tests 09/03/22 15:54: Glucometer 82 09/03/22 20:08: Glucometer 108 09/04/22 05:00: White Blood Count 9.2, Red Blood Count 3.79L, Hemoglobin 8.9L, Hematocrit 29L, Mean Corpuscular Volume 77L, Mean Corpuscular Hemoglobin 24L, Mean Corpuscular Hemoglobin Concent 31L, Red Cell Distribution Width 14.1, Platelet Count 338, Mean Platelet Volume 8.1L, Immature Granulocyte % (Auto) 0, Neutrophils (%) (Auto) 52, Lymphocytes (%) (Auto) 30, Monocytes (%) (Auto) 10, Eosinophils (%) (Auto) 7, Basophils (%) (Auto) 1, Neutrophils # (Auto) 4.7, Lymphocytes # (Auto) 2.8, Monocytes # (Auto) 0.9, Eosinophils # (Auto) 0.7H, Basophils # (Auto) 0.1, Immature Granulocyte # (Auto) 0.0, Neutrophils % (Manual) 56, Lymphocytes % (Manual) 31, Monocytes % (Manual) 4, Eosinophils % (Manual) 9, Microcytosis SLIGHT, Elliptocytes SLIGHT, Sodium Level 133L, Potassium Level 3.6, Chloride Level 101, Carbon Dioxide Level 21, Anion Gap 11, Blood Urea Nitrogen 6L, Creatinine 0.93, Estimat Glomerular Filtration Rate 64, BUN/Creatinine Ratio 6, Glucose Level 128H, Calcium Level 10.0, Corrected Calcium 10.1, Total Bilirubin 0.6, Aspartate Amino Transf (AST/SGOT) 21, Alanine Aminotransferase (ALT/SGPT) 12, Alkaline Phosphatase 86, Total Protein 7.1, Albumin 3.9 Microbiology 09/01/22 MRSA Screen - Final, Complete MRSA not isolated Assessment/Plan Assessment/Plan Assessment/Plan s/p lap hand-assisted right colon resection d/t adenocarcinoma POD #2: pain well controlled nausea- controlled Anemia - improving and stable Patient up and ambulating independently. Having bowel movements. Tolerating progressing diet. Patient does have family at home to help her. All medications currently oral. Patient stable to discharge home w/ follow up with Dr. Francois and Dr. Gonzalez. MEMO PROCTOR DO 09/04/22 1335: Subjective Time Seen by a Provider: 12:59 Subjective/Events-last exam Pt seen and examined, no complaints and asking to go home. States she is tolerating diet with minimal pain and having BMs. Review of Systems General: No Chills, No Night Sweats Pulmonary: No Dyspnea, No Cough Cardiovascular: No: Chest Pain, Palpitations Gastrointestinal: No: Nausea, Vomiting, Abdominal Pain Objective Exam General Appearance: No Apparent Distress, Obese HEENT: PERRL/EOMI Respiratory: Lungs Clear, Normal Breath Sounds, No Accessory Muscle Use, No Respiratory Distress Cardiovascular: Regular Rate, Rhythm, Systolic Murmur (does not radiate to carotids. Carson at all four listening posts ) Gastrointestinal: soft, tenderness (minimal incisional tenderness, incisions clean dry intact, minimal skin irritation around incision, patient states it is improving) Neurologic/Psychiatric: Alert, Oriented x3, Normal Mood/Affect Assessment/Plan Assessment/Plan Assessment/Plan s/p lap hand-assisted right colon resection d/t adenocarcinoma POD #2: pain well controlled nausea- controlled Anemia - improving and stable Patient up and ambulating independently. Having bowel movements. Tolerating progressing diet. Patient does have family at home to help her. All medications currently oral. Patient stable to discharge home w/ follow up with Dr. Francois and Dr. Gonzalez. Will D/C IV and D/C home Supervisory-Addendum Brief Verification & Attestation Participated in pt care: history, MDM, physical Personally performed: exam, history, MDM, supervision of care Care discussed with: Medical Student Procedures: n/a Verification and Attestation of Medical Student E/M Service A medical student performed and documented this service. I then reviewed and verified all information documented by the medical student and made modificat ions to such information, when appropriate. I personally performed a physical exam, medical decision making and then discussed any differences between the notes and made revisions as necessary to create one note. Memo Proctor , 09/04/22 , 13:33 KATIE WALTER Sep 04, 2022 10:54 MEMO PROCTOR DO Sep 04, 2022 13:35
[2022-09-04 11:08] VITALS: BP 92/60
[2022-09-04] MEDS ORDERED: ACHD5005 PO ×2 (13:38→14:55)
--- NOTE | 2022-09-04 13:39 | Discharge Inst-Surgical ---
Discharge Inst-Surgical Depart Medication/Instructions New, Converted or Re-Newed RX: Transmitted to Pharmacy Patient Instructions Follow up Appt: Make appointment for 1 week. [phone] Instructions: No lifting greater than 20 pounds. No strenuous activity. May shower in 24 hours, no tub bath or soaking. Use incentive spirometer at home as directed. No Smoking Skin/Wound Care: May remove bandages in am. You need to leave the doyle in place and come to office to have them removed. Symptoms to Report: Appetite Changes, Extremity Discoloration, Numbness/Tingling, Swelling Increased, Bleeding Excessive, Eyesight Changes, Pain Increased, Urine Color Change, Constipation(Persistent), Fever over 101 degree F, Pain/Pressure in chest, Urinating Difficulty, Cough Up/Vomit Blood, Heart Beat Irreg/Pounding, Pain/Pressure in jaw, Cramps in feet or legs, Lightheadedness, Pain/Pressure in shoulder, Diarrhea(Persistent), Memory Changes Suddenly, Questions/Concerns, Weight gain consecutive days, Dizziness/Fainting, Nausea/Vomiting, Shortness of Breath, Weight gain over 2 pounds If questions or concerns contact your physician Or seek help at emergency department. Activity Activity as Tolerated: Yes Activity Instructions: Avoid Stress to Incision Driving Instructions: No Driving/Refer to Dr. Alfredo Discharge Diet: No Restrictions Diet After 24 Hours: Clear Liquid if Nauseous If Any Problems/Questions/Issu: Contact Your Physician, Go to Emergency Room Skin/Wound Care Infection Signs and Symptoms: Increased Redness, Foul Odor of Wound, Increased Drainage, Skin Itchy or Has a Rash, Increased Swelling, Temperature Above 101 F Bathing Instructions: Shower Stitches/Doyle/Dermabond Dis: Care of ANUPAMA Grant DO Sep 04, 2022 13:39
--- NOTE | 2022-09-04 17:08 | Progress Note - Hospitalist ---
Subjective HPI/CC On Admission Date Seen by Provider: Sep 04, 2022 Time Seen by Provider: 10:40 Subjective/Events-last exam She is doing well. She is having bowel movements. She has been eating and drinking. She has been up moving around. Her family is visiting. She feels ready to go home. Objective Exam Vital Signs Vital Signs Date Time Temp Pulse Resp B/P (MAP) Pulse Ox O2 Delivery O2 Flow Rate FiO2 09/04/22 11:08 35.7 59 19 92/60 (71) 100 Room Air 09/01/22 12:09 21 09/01/22 10:40 2.00 Capillary Refill : Less Than 3 Seconds General Appearance: No Apparent Distress, Obese Respiratory: Lungs Clear, No Respiratory Distress Cardiovascular: Regular Rate, Rhythm, No Murmur Gastrointestinal: Normal Bowel Sounds, Soft Extremity: Normal Inspection, No Pedal Edema Neurologic/Psychiatric: Alert, Normal Mood/Affect Results/Procedures Lab Laboratory Tests 09/04/22 05:00 Patient resulted labs reviewed. Assessment/Plan Assessment and Plan Assess & Plan/Chief Complaint Adenocarcinoma of the colon s/p right colectomy Post-op Anemia Hemoglobin improving Ambulating Tolerating diet Bowel function returned Plan for discharge home today Hypertension Diabetes Mellitus Hyperlipidemia Obesity Diagnosis/Problems Diagnosis/Problems (1) Adenocarcinoma of colon Status: Acute (2) S/P right colectomy Status: Acute (3) Postoperative anemia Status: Acute (4) Obesity Status: Chronic RYAN ZAPIEN MD Sep 04, 2022 17:08
== END 2022-09-04 14:30 | disposition home or self-care (01) | DRG 330 ==
LOC: 4TH 06:00 → SURG 06:01 → 4TH 10:55
PROVIDERS: ADMIT Surgery; ATTEND Surgery
PROC: 0DBF0ZZ Excision of Right Large Intestine, Open Approach (ICD-10-PCS; principal; 2022-09-01 08:11)
DX: C18.2 Malignant neoplasm of ascending colon (principal); D62 Acute posthemorrhagic anemia; E78.00 Pure hypercholesterolemia, unspecified; I10 Essential (primary) hypertension; K21.9 Gastro-esophageal reflux disease without esophagitis; M19.90 Unspecified osteoarthritis, unspecified site; E11.9 Type 2 diabetes mellitus without complications; F41.9 Anxiety disorder, unspecified; H40.9 Unspecified glaucoma; E66.9 Obesity, unspecified; R11.0 Nausea; Z68.34 Body mass index [BMI] 34.0-34.9, adult; Z79.82 Long term (current) use of aspirin; Z79.4 Long term (current) use of insulin; Z79.899 Other long term (current) drug therapy
CPT/HCPCS: 36415; 80053; 82947; 83735; 85007; 85014; 85018; 85025; 85027; 87081; 94664